=== PATIENT | female | born 1970 | race African-American/Black ===

== ENCOUNTER 2023-10-31 20:15 | Observation (INO) | payer MEDICARE, SELFPAY ==
--- NOTE | ~2023-10-31 | NM_ITS ---
EXAMINATION: NM hepatobiliary w pharm DATE: 11/02/2023 14:48 INDICATION: Upper abdominal pain, nausea and vomiting COMPARISON: None. TECHNIQUE: 4.3 mCi Tc-99m mebrofenin (Choletec) was administered intravenously. Scintigraphic images of the abdomen were obtained for one hour. 2.1 mcg sincalide (Kinevac) was administered by slow intr avenous infusion, and imaging was continued for 30 minutes. Gallbladder ejection fraction was calcula kirk by the technologist. FINDINGS: There is normal clearance of radiotracer from the blood pool. There is homogeneous tracer uptake by t he liver. Activity progresses to the gallbladder and bowel. The gallbladder ejection fraction (GBEF) is 80% (normal 10-90%, but most patient with gallbladder dysfunction have GBEF < 35% which does over lap with the normal range). IMPRESSION: 1. Normal hepatobiliary scan Reviewed, dictated and finalized at location A.
--- NOTE | ~2023-10-31 | MR_ITS ---
EXAMINATION: MR MRCP wo/w con/w 3D wo ind DATE: 11/01/2023 12:40 INDICATION: Right upper quadrant abdominal pain. TECHNIQUE: Magnetic resonance imaging (MRI) of the abdomen was performed without and with 20 mL Multi Celina intravenous contrast. Sequences included coronal T2-weighted FS FSE, coronal T2-weighted FSE, a xial T1-weighted LAVA, coronal FS FIESTA, axial dual-echo T1-weighted SPGR, coronal lava-FLEX, sagitt al T2-weighted FSE, axial T2-weighted FSE, and axial DWI. Thick-slab T2-weighted FSE images were obta ined for magnetic resonance cholangiopancreatography (MRCP). Maximum intensity projection 3-D reconst ructions of the volumetric data were created by the technologist. Postcontrast sequences included cor onal LAVA-flex and time course of axial T1-weighted LAVA. COMPARISON: Ultrasound 11/01/2023, CT abdomen and pelvis 10/31/2023 FINDINGS: ABDOMEN MRI: The liver and gallbladder are normal. There are cysts in the spleen measuring up to 12 m m. The pancreas and adrenal glands are normal. There are cysts in the kidneys measuring up to 1.9 cm on the left. There is a 9 mm hemorrhagic cyst in left kidney. There are no dilated loops of bowel. Th ere is a small sliding hiatal hernia. ABDOMEN MRCP: The common duct is mildly dilated to 8 mm. No choledocholithiasis. IMPRESSION: 1. Mildly dilated common duct. No choledocholithiasis. 2. Small sliding hiatal hernia. Reviewed, dictated and finalized at location A.
--- NOTE | ~2023-10-31 | US_ITS ---
EXAMINATION: US abdomen limited DATE: 11/01/2023 10:23 INDICATION: Right upper quadrant abdominal pain. TECHNIQUE: Multiple grayscale and Doppler ultrasound images of the abdomen were obtained. COMPARISON: CT abdomen and pelvis 10/31/2023 FINDINGS: The visualized portions of the head, body, and tail of the pancreas are normal. The liver i s normal without focal lesion. There is antegrade flow in main portal vein. The gallbladder is normal in size. No gallstones or gallbladder wall thickening. There is no sonographic Wisdom's sign. The co mmon duct is normal and measures 6 mm. IMPRESSION: 1. Normal right upper quadrant ultrasound. Reviewed, dictated and finalized at location A.
--- NOTE | ~2023-10-31 | CT_ITS ---
EXAMINATION: CT abdomen pelvis w con DATE: 10/31/2023 22:30 INDICATION: abdominal pain TECHNIQUE: Computed tomography (CT) of the abdomen and pelvis was performed with 100 mL Omnipaque-350 intravenous contrast. Automated exposure control and iterative reconstruction technique were employe d. The dose-length product was 1240.71 mGy-cm. COMPARISON: None. FINDINGS: Lower thorax: Unremarkable Liver: Normal. Biliary/Gallbladder: Gallbladder is normal. Mild intrahepatic bile duct dilation. The common bile smith t measures 9 mm the level of the pancreatic head. No obstructing stone or mass detected. Pancreas: No mass or duct dilation. Spleen: Normal. Adrenals:No mass. Kidneys: 11 mm exophytic left lower pole hyperdense lesion. 15 mm slightly hyperdense right lower nona e lesion. No obstructing stone or hydronephrosis. Multiple bilateral simple renal cysts. Multiple sub centimeter hypodensities that are too small to characterize but likely represent cysts. GI tract: Small hiatal hernia. Moderate distal esophageal wall edema. Mild antral wall edema. No smal l or large bowel dilation. Normal appendix. Diverticulosis without diverticulitis. Mesentery/Peritoneum: No ascites, mass, or free air. Retroperitoneum: No mass. Pelvis: Partial obscuration from metallic streak artifact. Empty urinary bladder. Likely surgically absent uterus. Normal bilateral ovaries. Soft Tissues: Asymmetric soft tissue density in the peroneal fat to the right of midline, measuring 3 .3 x 1.9 cm. Bones: No acute osseous finding. Uncomplicated appearing right arthroplasty hardware IMPRESSION: Moderate distal esophagitis. Mild antral gastritis. Mild hepatic duct dilation, with common bile duct dilation to 9 mm. No comparison studies available t o determine stability. No obstructing stone or mass detected. No inflammatory changes in the gallblad erika. Correlate with biliary labs and consider MRCP. Bilateral indeterminate density renal lesions, recommend nonemergent but timely outpatient MRI or CT without and with contrast for further evaluation. These lesions could be evaluated if the above MRCP is performed. Asymmetric soft tissue density in the right peroneal fat, may represent a gynecologic cyst with prote inaceous content, or less likely a rectal mass/abscess. Correlate with symptoms and exam findings. Reviewed, dictated and finalized at location K. IMPRESSION: Moderate distal esophagitis. Mild antral gastritis. Mild hepatic duct dilation, with common bile duct dilation to 9 mm. No comparis on studies available to determine stability. No obstructing stone or mass detec kirk. No inflammatory changes in the gallbladder. Correlate with biliary labs an d consider MRCP. Bilateral indeterminate density renal lesions, recommend nonemergent but timely outpatient MRI or CT without and with contrast for further evaluation. These l esions could be evaluated if the above MRCP is performed. Asymmetric soft tissue density in the right peroneal fat, may represent a gynec ologic cyst with proteinaceous content, or less likely a rectal mass/abscess. C orrelate with symptoms and exam findings.
[2023-10-31 20:22] VITALS: BP 113/71; PULSE 78; RESP 16; TEMP 36.8; O2SAT 99
[2023-10-31 22:03] LABS: Basophils Percent Auto 0.2 % (0.2-1.2); Eosinophils Percent Auto 0.5 % (0-4.4); Hematocrit 38.5 % (37.0-47.0); Immature Granulocyte Absolute 0.02 K/mm3 (0.00-0.031); Immature Granulocyte Percent A 0.3 % (0-0.5); Lymphocytes Absolute Auto 1.54 K/mm3 (0.9-3.2); Lymphocytes Percent Auto 26.6 % (18.3-44.2); Mean Corpuscular HGB Conc 33.8 g/dl (32-36); Mean Corpuscular Volume 88.9 fl (80-100); Mean Platelet Volume 10.1 fl (7.4-10.4); Monocytes Absolute Auto 0.7 K/mm3 (0.1-0.6); Monocytes Percent Auto 11.4 % (2.6-8.5); Neutrophils Absolute Auto 3.5 K/mm3 (1.3-6.7); Platelet Count Result 173 k/mm3 (150-375); Red Blood Count 4.33 M/mm3 (4.2-5.4); Red Cell Distribution Width 13.8 % (11.5-14.5); White Blood Count 5.8 K/mm3 (4.5-10.0)
[2023-10-31 22:12] LABS: Alanine Aminotransferase 29 U/L (6-35); Albumin Level 4.4 g/dL (3.5-5.1); Alkaline Phosphatase 93 U/L (38-126); Anion Gap 7 mmol/L (4-12); Aspartate Amino Transferase 43 U/L (14-36); Bilirubin,Total 0.8 mg/dL (0.2-1.3); Blood Urea Nitrogen 16 mg/dL (7-17); Carbon Dioxide 28 mmol/L (22-30); Chloride 104 mmol/L (98-107); Estimated CRCL calculation 45 ml/min; Estimated Glomerular Filt Rate 44; Glucose 121 mg/dL (65-110); Lipase 114 U/L (23-300); Potassium 4.2 mmol/L (3.4-5.0); Sodium 139 mmol/L (137-145)
[2023-10-31 22:42] LABS: Appearance Urine Turbid (Clear); Bacteria Urine 4+ /hpf; Bilirubin Urine 1+ (Negative); Blood Urine Negative (Negative); Budding Yeast Urine Present /hpf; Color Urine Dark Yellow (Yellow); Glucose Urine UA Negative (Negative); Hyaline Casts Urine Present /lpf; Ketones Urine Trace mg/dL (Negative); Leukocyte Esterase Ur 2+ LEU/UL (Negative); Need Manual Microscopic Reviewed; Nitrate Urine Negative (Negative); Non Pathogenic Casts >20; Protein Urine 1+ mg/dL (Negative); Specific Grav Ur 1.022 (1.001-1.035); Squamous Epithelial Cell Urine Many /hpf (Few); Urobilinogen Urine 0.2 mg/dL (<2.0); WBC Urine 21-50 /hpf (0-3)
[2023-10-31] MEDS: ONDANSETRON INJ 4 MG/2 ML VIAL IV PUSH (22:43)
[2023-10-31] MEDS: SODIUM CHLORIDE 0.9% IV 1,000 ML 999 ML IV CONT (22:43)
[2023-10-31] MEDS: PANTOPRAZOLE SODIUM IV 40 MG VIAL IV PUSH (22:43)
[2023-10-31 22:50] LABS: Add Urine Microscopic? YES
[2023-10-31] MEDS: DICYCLOMINE HCL INJ 20 MG/2 ML VIAL IM (22:58)
[2023-10-31] MEDS: TETANUS,DIPHTHERIA,AC PERTUSSIS ADULT (0.5 ML) BOOSTRIX IM (22:58)
--- NOTE | 2023-10-31 23:04 | PC.NURSE ---
care and report given to HOLLY Novak. all questions answered.
[2023-10-31 23:05] VITALS: PULSE 63; RESP 16; O2SAT 100
--- NOTE | 2023-10-31 23:36 | ED.GENADULT ---
HPI - General Adult General Chief complaint: Abdominal Pain <Donald Bosch MD - Last Filed: 11/01/23 00:15> Stated complaint: abd pain, finger lac <Donald Bosch MD - Last Filed: 11/01/23 00:15> Time Seen by Provider: 10/31/23 21:53 <Donald Bosch MD - Last Filed: 11/01/23 00:15> History of Present Illness HPI narrative: and patient is a 53-year-old female who presents emergency department with chief complaint of right upper quadrant pain and back pain patient reports started this morning reports that it is worse whenever she leans forward patient also states that when she was doing some barbecue she cut her left index finger with a knife. Patient reports prior surgical history significant for a hysterectomy but reports she still has her appendix and gallbladder <Donald Bosch MD - Last Filed: 11/01/23 00:15> Related Data Allergies/adverse reactions: Allergies Allergy/AdvReac Type Severity Reaction Status Date / Time No Known Allergies Allergy Verified 10/31/23 20:33 <Donald Bosch MD - Last Filed: 11/01/23 00:15> Review of Systems Review of Systems: A 10 system review of systems was completed on the patient and is negative except for what is stated in the HPI. Nursing and ancillary documentation was reviewed. <Donald Bosch MD - Last Filed: 11/01/23 00:15> Exam Narrative: GENERAL: Well-appearing, well-nourished, and in no acute distress. HEAD: Normocephalic, atraumatic. EYES: PERRLA and EOMI. ENT: Nares clear, no rhinorrhea or epistaxis. Mucous membranes moist. NECK: Supple. CHEST: Clear to auscultation. No respiratory distress. HEART: Regular rate and rhythm. No murmur heard. Normal peripheral pulses. ABDOMEN: Soft, tenderness to palpation right upper quadrant and epigastric region, nondistended, normal active bowel sounds. EXTREMITIES: Normal range of motion, 1.5 cm laceration on volar aspect of the left index finger. No edema. SKIN: Warm, dry, no rash. NEURO: No focal deficits. Alert and oriented x3. PSYCH: Normal mood and affect. <Donald Bosch MD - Last Filed: 11/01/23 00:15> Course Vital Signs Vital signs: Vital Signs Temperature 98.3 F 10/31/23 20:22 Pulse Rate 78 10/31/23 20:22 Respiratory Rate 16 10/31/23 20:22 Blood Pressure 113/71 10/31/23 20:22 Pulse Oximetry 99 10/31/23 20:22 Oxygen Delivery Room Air 10/31/23 20:22 Temperature 98.3 F 10/31/23 20:22 Pulse Rate 64 11/01/23 00:23 Respiratory Rate 16 11/01/23 00:23 Blood Pressure 109/62 11/01/23 00:03 Pulse Oximetry 94 11/01/23 00:23 Oxygen Delivery Room Air 10/31/23 20:22 <Donald Bosch MD - Last Filed: 11/01/23 00:15> Vital Signs Temperature 98.3 F 10/31/23 20:22 Pulse Rate 78 10/31/23 20:22 Respiratory Rate 16 10/31/23 20:22 Blood Pressure 113/71 10/31/23 20:22 Pulse Oximetry 99 10/31/23 20:22 Oxygen Delivery Room Air 10/31/23 20:22 Temperature 98.3 F 10/31/23 20:22 Pulse Rate 64 11/01/23 00:23 Respiratory Rate 16 11/01/23 00:23 Blood Pressure 109/62 11/01/23 00:03 Pulse Oximetry 94 11/01/23 00:23 Oxygen Delivery Room Air 10/31/23 20:22 <Loni Ryan PA-C - Last Filed: 11/01/23 00:46> Procedures Laceration Laceration 1: Date: 10/31/23 <Loni Ryan PA-C - Last Filed: 11/01/23 00:46> Time: 23:41 <JACEY Cavanaugh Last Filed: 11/01/23 00:46> Site: hand <JACEY Cavanaugh Last Filed: 11/01/23 00:46> Side (If applicable): left <Loni Ryan PA-C - Last Filed: 11/01/23 00:46> Size (cm): 1.5 <JACEY Cavanaugh Last Filed: 11/01/23 00:46> Description: linear <JACEY Cavanaugh Last Filed: 11/01/23 00:46> Depth: simple, single layer <JACEY Cavanaugh Last Filed: 11/01/23 0
[2023-10-31 23:53] VITALS: BP 91/79
[2023-11-01] VITALS (8 sets, daily range): BP systolic 106–116; BP diastolic 56–70; PULSE 55–64; RESP 16–20; TEMP 35.7–36.6; O2SAT 94–100; BMI 38.5
--- NOTE | 2023-11-01 01:04 | ADMGEN ---
This patient, Adryan Torre, was admitted to [facility] Surg Room 302-01. Patient/family oriented to hospital policies and general routines including ID bracelet, bed and alarms, visiting hours, pain management, procedures, bathroom and other care routines, personal items, smoking policy, room service/diet, and visiting hours. Information on how to activate the Rapid Response Team has been discussed. Patient/Family are encouraged to report perceived risks to care and to ask questions if they do not understand what they are told or what they should do.
[2023-11-01] MEDS: SODIUM CHLORIDE 0.9% IV 1,000 ML 125 ML IV CONT (01:49)
[2023-11-01] MEDS: MORPHINE SULFATE (*CRX) 4 MG/ML INJ IV PUSH ×3 (02:38→12:53)
--- NOTE | 2023-11-01 05:33 | PM.IMHP ---
H&P: HPI History of Present Illness Date/Time: 11/01/23 05:33 Chief Complaint: Abdominal pain Narrative: Patient is a 53-year-old female who presented to emergency room complaining of right upper quadrant pain and back pain that started that morning. Patient states the pain has gotten worse there was she leans forward. Patient was also a barbecue vision card for left index finger with a knife which was sutured in the emergency room. Previous history of hysterectomy but still has appendix and no gallbladder surgeries in the past. Patient had initial workup done in the hospital and was recommended to get a MRCP due to possible common duct dilatation. Patient is being admitted for observation for further workup and evaluation patient denied any fevers chills no nausea no vomiting no diarrhea no hematemesis hemoptysis dizziness chest pain shortness for Review of Systems Review of Systems: All systems reviewed & are unremarkable except as noted in HPI and below PMFSH Family History Family History (Updated 11/01/23 @ 01:33 by Judith Mendoza RN) Mother Aneurysm Heart disease Hypertension Gout Father Diabetes mellitus Hypertension Social History Social History Smoking status: Never smoker Alcohol intake: former Substance use: never Do You Feel Safe in your Home?: Yes Lack of Transportation: YES Lack of Food: Never True Current Housing: I Have Housing Concerned About Future Housing: No Difficulty Paying Gas/Electric Bills: No Difficulty Paying for Meds: No Currently Unemployed: No Education: High School Diploma/GED Difficulty w/ Childcare or Family Care: No Spiritual care concerns: No Meds Home Medications and Allergies Home Medications Medication Instructions Recorded Confirmed Type amitriptyline 10 mg tablet 10 mg PO HS 11/01/23 11/01/23 History calcium citrate 200 mg (950 mg) 1,900 mg PO TID 11/01/23 11/01/23 History tablet cetirizine 10 mg tablet (Zyrtec) 10 mg PO DAILY PRN allergies 11/01/23 11/01/23 History cholecalciferol (vitamin D3) 25 25 mcg PO DAILY 11/01/23 11/01/23 History mcg (1,000 unit) tablet cyanocobalamin (vitamin B-12) 50 50 mcg PO TID 11/01/23 11/01/23 History mcg tablet (Vitamin B-12) cyclobenzaprine 10 mg tablet 10 mg PO HS 11/01/23 11/01/23 History diclofenac sodium 1 % topical gel 2 g topical QID 11/01/23 11/01/23 History docusate sodium 100 mg capsule 100 mg PO BID 11/01/23 11/01/23 History (Colace) duloxetine 60 mg capsule,delayed 60 mg PO DAILY 11/01/23 11/01/23 History release (Cymbalta) fluticasone propionate 50 2 spray intranasal DAILY 11/01/23 11/01/23 History mcg/actuation nasal spray,suspension glucosamine sulfate 500 mg tablet 500 mg PO BID 11/01/23 11/01/23 History lidocaine 5 % topical patch 1 patch topical DAILY 11/01/23 11/01/23 History lisinopril 20 mg tablet 20 mg PO DAILY 11/01/23 11/01/23 History magnesium oxide 500 mg capsule 500 mg PO DAILY 11/01/23 11/01/23 History omeprazole 20 mg tablet,delayed 20 mg PO DAILY 11/01/23 11/01/23 History release pravastatin 20 mg tablet 20 mg PO DAILY 11/01/23 11/01/23 History sennosides 8.6 mg capsule (senna) 8.6 mg PO BID 11/01/23 11/01/23 History Allergies Allergy/AdvReac Type Severity Reaction Status Date / Time [place] And Derivatives Allergy Rash Verified 11/01/23 04:43 seafood Allergy Rash Uncoded 11/01/23 01:29 Vital Signs Vital Signs - 24 hr 10/31/23 20:22 10/31/23 23:05 10/31/23 23:53 Temperature 36.8 C Pulse Rate 78 63 Respiratory Rate 16 16 Blood Pressure 113/71 91/79 L Pulse Oximetry 99 100 Oxygen Delivery Room Air 11/01/23 00:03 11/01/23 00:23 11/01/23 01:15 Temperature 36.4 C L Pulse Rate 64 61 Respiratory Rate 16 20 Blood Pressure 109/62 116/70 Pulse Oximetry 94 100 Oxygen Delivery Exam Narrative: GENERAL: Well appearing, no acute distress.
[2023-11-01 06:41] LABS: Hematocrit 35.3 % (37.0-47.0); Hemoglobin 11.8 g/dL (12.0-15.0); Mean Corpuscular HGB Conc 33.4 g/dl (32-36); Mean Corpuscular Hemoglobin 29.9 pg (26-34); Mean Corpuscular Volume 89.6 fl (80-100); Mean Platelet Volume 10.2 fl (7.4-10.4); Platelet Count Result 145 k/mm3 (150-375); Red Blood Count 3.94 M/mm3 (4.2-5.4); Red Cell Distribution Width 13.8 % (11.5-14.5); White Blood Count 4.3 K/mm3 (4.5-10.0)
[2023-11-01 06:49] LABS: Hemoglobin A1C 5.1 % (<5.7)
[2023-11-01 06:52] LABS: Alanine Aminotransferase 27 U/L (6-35); Albumin Level 3.8 g/dL (3.5-5.1); Alkaline Phosphatase 79 U/L (38-126); Anion Gap 5 mmol/L (4-12); Aspartate Amino Transferase 39 U/L (14-36); Bilirubin,Total 0.7 mg/dL (0.2-1.3); Blood Urea Nitrogen 13 mg/dL (7-17); Calcium 8.7 mg/dL (8.4-10.2); Carbon Dioxide 27 mmol/L (22-30); Chloride 107 mmol/L (98-107); Estimated CRCL calculation 68 ml/min; Estimated Glomerular Filt Rate > 60; Glucose 91 mg/dL (65-110); Potassium 4.1 mmol/L (3.4-5.0); Sodium 139 mmol/L (137-145)
[2023-11-01] MEDS: PANTOPRAZOLE SODIUM IV 40 MG VIAL IV PUSH (08:05)
[2023-11-01] MEDS: DULoxetine HCL 60 MG CAPSULE.DR PO (14:20)
[2023-11-01] MEDS: lisinopriL 20 MG TABLET PO (14:20)
[2023-11-01] MEDS: FLUTICASONE PROPIONATE 0.05% NA SPR 16 GM BTL (*BKC) 2 SPRAY NASAL (14:21)
[2023-11-01] MEDS: PRAVASTATIN SODIUM 20 MG TABLET PO (14:21)
--- NOTE | 2023-11-01 16:03 | PC.NURSE ---
Dr Smith notified of patient vomiting after eating and now c/o abd cramping.
--- NOTE | 2023-11-01 16:07 | PM.EVENT ---
Event Note Event Note Event Note: Patient reporting cramping again. Nausea unable to eat. She feels Bentyl help that, ordered Bentyl 20 mg q.6 hours p.r.n.. MRCP demonstrating mildly dilated common duct with no choledocholithiasis and a small sliding hiatal hernia. NPO at midnight, GI consulted.
[2023-11-01] MEDS: DICYCLOMINE HCL INJ 20 MG/2 ML VIAL IM ×2 (16:22→22:42)
[2023-11-01] MEDS: SENNOSIDES 8.6 MG TABLET PO (16:26)
--- NOTE | 2023-11-01 18:07 | WPDGICN ---
Assessment and Plan Assessment and plan (1) Upper abdominal pain: Code(s): R10.10 - Upper abdominal pain, unspecified Status: Acute Assessment and Plan: wonder if could be gastroenteritis, pud, etc new onset noted only mild elevated ast, mild dilated bile duct but MRCP otherwise normal, no need of ERCP will do EGD in the morning, also hida scan to check GB (2) Nausea and vomiting in adult: Code(s): R11.2 - Nausea with vomiting, unspecified Status: Acute Assessment and Plan: improved egd in am (3) Dilated bile duct: Code(s): K83.8 - Other specified diseases of biliary tract Status: Acute Assessment and Plan: probably non significant, no stones in bile duct or lesions ? GB dyskinesia consider surgery consult if persistent symptom or abnormal hida scan GI Consult Note Consult date/time: 11/01/23 18:07 Reason for consult: upper abdominal pain, n/v HPI: Adryan Torre is a 53 year old female with history of HTN, constipation on colace who about 2-3 days had more gas and indigestion with incomplete BM then took gas-x and other GI meds, then yesterday with new onset of upper abdominal pain both sides with radiation to her back, described as Charley horse pain also had episode of nausea and vomiting, worse when leaing forward. CT scan showed mild dilation of CBD, MRCP reviewed mildly dilated common duct. No choledocholithiasis. Small sliding hiatal hernia. Never had EGD, she had colonoscopy about 3-4 years ago. AST 43, other liver enzymes normal including lipase, no wbc. Review of Systems Constitutional: Constitutional: Denies chills Eyes: Eyes: Denies blurry vision ENT: Reports Normal hearing present Cardiovascular: Cardiovascular: Denies chest pain and Denies dyspnea Respiratory: Respiratory: Denies dyspnea Gastrointestinal: Gastrointestinal: Reports no additional gastrointestinal complaints Genitourinary: Genitourinary: Denies dysuria Musculoskeletal: Musculoskeletal: Reports back pain Integumentary/Breasts: Skin/Breast: Denies dry skin Neurologic: Reports Normal hearing present, Denies headache(s) and Denies weakness Psychiatric: Psychiatric: Denies anxiety Hematologic/Lymphatic: Hematologic/Lymphatic: Denies easy bleeding Allergic/Immunologic: Allergic/Immunologic: Denies urticaria PMFSH Past Medical History Medical History (Updated 11/01/23 @ 18:12 by Robert Olson MD) Dilated bile duct Nausea and vomiting in adult Upper abdominal pain Family History Family History (Updated 11/01/23 @ 01:33 by Judith Mendoza RN) Mother Aneurysm Heart disease Hypertension Gout Father Diabetes mellitus Hypertension Social History Social History Smoking status: Never smoker Alcohol intake: former Substance use: never Do You Feel Safe in your Home?: Yes Lack of Transportation: YES Lack of Food: Never True Current Housing: I Have Housing Concerned About Future Housing: No Difficulty Paying Gas/Electric Bills: No Difficulty Paying for Meds: No Currently Unemployed: No Education: High School Diploma/GED Difficulty w/ Childcare or Family Care: No Spiritual care concerns: No Meds Home Medications and Allergies Home Medications Medication Instructions Recorded Confirmed Type amitriptyline 10 mg tablet 10 mg PO HS 11/01/23 11/01/23 History calcium citrate 200 mg (950 mg) 1,900 mg PO TID 11/01/23 11/01/23 History tablet cetirizine 10 mg tablet (Zyrtec) 10 mg PO DAILY PRN allergies 11/01/23 11/01/23 History cholecalciferol (vitamin D3) 25 25 mcg PO DAILY 11/01/23 11/01/23 History mcg (1,000 unit) tablet cyanocobalamin (vitamin B-12) 50 50 mcg PO TID 11/01/23 11/01/23 History mcg tablet (Vitamin B-12) cyclobenzaprine 10 mg tablet 10 mg PO HS 11/01/23 11/01/23 History diclofenac sodium 1 % topical gel 2 g topical QID
[2023-11-01] MEDS: AMITRIPTYLINE HCL 10 MG TABLET PO (21:59)
[2023-11-02] VITALS (7 sets, daily range): BP systolic 111–150; BP diastolic 67–94; PULSE 56–74; RESP 16–22; TEMP 36.1–36.6; O2SAT 92–100
[2023-11-02 07:19] LABS: Hematocrit 38.5 % (37.0-47.0); Hemoglobin 12.5 g/dL (12.0-15.0); Mean Corpuscular HGB Conc 32.5 g/dl (32-36); Mean Corpuscular Hemoglobin 29.9 pg (26-34); Mean Corpuscular Volume 92.1 fl (80-100); Mean Platelet Volume 10.8 fl (7.4-10.4); Platelet Count Result 160 k/mm3 (150-375); Red Blood Count 4.18 M/mm3 (4.2-5.4); Red Cell Distribution Width 13.9 % (11.5-14.5); White Blood Count 4.5 K/mm3 (4.5-10.0)
[2023-11-02] MEDS: LACTATED RINGERS 1,000 ML 150 ML IV CONT (07:23)
--- NOTE | 2023-11-02 07:26 | WPDANESEPPF ---
Anes - Initial Pre Proc Eval Procedure: Operation Date: 11/02/23 12:30 Proposed Procedures p Esophagogastroduodenoscopy - Robert Olson MD Date/Time: 11/02/23 07:26 Surgeon: Jose Enrique Ma MD Pre Op Diagnosis: Abdominal pain Patient Data Age: 53 Gender: F Height: 1.65 m Weight: 105.2 kg Last Vital Signs Temp 36.6 C 11/02/23 04:50 Pulse 56 L 11/02/23 04:50 Resp 18 11/02/23 04:50 BP 125/79 11/02/23 04:50 Pulse Ox 92 11/02/23 04:50 O2 Del Method Room Air 11/01/23 08:45 Allergies Allergy/AdvReac Type Severity Reaction Status Date / Time [place] And Derivatives Allergy Rash Verified 11/02/23 07:25 seafood Allergy Rash Uncoded 11/02/23 07:25 Home Medications Medication Instructions Recorded Confirmed Type amitriptyline 10 mg tablet 10 mg PO HS 11/01/23 11/01/23 History calcium citrate 200 mg (950 mg) 1,900 mg PO TID 11/01/23 11/01/23 History tablet cetirizine 10 mg tablet (Zyrtec) 10 mg PO DAILY PRN allergies 11/01/23 11/01/23 History cholecalciferol (vitamin D3) 25 25 mcg PO DAILY 11/01/23 11/01/23 History mcg (1,000 unit) tablet cyanocobalamin (vitamin B-12) 50 50 mcg PO TID 11/01/23 11/01/23 History mcg tablet (Vitamin B-12) cyclobenzaprine 10 mg tablet 10 mg PO HS 11/01/23 11/01/23 History diclofenac sodium 1 % topical gel 2 g topical QID 11/01/23 11/01/23 History docusate sodium 100 mg capsule 100 mg PO BID 11/01/23 11/01/23 History (Colace) duloxetine 60 mg capsule,delayed 60 mg PO DAILY 11/01/23 11/01/23 History release (Cymbalta) fluticasone propionate 50 2 spray intranasal DAILY 11/01/23 11/01/23 History mcg/actuation nasal spray,suspension glucosamine sulfate 500 mg tablet 500 mg PO BID 11/01/23 11/01/23 History lidocaine 5 % topical patch 1 patch topical DAILY 11/01/23 11/01/23 History lisinopril 20 mg tablet 20 mg PO DAILY 11/01/23 11/01/23 History magnesium oxide 500 mg capsule 500 mg PO DAILY 11/01/23 11/01/23 History omeprazole 20 mg tablet,delayed 20 mg PO DAILY 11/01/23 11/01/23 History release pravastatin 20 mg tablet 20 mg PO DAILY 11/01/23 11/01/23 History sennosides 8.6 mg capsule (senna) 8.6 mg PO BID 11/01/23 11/01/23 History Laboratory Tests 11/02/23 06:08 WBC Pending RBC Pending Hgb Pending Hct Pending MCV Pending MCH Pending MCHC Pending RDW Pending Plt Count Pending MPV Pending Sodium Pending Potassium Pending Chloride Pending Carbon Dioxide Pending Anion Gap Pending BUN Pending Creatinine Pending Estim Creat Clear Calc Pending Estimated GFR Pending Glucose Pending Calcium Pending Magnesium Pending Total Bilirubin Pending AST Pending ALT Pending Alkaline Phosphatase Pending Total Protein Pending Albumin Pending Patient hx anesthesia problems: none Family hx anesthesia problems: none Results Review: All pre-operative results and documents have been reviewed as part of the pre-operative evaluation. [facility] Past Medical History Medical History (Updated 11/02/23 @ 07:30 by Shawn Gunn DO) Dilated bile duct Hyperlipidemia Hypertension Nausea and vomiting in adult Upper abdominal pain Surgical History Surgical History (Updated 11/02/23 @ 07:30 by Shawn Gunn DO) History of thyroidectomy Family History Family History (Updated 11/01/23 @ 01:33 by Judith Mendoza RN) Mother Aneurysm Heart disease Hypertension Gout Father Diabetes mellitus Hypertension Social History Social History Smoking status: Never smoker Alcohol intake: former Substance use: never Do You Feel Safe in your Home?: Yes Lack of Transportation: YES Lack of Food: Never True Current Housing: I Have Housing Concerned About Future Housing:
[2023-11-02 07:29] LABS: Alanine Aminotransferase 26 U/L (6-35); Alkaline Phosphatase 78 U/L (38-126); Anion Gap 5 mmol/L (4-12); Aspartate Amino Transferase 38 U/L (14-36); Bilirubin,Total 0.7 mg/dL (0.2-1.3); Blood Urea Nitrogen 12 mg/dL (7-17); Calcium 8.7 mg/dL (8.4-10.2); Carbon Dioxide 29 mmol/L (22-30); Chloride 108 mmol/L (98-107); Estimated CRCL calculation 83 ml/min; Estimated Glomerular Filt Rate > 60; Glucose 80 mg/dL (65-110); Magnesium 2.1 mg/dL (1.6-2.3); Potassium 4.2 mmol/L (3.4-5.0); Sodium 142 mmol/L (137-145)
--- NOTE | 2023-11-02 08:30 | PM.IMPN ---
Progress Note: A&P Assessment and Plan (1) Right upper quadrant abdominal pain: Code(s): R10.11 - Right upper quadrant pain Status: Acute (2) Laceration of left index finger: Qualifiers: Damage to nail status: without damage Encounter type: initial encounter Foreign body presence: without foreign body Qualified Code(s): S61.211A - Laceration without foreign body of left index finger without damage to nail, initial encounter Code(s): S61.211A - Laceration without foreign body of left index finger without damage to nail, initial encounter Status: Acute Plan Abdominal pain Continue IV hydration. Pain management. Ultrasound right upper quadrant. Normal right upper quadrant ultrasound. MRCP 1. Mildly dilated common duct. No choledocholithiasis. 2. Small sliding hiatal hernia. CT Moderate distal esophagitis. Mild antral gastritis. Continue Protonix. Appreciate GI consultation. GI considers patient has gallbladder dyskinesia. Consult general surgeon for evaluation and treatment HIDA scan is pending Laceration left index finger. Tetanus shot. Wound care. Sutures placed by the ED. Continue to monitor and watch for any infection ESMER cause dehydration serum creatinine 1.5 POA Avoid nephrotoxic drugs. Monitor antihypertensive drug therapy. Avoid NSAIDs. Routine CMP monitoring GFR. Monitor electrolytes especially potassium. Pharmacy does medications. Currently resolved UTI Urine cultures and sensitivity. Continue IV hydration. IV antibiotics Rocephin Monitor CBC CMP monitor for sepsis. Monitor vital signs Monitor for obstructive uropathy and pyelonephritis Pending blood culture, urine culture showed mixed genital floor History of hypertension continue lisinopril. History of hyperlipidemia continue pravastatin History of gastric reflux continue omeprazole History of anxiety continue Cymbalta Subjective Date/time seen: 11/02/23 08:30 Interval history: I saw exam patient today, patient still has upper abdomen pain, patient denies nausea vomiting diarrhea. Patient has a moderate abdomen pain, patient afebrile blood pressure stable, HIDA test is pending Exam Narrative: GENERAL: Well appearing, no acute distress. Obesity HEAD: Normocephalic, atraumatic. NECK: Supple. No adenopathy, no masses. RESPIRATORY: respirations nonlabored. , no rales, wheezing. CARDIOVASCULAR: Regular rate and rhythm without murmurs, . Peripheral pulses 2+ and equal bilaterally. ABDOMINAL: Soft, minimal tender upper abdomen tender, nondistended, no hepatosplenomegaly. Normoactive BS. MUSCULOSKELETAL: l tenderness laceration left index finger status post sutures SKIN: Warm, dry, NEURO: A&O X3. Moves all extremities Objective Data Vital Signs Vital Signs: Vital Signs - 24 hr 11/01/23 08:45 11/01/23 13:53 11/01/23 20:47 Temperature 97.6 F 97.9 F Pulse Rate 58 L 55 L Respiratory Rate 20 18 Blood Pressure 113/64 111/56 L Pulse Oximetry 98 99 98 Oxygen Delivery Room Air 11/02/23 04:50 11/02/23 07:26 11/02/23 07:56 Temperature 97.9 F 97.4 F L Pulse Rate 56 L 64 74 Respiratory Rate 18 16 21 H Blood Pressure 125/79 134/80 123/69 Pulse Oximetry 92 100 100 Oxygen Delivery Room Air Room Air 11/02/23 08:06 11/02/23 08:16 Temperature Pulse Rate 68 72 Respiratory Rate 20 22 H Blood Pressure 122/74 114/67 Pulse Oximetry 100 100 Oxygen Delivery Room Air Room Air Intake/Output Intake/Output: Intake & Output 10/30/23 10/31/23 11/01/23 11/02/23 23:59 23:59 23:59 23:59 Intake Total 1290 50 Balance 1290 50 Meds/Results Medications: Active Medications Generic Name Dose Route Start Last Admin Trade Name Freq PRN Reason Stop Dose Admin Amitriptyline HCl 10 mg 11/01/23 21:00 11/01/23 21:59 Amitriptyline Hcl 10 Mg Tablet PO 10 mg HS ANIYAH Administration Calcium Carbonate 500 mg 11/01
[2023-11-02] MEDS: SENNOSIDES 8.6 MG TABLET PO (09:21)
[2023-11-02] MEDS: CALCIUM CARBONATE (OSCAL) 500 MG TABLET PO (09:21)
[2023-11-02] MEDS: PANTOPRAZOLE 40 MG TABLET PO (09:21)
[2023-11-02] MEDS: DULoxetine HCL 60 MG CAPSULE.DR PO (09:21)
[2023-11-02] MEDS: lisinopriL 20 MG TABLET PO (09:21)
[2023-11-02] MEDS: PRAVASTATIN SODIUM 20 MG TABLET PO (09:21)
[2023-11-02] MEDS: FLUTICASONE PROPIONATE 0.05% NA SPR 16 GM BTL (*BKC) 2 SPRAY NASAL (09:22)
--- NOTE | 2023-11-02 11:06 | PM.CNGS ---
Assessment and Plan Assessment and plan (1) Upper abdominal pain: Code(s): R10.10 - Upper abdominal pain, unspecified Status: Acute Assessment and Plan: The patient had an acute episode of upper abdominal pain that brought her into the ER two days ago. EGD showed ulcerative gastritis, which certainly could explain her abdominal pain. She is being appropriately treated for this with PPI therapy and should avoid any NSAIDs. I have reviewed all of her imaging, including her CT scan, ultrasound, and MRCP, which all show a normal gallbladder with no gallstones. Her abdominal pain seems to be improving with the current treatment and she was able to tolerate breakfast this morning. GI has ordered a HIDA scan with possible concern for biliary dyskinesia. Will wait for the HIDA scan results. If normal, she can advance her diet and be discharged home with continued treatment of the ulcerative gastritis. If there is evidence of biliary dyskinesia or chronic cholecystitis, then her diet can be advanced and she could be discharged on a low fat diet and follow-up with Dr. Arrieta as an outpatient. (2) Dilated bile duct: Code(s): K83.8 - Other specified diseases of biliary tract Status: Acute Assessment and Plan: Dilated common bile duct on CT measuring [address] and ultrasound showed no cholelithiasis or any abnormalities of the gallbladder. MRCP still showed a mildly dilated common bile duct without choledocholithiasis. This could be an incidental finding. LFTs are all normal. GI following. Plan I have discussed the patient's case and plan of care with Dr. Arrieta. History of Present Illness Consult details Consult date: 11/02/23 Reason for consult: other (Abdominal pain) Requesting physician: Jeff Velasco MD Narrative: This is a 53-year-old woman with a history of hypertension and hyperlipidemia, who we have been asked to see in surgical consultation for abdominal pain. She presented to the ER 2 days ago with complaints of upper abdominal pain radiating to her back. She reports having some mid upper back pain a few days prior to coming into the hospital. Two days ago, this pain started radiating to her upper abdomen around and under her ribs. Throughout the day, the pain became more sever and changed to a sharp, stabbing pain. She had only had a few small bites of food through the day and no meals prior to her abdominal pain. She denies every having similar symptoms in the past. Due to her progressive pain, she came into the ER for evaluation. Labs on admission showed a normal WBC count and essentially normal LFTs with total bilirubin 0.8, AST 43, ALT 29, alk phos 93. Lipase normal. CT scan of the abdomen and pelvis showed moderate distal esophagitis, mild antral gastritis, mild hepatic duct dilatation with common bile duct dilation to 9 mm. No obstructing stone or mass detected, no inflammatory changes in the gallbladder, no CT evidence of gallstones. Also incidentally noted is bilateral indeterminate renal lesions, asymmetric soft tissue density in the right peroneal fat, and 3 small splenic hypodensities. Right upper quadrant abdominal ultrasound was normal. Gallbladder appears normal with no gallstones and common bile duct measured 6 mm. She was admitted to the hospitalist service. She had an MRCP that showed a mildly dilated common duct, no choledocholithiasis, and a small sliding hiatal hernia. GI has been consulted and she was taken for an EGD today that showed ulcerative gastritis and a small 2 cm hiatal hernia. She is currently on a PPI and recommended to avoid NSAIDs. GI has also ordered a HIDA scan for today. She is now seen on the medical floor. Her abdominal pain has improved. She actually ate breakfast this morning and tolerated this well. Review of Systems Review of Systems: All systems reviewed & are unremarkable except as noted in HPI and below PMFSH Past Medical History Medical History (Review
--- NOTE | 2023-11-02 16:37 | PM.DS ---
DS: Admitting Diagnosis Discharge Date 11/01 Admitting Diagnosis (1) Right upper quadrant abdominal pain: Code(s): R10.11 - Right upper quadrant pain Status: Acute (2) Laceration of left index finger: Qualifiers: Damage to nail status: without damage Encounter type: initial encounter Foreign body presence: without foreign body Qualified Code(s): S61.211A - Laceration without foreign body of left index finger without damage to nail, initial encounter Code(s): S61.211A - Laceration without foreign body of left index finger without damage to nail, initial encounter Status: Acute DS: Discharge Diagnosis Discharge Diagnosis (1) Right upper quadrant abdominal pain: Code(s): R10.11 - Right upper quadrant pain Status: Acute (2) Laceration of left index finger: Qualifiers: Damage to nail status: without damage Encounter type: initial encounter Foreign body presence: without foreign body Qualified Code(s): S61.211A - Laceration without foreign body of left index finger without damage to nail, initial encounter Code(s): S61.211A - Laceration without foreign body of left index finger without damage to nail, initial encounter Status: Acute DS: Summary Hospital Course Hospital Course: Per H&P, Patient is a 53-year-old female who presented to emergency room complaining of right upper quadrant pain and back pain that started that morning. Patient states the pain has gotten worse there was she leans forward. Patient was also a barbecue vision card for left index finger with a knife which was sutured in the emergency room. Previous history of hysterectomy but still has appendix and no gallbladder surgeries in the past. Patient had initial workup done in the hospital and was recommended to get a MRCP due to possible common duct dilatation. Patient is being admitted for observation for further workup and evaluation patient denied any fevers chills no nausea no vomiting no diarrhea no hematemesis hemoptysis dizziness chest pain The following med issues have been addressed during hospitalization Abdominal pain Continue IV hydration. Pain management. Ultrasound right upper quadrant. Normal right upper quadrant ultrasound. MRCP 1. Mildly dilated common duct. No choledocholithiasis. 2. Small sliding hiatal hernia. CT Moderate distal esophagitis. Mild antral gastritis. Continue Protonix. Appreciate GI consultation. GI considers patient has gallbladder dyskinesia. Consult general surgeon for evaluation and treatment HIDA scan : Normal hepatobiliary scan EGD found out the patient has gastritis and hiatal hernia start Protonix 40 mg b.i.d. p.o. and Carafate 1 g q.i.d. p.o. Laceration left index finger. Tetanus shot. Wound care. Sutures placed by the ED. pt need to see PCP in one wk for follow up ESMER cause dehydration serum creatinine 1.5 POA Avoid nephrotoxic drugs. Monitor antihypertensive drug therapy. Avoid NSAIDs. Routine CMP monitoring GFR. Monitor electrolytes especially potassium. Pharmacy does medications. Currently resolved UTI Urine cultures and sensitivity. Continue IV hydration. IV antibiotics Rocephin Monitor CBC CMP monitor for sepsis. Monitor vital signs Monitor for obstructive uropathy and pyelonephritis Pending blood culture, urine culture showed mixed genital floor change to cefdinir p.o. History of hypertension continue lisinopril. History of hyperlipidemia continue pravastatin History of anxiety continue Cymbalta Time Spent with Patient Time attestation: Total time spent providing and/or coordinating discharge services: Exam Narrative: GENERAL: Well appearing, no acute distress. Obesity HEAD: Normocephalic, atraumatic. NECK: Supple. No adenopathy, no masses. RESPIRATORY: respirations nonlabored. , no rales, wheezing. CARDIOVASCULAR: Regular rate and rhythm witho
== END 2023-11-02 17:45 | disposition home or self-care (01) ==
LOC: ANHED 11-01 00:15 → ANH3MEDSUR 11-01 01:45
PROVIDERS: Internal Medicine Gastroenterology; Physician Assistant; Admitting Provider Internal Medicine; Emergency Provider Emergency Medicine; Visit Provider Hospitalist
PROC: 0DJ08ZZ Inspection of Upper Intestinal Tract, Via Natural or Artificial Opening Endoscopic (ICD-10-PCS; CPT 43235; principal; 2023-11-02 12:30)
DX: K29.70 Gastritis, unspecified, without bleeding (principal); S61.211A Laceration without foreign body of left index finger without damage to nail, initial encounter; N17.9 Acute kidney failure, unspecified; N39.0 Urinary tract infection, site not specified; E86.0 Dehydration; K44.9 Diaphragmatic hernia without obstruction or gangrene; K83.8 Other specified diseases of biliary tract; I10 Essential (primary) hypertension; E78.5 Hyperlipidemia, unspecified; K21.9 Gastro-esophageal reflux disease without esophagitis; F41.9 Anxiety disorder, unspecified; E66.9 Obesity, unspecified; Z68.38 Body mass index [BMI] 38.0-38.9, adult; Z79.899 Other long term (current) drug therapy; Z23 Encounter for immunization
CPT/HCPCS: 43239; 12001; 36415; 74177; 74183; 76376; 76705; 78227; 80053; 81001; 83036; 83690; 83735; 85025; 85027; 87040; 87086; 87088; 88305; 90471; 90715; 96361; 96372; 96374; 96375; 96376; 99285; A9270; A9537; A9577; C9113; G0378; J0500; J0696; J1596; J2270; J2405; J2704; J2805; J7030; J7120; Q9967

== ENCOUNTER 2024-02-21 09:05 | Day surgery (SDC) | payer MEDICARE, MEDICAID, SELFPAY ==
[2023-11-10 10:11] VITALS: BMI 38.5
--- NOTE | 2024-02-20 15:36 | WPDANESEPPF ---
Anes - Initial Pre Proc Eval Procedure: Operation Date: 02/21/24 11:30 Proposed Procedures p Esophagogastroduodenoscopy - Glen Hernandez MD Date/Time: 02/20/24 15:36 Surgeon: Glen Hernandez MD Pre Op Diagnosis: Gastric Ulcer Patient Data Age: 53 Gender: F Height: 1.65 m Weight: 104.843 kg Allergies Allergy/AdvReac Type Severity Reaction Status Date / Time [place] And Derivatives Allergy Rash Verified 02/21/24 10:28 seafood Allergy Rash Uncoded 02/21/24 10:28 Home Medications Medication Instructions Recorded Confirmed Type amitriptyline 10 mg tablet 10 mg PO HS 11/01/23 02/21/24 History calcium citrate 1,900 mg PO TID 11/01/23 02/21/24 History cetirizine 10 mg tablet (Zyrtec) 10 mg PO DAILY PRN allergies 11/01/23 02/21/24 History cholecalciferol (vitamin D3) 25 25 mcg PO DAILY 11/01/23 02/21/24 History mcg (1,000 unit) tablet cyanocobalamin (vitamin B-12) 50 50 mcg PO TID 11/01/23 02/21/24 History mcg tablet (Vitamin B-12) cyclobenzaprine 10 mg tablet 10 mg PO HS 11/01/23 02/21/24 History diclofenac sodium 1 % topical gel 2 g topical QID 11/01/23 02/21/24 History docusate sodium 100 mg capsule 100 mg PO BID 11/01/23 02/21/24 History (Colace) duloxetine 60 mg capsule,delayed 60 mg PO DAILY 11/01/23 02/21/24 History release (Cymbalta) fluticasone propionate 50 2 spray intranasal DAILY 11/01/23 02/21/24 History mcg/actuation nasal spray,suspension glucosamine sulfate 500 mg tablet 500 mg PO BID 11/01/23 02/21/24 History lidocaine 5 % topical patch 1 patch topical DAILY 11/01/23 02/21/24 History lisinopril 20 mg tablet 20 mg PO DAILY 11/01/23 02/21/24 History magnesium oxide 500 mg capsule 500 mg PO DAILY 11/01/23 02/21/24 History pravastatin 20 mg tablet 20 mg PO DAILY 11/01/23 02/21/24 History sennosides 8.6 mg capsule (senna) 8.6 mg PO BID 11/01/23 02/21/24 History cefdinir 300 mg capsule 300 mg PO Q12H #6 caps 11/02/23 02/21/24 Rx pantoprazole 40 mg tablet,delayed 40 mg PO Q12HR #60 tabs 11/02/23 02/21/24 Rx release sucralfate 1 gram tablet (Carafate) 1 g PO QID #120 tabs 11/02/23 02/21/24 Rx Patient hx anesthesia problems: none Family hx anesthesia problems: none Results Review: All pre-operative results and documents have been reviewed as part of the pre-operative evaluation. [facility] Past Medical History Medical History (Updated 02/21/24 @ 10:39 by Glen Hernandez MD) Anxiety Hyperlipidemia Hypertension Hypothyroidism RAFIA (obstructive sleep apnea) Surgical History Surgical History History of partial hysterectomy History of thyroidectomy Family History Family History Mother Aneurysm Heart disease Hypertension Gout Father Diabetes mellitus Hypertension Social History Social History Smoking status: Never smoker Alcohol intake: former Substance use: never Substance use type: does not use Do You Feel Safe in your Home?: Yes Lack of Transportation: YES Lack of Food: Never True Current Housing: I Have Housing Concerned About Future Housing: No Difficulty Paying Gas/Electric Bills: No Difficulty Paying for Meds: No Currently Unemployed: No Education: High School Diploma/GED Difficulty w/ Childcare or Family Care: No Spiritual care concerns: No Anes - Eval Final PreProcedure Day of Procedure 02/20/24 15:36 Patient weight: obese Heart: regular rate and rhythm Lungs: clear to auscultation Airway: Mallampati scale class II Neurological: alert and oriented Last oral intake: >/= 8 hours ASA classification: III Emergent: no Anesthetic plan: proceed Anesthesia type and monitoring: general GIVS and standard monitoring Results Review: All pre-operative results and documents have been reviewed as part of the pre-operative evaluation. Informed Consent:
[2024-02-21 10:29] VITALS: BP 117/84; PULSE 77; RESP 16; TEMP 36.4; O2SAT 100
[2024-02-21] MEDS: LACTATED RINGERS 1,000 ML 150 ML IV CONT (10:37)
--- NOTE | 2024-02-21 10:37 | PM.HPGS ---
History of Present Illness History of Present Illness Consent: Risks, benefits, and alternatives have been discussed and questions answered. Patient agrees to proceed with procedure. Chief complaint: Gastric Ulcer Narrative: Adryan Torre is a 53 year old female referred for follow-up EGD. Patient has a history of gastric ulcer. This was identified at the time of hospitalization in she year. At since that time she has been maintained on omeprazole 20mg p.o. daily. Previously she was prescribed ibuprofen and diclofenac gel. Is a been advised to limit these medications and start Tylenol for pain control. family history noncontributory. She still notes occasional abdominal pain but much improved from previous hospital stay. Review of Systems Review of Systems: All systems reviewed & are unremarkable except as noted in HPI and below PMFSH Past Medical History Medical History (Updated 02/21/24 @ 10:39 by Glen Hernandez MD) Anxiety Hyperlipidemia Hypertension Hypothyroidism RAFIA (obstructive sleep apnea) Surgical History Surgical History History of partial hysterectomy History of thyroidectomy Family History Family History Mother Aneurysm Heart disease Hypertension Gout Father Diabetes mellitus Hypertension Social History Social History Smoking status: Never smoker Alcohol intake: former Substance use: never Substance use type: does not use Do You Feel Safe in your Home?: Yes Lack of Transportation: YES Lack of Food: Never True Current Housing: I Have Housing Concerned About Future Housing: No Difficulty Paying Gas/Electric Bills: No Difficulty Paying for Meds: No Currently Unemployed: No Education: High School Diploma/GED Difficulty w/ Childcare or Family Care: No Spiritual care concerns: No Meds Home Medications and Allergies Home Medications Medication Instructions Recorded Confirmed Type amitriptyline 10 mg tablet 10 mg PO HS 11/01/23 02/21/24 History calcium citrate 1,900 mg PO TID 11/01/23 02/21/24 History cetirizine 10 mg tablet (Zyrtec) 10 mg PO DAILY PRN allergies 11/01/23 02/21/24 History cholecalciferol (vitamin D3) 25 25 mcg PO DAILY 11/01/23 02/21/24 History mcg (1,000 unit) tablet cyanocobalamin (vitamin B-12) 50 50 mcg PO TID 11/01/23 02/21/24 History mcg tablet (Vitamin B-12) cyclobenzaprine 10 mg tablet 10 mg PO HS 11/01/23 02/21/24 History diclofenac sodium 1 % topical gel 2 g topical QID 11/01/23 02/21/24 History docusate sodium 100 mg capsule 100 mg PO BID 11/01/23 02/21/24 History (Colace) duloxetine 60 mg capsule,delayed 60 mg PO DAILY 11/01/23 02/21/24 History release (Cymbalta) fluticasone propionate 50 2 spray intranasal DAILY 11/01/23 02/21/24 History mcg/actuation nasal spray,suspension glucosamine sulfate 500 mg tablet 500 mg PO BID 11/01/23 02/21/24 History lidocaine 5 % topical patch 1 patch topical DAILY 11/01/23 02/21/24 History lisinopril 20 mg tablet 20 mg PO DAILY 11/01/23 02/21/24 History magnesium oxide 500 mg capsule 500 mg PO DAILY 11/01/23 02/21/24 History pravastatin 20 mg tablet 20 mg PO DAILY 11/01/23 02/21/24 History sennosides 8.6 mg capsule (senna) 8.6 mg PO BID 11/01/23 02/21/24 History cefdinir 300 mg capsule 300 mg PO Q12H #6 caps 11/02/23 02/21/24 Rx pantoprazole 40 mg tablet,delayed 40 mg PO Q12HR #60 tabs 11/02/23 02/21/24 Rx release sucralfate 1 gram tablet (Carafate) 1 g PO QID #120 tabs 11/02/23 02/21/24 Rx Allergies Allergy/AdvReac Type Severity Reaction Status Date / Time [place] And Derivatives Allergy Rash Verified 02/21/24 10:28 seafood Allergy Rash Uncoded 02/21/24 10:28 Vital Signs Vital Signs - 24 hr 02/21/24 10:29 Temperature 97.6 F Pulse Rate 77 Respiratory Rate 16 Blood Pressure 117/84 Pulse
[2024-02-21 11:59] VITALS: BP 122/82; PULSE 65; RESP 18; O2SAT 100
[2024-02-21 12:09] VITALS: BP 124/91; PULSE 69; RESP 18; O2SAT 100
[2024-02-21 12:19] VITALS: BP 140/90; PULSE 68; RESP 20; O2SAT 100
--- NOTE | 2024-02-21 12:55 | WPDANESPN ---
Anes - Prog Note Post-Op Date/Time: 02/21/24 12:55 Cardiovascular status: normal Respiratory status: normal Airway patency: baseline Mental status: baseline Post-Op hydration status: normal Vital Signs: Last Vital Signs Temp 36.4 C 02/21/24 10:29 Pulse 68 02/21/24 12:19 Resp 20 02/21/24 12:19 BP 140/90 02/21/24 12:19 Pulse Ox 100 02/21/24 12:19 O2 Del Method Room Air 02/21/24 12:19 Pain Score (VAS): 0 I/O: Intake & Output 02/20/24 02/21/24 02/21/24 23:59 07:59 15:59 Intake Total 250 Balance 250 Post-procedural complaints: none Patient Feedback: Patient satisfied with anesthetic care. Other Findings: Patient vital signs back to baseline. Patient denies nausea and vomiting. Patient's pain under control. Patient OK for discharge.
== END 2024-02-21 12:28 | disposition home or self-care (01) ==
PROVIDERS: Visit Provider Internal Medicine Gastroenterology
PROC: 0DJ08ZZ Inspection of Upper Intestinal Tract, Via Natural or Artificial Opening Endoscopic (ICD-10-PCS; CPT 43235; principal; 2024-02-21 11:30)
DX: Z87.11 Personal history of peptic ulcer disease (principal); K44.9 Diaphragmatic hernia without obstruction or gangrene
CPT/HCPCS: 43239

== ENCOUNTER 2024-04-23 22:16 | Emergency (ER) | payer MEDICARE, MEDICAID, SELFPAY ==
--- NOTE | ~2024-04-23 | XR_ITS ---
Clinical Indication: Cold symptoms PA and lateral views of the chest: Comparison: None Findings: The lungs are clear, without evidence of focal consolidation or pleural effusion. Cardiome diastinal silhouette is within normal limits. Bones and soft tissues are unremarkable. Impression: Normal chest. Reviewed, dictated and finalized at location . [employer] Impression: Normal chest.
[2024-04-23 23:00] VITALS: BP 177/104; PULSE 73; RESP 17; TEMP 36.3; O2SAT 99
[2024-04-24 00:18] VITALS: RESP 18; O2SAT 100
[2024-04-24 01:00] LABS: Influenza A QL RT-PCR Negative (Negative); Influenza B QL RT-PCR Negative (Negative); RSV RNA, RT-PCR Negative (Negative); SARS-CoV-2 RNA PCR Positive (Negative)
[2024-04-24 01:25] VITALS: BP 163/106; PULSE 63; RESP 18; O2SAT 98
--- NOTE | 2024-04-24 01:26 | ED.RECABL ---
HPI - Recheck/Abnormal Lab/Rx General Chief Complaint: Recheck/Abnormal Lab/Rx Stated Complaint: Elevated BP Time Seen by Provider: 04/24/24 00:44 Source: patient Mode of arrival: ambulatory Limitations: no limitations History of Present Illness HPI narrative: Patient presents with complaint of flu-like symptoms started Thanksgiving. She was recently diagnosed with pneumonia At an urgent care and prescribed both Amox-clavanulate as well as azithromycin in addition to a nasal spray. She was also recently exposed to COVID. Shortly after taking the antibiotic she developed headache which she rates as 8/10 in severity. Blood pressure has also been elevated. At baseline she is on lisinopril for this and she is also taking rosuvastatin. She had been having body aches for a few days but states this is better. Tonight she feels nauseated but has not vomited. Denies any diarrhea. Related Data Home Medications ?Medication ?Instructions ?Recorded ?Confirmed ?Last Taken ?Type amitriptyline 10 mg tablet 10 mg PO HS 11/01/23 02/21/24 Unknown History calcium citrate 1,900 mg PO TID 11/01/23 02/21/24 Unknown History cetirizine 10 mg tablet (Zyrtec) 10 mg PO DAILY PRN allergies 11/01/23 02/21/24 Unknown History cholecalciferol (vitamin D3) 25 25 mcg PO DAILY 11/01/23 02/21/24 Unknown History mcg (1,000 unit) tablet cyanocobalamin (vitamin B-12) 50 50 mcg PO TID 11/01/23 02/21/24 Unknown History mcg tablet (Vitamin B-12) cyclobenzaprine 10 mg tablet 10 mg PO HS 11/01/23 02/21/24 Unknown History diclofenac sodium 1 % topical gel 2 g topical QID 11/01/23 02/21/24 Unknown History docusate sodium 100 mg capsule 100 mg PO BID 11/01/23 02/21/24 Unknown History (Colace) duloxetine 60 mg capsule,delayed 60 mg PO DAILY 11/01/23 02/21/24 Unknown History release (Cymbalta) fluticasone propionate 50 2 spray intranasal DAILY 11/01/23 02/21/24 Unknown History mcg/actuation nasal spray,suspension glucosamine sulfate 500 mg tablet 500 mg PO BID 11/01/23 02/21/24 Unknown History lidocaine 5 % topical patch 1 patch topical DAILY 11/01/23 02/21/24 Unknown History lisinopril 20 mg tablet 20 mg PO DAILY 11/01/23 02/21/24 Unknown History magnesium oxide 500 mg capsule 500 mg PO DAILY 11/01/23 02/21/24 Unknown History pravastatin 20 mg tablet 20 mg PO DAILY 11/01/23 02/21/24 Unknown History sennosides 8.6 mg capsule (senna) 8.6 mg PO BID 11/01/23 02/21/24 Unknown History Allergies Allergy/AdvReac Type Severity Reaction Status Date / Time [place] And Derivatives Allergy Rash Verified 04/23/24 23:06 seafood Allergy Rash Uncoded 04/23/24 23:06 ON LICENSE OF [facility] Past Medical History Medical History Anxiety Hypothyroidism RAFIA (obstructive sleep apnea) Hypertension Hyperlipidemia Surgical History Surgical History History of partial hysterectomy History of thyroidectomy Family History Family History Mother Aneurysm Heart disease Hypertension Gout Father Diabetes mellitus Hypertension Social History Social History Smoking status: Never smoker Alcohol intake: former Substance use: never Substance use type: does not use Do You Feel Safe in your Home?: Yes Lack of Transportation: YES Lack of Food: Never True Current Housing: I Have Housing Concerned About Future Housing: No Difficulty Paying Gas/Electric Bills: No Difficulty Paying for Meds: No Currently Unemployed: No Education: High School Diploma/GED Difficulty w/ Childcare or Family Care: No Spiritual care concerns: No Exam Narrative: GENERAL: Well-appearing, well-nourished, and in no acute distress. HEAD: Normocephalic, atraumatic. EYES: Non injected, non icteric ENT: Nares clear, no rhinorrhea or epistaxis. NECK: Supple. CHEST: Speaking in full sentences. No respiratory distress. HEART: Regular rate and rhythm. . ABDOMEN: Soft, nondistended. EXTREMITIES: Normal range of motion. No lower extremity edema. SKIN: Warm, dry, no rash. NEURO: No focal deficits. Alert and oriented x3. speaks clearly aphasia or dysarthria. Sensation intact to gross touch throughout. PSYCH: Normal mood and affect. Course Vital Signs Vital signs: Vital Signs Temperature 97.3 F L 04/23/24 23:00 Pulse Rate 73 04/23/24 23:00 Respiratory Rate 17 04/23/24 23:00 Blood Pressure 177/104 H 04/23/24 23:00 Pulse Oximetry 99 04/23/24 23:00 Oxygen Delivery Room Air 04/23/24 23:00 Temperature 97.3 F L 04/23/24 23:00 Pulse Rate 68 04/24/24 02:50 Respiratory Rate 15 04/24/24 02:50 Blood Pressure 166/99 H 04/24/24 02:50 Pulse Oximetry 96 04/24/24 02:50 Oxygen Delivery Room Air 04/23/24 23:00 MDM - Recheck/Abnormal Lab/Rx MDM Narrative Medical decision making narrative: Patient presents complaint of a headache. She has been having flu-like symptoms and was diagnosed with pneumonia and a urgent care and prescribed Amoxicillin-clavanulate and azithromycin. after this she started developing headache that she rates 8/10 severity and associated with nausea but no vomiting. She was also recently exposed to COVID. In the emergency department she is afebrile with vital signs notable for hypertension. She has a underlying diagnosis of hypertension and for this she takes lisinopril. She does test positive for COVID. I suspect her headache is secondary to this though there is some report that the combination of Augmentin and azithromycin can cause headache symptoms. Patient be given a headache cocktail of medications to treat her headache and nausea. Patient reassessed approximately 2:30 a.m.. She is sleepy but protecting her airway. When awoken, she does state that her headache has resolved. Will give 1 time dose of dexamethasone as this was shown to reduce the chance of a bounce-back/rebound headache. Given prescriptions for [id number] analgesic medications advised follow-up with primary care physician. Provided referral for 1 if needed. she was also advised that she could discontinue taking the Augmentin if desired as monotherapy with azithromycin alone should be sufficient to cover a pneumonia. However, even antibiotic is likely unnecessary as her underlying symptoms might of been due to COVID which she tested positive for today and thus no role for antibiotics. Lab Data Attestation: I reviewed the patient's lab results. Labs: Lab Results 04/24/24 Range/Units 00:16 Influenza A (RT-PCR) Negative (Negative) Influenza B (RT-PCR) Negative (Negative) RSV (RT-PCR) Negative (Negative) SARS-CoV-2 RNA (RT-PCR) Positive A (Negative) Imaging Data Attestation: I personally reviewed and interpreted this imaging study as follows: My impression: Mild haziness at the periphery though symmetrically so this likely due to body habitus. No loss of costophrenic angle. No acute intrathoracic process my independent interpretation. Discharge Plan Discharge Clinical Impression: COVID-19, Headache, Hypertension Patient Disposition: Home, Self-Care Condition: Stable Instructions: Antibiotic Form, Acute Headache (ED), Hypertension (ED), COVID-19 (Coronavirus Disease 2019) (ED), How to Recover from COVID-19 at Home (ED) Additional Instructions: You did test positive for COVID. This likely explains the symptom of the headache you have been having. You do not need to take both antibiotics you were prescribed. Neither treat covid which is a virus, but if you felt strongly about taking one, could discontinue tohe amoxicillin-clavanulate. FOllow up with your primary care physician. If you do not have 1 the name of a doctor is listed below. Return to the emergency department with any new or worsening symptoms. Acetaminophen/Tylenol (maximum 4000 mg per day) is safe to take with NSAIDs (ibuprofen/Motrin) for pain relief. recommend continue to take your blood pressure medication and other medication as directed. The high blood pressure your currently experiencing is likely secondary to pain and feeling unwell but you can follow-up with your primary care physician about this to see if in the future you need to be on another blood pressure regimen. Patient Language: Com[place] Prescriptions: New ibuprofen 600 mg tablet 600 mg PO TID PRN (Reason: pain) Qty: 30 0RF acetaminophen 500 mg capsule 1,000 mg PO Q6H PRN (Reason: pain) Qty: 30 0RF No Action pravastatin 20 mg Tablet 20 mg PO DAILY diclofenac sodium 1 % Gel 2 g TOPICAL QID Rx Instructions: bilateral knees and hands calcium citrate 200 mg (950 mg) Tablet 1,900 mg PO TID docusate sodium [Colace] 100 mg Capsule 100 mg PO BID Vitamin B-12 50 mcg Tablet 50 mcg PO TID glucosamine sulfate 500 mg Tablet 500 mg PO BID Rx Instructions: administer with meals lidocaine 5 % Adhesive Patch,Medicated 1 patch TOPICAL DAILY Rx Instructions: apply to lower back cetirizine [Zyrtec] 10 mg Tablet 10 mg PO DAILY PRN (Reason: allergies) cholecalciferol (vitamin D3) 25 mcg (1,000 unit) Tablet 25 mcg PO DAILY duloxetine [Cymbalta] 60 mg Capsule,Delayed Release(Dr/Ec) 60 mg PO DAILY lisinopril 20 mg Tablet 20 mg PO DAILY magnesium oxide 500 mg Capsule 500 mg PO DAILY senna 8.6 mg Capsule 8.6 mg PO BID amitriptyline 10 mg Tablet 10 mg PO HS cyclobenzaprine 10 mg Tablet 10 mg PO HS fluticasone propionate 50 mcg/actuation [employer],Suspension 2 spray INTRANASAL DAILY Rx Instructions: administer into each nostril pantoprazole 40 mg Tablet,Delayed Release (Dr/Ec) 40 mg PO Q12HR Qty: 60 0RF sucralfate [Carafate] 1 gram tablet 1 g PO QID Qty: 120 0RF Rx Instructions: 1 tab before meal and and 1 tab at night time cefdinir 300 mg capsule 300 mg PO Q12H Qty: 6 0RF Follow-up/Referrals: PHYSICIAN NOT ON STAFF,NONSTAFF [Primary Care Provider] - Stand Alone Forms: Work/School Release IP Time of Disposition: 02:30
[2024-04-24] MEDS: PROCHLORPERAZINE EDISYLATE 10 MG/2 ML VIAL IV PUSH (01:54)
[2024-04-24] MEDS: diphenhydrAMINE HCl INJ 50 MG/ML VIAL 25 MG IV PUSH (01:54)
[2024-04-24] MEDS: KETOROLAC 15 MG/ML VIAL (*BKC) IV PUSH (01:54)
[2024-04-24] MEDS: dexAMETHasone 2 MG TABLET 10 MG PO (02:46)
[2024-04-24 02:50] VITALS: BP 166/99; PULSE 68; RESP 15; O2SAT 96
== END 2024-04-24 02:51 | disposition home or self-care (01) ==
PROVIDERS: Physician Assistant; Emergency Provider Student in an Organized Health Care Education/Training Program
DX: U07.1 COVID-19 (principal); I10 Essential (primary) hypertension; E03.9 Hypothyroidism, unspecified; G47.33 Obstructive sleep apnea (adult) (pediatric); E78.5 Hyperlipidemia, unspecified
CPT/HCPCS: 71046; 87637; 96374; 96375; 99284; J0780; J1200; J1885; J8540

== ENCOUNTER 2024-07-02 04:23 | Observation (INO) | payer MEDICARE, MEDICAID, SELFPAY ==
[2024-07-02] VITALS (47 sets, daily range): BP systolic 133–187; BP diastolic 68–122; PULSE 53–101; RESP 10–34; TEMP 36.2–36.6; O2SAT 95–100; BMI 38.3
--- NOTE | ~2024-07-02 | CT_ITS ---
CT of the Abdomen and Pelvis: Indication: Rectal bleeding Technique: 2.5 mm axial scans were obtained through the abdomen and pelvis following intravenous adm inistration of 100 cc of Omnipaque 350. Dose reduction technique was used on this scan by utilizing a utomated exposure control and iterative reconstruction technique. The dose-length product (DLP) was 1 228.93 mGy-cm. COMPARISON: 10/31/2023 Findings: Scans through the lung bases are unremarkable. The liver, pancreas, gallbladder, adrenals and kidneys are within normal limits. Stable hypodense les ions in the spleen. No evidence of aortic aneurysm. No lymphadenopathy. No bowel obstruction or bowel wall thickening. There is hyperdense material in the lumen at the rectu m distally, suggestive of rectal bleeding. Images through the pelvis were performed. Urinary bladder partially obscured by streak artifact from right hip arthroplasty. No definite pelvic mass seen. No ascites. Impression: Hyperdense material in the rectal lumen distally suggests rectal bleeding. No mass evident. Reviewed, dictated and finalized at location M. ICE DELIVERY MANAGEMENT CONSULTANT Impression: Hyperdense material in the rectal lumen distally suggests rectal bleeding. No m ass evident.
--- NOTE | ~2024-07-02 | CT_ITS ---
EXAMINATION: CT brain wo con DATE: 07/02/2024 16:08 INDICATION: headache . TECHNIQUE: Computed tomography (CT) of the head was performed without intravenous contrast. The mA wa s adjusted according to patient size. Iterative reconstruction technique was employed. The dose-lengt h product was 605.33 mGy-cm. COMPARISON: None. FINDINGS: No acute intracranial hemorrhage or extra-axial fluid collection. No hydrocephalus, mass, or herniation. No acute ischemic infarct. Unremarkable dural venous sinus attenuation. No acute osseous abnormality. The aerated spaces are clear. Mild atherosclerotic intracranial calcifications IMPRESSION: No acute intracranial process. Reviewed, dictated and finalized at location K. CTOR OF COMPENSATION
--- OUTSIDE RECORDS SUMMARY | 2024-07-02 04:27 | XMS_ITS | Continuity of Care Document ---
Author Organization [employer] Address [address] [place] [address] Phone Care Team Providers Care Physician'S Aide Name Role Phone Lala Bah Unavailable Unavailabl e Allergies, Adverse Reactions, Alerts Substance Reaction Status Criticality No Known Allergies Active No Inform ation Medications Medication Instructions Dosage Effective Dates (start - stop) Status Comments hydrocodone 5 mg-acetaminophen 325 mg tablet take 1 tablet by oral route every 6 hours as needed for pain 1 tablet - Active Lyrica 50 mg capsule take 1 capsule by oral route 2 times every day 50 MG - Active fluticasone propionate 50 mcg/actuation nasal spray,suspension spray 1 - 2 spray by intranasal route every day in each nostril as needed 50-100 MCG - Active calcium 200 mg (as citrate)-vitamin D3 6.25 mcg (250 unit) tablet - Active Glucosamine 500 mg tablet - Active Medrol (Johnny) 4 mg tablets in a dose pack take by oral route as directed per package instructions 0.00 - Active PANTOPRAZOLE SOD DR 40 MG TAB TAKE 1 TABLET BY MOUTH EVERY 12 HOURS - Active SUCRALFATE 1 GM TABLET TAKE 1 TABLET BY MOUTH 4 TIMES DAILY BEFORE MEALS AND AT BEDTIME - Active lisinopril 20 mg tablet take 1 tablet by oral route every day 20 MG - Active pravastatin 20 mg tablet take 1 tablet by oral route every day - Active famotidine 40 mg tablet TAKE ONE Tablet BY MOUTH EVERY DAY AT BEDTIME - Active diclofenac 1 % topical gel apply 2 gram by topical route 4 times every day to the affected area(s) 2.00 gram - Active one each equals 1 bottle cetirizine 10 mg tablet take 1 tablet by oral route every day as needed 10 MG - Active magnesium 500 mg (as magnesium oxide) tablet take 1 tablet by oral route every day - Active cyclobenzaprine 10 mg tablet take 1 tablet by oral route 3 times every day as needed 10 MG - Active cholecalciferol (vitamin D3) 25 mcg (1,000 unit) capsule - Active ibuprofen 400 mg tablet take 1 tablet by oral route every 4 - 6 hours as needed as needed 400 MG - Active amitriptyline 10 mg tablet take 1 tablet by oral route every day at bedtime 10 MG - Active duloxetine 60 mg capsule,delayed release take 1 tablet by Oral route every day 1 tablet - Active Procedures Procedure Date OFFICE [id number] SYST BP GE 130 - 139MM HG DIAST BP 80-89 MM HG ANTINUCLEAR ANTIBODIES (JANIS) CYCLIC CITRULLINE PEPTIDE (CCP) 024 RHEUMATOID FACTOR: QN RBC SED RATE, AUTOMATED ROUTINE VENIPUNCTURE EKG (ELECTROCARDIOGRAM) CENTROMERE B ANTIBODY CHROMATIN ANTIBODY STEVE-1 ANTIBODY RIBOSOMAL P ANTIBODY SM ANTIBODY SM/OIL PIPELINE DISPATCHER ANTIBODY OIL PIPELINE DISPATCHER ANTIBODY SJOGREN'S (SS-A) ANTIBODY SJOGREN'S (SS-B) ANTIBODY DNA ANTIBODIES (DS), MANZANITA SCLERODERMA ANTIBODY,SCL-70 TELEPHONE ASSESSMENT AND MAN AGEMENT SERVICE PROVID 5-10 MINUTES OF MEDICAL DISCU CBC, INC PLATELETS AND DIFFERENTIAL COMPREHEN METABOLIC PANEL CMP LIPID PANEL PARATHYROID HORMONE (PTH) ROUTINE VENIPUNCTURE OFFICE [id number] Visit Complexity Inherent To E/M 2023 SYST BP LT 130 MM HG DIAST BP 80-89 MM HG Pt inelig neg scrn depres OFFICE [id number] Visit Complexity Inherent To E/M 2023 SYST BP GE 130 - 139MM HG DIAST BP 80-89 MM HG Triamcinolone Acetonide Injection, 10mg ASP/INJ MAJOR JOINTOR BURSA, SHOULDER, H IP,KNEE W/O US GUIDANCE OFFICE [id number] SYST BP >= 140 MM HG6 IT DIAST BP >= 90 MM HG DSCHRG MED/CURRENT MED MERGE Transitional Care- 14 Days Of Discharge SYST BP GE 130 - 139MM HG DIAST BP >= 90 MM HG BASIC METABOLIC PANEL(BMP) ROUTINE VENIPUNCTURE INHALATION TREATMENT/THERAPY ALBUTEROL, INHALATION BERTHA, F DA-APPRVD FINAL PRODUCT, NON-COMPOUNDED, ADM THROUGH OFFICE [id number] SYST BP >= 140 MM HG6 IT DIAST BP >= 90 MM HG PREVENTATIVE-NEW: 40-64 SYST BP GE 130 - 139MM HG DIAST BP >= 90 MM HG Advance Directives Directive Yes / No Effective Date File Name Life Support Not Answered N/A N/A Intubation Not Answered N/A N/A Antibiotics Not Answered N/A N/A IV Fluid Support Not Answered N/A N/A Tube Feed Not Answered N/A N/A Other Directive N/A N/A WARNING:The information contained in this section is historical and is provided for information only and does not constitute a legal document or any assurance that the information is still accurate. Please verify the information with the carrizales of the legal document before using it for clinical purposes. Encounters Encounter Description Practice Location Reason(s) For Visit Diagnoses Date Provider Providers Copied on Encounter [facility], [address], [place], [place], [address] , tel:[phone] [facility] No Information 5 Elliot Reeves. [address] [place], [place], [address], [place]. tel:[phone] OFFICE [id number] ANICETO [facility], [address], [place], [place], [address] , tel:[phone] [facility] f/u (chief complaint) Pain of hand, unspecified lateralityPAC (premature atrial contraction)Nail abnormality 4 Koko Warner. [address], [place], [address], [place]. tel:[phone] Referring Provider: Rafael Gutierrez, [address] [place], [address] . tel:[phone] [facility], [address], [place], [place], [address] , [phone] [facility] COVID-19 4 Elliot Reeves. [address], [place], [address], [place]. tel:[phone] Referring Provider: Rafael Gutierrez, [address] [place], [address] . tel:[phone] [facility], [address], [place], [place], [address] , tel:[phone] [facility] No Information 4 Scarlet Ayoub. [facility], [address], [address], . tel:[phone] OFFICE [id number]-[id number]-TQK ANICETO [facility], [address], [place], [place], [address] , [place] tel:[phone] [facility] routine follow up (chief complaint)C hronic Conditions (chief complaint)c hronic conditions (chief complaint) Essential (primary) hypertensionHyperp arathyroidism, unspecifiedAcute pain of right shoulderRight hip painAcute pain of right kneeLeft hip painGeneralized headachesPostnasal dripAcute gastric ulcer without hemorrhage or perforationPain in unspecified jointHyperlipidemi a, unspecifiedGeneral ized anxiety disorderMajor depressive disorder, recurrent, moderateEncounter for immunization 4 Matt Hall. [address], [place], [address], . tel:[phone] Referring Provider: Rafael Gutierrez, [address] [facility] [address], [place], [address] . tel:[phone] [facility], [address], [place], [place], [address] , tel: [phone] [facility] No Information 4 Matt Hall. [address] [facility] [address], [place], [place], [address], . tel:[phone] [facility], [address], [place], [place], [address] , tel: [phone] [facility] No Information 4 Matt Hall. [address] [facility] [address], [place], [place], [address], . tel:[phone] [facility], [address], [place], [place], [address] , [place] tel: [phone] [facility] No Information 4 Matt Hall. [address] [facility] [address], [place], [place], [address], . tel:[phone] [facility], [address], [place], [place], [address] , tel: [phone] [facility] No Information 4 Matt Hall. [address] [facility] [address], [place], [place], [address], [place]. tel:[phone] OFFICE [id number]-[id number]-FGK [facility], [address], [place], [place], [address] , [place] tel: [phone] [facility] routine follow up (chief complaint)C hronic Conditions (chief complaint) Acute gastric ulcer without hemorrhage or perforationHyperpa rathyroidism, unspecifiedPostnas al drip 4 Matt Hall. [address] [facility] [address], [place], [place], [address], [place]. tel:[phone] Referring Provider: Rafael Gutierrez, [address] [facility] [address], [place], [address] . tel:[phone] OFFICE [id number]-UFO-PQE [facility], [address], [place], [place], [address] , [place] tel: [phone] [facility] L knee pain (chief complaint) Left leg painOsteoarthritis of left knee, unspecified osteoarthritis typeEssential (primary) hypertensionLacera tion of left index finger without foreign body without damage to nail, initial encounter 4 Koko Warner. [address] [place], [place], [address], [place]. tel:[phone] Referring Provider: Rafael Gutierrez, [address] [facility] [address], [place], [address] . tel:[phone] Transitional Care- 14 Days Of Discharge [facility], [address], [place], [place], [address] , [place] tel: [phone] [facility] d/c f/u (chief complaint) Pain in right kneePain in left kneeAcute gastritis without hemorrhage, unspecified gastritis typeHospital discharge follow-upLaceratio n of left index finger without foreign body without damage to nail, initial encounterEssential (primary) hypertension [place]- 4 Koko Warner. [address], [place], [address], [place]. tel:[phone] Referring Provider: Rafael Gutierrez, [address] [facility] [address], [place], [address] . tel:[phone] OFFICE [id number] ANICETO [facility], [address], [place], [place], [address] , tel: [phone] [facility] Dyspnea (chief complaint) Shortness of breath 4 Matt Hall. [address] [facility] [address], [place], [place], [address], [place]. tel:[phone] Referring Provider: Rafael Gutierrez, [address] [place] [address] B, [place], [address] . tel:[phone] [facility], [address], [place], [place], [address] , [place] tel: [phone] [facility] No Information 4 Matt Hall. [address] [facility] [address], [place], [place], [address], [place]. tel:[phone] PREVENTATIVE- NEW: 40-64 [facility], [address], [place], [place], [address] , tel: [phone] [facility] establish care (chief complaint)C hronic Conditions (chief complaint) Encounter for general adult medical examination without abnormal findingsAnemia, unspecifiedPain in jointGeneralized anxiety disorderMajor Depressive Disorder, Single episode, ModerateCarpal tunnel syndrome, unspecified upper limbHyperparathyro idism, unspecifiedGastro- esophageal reflux disease without esophagitisEssenti al (primary) hypertensionHyperl ipidemia, unspecified Jul- 4 Matt Hall. [address] [facility] [address], [place], [place], [address], [place]. tel:[phone] Referring Provider: Rafael Gutierrez, [address] [place] [address] B, [place], [address] . tel:[phone] [facility], [address], [place], [place], [address] , tel: [phone] [facility] ROUTINE MEDICAL EXAM 0-200 3 Justa Henry. [address] [facility] [address], [place], [place], [address]. tel:[phone] Family History Family Member Type Diagnosis Age At Onset Brother Problem ADD/ADHD Mother Problem Learning disability Brother Problem Hypertension Mother Problem Hypertension Father Problem Hypertension Payers Payer name Insurance type Covered republican ID Authorcampbell rodas(s) [employer] DUAL COMPLETE HMO [id number] MEDICAID [facility] [id number] Social History Type Description Quantity Date Captured Comments Alcohol Use Details Unknown Caffeine Use Details Unknown Tobacco Use Status No Information Smoking Status No Information Sex Female Chief Complaint And Reason For Visit No Information Reason For Referral Reason For Referral No Information Plan Of Treatment Date Type Action Status Referral Ordered: EKG (ELECTROCARDIOGRAM) ordered Referral Ordered: X-RAY EXAM OF HAND, 2 VIEWS Bilateral ordered Referral Ordered: X-RAY EXAM OF SHOULDER, COMPLETE Right ordered Referral Ordered: X-RAY EXAM OF KNEE, COMPLETE Right ordered Referral Ordered: X-RAY EXAM OF HIPS (3-4 VIEWS) ordered Referral Ordered: US Doppler vein of extremity lower left Left ordered Referral Ordered: X-ray of bilateral knees, standing, AP view ordered Referral Ordered: XR chest complete w fluoroscopy Appointment date/timeframe: 09/18/2023 ordered Appointment Adryan Torre BOOKED Future Order: Radiology Order US Doppler vein of extremity lower left Left (20402), Sent on: Sent History Of Present Illness Encounter Date Complaint History Of Prese nt Illness ER f/u Adryan is a 53 y/o F who presents to the office today for ER f/u. Pt seen [facility] ED 04/23 2/2 flu like symptoms. Had been dx by urgent care with PNA and started on augmentin and zpack. Developed MARSHALL, HTN, BP elevated in ED. Tested positive for COVID in Ed. CXR no acute changes. EKG showed irregular rhythm. d/c home. Finished zpack, stopped augmentin per ED rec. no prior h/o afib. EKG not addressed in ED. today pt reports she is doing well. has recovered from covid/pna. just has some ear pressure, feels like fluid bilaterally. admits to feeling an occasional thump in her back when she is laying down, like a light tap. does not feel like it is coming from her heart. otherwise denies fever, chills, cp, sob, palpitations, edema.pt also reports concerns of pain and swelling in the joints in her fingers x 6 months. reports difficulty straightening R 4th DIP joint. takes tylenol as needed for pain. has not had autoimmune w/u in the past pt also reports concerns of dark lines under her finger nails x 6 months routine follow up Here for follo w-up to chronic medical problems. All new issues and concerns were also addressed today. The past medical, surgical, social histories were all reviewed and updated with the patient. Medication list was reconciled and updated today.Fall: Was walking her dog few days ago. Got caught up on the leash and fell. Landed on her right side. Since then has been having right shoulder, knee, hip pain. Able to walk and bear weight but it is painful.Headaches: Has a history of headaches when she was in her 20s and 30s but since then has been pretty well controlled. However recently she is been getting the more frequently. Last two weeks she is had a persistent headache that has not completely resolved, has waxed and waned in intensity though. Describes it as a generalized aching pain associated with photophobia. No nausea or vomiting. No visual changes. She is having sinus pressure which seems to be exacerbating factor. Has been taking Flonase and antihistamines which seem to be helping. Chronic Conditions *See Chronic Conditions HPI chronic conditions *See Chronic Conditions HPI routine follow up Here for follo w-up to chronic medical problems. All new issues and concerns were also addressed today. The past medical, surgical, social histories were all reviewed and updated with the patient. Medication list was reconciled and updated today. Chronic Conditions *See Chronic Conditions HPI L knee pain Adryan is a 53 y/o F who presents to the office today for L knee cortisone injection. XRAY showed moderate OA with large effusion. states that swelling in her knee has improved but that knee is still painful. maximal tenderness medial joint line. states that she continues to have pulling in the back of her leg. states that she has varicose veins but they seem a bit more prominent. hospital d/c f/u Adryan is a [age] y/o F who presents to the office today for hospital d/c f/u.Pt admitted [facility] 10/31-11/01 2/2 RUQ pain and laceration of L index finger. MRCP with mildly dilated common bile duct. No choledocholithiasis. Small sliding hiatal hernia. CT abd/pelvis moderate distal esophagitis, mild antral gastritis. EGD showed gastritis. Start protonix 40 mg bid and carafate 1 g qid. Sutures to L index finger. Labs with Brock cr 1.5, resolved. UTI tx with IV Rocephin to po cefdinir. per pt 2 stitches to finger. 1 already popped open.pt c/o bilateral knee pain L>R. admits to swelling. states that swelling in L knee has improved but pain has not. states symptoms started a day after discharge. using tylenol and diclofenac. states that swelling comes and goes but pain is constant. admits to pain with movement. denies lower leg swelling, calf pain. Dyspnea For the past 3 w eeks, she reports feeling sick with a viral illness. Starting on of last week, she began experiencing symptoms of voice hoarseness, coughing productive of some mucus, and sinus pressure. On Monday, she began feeling very short of breath, which she says began suddenly and has never occurred before with previous illnesses. She was seen in the ED on Monday, where she was given azithromycin, methylprednisolone, and an albuterol inhaler. Despite taking the medications as prescribed, she has not noticed much change in her symptoms. She does think the methylprednisolone has helped with the coughing, but she still is experiencing shortness of breath. Certain positions will help her breathing, such as reclining or laying down, and talking makes it worse. She does not notice any change in effort of breathing with activity or walking around. She went back to the ER, actually had neurologic testing due to the pattern of her breathing. Seem to be only present while talking. imaging unremarkable. Labs unremarkable other than elevated calcium level. Of note, she is scheduled for parathyroid ectomy next week.She denies any associated symptoms of chest pain or pain with breathing. She does not have a history of asthma. She denies any fatigue or lightheadedness. No history of cardiovascular problems or palpitations. She is not a smoker and does not live around anyone who smokes. establish care New to our pract ice and here to establish care. Past medical, surgical, and social history were reviewed and discussed below. Chronic Conditions *See Chronic Conditions HPI Functional Status Date Functional Assessmen t No Information Instructions Date Instruction Additional Infor mation will refer to derm, thickness of line on some fingers may warrant biopsy consideration Related to Nail abnormality EKG NSR at today's [facility]. reviewed EKG from ED, does appear more consistent with PACs than afib. will obtain 30 day monitor to screen for paroxysmal afibcontinue to monitor Related to PAC (premature atrial contraction) JANIS, RF, anti-ccp, E SR XRAY hands bilaterallyvoltaren gel as needed. tylenol as needed for pain Related to Pain of hand, unspecified laterality Flu vaccine was decl ined at office visit. Charting performed by Anselmo Zarate, acting as scribe for Anselmo Gutierrez.Anselmo Gutierrez MD: I reviewed the chart and agree with and approve of the documentation. Related to Encounter for immunization See plan for general ized anxiety disorder. Related to Major depressive disorder, recurrent, moderate -- CONTINUE duloxeti ne (Cymbalta) 60 mg daily-- CONTINUE amitriptyline (Elavil) 10 mg daily -- Discussed the importance nonpharmacologic interventions such As improving quality of sleep, diet, exercise, stress reduction And 'mindfulness'. Discussed benefits of counseling. Related to Generalized anxiety disorder -- CONTINUE pravasta tin 20 mg daily The following changes can also help lower cholesterol- Avoiding red meat, butter, fried foods, cheese, And other foods that have a lot of saturated fat, Participate In aerobic exercise 30 minutes a Day, most days of the week, Lose weight If you are overweight Related to Hyperlipidemia, unspecified -- COTNINUE lisinopr il 20 mg daily Please check your blood pressure every one to two days and keep a diary. We will see you back in 2 weeks for a blood pressure check(you can also call us with home recordings). Bring blood pressure readings along with your blood pressure cuff.The following changes can also help control blood pressure1. Eat a well-balanced low salt diet such as the Mediterranean diet.2. Participate In aerobic exercise 30 minutes a Day, most days of the week.3. Quit smoking.4. Minimize alcohol intake.5. Lose weight If you are overweight Related to Essential (primary) hypertension Doing well. Follow u p with endocrinology as per their recommendations. Related to Hyperparathyroidism, unspecified Referred to rheumatology. Relate d to Pain in unspecified joint -- CONTINUE famotidi ne 40 mg daily Continue food diary To identify triggers.Recommended avoiding alcohol, tobacco, NSAIDs, And peppermint.Do not lie down within 2 hours of a meal. Avoid large meals. Can also use Tums as needed. You can also try sleeping with your head and torso elevated Related to Acute gastric ulcer without hemorrhage or perforation -- CONTINUE Zyrtec Related to Po stnasal drip See plan for right shoulder pain . Related to Left hip pain See plan for right shoulder pain . Related to Acute pain of right knee See plan for right shoulder pain . Related to Right hip pain Will continue to mon itor. Generally, for conditions like this, the rule of thumb is that looser is better . There are several things that can help loosen the muscles/tissue. -- Applying to heating pad intermittently throughout the day.-- Using a TENS unit. These can be purchased msro-blu-cdsesel and worn under your clothes. -- Routine stretching. Try to make part of the daily routine to stretch after waking up in before going to bed. Also stretching before any type of physical activity.-- Staying active. Prolonged immobilization can lead to increased stiffness.-- Topical medicines such as Biofreeze or BenGay could also potentially be tried.-- Getting routine physical activity (exercise is important but any time of movement is beneficial. You should aim to not be sedentary for more than 45 minutes in any one sitting). Related to Acute pain of right shoulder -- CONTINUE Flonase and antihistaminesContinue to work on well balanced diet, routine physical activity, adequate sleep, stress reduction, limiting alcohol, caffeine, and tobacco. Keep headache diary to monitor for potential headache triggers. Related to Generalized headaches Can use humidifier. Also gave samples of Zyrtec. Can try this if needed. Related to Postnasal drip Doing well. Follow u p with endocrinology as per their recommendations. Related to Hyperparathyroidism, unspecified -- CONTINUE Pantopra zole (Protonix) 40 mg twice a day . -- START Famotidine 40 mg daily -- Difficult time tolerating Carafate so can switch to Pepto-Bismol as needed.-- Avoiding alcohol, tobacco, NSAIDs, And peppermint. Do not lie down within 2 hours of a meal. Avoid large meals. Continue food diary To identify triggers. You can also try sleeping with your head and torso elevated. Can also use Tums as needed. Will need follow up Upper endoscopy. Gave information for Dr. Beckett. Related to Acute gastric ulcer without hemorrhage or perforation stitches both fell o ut, healing well. continue to monitor Related to Laceration of left index finger without foreign body without damage to nail, initial encounter left lower extremity venous dopp ler Related to Left leg pain cortisone injection at today's visitrisks and benefits including side effect profile discussed. continue compression, ice, elevation. avoid intense activity x 2 weeks Related to Osteoarthritis of left knee, unspecified osteoarthritis type elevated at office v isit today. log x 2 weeks then bring log to next office visit Related to Essential (primary) hypertension your blood pressure was elevated at today's office visit. monitor your blood pressure at home daily x 2 weeks and keep a log. check your blood pressure at a time when you are relaxed and have been sitting for at least 5 minutes. keep your feet flat on the ground and legs uncrossed. contact our office in 2 weeks to review log. Related to Essential (primary) hypertension healing, no evidence of infection. follow up 1 week for suture removal Related to Laceration of left index finger without foreign body without damage to nail, initial encounter reviewed discharge s melissa as noted above Related to Hospital discharge follow-up continue pantoprazol e 40 mg twice daily and sucralfate 4 times daily Related to Acute gastritis without hemorrhage, unspecified gastritis type as noted above Related to Pain in left knee XRAY knees bilateral lycontinue tylenol as needed, diclofenac gel four times daily medrol pack alternate heat and ice. apply ice for around 15-20 minutes every 2-3 hours to decrease inflammation alternating with heat for 15-20 minutes every 2-3 hours to relax musclesrest and elevate your leg. let us know if symptoms worsen or fail to improve Related to Pain in right knee unusual breathing pa ttern. Unable to get a spirometry today due to inability to perform the test. No improvement with albuterol nebulizer treatment. Lungs sound clear to auscultation. Unclear if this is a respiratory issue, musculoskeletal issue, or neurologic/psychiatric issue. at this point, really no evidence of underlying respiratory disease. Chest x-ray normal. No improvement for treatment for acute bronchitis. No history of asthma either. Non-smoker. Pattern almost more like what is seen with hiccups. Will check a CMP and TSH. Also check sniff fluoroscopy exam. Start Lyrica 50 mg twice a day. Discussed the risks and benefits. May need referral to pulmonology and/or neurology though if not improving. Related to Shortness of breath -- CONTINUE pravasta tin (Pravachol) 20 mg once a day.-- Avoid foods high in saturated fat -- Participate in aerobic exercise 30 minutes a day, most days of the week.-- Check cholesterol panel annually. Related to Hyperlipidemia, unspecified Your blood pressure is at target. Please check your blood pressure one or two times a week. Please let us know if there are any changes. The following things can also help control blood pressure: eat a well-balanced low salt diet, get physical activity each day, most days of the week, don't smoke, minimize alcohol intake.-- CONTINUE lisinopril (Prinivil, Zestril) 20 mg daily Related to Essential (primary) hypertension -- CONTINUE Omeprazo le (Prilosec) 20 mg once a day . -- Avoiding alcohol, tobacco, NSAIDs, And peppermint. Do not lie down within 2 hours of a meal. Avoid large meals. Continue food diary To identify triggers. You can also try sleeping with your head and torso elevated. Can also use Tums as needed. Related to Gastro-esophageal reflux disease without esophagitis Will refer to endocrinology. Rel ated to Hyperparathyroidism, unspecified symptoms seem more c onsistent with arthritis, so will work that up first. Related to Carpal tunnel syndrome, unspecified upper limb Please refer to the plan for generalized anxiety disorder. Related to Major Depressive Disorder, Single episode, Moderate -- CONTINUE duloxeti ne (Cymbalta) daily-- CONTINUE amitriptyline (Elavil) daily -- Discussed the importance nonpharmacologic interventions such As improving quality of sleep, diet, exercise, stress reduction And 'mindfulness'. Discussed benefits of counseling. Related to Generalized anxiety disorder + JANIS (antinuclear a ntibody with reflex) and SSA. Will refer to rheumatology Related to Pain in joint Continue a well moises nced dietWe will continue to monitor blood counts (CBC). We will recheck this at next office visit. Related to Anemia, unspecified Thank you for allowi ng me to be involved in your care. The best way to treat a disease is by preventing their development. To do this, it is important we all strive to live a healthy lifestyle. The following are some general recommendations;-- Good nutrition. (rule of thumb- if comes from the ground, eat more, if it comes from a package, eat less).-- Routine physical activity (exercise is important but any time of movement is beneficial. You should aim to not be sedentary for more than 45 minutes in any one sitting).-- Get adequate sleep (for most people this is 7-8 hours of uninterrupted sleep). -- Stress reduction (there are many ways to do this including meditation, yoga, or just going for a quiet walk. -- Limit alcohol to less than 7 drinks/ wk for women, 14 drinks/ wk for men. Related to Encounter for general adult medical examination without abnormal findings Assessments Type Assessment Date No Information Patient Care Teams Name Effective Dates (start - stop) Status Members No Information
--- OUTSIDE RECORDS SUMMARY | 2024-07-02 04:27 | XMS_ITS | Referral Summary ---
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 This disclosure is being madepursuant to the Care Everywhere program and may not contain all information available regarding this patient. Last updated 18.[facility] Allergies Active Allergy Reactions Criticality Noted Date Comments Pawel 08/27/2015 Medications * Be aware that medications may not be up to date on this document. Alwaysverify current medications with the patient. Medication Sig Dispensed Refills Start Date End Date Status glucosamine (GLUCOSAMINE) 500 MG capsule Take 500 mg by mouth 3 times daily with meals. Active calcium carbonate (CALTRATE) 600 MG tablet Take 1 Tab by mouth daily with food. Active traMADol (ULTRAM) 50 MG tablet Take 1 Tab by mouth every 4 hours as needed for Pain. 20 Tab 0 02/14/2014 Active multivitamin daily (THERAGRAN) tablet Take 1 Tab by mouth daily with food. Active acetaminophen (TYLENOL) 325 MG tablet Take 2 Tabs by mouth every 4 hours as needed. Maximum allowable Acetaminophen amount = 4 Grams (4000 mg) / 24 hours. 03/24/2014 Active amLODIPine (NORVASC) 5 MG tablet Take 1 Tab by mouth once daily. 30 Tab 0 03/24/2014 Active HYDROcodone-acetam inophen (NORCO) 5-325 MG tablet Take 1 Tab by mouth every 6 hours as needed for Pain 10 Tab 0 09/08/2015 Active aspirin (ASPIRIN) 81 MG chew tablet Take 81 mg by mouth once daily Active lisinopril (PRINIVIL; ZESTRIL) 20 MG tablet Take 20 mg by mouth once daily Active albuterol HFA (PROVENTIL;VENTOLI N;PROAIR) 108 (90 BASE) MCG/ACT inhaler Inhale 2 Puffs by mouth every 4 hours as needed for Shortness of Breath or Wheezing 1 Inhaler 1 10/22/2015 Active naproxen (NAPROSYN) 500 MG tablet Take 1 Tab by mouth 2 times daily as needed for Pain 20 Tab 0 10/22/2015 Active ibuprofen (MOTRIN) 600 MG tablet Take 1 tablet by mouth every 8 hours as needed for Pain or Fever 20 tablet 10/22/2018 Active cyclobenzaprine (FLEXERIL) 10 MG tablet Take 1 tablet by mouth 3 times daily as needed for Muscle Spasms 15 tablet 10/22/2018 Active HYDROcodone-acetam inophen (NORCO) 5-325 MG tablet Take 1 tablet by mouth every 6 hours as needed for Pain 12 tablet 10/23/2018 Active Social History Tobacco Use Types Packs/Day Years Used Date Smoking Tobacco: Never Alcohol Use Standard Drinks/Week Comments No 0 (1 standard drink = 0.6 oz pur e alcohol) Sex and Gender Information Value Date Recorded Sex Assigned at Not on file Gender Identity Not on file Sexual Orientation Not on file Last Filed Vital Signs Vital Sign Reading Time Taken Comments Blood Pressure 175/90 10/23/2018 4:07 PM CDT Pulse 76 10/23/2018 4:07 PM CDT Temperature 36.9 C (98.4 F) 10/23/2018 4:07 PM CDT Respiratory Rate 18 10/23/2018 4:07 PM CDT Oxygen Saturation 100% 10/23/2018 4:07 PM CDT Inhaled Oxygen Concentration - - Weight 109.8 kg (242 lb) 10/23/2018 4:07 PM CDT Height 162.6 cm (5' 4 ) 10/23/2018 4:07 PM CDT Body Mass Index 41.54 10/23/2018 4:07 PM CDT Functional Status Functional Status Response Date of Assess ment Is person deaf or have serious hearing difficult y? No 03/22/2014 Is person blind or have serious difficulty seein g? No 03/22/2014 Does person have serious dif ficulty walking/climbing stairs? Yes 03/22/2014 Does person have difficulty dressing/bathing? No 03/22/2014 Does person have difficulty doing errands alone? No 03/22/2014 Cognitive Status Response Date of Assessm ent Does person have difficulty concentrating/remembering/making decisions? No 03/22/2014 Plan of Treatment Upcoming Encounters Date Type Department Care Team (Late st Contact Info) Description 08/22/2024 9:00 AM CDT Office Visit [facility] - Rheumatology [id number] [place] [id number] [place] [address] [place] [id number] Insurance Payer Benefit Plan / Group Subscriber ID Effective Dates Phone Address Type [employer] [id number] Effective for all dates [address] [place] [address] [employer] Liability [place] [employer] BSC PLAN [id number] 10/22/2018-Pre sent [address] [place] [address] Medicaid [place] MEDICARE MANAGED CARE PLAN GENERIC MEDICARE ADV MEDICARE MANAGED CARE PLAN GENERIC [id number] Effective for all dates Medicare-Man aged Care SELF PAY NO INSURANCE SELF PAY NO INSURANCE Effective for all dates [place] Self Pay MEDICARE MANAGED CARE PLAN GENERIC MEDICARE ADV MEDICARE MANAGED CARE PLAN GENERIC [id number] Effective for all dates Medicare-Man aged Care SELF PAY NO INSURANCE SELF PAY NO INSURANCE Effective for all dates [place] Self Pay MEDICARE MANAGED CARE PLAN GENERIC MEDICARE ADV MEDICARE MANAGED CARE PLAN GENERIC [id number] Effective for all dates Medicare-Man aged Care SELF PAY NO INSURANCE SELF PAY NO INSURANCE Effective for all dates [place] Self Pay [employer] GOLD PLUS HMO HU[employer]NA MEDICARE ADV HMO/PPO [id number] 10/13/2018-Pres ent [address] [address] [place] [address] Medicare-[place] aged Care MEDICAID LIMITED BENEFIT - [place] MED[place] LIMITED BENEFIT - [id number] [id number] Effective for all dates [address] [place] [address] Medicaid [place] Advance Directives * Full Code (Latest Code Status on File) Date Activated Date Inactivated Comments 03/25/2014 2:19 PM 03/25/2014 8:49 PM * Full Code Date Activated Date Inactivated Comments 03/22/2014 3:59 AM 03/25/2014 2:19 PM Care Teams Trolley Coach Driver Relationship Specialty Start Date End Date [facility], [facility] [address] [place] [address] PCP - General 10/11/14 [facility], [facility] [address] [place] [address] 10/11/14 Belgica Arevalo RN Bilingual Nanny 03/23/14
--- OUTSIDE RECORDS SUMMARY | 2024-07-02 04:27 | XMS_ITS | Clinical Summary ---
Author Organization [facility] Address [address] [place] [address] Care Team Providers Care Wardrobe Attendant Name Role Phone Carla Padron PT Unavailable Unavailable Rafael Gutierrez MD Primary Care Provider Allergies Active Allergy Reactions Criticality Noted Date Comments Bromelains Itching Low 12/08/2020 [place] And Derivatives Hives Medium 12/05/2019 Crab Hives Medium 12/05/2019 Carries benadryl in purse Lemon Itching Low 12/19/2017 Onion Swelling Medium 12/19/2017 [place] Juice Itching Low 12/19/2017 Shrimp Hives,Itching Medium 08/11/2020 [place] Hives Medium 12/19/2017 Medications fluticasone propionate (FLONASE) 50 mcg/actuation nasal sprayIndications:Sinus headache Administer 2 sprays into each nostril daily 16 g 5 021 Active Additional Information Patient taking differently:2 spray each nostrilDaily PRN, rhinitis, allergies, Indications: Allergic Rhinitis, Informant: Self, Reported on 08/24/2023 acetaminophen 500 mg capsule Take 2 capsules (1,000 mg total) by mouth every 8 (eight) hours 90 tablet 022 Active Additional Information Patient taking differently:1,000 mg oral Every 8 hours,Indications: Pain, Informant: Self, Reported on 06/04/2024 ascorbic acid/elderberry fruit (AIRBORNE, ELDERBERRY, ORAL)Indications:suppl ement Take 1 capsule by mouth haircutter before breakfast Take 1 capsule by mouth daily Active ibuprofen (ADVIL,MOTRIN) 400 mg tabletIndications:Acut e joint pain Take 1 tablet (400 mg total) by mouth every 6 (six) hours as needed for pain 30 tablet Active Additional Information Patient taking differently:400 mg oral Every 6 hours PRN, pain,Indications: Pain, Informant: Self, Reported on 06/04/2024 cyclobenzaprine (FLEXERIL) 10 mg tabletIndications:Acut e joint pain Take 1 tablet (10 mg total) by mouth nightly as needed for muscle spasms 20 tablet Active Additional Information Patient taking differently:10 mg oral Nightly PRN, muscle spasms,Indications: Muscle Spasm, Informant: Self, Reported on 06/04/2024 amitriptyline (ELAVIL) 10 mg tablet Take 1 tablet (10 mg total) by mouth nightly 90 tablet 3 Active lidocaine (LIDODERM) 5 %Indications:Generaliz ed joint pain Place 1 patch on the skin daily Apply to painful area 12 hours per day, remove for 12 hours. 30 patch 11 024 2024 Active Additional Information Patient taking differently:1 patch transdermal Daily, Apply to painful area 12 hours per day, remove for 12 hours.,Indications: Postherpetic Neuralgia, Informant: Self, Reported on 06/04/2024 cetirizine (ZyrTEC) 10 mg tabletIndications:Sinu s headache Take 1 tablet (10 mg total) by mouth daily as needed for allergies 90 tablet 3 024 2024 Active Additional Information Patient taking differently:10 mg oralDaily (early AM), Indications: Allergic Rhinitis, Informant: Self, Reported on 06/04/2024 cholecalciferol 25 mcg (1,000 unit) tabletIndications:Prim pretty hyperparathyroidism (HCC) Take 1 tablet (1,000 Units total) by mouth daily 90 tablet 3 024 2024 Active Additional Information Patient taking differently:1,000 Units oralDaily (early AM), Indications: Vitamin D Deficiency, Informant: Self, Reported on 06/04/[address] (CYMBALTA) 60 mg capsuleIndications:Gregg or depressive disorder, recurrent, moderate (HCC) Take 1 capsule (60 mg total) by mouth daily 90 capsule 3 Active Additional Information Patient taking differently:60 mg oralDaily (early AM), Indications: Anxiety with Depression, Informant: Self, Reported on 06/04/2024 lisinopriL (PRINIVIL,ZESTRIL) 20 mg tabletIndications:Hype rtension, essential Take 1 tablet (20 mg total) by mouth daily 90 tablet 3 Active Additional Information Patient taking differently:20 mg oralDaily (early AM), Indications: Migraine Prevention, Informant: Self, Reported on 06/04/2024 magnesium oxide 500 mg capsuleIndications:Sin us headache Take 500 mg by mouth daily 90 capsule 3 Active Additional Information Patient taking differently:500 mg oralDaily (early AM), Indications: hypomagnesemia, Informant: Self, Reported on 06/04/2024 omeprazole (PriLOSEC) 20 mg capsuleIndications:Gas troesophageal reflux disease, unspecified whether esophagitis present Take 1 capsule (20 mg total) by mouth daily 90 capsule 3 Active Additional Information Patient taking differently:20 mg oralDaily (early AM), Indications: Treatment of Non-Bleeding Gastric Disorder, Informant: Self, Reported on 06/04/2024 senna-docusate (Senexon-S) 8.6-50 mgIndications:Constipa tion, unspecified constipation type Take 2 tablets by mouth daily 90 tablet 3 Active Additional Information Patient taking differently:2 tablet oral3 times daily, Indications: constipation, Informant: Self, Reported on 06/04/2024 cyanocobalamin (Vitamin B-12) 50 mcg tabletIndications:Prev ention of Vitamin B12 Deficiency Take 1 tablet (50 mcg total) by mouth 3 (three) times a week Active glucosamine sulfate 500 mg capsuleIndications:Sup plement Take 1 tablet by mouth 2 (two) times a day Active albuterol HFA (PROVENTIL HFA,VENTOLIN HFA,PROAIR HFA) 90 mcg/actuation inhaler Inhale 2 puffs every 6 (six) hours as needed for wheezing Active calcium citrate (CALCITRATE) 950 mg (200 mg of elemental calcium) tablet Take 2 tablets (1,900 mg total) by mouth 3 (three) times a day 180 tablet Active cholecalciferol (VITAMIN D-3) 2000 unit capsule Take 1 capsule (2,000 Units total) by mouth daily 30 capsule Active docusate sodium (COLACE) 100 mg capsuleIndications:con stipation Take 1 capsule (100 mg total) by mouth 2 (two) times a day 30 capsule Active pravastatin (PRAVACHOL) 20 mg tabletIndications:hype rlipidemia Take 1 tablet (20 mg total) by mouth haircutter before breakfast 90 tablet 3 Active diclofenac sodium (VOLTAREN) 1 % gelIndications:Osteoar thritis Apply 2 g topically 4 (four) times a day 100 g Active estrogens, conjugated, (PREMARIN) vaginal cream Apply nightly to vagina for 1 week, then Monday/ y/ Monday 42.5 g 11 024 2024 Active HYDROcodone-acetaminop hen (NORCO) 5-325 mg per tablet TAKE ONE Tablet BY MOUTH EVERY SIX HOUR(S) NEEDED FOR PAIN Active Active Problems Problem Noted Date Diagnosed Date Hyperparathyroidism, primary 09/05/2023 Sinus headache 08/10/2023 Assessment & Plan (08/10/2023 9:50 AM CDT): Zyrtec and magnesium supplement help, would like refills Constipation 08/10/2023 Assessment & Plan (08/10/2023 9:47 AM CDT): Would like refills on bowel regimen Primary osteoarthritis involving multiple joints 08/10/2023 Assessment & Plan (08/10/2023 9:44 AM CDT): Recently received hand steroid injections with ortho, which helped symptoms initially but now worsening -Encouraged use of topicals, tylenol, follow up with ortho Hyperparathyroidism 08/03/2023 Age-related nuclear cataract of both eyes 2023 Assessment & Plan (07/25/2023 1:56 PM CDT): Educated patient on s/s associated with cataracts. Not visually significant, recommend UV protection. Pt defers MRx today, would like to use her benefits elsewhere. I recommend annual DFE, she may return here or to outside ECP. Monitor. Acute joint pain 06/20/2023 Assessment & Plan (06/20/2023 1:39 PM DATABASE DEVELOPMENT PROJECT MANAGER): Worsening hand pain bilaterally in all joints, associated with some skin tightness, unable to open jars. Continued pain in knees, shoulders. Worsening mid back pain. --Lab work up today revealing for (JANIS 1:320 speckled, Anti-SSA (Ro) >8). No elevated inflammatory markers. Imaging today with plain films of thoracic spine without acute findings. Hand plain films with scattered OA. --Rheumatology referral --Patient had not been taking NSAIDs due to prior hx of LGIB. She has not been constipated and has not had blood in stool. Informed OK to use NSAIDs sparingly. Continue other pain regimen as prior. --Given severe pain after contacting patient after visit on 06/15, will prescribe short course of low dose steroids. --Spoke with rheumatology office who informed me they would try to get patient an appointment in their office over the next 1-2 weeks. --Some of her pain could be related to hyperCa iso primary hyperpara. Will refer to endocrine surgery as well. Valgus deformity of both great toes 06/20/2023 Assessment & Plan (08/10/2023 9:15 AM CDT): Previously referred to podiatry, encouraged follow up Equilibrium disorder 04/10/2023 Overview (04/10/2023): Three weeks ago, noted problems with equilibrium in which her depth perception/spatial awareness were not at baseline. Of note, patient wears glasses/contacts and has been noticing vision changes lately. Has not seen ophthalmology in years. Neuro exam WNL. Equilibrium symptoms improving. Most likely etiology for equilibrium changes is changes to vision. Other differential includes TIA, stroke less likely given improving symptoms. Assessment & Plan (04/10/2023 4:29 PM DATABASE DEVELOPMENT PROJECT MANAGER): - Ambulatory referral to ophthalmology - CTM Hyperpigmentation 04/10/2023 Overview (04/10/2023): One week history of hyperpigmented macules on L lower abdomen. Not associated with pruritus, erythema, drainage. Likely benign. Assessment & Plan (04/10/2023 4:18 PM DATABASE DEVELOPMENT PROJECT MANAGER): - Reassured patient that most likely benign - CTM Onychomycosis 06/30/2022 Overview (04/10/2023): Endorses progressive darkening/thickening of toenails, consistent with physical exam Assessment & Plan (04/10/2023 4:25 PM DATABASE DEVELOPMENT PROJECT MANAGER): - Ciclopirox solution daily - CTM History of total knee arthroplasty 05/19/2022 Assessment & Plan (05/19/2022 8:44 AM DATABASE DEVELOPMENT PROJECT MANAGER): H/o R TKA in 11/2021 w/ unremarkable recovery. Recently w/ R knee pain after struck knee on ground while catching self from falling. Today, mild effusion. Also w/ soreness w/ passive and active ROM but full ROM noted. Warm to touch. Knee XR during hospitalization in 05/05 w/ effusion. - referral to orthopedics same day clinic - encouraged to contact Dr. Khan in orthopedics to arrange for expedited evaluation of replaced knee - no clear risk factors for septic arthritis and sxs likely related to trauma rather than infection BRBPR (bright red blood per rectum) 05/11/2022 Assessment & Plan (05/19/2022 8:37 AM DATABASE DEVELOPMENT PROJECT MANAGER): Hosp 05/11- w/ BRBPR that spontaneously resolved. CTAP during admission w/ diverticulosis, no active extravazation. No need for GI intervention d/t spontaneous resolution. Hgb stable at d/c. No sxs today of anemia and no further episodes noted. - continue to monitor - encouraged soft BMs Assessment & Plan (05/14/2022 12:13 PM DATABASE DEVELOPMENT PROJECT MANAGER): This is resolved. No further episodes after arrival on floor. Suspect anorectal etiology such as hemorrhoids or diverticular bleeding (seen on c-scope 01/2021). Hb stable, hemodynamically stable. -Continue to maintain soft BMs. Osteoarthritis of knee, unspecified 11/16/2021 Primary osteoarthritis of right knee 10/06/2021 Overview (10/06/2021): Added automatically from request for surgery [id number] Weight loss counseling, encounter for 01/25/2021 Overview (07/15/2021): Stable around 230 lbs. Discussed weight loss at last visit 04/04. Today _ Met with Nutrition Assessment & Plan (07/15/2021 9:28 AM DATABASE DEVELOPMENT PROJECT MANAGER): Discussed weight loss strategies with pt today, including importance of caloric restrictions. With goal of eating < 500 calories below BMR to lose 1-2 lb's weekly. Pt is amenable to meeting with our cement truck driver, the referral be placed today. Assessment & Plan (03/25/2021 5:46 PM DATABASE DEVELOPMENT PROJECT MANAGER): Discussed weight loss strategies with pt today, including importance of caloric restrictions. With goal of eating < 500 calories below BMR to lose 1-2 lb's weekly. Pt is amenable to meeting with our cement truck driver, the referral be placed today. H/O vaginal bleeding 01/15/2021 Overview (07/15/2021): +Post-coital bleeding, post menopause. Reports consistent condom use. Has also experienced vaginal dryness and incomplete voiding. S/p TVH/BSO per chart in 2016. Per last Ob note, cervix surgically absent and signs of vaginal atrophy; pt had been describing post-coital bleeding at that time as well with note to contact her Ob for vaginal estrogen if continues. She is rx'd clonidine/paxil for vasomotor sx but no current HRT/local estrogen. She has previously been diagnosed with prolapse and saw UroGyn 2019 but did not follow up. Did not perform pelvic today. Assessment & Plan (07/15/2021 3:21 PM DATABASE DEVELOPMENT PROJECT MANAGER): -counseled on use of Crisco as needed for vaginal dryness to see if this improves bleeding; if no improvement, can discuss topical estrogen -recommend against systemic HRT iso hypertension -pt has follow up with Ob 08/2021 Vasomotor symptoms due to menopause 01/15/2021 Overview (01/15/2021): Pt with hot flashes, night sweats, and hot/cold intolerance. Pt is currently on therapeutic doses of gabapentin and paroxetine with no alleviation of symptoms. Would like additional therapy. Pt NOT a candidate for systemic estrogen therapy given age and HTN. Plan: - 0.1mg weekly clonidine patch Rx given to pt today - Pt to call the clinic or RTC if symptoms not improving Osteoarthritis of hip 01/27/2020 Overview (01/27/2020): Added automatically from request for surgery [id number] Varicose veins of leg with pain, bilateral 01/26 Primary hyperparathyroidism 01/27/2020 Assessment & Plan (08/10/2023 9:49 AM CDT): Saw endo surg today, planning for surgery which I informed patient could help with symptoms of joint pain but we will have to monitor after surgery to see. Encouraged to take vitamin D Assessment & Plan (06/20/2023 1:33 PM DATABASE DEVELOPMENT PROJECT MANAGER): Patient with persistent joint pain in hands, knees, feet, mid back, shoulders. Worsening back pain, history of possible fracture (CT cspine in 04/2022 showing indeterminnant fragment posterior/inferior to C5 facet - DJD vs fracture). Ca 10.7, PTH 109, 25OH 29 in 03/2023. DEXA 02/2020 normal. --Generalized pain could be in setting of rheumatological or degenerative disorder, however suspect portion of pain likely in setting of hypercalcemia --Referral to endocrine surgery --Recommended 1k units daily VitD --Consider repeat DEXA at follow up Prolapse of vaginal vault after hysterectomy 10/2019 Overview (04/10/2023): Had TVH/BS in 2016. Seen by OBGYN in 06/2022 for pelvic pulling sensation and intermittent bulge at introitus with associated incomplete bladder emptying. At that time, discussed pessary vs surgical management, patient to follow-up on preference. Assessment & Plan (04/10/2023 4:08 PM DATABASE DEVELOPMENT PROJECT MANAGER): - Ambulatory referral to OBGYN for further management Hypercalcemia 10/16/2019 Overview (04/10/2023): Calcium mildly elevated to 10.8 in 05/2022. PTH upper limit of normal in 04/2022. Denies symptoms of hypercalcemia. May be primary hyperparathyroidism vs FHH. Assessment & Plan (04/10/2023 4:17 PM DATABASE DEVELOPMENT PROJECT MANAGER): - F/u repeat calcium, VitD, PTH - Consider referral to endocrine in future - Discuss repeat DEXA at next visit Assessment & Plan (05/14/2022 12:14 PM DATABASE DEVELOPMENT PROJECT MANAGER): In the setting of elevated and inappropriately normal PTH. Possible primary hyperparathyroidism, could also consider FHH -Stop Hctz -Could be contributing to constipation -Follow-up as outpatient Assessment & Plan (10/16/2019 9:31 PM CDT): Calcium elevated on 07/2019 BMP at 11.0. Has known pain from right hip, lumbar and knee OA. Has depressed mood as well. - Repeat BMP, calcium 10.6, mildly elevated - PTH mildly elevated at 67, 25-OH vitamin D wnl at 39 - Likely primary hyperparathyroidism vs FHH - Can consider 24 hour urinary calcium at follow up for definitive diagnosis - if PHPT should obtain DEXA to evaluate for T-score as significant osteoporosis may suggest need for parathyroidectomy. Achilles tendinitis, unspecified leg 07/15/2019 Anxiety state 02/13/2019 Esophageal reflux 02/13/2019 Overview (04/10/2023): Endorses intermittent stomach aches that occur 3X per week. Does not have temporal relationship with eating. On physical exam, had mild epigastric tenderness. Etiology of dyspepsia most likely overproduction of stomach acid. Will trial PPI to see if symptoms improve. Has history of lower GIB. Denies any recent blood in stool or nausea/vomiting. Assessment & Plan (08/10/2023 9:09 AM CDT): Continues omeprazole which has helped symptoms somewhat. NO red flag symptoms today. If persistent consider EGD referral at a future visit after her parathyroidectomy is done and she sees rheumatology Assessment & Plan (04/10/2023 4:23 PM DATABASE DEVELOPMENT PROJECT MANAGER): - Omeprazole 20 mg daily - CTM Hypertension, essential 02/13/2019 Overview (04/10/2023): Current regimen: Lisinopril 20mg, endorses compliance. HCTZ discontinued in 04/2022 due to hypercalcemia. Monitors BP at home, SBP 130-140. BP 137/49 in clinic today. Assessment & Plan (08/10/2023 9:09 AM CDT): Well controlled, continue current regimen Assessment & Plan (04/10/2023 4:15 PM DATABASE DEVELOPMENT PROJECT MANAGER): - Continue lisinopril 20 mg - F/u CMP Assessment & Plan (05/14/2022 12:15 PM DATABASE DEVELOPMENT PROJECT MANAGER): Continue Lisinopril -d/c Hctz on discharge given hypercalcemia Assessment & Plan (07/15/2021 3:22 PM DATABASE DEVELOPMENT PROJECT MANAGER): -well-controlled, continue current regimen Assessment & Plan (03/25/2021 5:41 PM DATABASE DEVELOPMENT PROJECT MANAGER): - BP today 125/83, goal < 130/80 - Current regimen: Lisinopril 20mg, HCTZ 12.5mg daily - Endorses compliance to current regimen Assessment & Plan (10/16/2019 9:35 PM CDT): BP at goal today 122/70 - Continue lisinopril-HCTZ 10-12.5 Assessment & Plan (07/15/2019 4:57 PM DATABASE DEVELOPMENT PROJECT MANAGER): BP at goal today on manual check, 124/76 - Continue lisinopril-HCTZ 10-12.5 - BMP today within normal limits Generalized joint pain 02/13/2019 Overview (04/10/2023): Severe multi-joint osteoarthritis primarily in bilateral shoulders and bilateral knee. S/p R TKA and R hip replacement in 2019. Had ground level fall three weeks ago where she landed on her R side. Has residual R hip/back pain. Able to ambulate. Low index of suspicion for acute fracture from fall given full range of motion of RLE, does not need additional imaging at this time. Previously benefited from PT. Assessment & Plan (08/10/2023 9:49 AM CDT): Follows with ortho, recently received hand injections for hand OA which have helped. Has been referred to rheumatology due to recent abnormal rheumatologic labs (JANIS 1:320 speckled, Anti-SSA (Ro) >8) -I prescribed her a short course of prednisone which she does not believed greatly helped sxs. Defer further steroids for now, but an option in the future -Encouraged continued follow up with specialists, provided phone numbers Assessment & Plan (04/10/2023 4:11 PM DATABASE DEVELOPMENT PROJECT MANAGER): - Continue home pain medication regimen: flexeril 10 mg QHS PRN, amitriptyline 10 mg QHS, gabapentin 900 mg TID, APAP 1000 mg Q8H PRN, lidocaine patches PRN - Counseled patient to avoid NSAIDs due to history of GIB - Ambulatory referral to PT - Ambulatory referral to orthopedic surgery Assessment & Plan (05/19/2022 8:41 AM DATABASE DEVELOPMENT PROJECT MANAGER): Severe multijoint osteoarthritis primarily c/o bilateral R>L shoulder pain and R knee pain after near-fall at home. R shoulder with limited abduction, flexion, internal rotation, and generalized pain w/ passive ROM. L shoulder with generalized pain not clearly localizing to one ROM. Has severe tendinopathy of L shoulder on MRI, high likelihood for further injury given mechanism. - no further PO NSAIDs d/t GIB - start flexeril 10mg qhs prn - start amitryptyline 10mg nightly - continue apap 1000mg q8h prn - continue lidocaine patches - inc gabapentin to 900mg TID - directed to ortho same day injury clinic (see also: R knee TKA) - shoulder US - referral to pain management Assessment & Plan (10/16/2019 9:34 PM CDT): Known multijoint osteoarthritis most significant in right hip. Radiographs 06/2019 showed severe right hip osteoarthritis. - Has appointment with orthopedic surgery for right hip arthroplasty on 10/17 - Continue naproxen 500mg BID, tylenol, diclofenac 1% gel, glucosamine- chondroitin - Transition to duloxetine 60mg daily instead of fluoxetine - continue amitriptyline and gabapentin as adjunctive agents. - Preference would be for definitive management of osteoarthritis with arthroplasty, however, if unable to have operative management, would consider trial of tramadol for analgesia Assessment & Plan (07/15/2019 5:06 PM DATABASE DEVELOPMENT PROJECT MANAGER): Patient with chronic osteoarthritis involving multiple joints including right hip, knees and ankles. - Current aching leg pains at night unlikely to be restless leg syndrome as patient does not have urge to move legs. Likely chronic pain from OA and more noticeable while patient is lying down and has less external stimuli. - currently using naproxen 500mg BID, diclofenac 1% gel, glucosamine- chondroitin. - Using adjunctive amitryptyline 25mg qHS, gabapentin 900mg TID for chronic pain including neuropathic pain from carpal tunnel and lumbar degenerative disc disease - Recommended starting tylenol 1000mg q6-8h for additional analgesia. - Has previously gone through physical therapy - When last evaluated by orthopedics 06/24/19, recommended that patient have right hip arthroplasty. Insomnia due to medical condition 02/13/2019 Major depressive disorder, recurrent, moderate 1 Assessment & Plan (08/10/2023 9:12 AM CDT): Symptoms stable, continues cymbalta Assessment & Plan (10/16/2019 9:29 PM CDT): Previously on fluoxetine for mood. Currently reporting increased stress and depressed mood due to COVID pandemic and increased stress at home with less help from home health in caring for 31 year old dependent son. - Stop fluoxetine - Start duloxetine 60mg daily for added neuropathic pain benefit in setting of right hip osteoarthritis. Hyperlipidemia, unspecified 02/13/2019 Overview (07/15/2021): (08/01): TC 179, HDL 42, LDL 106, TG 155 (08/03): TC 174, HDL 48, LDL 99, TG 136 - On pravastatin 20mg qhs Assessment & Plan (06/20/2023 1:34 PM DATABASE DEVELOPMENT PROJECT MANAGER): LDL 99 on 07/2021, on pravastatin 20 mg. Assessment & Plan (07/15/2021 3:25 PM DATABASE DEVELOPMENT PROJECT MANAGER): Continue current regimen Assessment & Plan (07/15/2019 5:03 PM DATABASE DEVELOPMENT PROJECT MANAGER): - Lipid panel (07/15/19): TC 179, HDL 42, LDL 106, TG 155 - Continue pravastatin 20mg nightly - Discuss transition to high intensity statin at follow up Other depressive disorder 02/13/2019 Cervicalgia 02/13/2019 Carpal tunnel syndrome 05/17/2017 Pain in the shoulder 03/31/2017 Overview (01/25/2021): In Apr 2020, fell on L shoulder. S/p xrays.mostly pain w/ abduction above 90degrees. Went to PT and helped but when she started going ot the gym and did some lat pull downs, it irritated her shoulder again and pain recurred. Calcaneal spur of left foot 02/02/2017 Heel spur, right 02/02/2017 Lumbago 08/01/2016 Incomplete emptying of bladder 01/21/2016 Overview (01/15/2021): Pt with the sensation of incomplete bladder emptying, however no evidence of this on today's PVR. Plan: - follow up urine culture - recommend follow up with urogynecology for treatment of St 3 prolapse (likely causing her the sensation of incomplete bladder emptying) once she has completed surgical management and recovery of her knee and hip injuries. Ankle pain 01/08/2016 Stress incontinence in female 12/28/2015 Myofascial pain 12/21/2015 Pain in female genitalia on intercourse 12/21/19 16 Enlarged uterus 12/21/2015 Cystocele, midline 12/21/2015 Arthralgia of hip 11/27/2015 Knee pain 08/18/2014 Overview (07/15/2021): Known multijoint osteoarthritis of right hip now s/p arthroplasty with Dr. Khan, Right knee and left glenohumeral joint. Follows with pain management, has seen PMR. S/p Right genicular nerve block and nerve block of R knee. Last tramadol refill in 03/2021, pt aware last refill and agrees. XR in 10/2020: moderate lateral compartment predominant tricompartmental osteoarthritis of the right knee. Assessment & Plan (07/15/2021 3:15 PM DATABASE DEVELOPMENT PROJECT MANAGER): - XR left knee 08/03 initial read: Left patellar tendon heterotopic ossification with mild left knee effusion; No left knee osseous abnormalities appreciated - F/u Dr. 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 Khan. Also known OA in right knee and left glenohumeral joint. Follows with pain management. S/p Right genicular nerve block - Following with Dr. Khan in orthopedics - Continue prior medical management: tylenol, naproxen, gabapentin, amitriptyline, paroxetine, topical diclofenac - Has been prescribed tramadol before in past as a bridge to surgery (in 06/2020, but has not followed through w/ scheduling surgery). Instructed patient that long- term opioids are problematic, and that this will be her last opioid script. Tramadol 50mg Q8 PRN #84 tablets Cubital tunnel syndrome 01/31/2013 Resolved Problems Problem Noted Date Diagnosed Date Resolved Date Hyperparathyroidism 08/03/2023 08/03/19 24 Healthcare maintenance 07/15/202108/02 Overview (04/10/2023): General: - AAA (one time in men 65-75 ever-smokers): NA - DEXA (F > 65, or < 65 + RF): WNL 01/2020 - A1c screening (if 40-75 w/ overweight, > 21 if other risk factors): Hgb A1C Date Value Ref Range Status 07/15/2021 5.5 4.0 - 5.6 % Final - Lipids (if 40-75, or >21 w/ risk factors): Lab Results Component Value Date HDL 48 07/15/2021 CHOL 174 07/15/2021 LDLCALC 99 07/15/2021 TRIG 136 07/15/2021 - ASCVD risk score: < 7.5% Cancer: - Colonoscopy (age 45-75): Internal hemorrhoids, diverticulosis in 01/2021, recommended f/u in 2025 - Mammogram (women age 50-74, consider if age 40-49): WNL 05/2022 - Pap smear (age 21-29 cytology Q3, age 30-65 can do co-testing Q5): 07/2021 - NILM/hrHPV negative - Low-dose CT for lung cancer screening (50-80 with >20 pk-yr hx, and smoked in the past 15yrs): NA Infectious Disease: - HIV (age 15-65): NR 01/2021 - HBV (if at high risk): NA - HCV (age 18-79): Not done - Syphilis (if increased risk): NR 01/2021 Immunizations: - COVID (everyone): Declined, counseled - Influenza (annually): Declined, counseled - Td/Tdap (q10 years): Due 07/2029 - Pneumococcal (65+ or 19-59 with risk factors): NA - Shingles (age 50+ or 19+ if immunosuppressed): Declined, counseled Assessment & Plan (04/10/2023 4:21 PM DATABASE DEVELOPMENT PROJECT MANAGER): - Revisit COVID booster, shingles at next visit Morbid obesity with BMI of 50.0-59.9, adult 07/15/2019 06/15/2023 Assessment & Plan (07/15/2019 4:58 PM DATABASE DEVELOPMENT PROJECT MANAGER): Recommended patient eat a heart healthy diet and recommended low impact exercise, such as water aerobics. - Patient will contact insurance company to determine if any programs to reduce cost for water aerobics. Will assist from our end if needed. Segmental and somatic dysfunction 07/17/2017 08/03/2023 Opioid dependence 06/06/2017 07/15/2019 Arthralgia of ankle 05/12/2016 08/03/19 24 Pain of foot 12/03/2014 08/03/2023 Encounters Date Type Department Care Team Description 06/04/2024 9:15 AM DATABASE DEVELOPMENT PROJECT MANAGER [facility] [address] [place] [address] 4th [address] [place] [address] Rafael Wang, DPMehdi Onychomycosis [B35.1] (Primary Dx); Tinea unguium; Enlarged and hypertrophic nails from Last 3 Months Immunizations Immunization Administration Dates Next Due Hep A, Adult 10/11/2002 Tdap 07/15/2019 Surgical History Surgery Date Site/Laterality Comments HAND SURGERY CARPAL TUNNEL RELEASE HIP SURGERY 02/26/2020 Right hip replacement TOTAL VAGINAL HYSTERECTOMY 05/15/2015 - 05/14/2016 DAVI CULDOPLASTY 05/15/2015 - 05/14/2016 SALPINGECTOMY 05/15/2015 - 05/14/2016 Bilateral COLONOSCOPY 02/03/2021 REPLACEMENT TOTAL KNEE 11/16/2021 Right Medical History Medical History Date Comments Hypertension Arthritis Obesity Chronic pain disorder Hyperlipidemia Knee pain, bilateral Neck pain Family History Medical History Relation Name Comments Prostate cancer Brother Cancer Father Depression Father Prostate cancer Father Hypertension Mother Anesthesia problems Neg Hx Relation Name Status Comments Brother Father Mother Social History Tobacco Use Types Packs/Day Years Used Date Smoking Tobacco: Never Smokeless Tobacco: Never Tobacco Cessation:Counseling Given: Not Answered Alcohol Use Standard Drinks/Week Comments Yes 0 (1 standard drink = 0.6 oz pur e alcohol) social Social Connection and Isolat ion Panel [NHANES] Answer Date Recorded In a typical week, how many times do you talk on the phone with family, friends, or neighbors? More than three times a week 05/12/2022 How often do you get togethe r with friends or relatives? Once a week 05/12/2022 How often do you attend chur ch or muslim services? Never 05/12/2022 Do you belong to any clubs o r organizations such as islam groups, unions, fraternal or athletic groups, or school groups? No 05/12/2022 How often do you attend meet ings of the clubs or organizations you belong to? Never 05/12/2022 Are you , , di vorced, , never , or living with a partner? Never 05/12/2022 AUDIT-C Answer Date Recorded Q1: How often do you have a drink containing alc ohol? Monthly or less 09/26/2023 Q2: How many drinks containi ng alcohol do you have on a typical day when you are drinking? 1 or 2 09/26/2023 Q3: How often do you have si x or more drinks on one occasion? Never 09/26/2023 Overall Financial Resource Strain (CARDIA) Answe r Date Recorded How hard is it for you to pa y for the very basics like food, housing, medical care, and heating? Somewhat hard 05/12/2022 PHQ-2 Answer Date Recorded PHQ-2 Total Score (If total score is 3 or more points, staff should administer the PHQ-9) 2 05/12/2022 Hunger Vital Sign Answer Date Recorded Within the past 12 months, y ou worried that your food would run out before you got the money to buy more. Never true 06/04/19 25 Within the past 12 months, t he food you bought just didn't last and you didn't have money to get more. Never true 06/04/2024 PRAPARE - Transportation Answer Date Re corded In the past 12 months, has l ack of transportation kept you from medical appointments or from getting medications? No 04/15 In the past 12 months, has l ack of transportation kept you from meetings, work, or from getting things needed for daily living? No 05/12/2022 Housing Stability Vital Sign Answer Giovani e Recorded In the last 12 months, was t here a time when you were not able to pay the mortgage or rent on time? Yes 05/12/2022 In the last 12 months, how many places have you lived? 3 05/12/2022 In the last 12 months, was t here a time when you did not have a steady place to sleep or slept in a usp (including now)? No 05/12/2022 Personal Safety Answer Date Recorded Have you ever been in or are you currently in a harmful physical or emotional relationship or is someone making you feel afraid or unsafe? Denies 09/05/2023 Comments No Sex and Gender Information Value Date Recorded Sex Assigned at Not on file Legal Sex Female 7:40 PM DATABASE DEVELOPMENT PROJECT MANAGER Gender Identity Not on file Sexual Orientation Not on file Obstetrics History Para Term AB IAB SAB Ectopic Multiple Livin g Live Births 5 3 3 2 3 3 Date Outcome GA Total Labor Labor/2nd/3rd Weight Sex Type Anes PTL Chika A1 A5 Name Clin Term Vag-S pont Living Term Vag-S pont Living Term Vag-S pont Living AB AB Last Filed Vital Signs Vital Sign Reading Time Taken Comments Blood Pressure 140/84 01/22/2024 2:23 PM CDT man ual Pulse 70 01/22/2024 2:12 PM CDT Temperature 37.1 C (98.7 F) 12/18/2023 2:55 PM CDT Respiratory Rate 16 09/06/2023 8:31 AM CDT Oxygen Saturation 99% 01/22/2024 2:12 PM CDT Inhaled Oxygen Concentration - - Weight 104.5 kg (230 lb 4.8 oz) 01/22/2024 2:12 PM CDT Height 165.1 cm (5' 5 ) 10/23/2023 1:46 PM CDT Body Mass Index 38.32 10/23/2023 1:46 PM CDT Plan of Treatment Scheduled Procedures Name Priority Associated Diagnoses Date/Ti me COLONOSCOPY Colon cancer screening Health Maintenance Due Date Last Done Comments Hepatitis C Screening 1970 Hepatitis B Screening 1986 Zoster Vaccine (1 of 2) 2018 Depression Screening 05/11/2023 05/11/2022 Regular Well Visit/Exam 18-64 06/30/2023 06/30/2022 Influenza Vaccine (#1) 2024 Breast Cancer Screening-Mammogram 12/05/2024 12/06/2023, 06/08/2022, 06/08/2022, Additional history exists Colon Cancer Screening-Colonoscopy 02/03/2031 02/03/2021, 08/12/2015 DTaP/Tdap/Td Vaccine (3 - Td or Tdap) 10/30/2033 10/31/2023, 07/15/2019 Colon Cancer Screening-CT Colonography Discontinued 02/03/2021, 08/12/2015 Colon Cancer Screening-DNA Stool Discontinued 02/03/2021, 08/12/2015 Colon Cancer Screening-FIT Discontinued 02/03/2021, Colon Cancer Screening-Sigmoidoscopy Discontinued 02/03/2021, 08/12/2015 Cervical Cancer Screening Discontinued 07/23/2021 Pneumococcal vaccine <65 Aged Out No longer eligible based on patient's age to complete this topic Goals Goal Patient Goal Type Associated Problems Recent Progress Patient-Stated? Author CCM Chronic Pain Care Plan Chronic Care Management Improving( 9:38 AM CDT) Cathleen Graff RN Note: Problem: Chronic Pain right hip,back,knee,and heels Goals: 1. Minimize further functional decline 2. Maximize quality of life 3. Control pain Strategies: - Activity/exercise program recommendation - Conservative stepwise pain medicine strategy with multi-disciplinary approach - Recommend healthy lifestyle strategies and compensatory methods as needed Medical Devices Implanted Type Area Gas Leak Inspector Device Identifier Shelf Expiration Date Model / Serial / Lot [employer] [id number] Continuum 48mm 12 Scallop Cluster Hole Snap Fit Groove Integrate - [id number] Implanted:Qty: 1 on 02/26/2020 by Tal Khan MD at [facility] Right: Hip [employer] [id number] 04/13/2029 [id number] / / [id number] [employer] [id number] Trilogy 6.5mm 40mm Self Tap Hip Acetabular Cortical Screw Bone - [id number] Implanted:Qty: 1 on 02/26/2020 by Tal Khan MD at [facility] Right: Hip [employer] [id number] 12/09/2029 [id number] / / [id number] [employer] [id number] 48mm 32mm Hip Gg Neutral Liner Acetabular Longevity Continuum - [id number] Implanted:Qty: 1 on 02/26/2020 by Tal Khan MD at [facility] Right: Hip [employer] [id number] 05/14/2023 [id number] / / [id number] [employer] [id number] Taperloc 140mm 34.3mm Press Fit Reduce Hip 133d 10 Standard - [id number] Implanted:Qty: 1 on 02/26/2020 by Tal Khan MD at [facility] Right: Hip [employer] 09/10/2029 [id number] / / [id number] [employer] [id number] 32mm Modular Hip -3mm Head Femoral Biolox Delta - [id number] Implanted:Qty: 1 on 02/26/2020 by Tal Khan MD at [facility] Right: Hip [employer] 08/20/2028 [id number] / / [id number] [employer] [id number] Persona 2 Peg Knee Right E Baseplate Tibial Trabecular Metal - [id number] Implanted:Qty: 1 on 11/16/2021 by Tal Khan MD at [facility] Right: Knee [employer] [id number] 05/22/2031 [id number] / / [id number] [employer] Persona 10mm Knee Right 6-7 E-F Insert Articular Vivacit-E [id number] - [id number] Implanted:Qty: 1 on 11/16/2021 by Tal Khan MD at [facility] Right: Knee [employer] [id number] 07/05/2026 [id number] / / [id number] [employer] [id number] Persona Cruciate Retaining Knee Right 6 Standard Component - [id number] Implanted:Qty: 1 on 11/16/2021 by Tal Khan MD at [facility] Right: Knee [employer] [id number] 01/25/2030 [id number] / / [id number] Procedures Procedure Name Priority Date/Time Associated Diagnosis Comments SCREENING MAMMOGRAM BILATERAL W SUNNY Schedule Routine, Read Routine (OP Routine) 12/06/2023 1:34 PM CDT Screening mammogram, encounter for PAP AND HIGH RISK HPV, REFLEX TO GENOTYPING Routine 07/23/2021 4:38 PM DATABASE DEVELOPMENT PROJECT MANAGER ASCUS of cervix with negative high risk HPV COLONOSCOPY 02/03/2021 11:03 AM CDT from Last 3 Months or Most Recently Relevant to Health Maintenance Results * Screening Mammogram Bilateral W Sunny (12/06/2023 1:34 PM CDT) Anatomical Region Laterality Modality Breast Bilateral Mammography Narrative 12/06/2023 4:09 PM CDT Mammogram Technique: Bilateral Digital Breast Tomosynthesis, Bilateral C-view 2D Screening mammogram. Views obtained: bilateral craniocaudal and bilateral mediolateral oblique. Computer Aided Detection was performed. Mammogram Findings: The present examination has been compared to prior imaging studies performed at [facility] on 01/03/2020 and 06/08/2022, and at [facility] on 03/31/2021. There are scattered areas of fibroglandular density. There is no suspicious abnormality in either breast. Impression: There is no mammographic evidence of malignancy. Annual screening mammography is recommended. OVERALL FINAL ASSESSMENT: BI-RADS CATEGORY 1: Negative. Procedure Note Lala Prieto MD - 12/06/2023 Mammogram Technique: Bilateral Digital Breast Tomosynthesis, Bilateral C-view 2D Screening mammogram. Views obtained: bilateral craniocaudal and bilateral mediolateral oblique. Computer Aided Detection was performed. Mammogram Findings: The present examination has been compared to prior imaging studies performed at [facility] on 01/03/2020 and 06/08/2022, and at [facility] on 03/31/2021. There are scattered areas of fibroglandular density. There is no suspicious abnormality in either breast. Impression: There is no mammographic evidence of malignancy. Annual screening mammography is recommended. OVERALL FINAL ASSESSMENT: BI-RADS CATEGORY 1: Negative. us Self Screening Mammogram IMG MAMMO PROCEDURES Fi nal Result * Pap and High Risk HPV, reflex to Genotyping (07/23/2021 4:38 PM DATABASE DEVELOPMENT PROJECT MANAGER) Thin prep (Pap test) 07/23/2021 4:38 PM DATABASE DEVELOPMENT PROJECT MANAGER 07/23/2021 7:19 PM DATABASE DEVELOPMENT PROJECT MANAGER Narrative PATHOLOGY [facility] - 07/28/2021 2:14 PM CDT EPIC results best viewed via link to PDF [facility] [place] [address] Note to Patients: This report may contain a detailed description of human tissue sent by a health care provider to the laboratory for pathologic evaluation. The content of this report is essential for diagnosis and may provide important critical findings. This information may be unfamiliar to patients to review without a medical professional present. It is advised that the patient review this report in the presence of a health care provider who can answer questions and explain the details. CYTOPATHOLOGY REPORT FINAL Patient Name: TANNER TORRE Gender: F : 1970 (Age: 50) Address: [address] [place] [address] Hospital #: [id number] Service: Gynecology Location: [facility] Patient Type: [facility] Ancillary Taken: 07/23/2021 Received: 07/23/2021 Accessioned: 07/26/2021 Reported: 07/28/2021 Physician(s): Olivia Mata M.D. FINAL INTERPRETATION SOURCE OF SPECIMEN: Liquid based Thin Prep pap with HPV STATEMENT OF ADEQUACY: - Satisfactory for evaluation - Clinical history of hysterectomy GENERAL CATEGORY: - Negative for squamous intraepithelial lesion or malignancy DESCRIPTION: - Atrophy Comments HPV Result: NEGATIVE for high risk types of Human Papilloma Virus (HPV) RNA This probe detects the presence of HPV types: 16, 18, 31, 33, 35, 39, 45, 51, 52, 56, 58, 59, 66 and 68. This HPV test was performed at [facility] in [place], [place] utilizing the Gen-Probe Aptima assay. 07/28/2021 14:14 ELLIE Falk(ASCP) Report Electronically Reviewed and Signed Out By ELLIE Falk(ASCP) 07/28/2021 14:14:52 Cervicovaginal Cytology (Pap Test) Disclaimer: The Pap test is a screening test used to detect cervical cancer and its precursors; it is not a diagnostic procedure. False negative and false positive results do occur. Pap test results should be interpreted in the context of pertinent clinical information and biopsy results as indicated. Gross Description A. Liquid based Thin Prep pap with HPV: Vaginal - Screening ThinPrep Clinical Diagnosis and History Last Menstrual Period: n/a Menstrual History: Total Hysterectomy: post The patient is a 50 year old woman with history of ASCUS in 2016, status post vaginal hysterectomy, do not think she has had a pap since. The HPV test was performed by [facility], [address] [place] [address]. Report Images and scanned documents, if included only viewable in PDF version The performance characteristics of some immunohistochemical stains, in-situ hybridization and fluorescence in-situ hybridization tests and immunophenotyping by flow cytometry cited in this report (if any) were determined by the Surgical Pathology Department at [facility] as part of an ongoing software quality manager program and in compliance with federally mandated regulations drawn from the Clinical Laboratory Improvement Act of 1988 (CLIA '88). Some of these tests rely on the use of analyte specific reagents and are subject to specific labeling requirements by the US Food and Drug Administration. Such diagnostic tests may only be performed in a facility that is certified by the Department of Health and Human Services as a high complexity laboratory under CLIA '88. The FDA has determined that such clearance or approval is not necessary. This test is used for clinical purposes. It should not be regarded as investigational or for research. Nevertheless, federal rules concerning the medical use of analyte specific reagents require that the following disclaimer be attached to the report: This test was developed and its performance characteristics determined by the Surgical Pathology Department of [facility]. It has not been cleared or approved by the U. S. Food and Drug Administration. Olivia Mata MD LAB CYTOLOGY ORDERABLES F inal Result PATHOLOGY [facility] 3rd Floor [place], [place] [phone] * COLONOSCOPY (02/03/2021 11:03 AM CDT) Anatomical Region Laterality Modality Other Narrative Procedure Note Syd Toney MD - 02/03/2021 11:03 AM CDT GI ENDOSCOPY [facility] Patient Name: Tanner Torre Procedure Date: 02/03/2021 11:03 AM Date of : 1970 Admit Type: Outpatient Age: 50 Gender: Female Attending MD: Syd Urbina M.D. Room: [facility] ENDOSCOPY ROOM 9 Note Status: Finalized Procedure: Colonoscopy Indications: Screening for colon cancer: Family history of colorectal cancer in distant relative(s) Referring MD: Parker Villaseñor M.D. Providers: Syd Urbina M.D. Medicines: Monitored Anesthesia Care Complications: No immediate complications. Estimated Blood Loss: Estimated blood loss was minimal. Procedure: Pre-Anesthesia Assessment: - The risks and benefits of the procedure and the sedation options and risks were discussed with the patient. All questions were answered and informed consent was obtained. - Immediately prior to administration ofmedications, the patient was re-assessed for adequacy to receive sedatives. The benefits, risks and alternatives of theprocedure and sedation were discussed and informed consentwas obtained. All questions were answered. Please referto the signed informed consent document in the medical record. The scope was passed under direct vision.The [id number] endoscope was introduced through the anus and advanced to the cecum, identified by appendiceal orifice and ileocecal valve. The colonoscopy was performed without difficulty. The patient tolerated the procedure well. The qualityof the bowel preparation was good. The quality of the bowel preparation was evaluated using the BBPS(Surveyor Bowel Preparation Scale) with scores of: RightColon = 3 (entire mucosa seen well with no residualstaining, small fragments of stool or opaque liquid),Transverse Colon = 2 (minor amount of residual staining, small fragments of stool and/or opaque liquid, but mucosa seen well) and Left Colon = 3 (entire mucosa seenwell with no residual staining, small fragments of stoolor opaque liquid). The total BBPS score equals 8. The bowel preparation used was polyethylene glycol(PEG). Findings: The perianal and digital rectal examinations were normal. Non-bleeding non-thrombosed non-prolapsed internal hemorrhoids were found during retroflexion. The hemorrhoids were moderate. Scattered small-mouthed diverticula were found in the sigmoid colonand ascending colon. The exam was otherwise without abnormality on direct and retroflexion views. Impression: - Non-bleeding non-thrombosed non-prolapsedinternal hemorrhoids. - Diverticulosis in the sigmoid colon and in the ascending colon. - The examination was otherwise normal on directand retroflexion views. Recommendation: - Repeat colonoscopy in 5 years for surveillancedue to family history. - Return to referring provider as indicated. - In the unusual situation that you developabdominal pain, bleeding or other significant problems in the days following this procedure please call my office [phone]). After hours and eveningsplease call [phone] and speak to the GI fellow oncall. Please tell the fellow that Dr. Urbina did your procedure and that you were instructed to have the fellow call me or the physician covering for me to discuss the management of your condition. If youhave an urgent problem, please go to the nearestemergency room and have the ER doctor call my office duringthe day or the GI fellow after hours and weekends to arrange admission or transfer to our facility.Please bring this report with you if you go to theemergency room. Attending Participation: I personally performed the entire procedure. Electronically signed by Syd Urbina MD Syd Urbina M.D. 02/03/2021 12:00:56 PM . Number of Addenda: 0 Note Initiated On: 02/03/2021 11:03 AM Recognized by the [employer] for promoting quality in endoscopy Syd Urbina MD ENDOSCOPY PROCEDURES Final Result from Last 3 Months or Most Recently Relevant to Health Maintenance Insurance [facility] HUMANA CHOICE MEDICARE PPO MEDICARE [employer] CHOICE MEDICARE PPO [place] [employer] MED[place] COMMUNITY [place] Member Subscriber Plan / Payer (Ef fective 2023-Present) Name:Tanner Torre Relation to Subscriber:Self Name:Tanner Torre Payer ID:[id number] Group ID:Not on file Type:MEDICAID [place] Address: [address] MEDICARE COMMUNITY PLAN Advance Directives For more information, please contact: [phone] * Full Code (Latest Code Status on File) Date Activated Date Inactivated Comments 09/05/2023 5:23 PM 09/06/2023 3:20 PM * Full Code Date Activated Date Inactivated Comments 05/12/2022 12:08 AM 05/14/2022 8:58 PM * Full Code Date Activated Date Inactivated Comments 11/17/2021 8:54 AM 11/18/2021 6:21 PM * Full Code Date Activated Date Inactivated Comments 02/03/2021 10:50 AM 02/03/2021 4:58 PM * Full Code Date Activated Date Inactivated Comments 02/26/2020 4:45 PM 02/27/2020 8:25 PM Care Teams Wardrobe Attendant Relationship Specialty Start Date End Date Rafael Gutierrez MD [address] [place] [address] PCP - General Family Medicine 12/06/23 Carla Padron PT Physical Therapist Physical Therapy 11/17/21
--- OUTSIDE RECORDS SUMMARY | 2024-07-02 04:27 | XMS_ITS | Clinical Summary ---
Author Organization [facility] Address [address] [place] [address] Care Team Providers Care Statistical Engineer Name Role Phone Clinic[facility], [facility] Primary Care Provider Clinicpcrudy [facility] Unavail able Belgica Arevalo RN Unavailable [phone] Source Comments [facility],non-owned Affiliates and Associated Physician Practices is amultiple site organization consisting of ambulatory clinics and hospital sitesin [place], [place], [place] and [place]. This disclosure is being madepursuant to the Care Everywhere program and may not contain all information available regarding this patient. Last updated 18.[facility] Allergies Active Allergy Reactions Criticality Noted Date [...] needed for Pain 12 tablet 10/23/2018 Active Family History Medical History Relation Name Comments CAD (Coronary Artery Disease) Father Cancer Father prostate Diabetes Father AL Father Aneurysm Maternal Grandmother Aneurysm Mother brain Aneurysm Other great aunt; ane urysm DVT - Deep Vein Thrombosis Sister Relation Name Status Comments Father Maternal Grandmother Mother Other Sister Social History Tobacco Use Types Packs/Day Years [...] Mass Index 41.54 10/23/2018 4:07 PM CDT Plan of Treatment Upcoming Encounters Date Type Department Care Team (Late st Contact Info) Description 08/22/2024 9:00 AM CDT Office Visit [facility] - Rheumatology [address] [facility] [address] [place] [address] [place] [address] [place] [address] Health Maintenance Due Date Last Done Comments COLOGUARD (AGES 45-75) - COLON CA SCREENING [address] COLONOGRAPHY - COLON CA SCREENING 1968 FIT - COLON CA SCREENING 1970 FLEX SIG - COLON CA SCREENING 1968 LIPID TESTING 1970 HIV SCREENING 09/02/1983 HEPATITIS C SCREENING 08/28/1986 DTAP/TDAP/TD VACCINES (1 - Tdap) 09/02/1987 HEPATITIS B VACCINE (1 of 3 - 19+ 3-dose series) 09/02/1987 PAP SMEAR 05/25/2010 05/25/2007, 05/25/2007 PNEUMOCOCCAL VACCINE 50+ (1 of 1 - PCV) 2018 ZOSTER VACCINE (1 of 2) 2018 COVID-19 VACCINE (1 - season) 2024 INFLUENZA VACCINE (#1) 2024 DEPRESSION SCREENING 05/15/2024 MAMMOGRAM 06/08/2024 06/08/2022, 05/16, 03/31/2021, Additional history exists COLONOSCOPY - COLON CA SCREENING 02/03/2031 02/03/2021 Colorectal Cancer Screening 02/03/2031 HIB VACCINE Aged Out No longer eligi ble based on patient's age to complete this topic HPV VACCINE Aged Out No longer eligi ble based on patient's age to complete this topic MENINGOCOCCAL (Group B) VACCINE Aged Out No longer eligible based on patient's age to complete this topic MENINGOCOCCAL VACCINE Aged Out No meli debbie eligible based on patient's age to complete this topic PNEUMOCOCCAL VACCINE Aged Out No long er eligible based on patient's age to complete this topic Insurance Payer Benefit Plan / Group Subscriber ID Effective Dates Phone Address Type TPL TH[employer] GREEN [employer]Y LIABILITY TPL [employer] LIABILITY [id number] Effective for all dates [address] [place] [address] Third Republican Liability [place] [employer] BSC PLAN [id number] 10/22/2018-Pre sent [address] [place] [address] Medicaid [place] MEDICARE MANAGED CARE PLAN GENERIC MEDICARE ADV MEDICARE MANAGED CARE PLAN GENERIC [id number] Effective for all dates Medicare-Man aged Care SELF PAY NO INSURANCE SELF PAY NO INSURANCE Effective for all dates [place] Self Pay MEDICARE MANAGED CARE PLAN GENERIC MEDICARE ADV MEDICARE MANAGED CARE PLAN GENERIC [id number] Effective for all dates Medicare-Man aged Care SELF PAY NO INSURANCE SELF PAY NO INSURANCE Effective for all dates [place] Self Pay MEDICARE MANAGED CARE PLAN GENERIC MEDICARE ADV MEDICARE MANAGED CARE PLAN GENERIC [id number] Effective for all dates Medicare-Man aged Care SELF PAY NO INSURANCE SELF PAY NO INSURANCE Effective for all dates [place], [place] Self Pay HU[employer]NA GOLD PLUS HMO HUMANA MEDICARE ADV HMO/PPO [id number] 10/13/2018-Pres ent [address] [address] [place] [address] Medicare-Man aged Care MED[place] [id number] Effective for all dates [address] [place] [address] Medicaid [place] Advance Directives * Full Code (Latest Code Status on File) Date Activated Date Inactivated Comments 03/25/2014 2:19 PM 03/25/2014 8:49 PM * Full Code Date Activated Date Inactivated Comments 03/22/2014 3:59 AM 03/25/2014 2:19 PM Care Teams Statistical Engineer Relationship Specialty Start Date End Date Nettie [facility] [address] [place] [address] PCP - General 10/11/14 [facility] [address] [place] [address] 10/11/14 Belgica Arevalo RN Formula Mixer 03/23/14
--- OUTSIDE RECORDS SUMMARY | 2024-07-02 04:27 | XMS_ITS ---
Author Organization [facility] Address [address] [place] [address] Care Team Providers Care Elementary School Band Director Name Role Phone Matt BELLAMY, Rafael Primary Care Provider Unav ailMayra Mckeon Unavailable [phone] REASON FOR VISIT yd/2 week follow up/flc Encounters Encounter Location Date Provider Diagnosis [facility] [address] [place] [address] 09/28/2023 Mayra Hanna Plan Of Treatment No Information Progress Notes * Aneudy TORREaDOB:[birth year] (53 yo F)Acc No.[id number]:09/28/2023 Patient: Adryan DAIGLE Provider: Veronica HANNA MD :1970 A ge:53 Y S ex:Female Date:09/28/2023 Address:[address] [place], [place] [id number] Pcp:Rafael Gutierrez MD Subjective: * Chief Complaints: * 1 . Yd/2 week follow up/flc. * Medical History: Objective: * Vitals: Assessment: Plan: * Treatment: * Billing Information: * Visit Code: * Procedure Codes: * Electronic signature of Mayra Hanna MD on 07/02/2024 at 04:27 AM ACCOUNTS RECEIVABLE SUPERVISOR Sign off status: Pending * Provider: Veronica HANNA MD Date: 09/28/2023 Generated for Edwin balderas/Cristina/eTransmitting on: 07/02/2024 04:27 AM ACCOUNTS RECEIVABLE SUPERVISOR
--- OUTSIDE RECORDS SUMMARY | 2024-07-02 04:27 | XMS_ITS | Encounter Summary ---
Author Organization [facility] Healthcare Address [address] [place] [address] Care Team Providers Care Child Advocate Name Role Phone Jamil Covington MD Primary Care Provider [phone] Carla Padron PT Unavailable Unavailable Adrienne Salcedo MD Primary Care Provider [phone] Rafael Gutierrez MD Primary Care Provider Encounter Details Date Type Department Care Team (Late st Contact Info) Description 12/14/2022 Telephone [facility] [address] [facility] [address] [place] [address] Jamil Covington MD [address] [facility] [address] [address] [place] [address] Social History Tobacco Use Types Packs/Day Years Used Date Smoking Tobacco: Never Smokeless Tobacco: Never Alcohol Use Standard Drinks/Week Comments Yes 0 [...] week 05/12/2022 How often do you attend [facility] or confucianism services? Never 05/12/2022 Do you belong to any clubs o r organizations such as confucianism groups, unions, fraternal or athletic groups, or school groups? No 05/12/2022 How often do you attend meet ings of the clubs or organizations you belong to? Never 05/12/2022 Are you , , di vorced, , never , or living with a partner? Never 05/12/2022 AUDIT-C Answer Date Recorded Q1: How often do you have a drink containing alc ohol? Monthly or less 06/09/2022 Q2: How many drinks containi ng alcohol do you have on a typical day when you are drinking? 1 or 2 06/09/2022 Q3: How often do you have si x or more drinks on one occasion? Never 06/09/2022 Overall Financial Resource Strain (CARDIA) Answe r [...] you got the money to buy more. Sometimes true Within the past 12 months, t he food you bought just didn't last and you didn't have money to get more. Sometimes true PRAPARE - Transportation Answer Date Re corded [...] place to sleep or slept in a halfway (including now)? 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 Author CCM Chronic Pain Care Plan Chronic Care Management Improving( 9:38 AM CDT) Cathleen Graff, RN Note: Problem: Chronic Pain right hip,back,knee,and heels Goals: 1. Minimize further functional decline 2. Maximize quality of life 3. Control pain Strategies: - Activity/exercise program recommendation - Conservative stepwise pain medicine strategy with multi-disciplinary approach - Recommend healthy lifestyle strategies and compensatory methods as needed documented as of this encounter Visit Diagnoses Not on filedocumented in this encounter Care Teams Child Advocate Relationship Specialty Start Date End Date Jamil Covington MD PCP - General 10/31/20 11/03/23 Adrienne Salcedo MD PCP - General 11/04/23 12/05/23 Rafael Gutierrez MD [address] [place] [address] PCP - General Family Medicine 12/06/23 Carla Padron PT Physical Therapist Physical Therapy 11/17/21 documented as of this encounter
--- OUTSIDE RECORDS SUMMARY | 2024-07-02 04:27 | XMS_ITS | Encounter Summary ---
Author Organization [facility] Healthcare Address [address] [place] [address] Care Team Providers Care Shading Painter Name Role Phone Jamil Covington MD Primary Care Provider [phone] Carla Padron PT Unavailable Unavailable Adrienne Salcedo MD Primary Care Provider [phone] Rafael Gutierrez MD Primary Care Provider Encounter Details Date Type Department Care Team (Late st Contact Info) Description 06/17/2022 Telephone [facility] Primary Care Medicine Clinic [address] [address] [place] [address] Jamil Covington MD [address] [facility] [address] [place] [address] Social History Tobacco Use Types [...] week 05/12/2022 How often do you attend [facility] or yazdanism services? Never 05/12/2022 Do you belong to any clubs o r organizations such as jew groups, unions, fraternal or athletic groups, or [...] place to sleep or slept in a jail (including now)? 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
--- OUTSIDE RECORDS SUMMARY | 2024-07-02 04:27 | XMS_ITS | Patient Health Summary ---
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 therefore unlikely to be a fracture fragment. Soft tissue swelling is noted on the lateral side of the ankle and foot. If the patient's symptoms persist or worsen, consideration may be given to an alternative imaging modality such as an MRI or a bone scan to check for an occult process. Procedure Note Yury Joyce MD - 05/05/2014 Examination: Left ankle 3 views Indication: Left ankle pain. Injury, fell yesterday. Findings: No fracture can be identified on the current plain films. A small band of calcification is noted adjacent to the tip of the medial malleolus but this is corticated and therefore unlikely to be a fracture fragment. Soft tissue swelling is noted on the lateral side of the ankle and foot. If the patient's symptoms persist or worsen, consideration may be given to an alternative imaging modality such as an MRI or a bone scan to check for an occult process. IMPRESSION Negative for fracture at this time. Please see above. Bryon Ferguson MD DIAGNOSTIC IMAGING O RDERABLES * CARDIAC PROCEDURE ORDER (03/26/2014 8:21 PM JUDICIAL ADMINISTRATIVE ASSISTANT) Narrative 03/26/2014 8:21 PM JUDICIAL ADMINISTRATIVE ASSISTANT Ordered by an unspecified provider. Scanned Document CARDIAC SERVICES ORD ERABLES * CARDIAC RHYTHM STRIP ORDER (03/26/2014 8:20 PM JUDICIAL ADMINISTRATIVE ASSISTANT) Narrative 03/26/2014 8:20 PM JUDICIAL ADMINISTRATIVE ASSISTANT Ordered by an unspecified provider. Scanned Document CARDIAC SERVICES ORD ERABLES * CARDIAC CATH CONSULT (for Epic Reporting) (03/25/2014 12:00 PM JUDICIAL ADMINISTRATIVE ASSISTANT) 03/25/2014 12:0 0 PM JUDICIAL ADMINISTRATIVE ASSISTANT Narrative Transcriptions Sue Figueroa MD - 03/26/2014 10:30 AM CST [facility] CARDIAC CATHETERIZATION PATIENT: TANNER TORRE MR#: [id number] ADMIT DATE: 03/21/2014 CSN: [id number] PROCEDURE DATE: 03/25/2014 :1970 PHYSICIAN: Sue Figueroa MD ROOM: [place] [address] REFERRING PHYSICIAN: Russ Valdez MD PROCEDURE: 1. Left heart catheterization. 2. Left ventriculography. 3. Selective coronary arteriography. CLINICAL SUMMARY: This is a 43-year-old black female with atypicalchest pain, but an abnormal stress test yesterday. Coronary angiography was recommended. PROCEDURE: Keysha. SITE OF ENTRY: Right femoral artery. LOCAL ANESTHESIA: Xylocaine 1%. PREMEDICATIONS: Versed 3 mg IV, fentanyl 75 mcg IV. CATHETERS: A 5-Surinamese arterial sheath, 5-Surinamese pigtail, 5-Surinamese JL4,5- Surinamese 3DRC. PROCEDURE: The patient was brought to the catheterization laboratoryand prepped and draped in the usual sterile fashion. The right groin was anesthetized locally and the arterial sheath was inserted withoutdifficulty. Selective coronary arteriography was performed in multiple MALTESE and ARELLANO projections using cranial and caudal angulation. The right groin was anesthetized locally and the arterial sheath wasinserted without difficulty. Selective coronary arteriography was performed inmultiple MALTESE and RAELLANO projections using cranial and caudal angulation. Left ventriculogram was performed in the 30-degree ARELLANO projection using 35mL of contrast at 14 mL/second. At the end of the procedure, the sheathwas removed and manual pressure held for 15 minutes to ensure hemostasis.No femoral hematoma. Pedal pulses were intact. [facility] COMPLICATIONS: None. HEMODYNAMICS: Preangiography pressures: Aorta 108/78. Left ventricle 112/20. LEFT VENTRICULOGRAM: Left ventricular systolic and diastolic volume is normal. Left ventricle contractility is normal without focal hypokinesis.No mitral valve prolapse or mitral insufficiency. CORONARY ARTERIOGRAPHY: This is a left dominant coronary circulation. Coronary arteries are angiographically normal. FINDINGS: 1. Normal left ventricular systolic function. 2. Angiographically normal coronary arteries. RECOMMENDATIONS: The patient was reassured that her chest pain is not mike cardiac basis. SUE FIGUEROA MD SIB/MODL #: [id number] MEDICAL/SURGICAL CARDIAC CATHETERIZATION - DP Sue Figueroa MD ECHO ORDERABLES DP CARDIAC SERVICES * IR CAROTID CEREBRAL ANGIO (03/24/2014 3:16 PM JUDICIAL ADMINISTRATIVE ASSISTANT) Narrative [facility] - 03/25/2014 8:10 AM JUDICIAL ADMINISTRATIVE ASSISTANT SEE OPERATIVE REPORT IN NOTES SECTION OF PATIENT'S CHART. Kofi Hallman MD IR ORDERABLES [facility] [id number] [place] [address] * NM MYOCARD PERFUSION SPECT STRESS AND REST (03/24/2014 1:33 PM JUDICIAL ADMINISTRATIVE ASSISTANT) Anatomical Region Laterality Modality Chest Nuclear Medicine 03/24/2014 2:51 PM JUDICIAL ADMINISTRATIVE ASSISTANT Narrative 03/24/2014 2:52 PM JUDICIAL ADMINISTRATIVE ASSISTANT NM MYOCARDIAL SPECT SCAN Indications for examination: Substernal chest pain, hypertension. A resting study is carried out with 11 mCi Tc Myoview. Patient is then injected with 0.4 mg lexiscan followed by 40 mCi Tc Myoview. A preliminary stress test report indicates no report currently available. There is a small partially reversible perfusion defect in the anteroseptal region as well as a small reversible defect in the lateral wall near the base. No other fixed or reversible perfusion defects are demonstrated. Left ventricular ejection fraction is 50%. There is septal hypokinesis. No other wall motion abnormality. Summary: Small reversible defect anteroseptal region, lateral basal segment. No other perfusion abnormality identified. Left ventricular ejection fraction 50%. Septal hypokinesis. Procedure Note Elias El MD - 03/24/2014 NM MYOCARDIAL SPECT SCAN Indications for examination: Substernal chest pain, hypertension. A resting study is carried out with 11 mCi Tc Myoview. Patient is then injected with 0.4 mg lexiscan followed by 40 mCi Tc Myoview. A preliminary stress test report indicates no report currently available. There is a small partially reversible perfusion defect in the anteroseptal region as well as a small reversible defect in the lateral wall near the base. No other fixed or reversible perfusion defects are demonstrated. Left ventricular ejection fraction is 50%. There is septal hypokinesis. No other wall motion abnormality. Summary: Small reversible defect anteroseptal region, lateral basal segment. No other perfusion abnormality identified. Left ventricular ejection fraction 50%. Septal hypokinesis. Aidan Gonzales MD NM ORDERABLES * STRESS TEST LEXISCAN (NUCLEAR) (03/24/2014 12:00 PM JUDICIAL ADMINISTRATIVE ASSISTANT) 03/24/2014 12:0 0 PM JUDICIAL ADMINISTRATIVE ASSISTANT Narrative Transcriptions Clifford Hughes MD - 03/25/2014 10:52 AM CST [facility] CHEMICAL STRESS TEST PATIENT: TANNER TORRE MR#: [id number] DATE OF SERVICE: 03/24/2014 CSN: [id number] : 1970 ROOM: [place] [address] REFERRING PHYSICIAN: Russ Valdez MD ADMIT DATE: 03/21/2014 INDICATIONS: The patient had a myocardial perfusion study done forevaluation of chest pain. RESTING EKG: Baseline ECG was within normal limits. INTERPRETATION: Regadenoson was administered as an IV bolus and withthis administration, the patient did not report any chest pain. Blood pressureand heart rate response were appropriate. On the EKG, there were nosignificant ST-segment abnormalities noted when compared to the baseline. Noarrhythmias were observed. CONCLUSION: Administration of regadenoson in this patient did not revealany evidence of ischemia on electrocardiogram. Correlation with Myoviewscan, which will be reported separately, is recommended. CLIFFORD HUGHES MD AK/KD #: [id number] cc: [facility] CHEMICAL STRESS TEST - DP Aidan Gonzales MD CARDIAC SERVICES ORD ERABLES [facility] MEDQUIST * ED CRITICAL CARE (03/22/2014 2:50 AM JUDICIAL ADMINISTRATIVE ASSISTANT) Narrative Russ Valdez MD - 03/22/2014 2:50 AM JUDICIAL ADMINISTRATIVE ASSISTANT Russ Valdez MD 03/22/2014 2:50 AM Provider contact with the patient: 03/22/2014 00:19 Tanner Torre [id number] [facility] EMERGENCY DEPARTMENT History Chief Complaint Patient presents with Hypertension Pt states headache for last 3 days and pain in left arm. States bp has been elevated. 200's systolic at home. Chief complaint narrative was entered by triage nurse, not by physician. HPI Comments: 12:19 AM Tanner Torre is a 43 y.o. female with a past medical history of HTN and sciatic pain presents to the ER accompanied by her c/o MARSHALL with photophobia that gradually gotten worse over the last x3 days. She reports that her mother and grandmother have history of aneurysm. She reports having sharp pain in her eyes yesterday, but denies any visual impairments. She also notes having pain in the L arm, but denies speech impairments, or focal weakness. No numbness or tingling. She reports hx of cluster headaches. She also reports HTN(209/138) today. Pt states she has not been dx with HTN and does not take any medication. No CP/SOB/Abd pain/nausea/vomiting/diarrhea/fever/chills/cough/rhinorrhea Allergies: Negative SocHx: Negative FMHx: Mother had aneurysm at age 39. Grandmother had aneurysm. Surgical Hx: Carpal Tunnel Surgery Physician[facility] 155/121 Pulse 89 Temp(Src) 98.3 F Resp 18 Ht 1.626 m (5' 4 ) Wt 111.131 kg (245 lb) BMI 42.03 kg/m2 SpO2 96% on RA. Headache The history is provided by the patient. This is a new problem. The current episode started more than 2 days ago. The problem occurs constantly. The problem has not changed since onset.The headache is aggravated by nothing. The pain is located in the frontal and occipital region. The pain is at a severity of 8/10. The pain is moderate. Pain radiation: left arm.Pertinent negatives include no anorexia, no fever, no malaise/fatigue, no chest pressure, no near-syncope, no orthopnea, no palpitations, no syncope, no shortness of breath, no nausea and no vomiting. Past Medical History Diagnosis Date HTN (hypertension) Sciatic pain Past Surgical History Procedure Laterality Date Carpal tunnel surgery Right 01/27/2014 No family history on file. History Social History Marital Status: Single Spouse Name: N/A Number of Children: N/A Years of Education: N/A Occupational History Not on file. Social History Main Topics Smoking status: Never Smoker Smokeless tobacco: Not on file Alcohol Use: No Drug Use: No Sexual Activity: Not on file Other Topics Concern Not on file Social History Narrative Review of Systems Review of Systems Constitutional: Negative for fever, chills and malaise/fatigue. HENT: Negative for congestion and sore throat. Eyes: Positive for photophobia and pain (Sharp pain yesterday). Negative for blurred vision and double vision. Respiratory: Negative for cough and shortness of breath. Cardiovascular: Negative for chest pain, palpitations, orthopnea, syncope and near-syncope. Gastrointestinal: Negative for nausea, vomiting, abdominal pain and anorexia. Musculoskeletal: Positive for myalgias (L arm). Negative for back pain and neck pain. Neurological: Positive for headaches. Negative for dizziness, tingling, sensory change, speech change and focal weakness. All other systems reviewed and are negative. Physical Exam BP 155/121 Pulse 89 Temp(Src) 98.3 F Resp 18 Ht 1.626 m (5' 4 ) Wt 111.131 kg (245 lb) BMI 42.03 kg/m2 SpO2 96% on RA Physical Exam Constitutional: She is oriented to person, place, and time. She appears well-developed and well-nourished. No distress. HENT: Head: Normocephalic and atraumatic. Eyes: Conjunctivae and EOM are normal. Neck: Normal range of motion. Neck supple. Cardiovascular: Normal rate, regular rhythm and normal heart sounds. No murmur heard. Pulmonary/Chest: Effort normal and breath sounds normal. No respiratory distress. She has no wheezes. Abdominal: Soft. Bowel sounds are normal. She exhibits no distension. There is no tenderness. There is no rebound and no guarding. Musculoskeletal: Normal range of motion. She exhibits no edema or tenderness. Neurological: She is alert and oriented to person, place, and time. She has normal strength and normal reflexes. She is not disoriented. She displays normal reflexes. No cranial nerve deficit or sensory deficit. Skin: Skin is warm and dry. No rash noted. No erythema. No pallor. Nursing note and vitals reviewed. Medications Current Outpatient Prescriptions Medication Sig Dispense Refill traMADol (ULTRAM) 50 MG tablet Take 1 Tab by mouth every 4 hours as needed for Pain. 20 Tab 0 ibuprofen (MOTRIN) 600 MG tablet Take 1 Tab by mouth every 6 hours as needed for Pain. 20 Tab 0 cyclobenzaprine (FLEXERIL) 10 MG tablet Take 1 Tab by mouth 3 times daily as needed for Muscle Spasms. 15 Tab 0 glucosamine (GLUCOSAMINE) 500 MG capsule Take 500 mg by mouth 3 times daily with meals. calcium carbonate (CALTRATE) 600 MG tablet Take 1 Tab by mouth daily with food. vitamin D, cholecalciferol, 1000 UNIT tablet Take by mouth daily. Procedures Lumbar Puncture Date/Time: 03/22/2014 2:27 AM Performed by: RUSS VALDEZ Authorized by: RUSS VALDEZ Consent: Verbal consent obtained. Written consent obtained. Risks and benefits: risks, benefits and alternatives were discussed Consent given by: patient Patient understanding: patient states understanding of the procedure being performed Patient consent: the patient's understanding of the procedure matches consent given Procedure consent: procedure consent matches procedure scheduled Relevant documents: relevant documents present and verified Test results: test results available and properly labeled Site marked: the operative site was marked Imaging studies: imaging studies available Required items: required blood products, implants, devices, and special equipment available Patient identity confirmed: arm band, hospital-assigned identification number and verbally with patient Anesthesia: local infiltration Patient sedated: no Preparation: Patient was prepped and draped in the usual sterile fashion. Patient's position: sitting Needle gauge: 22 Number of attempts: 2 Post-procedure: site cleaned, pressure dressing applied and adhesive bandage applied Patient tolerance: Patient tolerated the procedure well with no immediate complications Comments: Unsuccessful attempts due to pt's body habitus. No CSF attained. 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 Critical care was time spent personally by me on the following activities: discussions with consultants, examination of patient, ordering and performing treatments and interventions, ordering and review of radiographic studies and re-evaluation of patient's condition. ECG Interpretation Date/Time: 03/22/2014 11:13 PM Interpreted by ED provider Comparison: not compared with previous ECG Rhythm: sinus rhythm Rate: normal BPM: 78 Conduction: 1st degree Clinical impression: non-specific ECG Comments: No acute ischemic change ECG Rhythm Interpretation ECG Rhythm: normal sinus. ECG Rate: normal. ECG Heart Rate: 78. Lab Interpretation WBC:normal,Hemoglobin:decreased (11.7),Hematocrit:decreased (33.3), and Platelets:normal Na+:normal,Cl-:normal,BUN:normal,Glucose:increased (119),K+:normal,HCO3-:normal,Creatinine:normal, and Mg: PT:normal,PTT: Troponin #1:normal INR: normal Serum B-Hcg:,Urine Hcg:negative Oxygen Saturation Interpretation The oxygen saturation level is: 96%. The patient was on Room Air for the saturation measurement. Measurement frequency: Spot Check. Oxygen saturation interpretation is Normal. Intervention(s) used: None. Results for orders placed during the hospital encounter of 03/21/14 TROPONIN I Result Value Range Troponin I <0.015 0.000-0.049 ng/mL CBC W AUTO DIFFERENTIAL Result Value Range WBC 7.0 4.4-10.7 x10^9/L RBC 3.90 3.80-5.20 x10^12/L Hgb 11.7 (*) 12.0-15.6 gm/dL HCT 33.3 (*) 35.9-45.5 % MCV 85.4 80.7-98.3 fl MCH 30.0 26.7-34.0 pg MCHC 35.1 30.8-35.9 gm/dL Plt Ct 213 153-416 x10^9/L RDW-CV 13.4 12.1-14.9 % MPV 10.4 9.4-12.9 fl Neutro 58.7 44.0-73.0 % Lymph 30.5 20.0-43.0 % Turner 8.3 5.0-13.0 % Eos 2.1 0.0-6.0 % Baso 0.1 0.0-2.0 % Immature Grans 0.3 0-1 % Neutro Abs 4.09 2.01-7.14 x10^9/L Lymph Abs 2.13 1.07-3.94 x10^9/L Turner Abs 0.58 0.26-1.07 x10^9/L Eosin Abs 0.15 0-0.47 x10^9/L Baso Abs 0.01 0-0.08 x10^9/L Immature Grans Abs 0.02 0.00-0.06 x10^9/L COMPREHENSIVE METABOLIC PANEL Result Value Range Glucose 119 (*) 74-106 mg/dL Sodium 138 136-145 mmol/L Potassium 3.8 3.5-5.1 mmol/L Chloride 105 98-107 mmol/L CO2 24 22-31 mmol/L Calcium 8.7 8.5-10.1 mg/dL Anion Gap 9 5-15 mmol/L BUN 9 7-21 mg/dL Creatinine 0.69 0.50-1.30 mg/dL eGFR MDRD >60 >60 mL/min/1.73m2 eGFR MDRD AFR AMR >60 >60 mL/min/1.73m2 Alk Phos 57 38-126 U/L ALT/SGPT 15 12-78 U/L AST/SGOT 12 5-40 U/L Protein Total 6.7 6.4-8.2 gm/dL Albumin 3.0 (*) 3.4-5.0 gm/dL Bili Total 0.2 0.2-1.0 mg/dL PT-INR Result Value Range PT 10.5 9.5-11.6 sec INR 0.99 0.9-1.1 HCG URINE QUALITATIVE - POINT OF CARE (IP) Result Value Range HCG Qual Urine Negative Negative QC Verified Yes Yes XR CHEST PA AND LATERAL Final Result: No acute disease in the chest. CT HEAD NON CONTRAST Final Result: No acute intracranial findings. Emergency noncontrast brain CT. Please see above. CT ANGIO NECK HEAD W WO CONTRAST Final Result: Unremarkable neck CTA. Head: The carotid siphons and the basilar arteries appear patent. No large branch occlusion can be seen. This exam is not sensitive in the detection of small aneurysms. Impression: Unremarkable brain CTA. Progress Notes ED Course Medical Decision Making I have reviewed the: Previous Chart, Nursing Notes and Vitals. I have interpreted the following results: Labs, 12 Lead EKG, Rhythm Strip, X-Ray, CT Scans and Oxygen Saturation. I have discussed the case with Admitting Physician (ANUPAM Irwin covering for Dr. Luna), Neurology (Dr. Hallman (Stroke Neurology)), Family/Caregiver (The patient's who is present in the room) and Hospitalist (ANUPAM Irwin covering for Dr. Luna). 12:25 AM: Initial Plan: Order/review labs, EKG, CXR, and CT Head. Give medicine and IVF. Reassess. 1:43 AM: I discussed with Dr. Hallman(Stroke Neurology) all pertinent aspects of the case including HPI details, physical exam findings, testing completed, medications given, the pt's current condition, and my clinical impression. Agrees to consult. 2:27 AM: Lumbar Puncture performed by me, assisted by the ED RN. Discussed the risks and benefits for performing the procedure. Pt is aware of the plan and agrees. 2:43 AM: I discussed with ANUPAM Irwin covering for Dr[facility] Luna([facility]) all pertinent aspects of the case including HPI details, physical exam findings, testing completed, medications given, the pt's current condition, my clinical impression, and the need for admission for further evaluation and treatment. ANUPAM Irwin agrees to accept the patient at this time on behalf of Dr. Luna with a consult with Dr. Hallman. The patient/family understand and agree with the plan. Interim orders written by undersigned. 2:47 AM LP unsuccessful due to pt's body habitus. Pt admitted to [facility] with consult to vascular neurology and will order LP under fluoro in am. Presently pt remain neurologically intact and hemodynamically stable. Orders Placed This Encounter ED LUMBAR PUNCTURE ED CRITICAL CARE CULTURE CSF+GRAM STAIN (BEAKER) MENINGITIS ANTIGEN PANEL CULTURE CSF+GRAM STAIN GRAM STAIN (LAB ORDERED) XR CHEST PA AND LATERAL CT HEAD NON CONTRAST CT ANGIO NECK HEAD W WO CONTRAST TROPONIN I TROPONIN I CBC W AUTO DIFFERENTIAL COMPREHENSIVE METABOLIC PANEL PT-INR CELL COUNT W DIFFERENTIAL CSF CELL COUNT W DIFFERENTIAL CSF GLUCOSE CSF PROTEIN CSF OXYGEN HCG URINE QUALITATIVE - POINT OF CARE (IP) EKG 12-LEAD 0.9% NaCl injection 2-10 mL 0.9% NaCl IV Bolus aspirin (ASPIRIN) chew tablet 324 mg nitroglycerin (NITROSTAT) tablet 0.4 mg acetaminophen (TYLENOL) tablet 650 mg iohexol (OMNIPAQUE 350) contrast Diagnosis: Final diagnoses: Chest pain Headache Disposition: Admit to Neuro Tele Admitting Physician: ANUPAM Irwin covering for Dr. Luna ([facility]) I have reviewed the information recorded by the scribe and agree with its accuracy and contents--Dr. Valdez 03/22/2014 2:49 AM Transcribed by Elias Lindsey acting scribe on behalf of Dr. Valdez 03/22/2014 2:43 AM Russ Valdez MD PROCEDURE/MINOR SURG ICAL ORDERABLES * ED LUMBAR PUNCTURE (03/22/2014 2:50 AM JUDICIAL ADMINISTRATIVE ASSISTANT) Narrative Russ Valdez MD - 03/22/2014 2:50 AM JUDICIAL ADMINISTRATIVE ASSISTANT Russ Valdez MD 03/22/2014 2:50 AM Provider contact with the patient: 03/22/2014 00:19 Tanner Torre [id number] [facility] EMERGENCY DEPARTMENT History Chief Complaint Patient presents with Hypertension Pt states headache for last 3 days and pain in left arm. States bp has been elevated. 200's systolic at home. Chief complaint narrative was entered by triage nurse, not by physician. HPI Comments: 12:19 AM Tanner Torre is a 43 y.o. female with a past medical history of HTN and sciatic pain presents to the ER accompanied by her c/o MARSHALL with photophobia that gradually gotten worse over the last x3 days. She reports that her mother and grandmother have history of aneurysm. She reports having sharp pain in her eyes yesterday, but denies any visual impairments. She also notes having pain in the L arm, but denies speech impairments, or focal weakness. No numbness or tingling. She reports hx of cluster headaches. She also reports HTN(209/138) today. Pt states she has not been dx with HTN and does not take any medication. No CP/SOB/Abd pain/nausea/vomiting/diarrhea/fever/chills/cough/rhinorrhea Allergies: Negative SocHx: Negative FMHx: Mother had aneurysm at age 39. Grandmother had aneurysm. Surgical Hx: Carpal Tunnel Surgery Physician: Annita Hua [facility] BP 155/121 Pulse 89 Temp(Src) 98.3 F Resp 18 Ht 1.626 m (5' 4 ) Wt 111.131 kg (245 lb) BMI 42.03 kg/m2 SpO2 96% on RA. Headache The history is provided by the patient. This is a new problem. The current episode started more than 2 days ago. The problem occurs constantly. The problem has not changed since onset.The headache is aggravated by nothing. The pain is located in the frontal and occipital region. The pain is at a severity of 8/10. The pain is moderate. Pain radiation: left arm.Pertinent negatives include no anorexia, no fever, no malaise/fatigue, no chest pressure, no near-syncope, no orthopnea, no palpitations, no syncope, no shortness of breath, no nausea and no vomiting. Past Medical History Diagnosis Date HTN (hypertension) Sciatic pain Past Surgical History Procedure Laterality Date Carpal tunnel surgery Right 01/27/2014 No family history on file. History Social History Marital Status: Single Spouse Name: N/A Number of Children: N/A Years of Education: N/A Occupational History Not on file. Social History Main Topics Smoking status: Never Smoker Smokeless tobacco: Not on file Alcohol Use: No Drug Use: No Sexual Activity: Not on file Other Topics Concern Not on file Social History Narrative Review of Systems Review of Systems Constitutional: Negative for fever, chills and malaise/fatigue. HENT: Negative for congestion and sore throat. Eyes: Positive for photophobia and pain (Sharp pain yesterday). Negative for blurred vision and double vision. Respiratory: Negative for cough and shortness of breath. Cardiovascular: Negative for chest pain, palpitations, orthopnea, syncope and near-syncope. Gastrointestinal: Negative for nausea, vomiting, abdominal pain and anorexia. Musculoskeletal: Positive for myalgias (L arm). Negative for back pain and neck pain. Neurological: Positive for headaches. Negative for dizziness, tingling, sensory change, speech change and focal weakness. All other systems reviewed and are negative. Physical Exam BP 155/121 Pulse 89 Temp(Src) 98.3 F Resp 18 Ht 1.626 m (5' 4 ) Wt 111.131 kg (245 lb) BMI 42.03 kg/m2 SpO2 96% on RA Physical Exam Constitutional: She is oriented to person, place, and time. She appears well-developed and well-nourished. No distress. HENT: Head: Normocephalic and atraumatic. Eyes: Conjunctivae and EOM are normal. Neck: Normal range of motion. Neck supple. Cardiovascular: Normal rate, regular rhythm and normal heart sounds. No murmur heard. Pulmonary/Chest: Effort normal and breath sounds normal. No respiratory distress. She has no wheezes. Abdominal: Soft. Bowel sounds are normal. She exhibits no distension. There is no tenderness. There is no rebound and no guarding. Musculoskeletal: Normal range of motion. She exhibits no edema or tenderness. Neurological: She is alert and oriented to person, place, and time. She has normal strength and normal reflexes. She is not disoriented. She displays normal reflexes. No cranial nerve deficit or sensory deficit. Skin: Skin is warm and dry. No rash noted. No erythema. No pallor. Nursing note and vitals reviewed. Medications Current Outpatient Prescriptions Medication Sig Dispense Refill traMADol (ULTRAM) 50 MG tablet Take 1 Tab by mouth every 4 hours as needed for Pain. 20 Tab 0 ibuprofen (MOTRIN) 600 MG tablet Take 1 Tab by mouth every 6 hours as needed for Pain. 20 Tab 0 cyclobenzaprine (FLEXERIL) 10 MG tablet Take 1 Tab by mouth 3 times daily as needed for Muscle Spasms. 15 Tab 0 glucosamine (GLUCOSAMINE) 500 MG capsule Take 500 mg by mouth 3 times daily with meals. calcium carbonate (CALTRATE) 600 MG tablet Take 1 Tab by mouth daily with food. vitamin D, cholecalciferol, 1000 UNIT tablet Take by mouth daily. Procedures Lumbar Puncture Date/Time: 03/22/2014 2:27 AM Performed by: RUSS VALDEZ Authorized by: RUSS VALDEZ Consent: Verbal consent obtained. Written consent obtained. Risks and benefits: risks, benefits and alternatives were discussed Consent given by: patient Patient understanding: patient states understanding of the procedure being performed Patient consent: the patient's understanding of the procedure matches consent given Procedure consent: procedure consent matches procedure scheduled Relevant documents: relevant documents present and verified Test results: test results available and properly labeled Site marked: the operative site was marked Imaging studies: imaging studies available Required items: required blood products, implants, devices, and special equipment available Patient identity confirmed: arm band, hospital-assigned identification number and verbally with patient Anesthesia: local infiltration Patient sedated: no Preparation: Patient was prepped and draped in the usual sterile fashion. Patient's position: sitting Needle gauge: 22 Number of attempts: 2 Post-procedure: site cleaned, pressure dressing applied and adhesive bandage applied Patient tolerance: Patient tolerated the procedure well with no immediate complications Comments: Unsuccessful attempts due to pt's body habitus. No CSF attained. 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 Critical care was time spent personally by me on the following activities: discussions with consultants, examination of patient, ordering and performing treatments and interventions, ordering and review of radiographic studies and re-evaluation of patient's condition. ECG Interpretation Date/Time: 03/22/2014 11:13 PM Interpreted by ED provider Comparison: not compared with previous ECG Rhythm: sinus rhythm Rate: normal BPM: 78 Conduction: 1st degree Clinical impression: non-specific ECG Comments: No acute ischemic change ECG Rhythm Interpretation ECG Rhythm: normal sinus. ECG Rate: normal. ECG Heart Rate: 78. Lab Interpretation WBC:normal,Hemoglobin:decreased (11.7),Hematocrit:decreased (33.3), and Platelets:normal Na+:normal,Cl-:normal,BUN:normal,Glucose:increased (119),K+:normal,HCO3-:normal,Creatinine:normal, and Mg: PT:normal,PTT: Troponin #1:normal INR: normal Serum B-Hcg:,Urine Hcg:negative Oxygen Saturation Interpretation The oxygen saturation level is: 96%. The patient was on Room Air for the saturation measurement. Measurement frequency: Spot Check. Oxygen saturation interpretation is Normal. Intervention(s) used: None. Results for orders placed during the hospital encounter of 03/21/14 TROPONIN I Result Value Range Troponin I <0.015 0.000-0.049 ng/mL CBC W AUTO DIFFERENTIAL Result Value Range WBC 7.0 4.4-10.7 x10^9/L RBC 3.90 3.80-5.20 x10^12/L Hgb 11.7 (*) 12.0-15.6 gm/dL HCT 33.3 (*) 35.9-45.5 % MCV 85.4 80.7-98.3 fl MCH 30.0 26.7-34.0 pg MCHC 35.1 30.8-35.9 gm/dL Plt Ct 213 153-416 x10^9/L RDW-CV 13.4 12.1-14.9 % MPV 10.4 9.4-12.9 fl Neutro 58.7 44.0-73.0 % Lymph 30.5 20.0-43.0 % Turner 8.3 5.0-13.0 % Eos 2.1 0.0-6.0 % Baso 0.1 0.0-2.0 % Immature Grans 0.3 0-1 % Neutro Abs 4.09 2.01-7.14 x10^9/L Lymph Abs 2.13 1.07-3.94 x10^9/L Turner Abs 0.58 0.26-1.07 x10^9/L Eosin Abs 0.15 0-0.47 x10^9/L Baso Abs 0.01 0-0.08 x10^9/L Immature Grans Abs 0.02 0.00-0.06 x10^9/L COMPREHENSIVE METABOLIC PANEL Result Value Range Glucose 119 (*) 74-106 mg/dL Sodium 138 136-145 mmol/L Potassium 3.8 3.5-5.1 mmol/L Chloride 105 98-107 mmol/L CO2 24 22-31 mmol/L Calcium 8.7 8.5-10.1 mg/dL Anion Gap 9 5-15 mmol/L BUN 9 7-21 mg/dL Creatinine 0.69 0.50-1.30 mg/dL eGFR MDRD >60 >60 mL/min/1.73m2 eGFR MDRD AFR AMR >60 >60 mL/min/1.73m2 Alk Phos 57 38-126 U/L ALT/SGPT 15 12-78 U/L AST/SGOT 12 5-40 U/L Protein Total 6.7 6.4-8.2 gm/dL Albumin 3.0 (*) 3.4-5.0 gm/dL Bili Total 0.2 0.2-1.0 mg/dL PT-INR Result Value Range PT 10.5 9.5-11.6 sec INR 0.99 0.9-1.1 HCG URINE QUALITATIVE - POINT OF CARE (IP) Result Value Range HCG Qual Urine Negative Negative QC Verified Yes Yes XR CHEST PA AND LATERAL Final Result: No acute disease in the chest. CT HEAD NON CONTRAST Final Result: No acute intracranial findings. Emergency noncontrast brain CT. Please see above. CT ANGIO NECK HEAD W WO CONTRAST Final Result: Unremarkable neck CTA. Head: The carotid siphons and the basilar arteries appear patent. No large branch occlusion can be seen. This exam is not sensitive in the detection of small aneurysms. Impression: Unremarkable brain CTA. Progress Notes ED Course Medical Decision Making I have reviewed the: Previous Chart, Nursing Notes and Vitals. I have interpreted the following results: Labs, 12 Lead EKG, Rhythm Strip, X-Ray, CT Scans and Oxygen Saturation. I have discussed the case with Admitting Physician (ANUPAM Irwin covering for Dr. Luna), Neurology (Dr. Hallman (Stroke Neurology)), Family/Caregiver (The patient's who is present in the room) and Hospitalist (ANUPAM Irwin covering for Dr. Luna). 12:25 AM: Initial Plan: Order/review labs, EKG, CXR, and CT Head. Give medicine and IVF. Reassess. 1:43 AM: I discussed with Dr. Hallman(Stroke Neurology) all pertinent aspects of the case including HPI details, physical exam findings, testing completed, medications given, the pt's current condition, and my clinical impression. Agrees to consult. 2:27 AM: Lumbar Puncture performed by me, assisted by the ED RN. Discussed the risks and benefits for performing the procedure. Pt is aware of the plan and agrees. 2:43 AM: I discussed with ANUPAM Irwin covering for Dr. Luna([facility]) all pertinent aspects of the case including HPI details, physical exam findings, testing completed, medications given, the pt's current condition, my clinical impression, and the need for admission for further evaluation and treatment. ANUPAM Irwin agrees to accept the patient at this time on behalf of Dr. Luna with a consult with Dr. Hallman. The patient/family understand and agree with the plan. Interim orders written by undersigned. 2:47 AM LP unsuccessful due to pt's body habitus. Pt admitted to [facility] with consult to vascular neurology and will order LP under fluoro in am. Presently pt remain neurologically intact and hemodynamically stable. Orders Placed This Encounter ED LUMBAR PUNCTURE ED CRITICAL CARE CULTURE CSF+GRAM STAIN (BEAKER) MENINGITIS ANTIGEN PANEL CULTURE CSF+GRAM STAIN GRAM STAIN (LAB ORDERED) XR CHEST PA AND LATERAL CT HEAD NON CONTRAST CT ANGIO NECK HEAD W WO CONTRAST TROPONIN I TROPONIN I CBC W AUTO DIFFERENTIAL COMPREHENSIVE METABOLIC PANEL PT-INR CELL COUNT W DIFFERENTIAL CSF CELL COUNT W DIFFERENTIAL CSF GLUCOSE CSF PROTEIN CSF OXYGEN HCG URINE QUALITATIVE - POINT OF CARE (IP) EKG 12-LEAD 0.9% NaCl injection 2-10 mL 0.9% NaCl IV Bolus aspirin (ASPIRIN) chew tablet 324 mg nitroglycerin (NITROSTAT) tablet 0.4 mg acetaminophen (TYLENOL) tablet 650 mg iohexol (OMNIPAQUE 350) contrast Diagnosis: Final diagnoses: Chest pain Headache Disposition: Admit to Neuro Tele Admitting Physician: ANUPAM Irwin covering for Dr. Luna ([facility]) I have reviewed the information recorded by the scribe and agree with its accuracy and contents--Dr. Valdez 03/22/2014 2:49 AM Transcribed by Elias Lindsey acting scribe on behalf of Dr. Valdez 03/22/2014 2:43 AM Russ Valdez MD PROCEDURE/MINOR SURG ICAL ORDERABLES * CT ANGIO NECK HEAD W WO CONTRAST (03/22/2014 2:05 AM JUDICIAL ADMINISTRATIVE ASSISTANT) Anatomical Region Laterality Modality Head Computed Tomogra phy 03/22/2014 2:23 AM JUDICIAL ADMINISTRATIVE ASSISTANT Impressions 03/22/2014 2:26 AM JUDICIAL ADMINISTRATIVE ASSISTANT Unremarkable neck CTA. Head: The carotid siphons and the basilar arteries appear patent. No large branch occlusion can be seen. This exam is not sensitive in the detection of small aneurysms. Impression: Unremarkable brain CTA. Narrative 03/22/2014 2:26 AM JUDICIAL ADMINISTRATIVE ASSISTANT CT angiography neck CT angiography head CT 3D Reconstruction Clinical Indication: PT C/O MARSHALL ONSET THREE DAYS AND PAIN IN LEFT ARM; ELEVATED BP; PHOTOPHOBIA Technique: Axial CT images from the transverse aortic arch through the cranial vertex were obtained following the administration of Omnipaque-350 intravenous contrast. Multiplanar reformatted, maximum intensity projection, and 3D volume rendered reconstructions of the arterial vasculature of the neck and brain were performed on an independent workstation. Findings: Neck: There is patency of the common carotid, internal carotid, and vertebral arteries. No major vessel occlusion can be identified. An attempt was made to evaluate the vessels using NASCET criteria. The distal ICA's inferior to the skull base are normal in size. The left vertebral artery is dominant. This report was transcribed with a computerized speech recognition system. In an effort to expedite patient care, it has not been adjusted for typographical, grammatical or syntax problems by a trained medical administrative technician. For questions about the report, please contact the Radiology Department. Procedure Note Yury Joyce MD - 03/22/[address] angiography head CT 3D Reconstruction Clinical Indication: PT C/O MARSHALL ONSET THREE DAYS AND PAIN IN LEFT ARM; ELEVATED BP; PHOTOPHOBIA Technique: Axial CT images from the transverse aortic arch through the cranial vertex were obtained following the administration of Omnipaque-350 intravenous contrast. Multiplanar reformatted, maximum intensity projection, and 3D volume rendered reconstructions of the arterial vasculature of the neck and brain were performed on an independent workstation. Findings: Neck: There is patency of the common carotid, internal carotid, and vertebral arteries. No major vessel occlusion can be identified. An attempt was made to evaluate the vessels using NASCET criteria. The distal ICA's inferior to the skull base are normal in size. The left vertebral artery is dominant. This report was transcribed with a computerized speech recognition system. In an effort to expedite patient care, it has not been adjusted for typographical, grammatical or syntax problems by a trained medical administrative technician. For questions about the report, please contact the Radiology Department. IMPRESSION Unremarkable neck CTA. Head: The carotid siphons and the basilar arteries appear patent. No large branch occlusion can be seen. This exam is not sensitive in the detection of small aneurysms. Impression: Unremarkable brain CTA. Russ Valdez MD CT ORDERABLES * CT HEAD NON CONTRAST (03/22/2014 2:03 AM JUDICIAL ADMINISTRATIVE ASSISTANT) Anatomical Region Laterality Modality Head Computed Tomogra phy 03/22/2014 2:14 AM JUDICIAL ADMINISTRATIVE ASSISTANT Impressions 03/22/2014 2:15 AM JUDICIAL ADMINISTRATIVE ASSISTANT No acute intracranial findings. Emergency noncontrast brain CT. Please see above. Narrative 03/22/2014 2:15 AM JUDICIAL ADMINISTRATIVE ASSISTANT EXAMINATION: CT BRAIN WITHOUT CONTRAST. Indication: Severe headache. PT C/O MARSHALL ONSET THREE DAYS AND PAIN IN LEFT ARM; ELEVATED BP; PHOTOPHOBIA Technique: Emergency noncontrast axial images of the brain were filmed with a slice width of 5 mm at the time of the patient's presentation. This CT report was transcribed with a computerized speech recognition system. In an effort to expedite patient care, it has not been adjusted for typographical, grammatical or syntax problems by a trained medical administrative technician. Findings: There is no intracranial mass-effect or midline shift identified. The ventricular system is normal in size for the stated age. No focal intraparenchymal hemorrhage can be identified. No cortical infarction can be seen. If the patient's symptoms persist or worsen, a followup brain CT or MRI is recommended for further evaluation. Procedure Note Yury Joyce MD - 03/22/2014 EXAMINATION: CT BRAIN WITHOUT CONTRAST. Indication: Severe headache. PT C/O MARSHALL ONSET THREE DAYS AND PAIN IN LEFT ARM; ELEVATED BP; PHOTOPHOBIA Technique: Emergency noncontrast axial images of the brain were filmed with a slice width of 5 mm at the time of the patient's presentation. This CT report was transcribed with a computerized speech recognition system. In an effort to expedite patient care, it has not been adjusted for typographical, grammatical or syntax problems by a trained medical administrative technician. Findings: There is no intracranial mass-effect or midline shift identified. The ventricular system is normal in size for the stated age. No focal intraparenchymal hemorrhage can be identified. No cortical infarction can be seen. If the patient's symptoms persist or worsen, a followup brain CT or MRI is recommended for further evaluation. IMPRESSION No acute intracranial findings. Emergency noncontrast brain CT. Please see above. Russ Valdez MD CT ORDERABLES * PT-INR (03/21/2014 11:59 PM JUDICIAL ADMINISTRATIVE ASSISTANT) PT 10.5 9.5 - 11.6 sec 03/22/2014 12:22 AM JUDICIAL ADMINISTRATIVE ASSISTANT [facility] INR 0.99 0.9 - 1.1 03/22/2014 12:22 AM JUDICIAL ADMINISTRATIVE ASSISTANT [facility] Blood BLOOD SPECIMEN / Unknown 03/21/2014 11:59 PM JUDICIAL ADMINISTRATIVE ASSISTANT 03/22/2014 12:03 AM JUDICIAL ADMINISTRATIVE ASSISTANT Narrative [facility] - 03/22/2014 12:22 AM JUDICIAL ADMINISTRATIVE ASSISTANT Conventional Anticoagulant Therapy INR Reference Ranges: 2.0-3.0 Intensive Anticoagulant Therapy INR Reference Ranges: 2.5-3.5 Russ Valdez MD LAB - COAGULATION OR DERABLES [facility] [address] [place] [address] Care Teams Signal Integrity Engineer Relationship Specialty Start Date End Date [facility] [address] [place] [address] PCP - General 10/11/14 [facility] [address] [place] [address] 10/11/14 Belgica Arevalo, RN [employer] [address] [employer] 03/23/14
--- OUTSIDE RECORDS SUMMARY | 2024-07-02 04:27 | XMS_ITS ---
Author Organization [facility] christi Address [address] [facility] [address] [place] [address] Care Team Providers Care Belting And Webbing Inspector Name Role Phone Matt BELLAMY, Rafael Primary Care Provider Unav ailable Mayra Hanna [phone] REASON FOR VISIT yd,f/u,cc Encounters Encounter Location Date Provider Diagnosis [facility] [address] [facility] [address] [place] [address] 04/10/2024 Mayra Hanna Plan Of Treatment No Information Progress Notes * Aneudy TORREaDOB:[birth year] (53 yo F)Acc No.[id number]:04/10/2024 Progress Notes Patient: Adryan DAIGLE Provider: Veronica HANNA MD :1970 A ge:53 Y S ex:Female Date:04/10/2024 Address:[address] [place], [place] [id number] Pcp:Rafael Gutierrez MD Subjective: * Chief Complaints: * 1 . Yd,f/u,cc. * Medical History: Objective: * Vitals: Assessment: Plan: * Treatment: * Procedure Codes: N OSHW No Show Charge * Billing Information: * Visit Code: * Procedure Codes: NOSHW No Show Charge. * ER SUPERIOR Sign off status: Completed true * Provider: Veronica HANNA MD Date: 06/10/2023 Generated for Printi ng/Faxing/eTransmitting on: 0 07/02/2024 04:27 AM MOTHER SUPERIOR
--- OUTSIDE RECORDS SUMMARY | 2024-07-02 04:27 | XMS_ITS | Referral Summary ---
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 Name Role Phone Carla Padron PT Unavailable Unavailable Rafael Gutierrez MD Primary Care Provider Encounters Date Type Department Care Team Description 06/04/2024 9:15 AM WORKFORCE SERVICES REPRESENTATIVE [facility] Pod[facility] [address] [place] [address] Outpatient Health 4th Floor [address] [place] [address] Rafael Wang, DPM Onychomycosis [B35.1] (Primary Dx); Tinea unguium; Enlarged and hypertrophic nails from Last 3 Months Allergies Active Allergy Reactions Criticality Noted Date Comments Bromelains Itching Low 12/08/2020 [place] And Derivatives Hives Medium 12/05/2019 Crab Hives Medium 12/05/2019 Carries benadryl in purse Lemon Itching Low 12/19/2017 Onion Swelling Medium 12/19/2017 Cloud Juice Itching Low 12/19/2017 Shrimp Hives,Itching Medium 08/11/2020 [place]emo Hives Medium 12/19/2017 Medications fluticasone propionate (FLONASE) [...] ORAL)Indications:suppl ement 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 Take 1 capsule by mouth [...] as needed for muscle spasms 20 tablet 024 Active Additional Information Patient taking differently:10 mg [...] total) by mouth daily 90 tablet 3 2024 Active Additional Information Patient taking differently:1,000 [...] 3 (three) times a day 180 tablet 024 Active cholecalciferol (VITAMIN D-3) 2000 unit capsule Take 1 capsule (2,000 Units total) by mouth daily 30 capsule 024 Active docusate sodium (COLACE) 100 mg capsuleIndications:con stipation Take 1 capsule (100 mg total) by mouth 2 (two) times a day 30 capsule 024 Active pravastatin (PRAVACHOL) 20 mg tabletIndications:hype rlipidemia Take 1 tablet (20 mg total) by mouth 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 90 tablet 3 024 Active diclofenac sodium (VOLTAREN) 1 % gelIndications:Osteoar thritis Apply 2 g topically 4 (four) times a day 100 g 11 024 Active estrogens, conjugated, (PREMARIN) vaginal cream Apply nightly to vagina for 1 week, then Monday/ y/ Monday 42.5 g 11 024 2024 Active HYDROcodone-acetaminop hen (NORCO) 5-325 mg per tablet TAKE ONE Tablet BY MOUTH EVERY SIX HOUR(S) NEEDED FOR PAIN 025 Active Active Problems Problem Noted Date Diagnosed [...] 06/20/2023 Assessment & Plan (06/20/2023 1:39 PM WORKFORCE SERVICES REPRESENTATIVE): Worsening hand pain bilaterally in all joints, [...] symptoms. Assessment & Plan (04/10/2023 4:29 PM WORKFORCE SERVICES REPRESENTATIVE): - Ambulatory referral to ophthalmology - CTM Hyperpigmentation 04/10/2023 Overview (04/10/2023): One week history of hyperpigmented macules on L lower abdomen. Not associated with pruritus, erythema, drainage. Likely benign. Assessment & Plan (04/10/2023 4:18 PM WORKFORCE SERVICES REPRESENTATIVE): - Reassured patient that most likely benign - CTM Onychomycosis 06/30/2022 Overview (04/10/2023): Endorses progressive darkening/thickening of toenails, consistent with physical exam Assessment & Plan (04/10/2023 4:25 PM WORKFORCE SERVICES REPRESENTATIVE): - Ciclopirox solution daily - CTM History of total knee arthroplasty 05/19/2022 Assessment & Plan (05/19/2022 8:44 AM WORKFORCE SERVICES REPRESENTATIVE): H/o R TKA in 11/2021 w/ unremarkable [...] 05/11/2022 Assessment & Plan (05/19/2022 8:37 AM WORKFORCE SERVICES REPRESENTATIVE): Hosp 05/11- w/ BRBPR that spontaneously resolved. CTAP during admission w/ diverticulosis, no active extravazation. No need for GI intervention d/t spontaneous resolution. Hgb stable at d/c. No sxs today of anemia and no further episodes noted. - continue to monitor - encouraged soft BMs Assessment & Plan (05/14/2022 12:13 PM WORKFORCE SERVICES REPRESENTATIVE): This is resolved. No further episodes after arrival on floor. Suspect anorectal etiology such as hemorrhoids or diverticular bleeding (seen on c-scope 01/2021). Hb stable, hemodynamically stable. -Continue to maintain soft BMs. Osteoarthritis of knee, unspecified 11/16/2021 Primary osteoarthritis of right knee 10/06/2021 Overview (10/06/2021): Added automatically from request for surgery [id number] Weight loss counseling, encounter for 01/25/2021 Overview (07/15/2021): Stable around 230 lbs. Discussed weight loss at last visit 04/04. Today _ Met with Nutrition Assessment & Plan (07/15/2021 9:28 AM WORKFORCE SERVICES REPRESENTATIVE): Discussed weight loss strategies with pt today, including importance of caloric restrictions. With goal of eating < 500 calories below BMR to lose 1-2 lb's weekly. 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 Assessment & Plan (03/25/2021 5:46 PM WORKFORCE SERVICES REPRESENTATIVE): Discussed weight loss strategies with pt today, including importance of caloric restrictions. With goal of eating < 500 calories below BMR to lose 1-2 lb's weekly. 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 [...] today. Assessment & Plan (07/15/2021 3:21 PM WORKFORCE SERVICES REPRESENTATIVE): -counseled on use of Crisco as needed [...] (01/27/2020): Added automatically from request for surgery [id number] Varicose veins of leg with pain, bilateral 01/26 Primary hyperparathyroidism 01/27/2020 Assessment & Plan (08/10/2023 9:49 AM CDT): Saw endo surg today, planning for surgery which I informed patient could help with symptoms of joint pain but we will have to monitor after surgery to see. Encouraged to take vitamin D Assessment & Plan (06/20/2023 1:33 PM WORKFORCE SERVICES REPRESENTATIVE): Patient with persistent joint pain in hands, [...] preference. Assessment & Plan (04/10/2023 4:08 PM WORKFORCE SERVICES REPRESENTATIVE): - Ambulatory referral to OBGYN for further management Hypercalcemia 10/16/2019 Overview (04/10/2023): Calcium mildly elevated to 10.8 in 05/2022. PTH upper limit of normal in 04/2022. Denies symptoms of hypercalcemia. May be primary hyperparathyroidism vs FHH. Assessment & Plan (04/10/2023 4:17 PM WORKFORCE SERVICES REPRESENTATIVE): - F/u repeat calcium, VitD, PTH - Consider referral to endocrine in future - Discuss repeat DEXA at next visit Assessment & Plan (05/14/2022 12:14 PM WORKFORCE SERVICES REPRESENTATIVE): In the setting of elevated and inappropriately [...] rheumatology Assessment & Plan (04/10/2023 4:23 PM WORKFORCE SERVICES REPRESENTATIVE): - Omeprazole 20 mg daily - CTM Hypertension, essential 02/13/2019 Overview (04/10/2023): Current regimen: Lisinopril 20mg, endorses compliance. HCTZ discontinued in 04/2022 due to hypercalcemia. Monitors BP at home, SBP 130-140. BP 137/49 in clinic today. Assessment & Plan (08/10/2023 9:09 AM CDT): Well controlled, continue current regimen Assessment & Plan (04/10/2023 4:15 PM WORKFORCE SERVICES REPRESENTATIVE): - Continue lisinopril 20 mg - F/u CMP Assessment & Plan (05/14/2022 12:15 PM WORKFORCE SERVICES REPRESENTATIVE): Continue Lisinopril -d/c Hctz on discharge given hypercalcemia Assessment & Plan (07/15/2021 3:22 PM WORKFORCE SERVICES REPRESENTATIVE): -well-controlled, continue current regimen Assessment & Plan (03/25/2021 5:41 PM WORKFORCE SERVICES REPRESENTATIVE): - BP today 125/83, goal < 130/80 - Current regimen: Lisinopril 20mg, HCTZ 12.5mg daily - Endorses compliance to current regimen Assessment & Plan (10/16/2019 9:35 PM CDT): BP at goal today 122/70 - Continue lisinopril-HCTZ 10-12.5 Assessment & Plan (07/15/2019 4:57 PM WORKFORCE SERVICES REPRESENTATIVE): BP at goal today on manual check, [...] numbers Assessment & Plan (04/10/2023 4:11 PM WORKFORCE SERVICES REPRESENTATIVE): - Continue home pain medication regimen: flexeril 10 mg QHS PRN, amitriptyline 10 mg QHS, gabapentin 900 mg TID, APAP 1000 mg Q8H PRN, lidocaine patches PRN - Counseled patient to avoid NSAIDs due to history of GIB - Ambulatory referral to PT - Ambulatory referral to orthopedic surgery Assessment & Plan (05/19/2022 8:41 AM WORKFORCE SERVICES REPRESENTATIVE): 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 Assessment & Plan (07/15/2021 3:25 PM WORKFORCE SERVICES REPRESENTATIVE): Continue current regimen Assessment & Plan (07/15/2019 5:03 PM WORKFORCE SERVICES REPRESENTATIVE): - Lipid panel (07/15/19): TC 179, HDL [...] knee. Assessment & Plan (07/15/2021 3:15 PM WORKFORCE SERVICES REPRESENTATIVE): - XR left knee 08/03 initial read: [...] improve Assessment & Plan (03/25/2021 5:44 PM WORKFORCE SERVICES REPRESENTATIVE): Known multijoint osteoarthritis most significant in right [...] Diagnosed Date Resolved Date Hyperparathyroidism 08/03/2023 08/03/19 Healthcare maintenance 07/15/202108/02 Overview (04/10/2023): General: - [...] counseled Assessment & Plan (04/10/2023 4:21 PM WORKFORCE SERVICES REPRESENTATIVE): - Revisit veronika [place] at next visit Morbid obesity with BMI of 50.0-59.9, adult 07/15/2019 06/15/2023 Assessment & Plan (07/15/2019 4:58 PM WORKFORCE SERVICES REPRESENTATIVE): Recommended patient eat a heart healthy diet and recommended low impact exercise, such as water aerobics. - Patient will contact insurance company to determine if any programs to reduce cost for water aerobics. Will assist from our end if needed. Segmental and somatic dysfunction 07/17/2017 08/03/2023 Opioid dependence 06/06/2017 07/15/2019 Arthralgia of ankle 05/12/2016 08/03/19 24 Pain of foot 12/03/2014 08/03/2023 Immunizations Immunization Administration Dates Next Due Hep A, Adult 10/11/2002 Tdap 07/15/2019 Social History Tobacco Use Types Packs/Day Years [...] 05/12/2022 How often do you attend chur Taketake or presybeterian services? Never 05/12/2022 Do you belong to any clubs o r organizations such as buddhist groups, unions, fraternal or athletic groups, or [...] place to sleep or slept in a snf (including now)? No 05/12/2022 Personal Safety Answer Date Recorded Have you ever been in or are you currently in a harmful physical or emotional relationship or is someone making you feel afraid or unsafe? Denies 09/05/2023 Comments No Sex and Gender Information Value Date Recorded Sex Assigned at Not on file Legal Sex Female 7:40 PM WORKFORCE SERVICES REPRESENTATIVE Gender Identity Not on file Sexual Orientation [...] Diagnoses Date/Ti me COLONOSCOPY Colon cancer screening Goals Goal Patient Goal Type Associated Problems [...] as needed Medical Devices Implanted Type Area Geophysical Prospector Device Identifier Shelf Expiration Date Model / Serial / Lot [employer] [id number] Continuum 48mm 12 Scallop Cluster Hole Snap Fit Groove Integrate - [id number] Implanted:Qty: 1 on 02/26/2020 by Tal Khan MD at [facility] Right: Hip [employer] [id number] 04/13/2029 [id number] / / [id number] [employer] [id number] Trilogy 6.5mm 40mm Self Tap Hip Acetabular Cortical Screw Bone - [id number] Implanted:Qty: 1 on 02/26/2020 by Tal Khan MD at [facility] Right: Hip [employer] [id number] 12/09/2029 [id number] / / [id number] [employer] [id number] 48mm 32mm Hip Gg Neutral Liner Acetabular Longevity Continuum - [id number] Implanted:Qty: 1 on 02/26/2020 by Tal Khan MD at [facility] Right: Hip [employer] [id number] 05/14/2023 [id number] / / [id number] [employer] [id number] Taperloc 140mm 34.3mm Press Fit Reduce Hip 133d 10 Standard - [id number] Implanted:Qty: 1 on 02/26/2020 by Tal Khan MD at [facility] Right: Hip [employer] 09/10/2029 [id number] / / [id number] [employer] [id number] 32mm Modular Hip -3mm Head Femoral Biolox Delta - [id number] Implanted:Qty: 1 on 02/26/2020 by Tal Khan MD at [facility] Right: Hip [employer] 08/20/2028 [id number] / / [id number] [employer] [id number] Persona 2 Peg Knee Right E Baseplate Tibial Trabecular Metal - [id number] Implanted:Qty: 1 on 11/16/2021 by Tal Khan MD at [facility] Right: Knee [employer] [id number] 05/22/2031 [id number] / / [id number] [employer] Persona 10mm Knee Right 6-7 E-F Insert Articular Vivacit-E [id number] - [id number] Implanted:Qty: 1 on 11/16/2021 by Tal Khan MD at [facility] Right: Knee [employer] [id number] 07/05/2026 [id number] / / [id number] [employer] [id number] Persona Cruciate Retaining Knee Right 6 Standard Component - [id number] Implanted:Qty: 1 on 11/16/2021 by Tal Khan MD at [facility] Right: Knee [employer] [id number] 01/25/2030 [id number] / / [id number] Procedures Procedure Name Priority Date/Time Associated Diagnosis Comments SCREENING MAMMOGRAM BILATERAL W SUNNY Schedule Routine, Read Routine (OP Routine) 12/06/2023 1:34 PM CDT Screening mammogram, encounter for PAP AND HIGH RISK HPV, REFLEX TO GENOTYPING Routine 07/23/2021 4:38 PM WORKFORCE SERVICES REPRESENTATIVE ASCUS of cervix with negative high risk [...] compared to prior imaging studies performed at [facility] on 01/03/2020 and 06/08/2022, and at [facility] on 03/31/2021. There are scattered areas of [...] compared to prior imaging studies performed at [facility] on 01/03/2020 and 06/08/2022, and at [facility] on 03/31/2021. There are scattered areas of fibroglandular density. There is no suspicious abnormality in either breast. Impression: There is no mammographic evidence of malignancy. Annual screening mammography is recommended. OVERALL FINAL ASSESSMENT: BI-RADS CATEGORY 1: Negative. us Self Screening Mammogram IMG MAMMO PROCEDURES Fi nal Result * Pap and High Risk HPV, reflex to Genotyping (07/23/2021 4:38 PM WORKFORCE SERVICES REPRESENTATIVE) Thin prep (Pap test) 07/23/2021 4:38 PM WORKFORCE SERVICES REPRESENTATIVE 07/23/2021 7:19 PM WORKFORCE SERVICES REPRESENTATIVE Narrative PATHOLOGY [facility] - 07/28/2021 2:14 PM CDT EPIC results best viewed via link to PDF [facility] [place] [address] Note to Patients: This report may contain [...] Gender: F : 1970 (Age: 50) Address: [address] [place] [address] Hospital #: [id number] Service: Gynecology Location: [facility] Patient Type: [facility] Ancillary Taken: 07/23/2021 Received: 07/23/2021 Accessioned: [...] 66. This HPV test was performed at [facility] in [place], [place] utilizing the Gen-Probe Aptima assay. 07/28/2021 [...] since. The HPV test was performed by [facility], [address] [place] [address]. Report Images and scanned documents, if included only viewable in PDF version The performance characteristics of some immunohistochemical stains, in-situ hybridization and fluorescence in-situ hybridization tests and immunophenotyping by flow cytometry cited in this report (if any) were determined by the Surgical Pathology Department at [facility] as part of an ongoing coding quality analyst program and in compliance with federally mandated [...] determined by the Surgical Pathology Department of [facility]. It has not been cleared or approved by the U. S. Food and Drug Administration. us Jinai Adil Bharucha MD LAB CYTOLOGY ORDERABLES F inal Result PATHOLOGY [facility] 3rd Floor [place], [place] [phone] * COLONOSCOPY (02/03/2021 11:03 AM CDT) Anatomical Region Laterality Modality Other Narrative Procedure Note Syd Toney MD - 02/03/2021 11:03 AM CDT GI ENDOSCOPY [facility] Patient Name: Tanner Torre Procedure Date: 02/03/2021 11:03 AM Date of : 1970 Admit Type: Outpatient Age: 50 Gender: Female Attending MD: Syd Urbina M.D. Room: [facility] ENDOSCOPY ROOM 9 Note Status: Finalized Procedure: [...] The scope was passed under direct vision.The CF [id number] endoscope was introduced through the anus and advanced to the cecum, identified by appendiceal orifice and ileocecal valve. The colonoscopy was performed without difficulty. The patient tolerated the procedure well. The qualityof the bowel preparation was good. The quality of the bowel preparation was evaluated using the BBPS([place] Bowel Preparation Scale) with scores of: RightColon [...] following this procedure please call my office [phone]). After hours and eveningsplease call [phone] and speak to the GI fellow blanca. Please tell the fellow that Dr. Urbina [...] On: 02/03/2021 11:03 AM Recognized by the [place] [employer] for promoting quality in endoscopy Syd Urbina MD ENDOSCOPY PROCEDURES Final Result from Last 3 Months or Most Recently Relevant to Health Maintenance Insurance [place] 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
--- OUTSIDE RECORDS SUMMARY | 2024-07-02 04:27 | XMS_ITS | Encounter Summary ---
Author Organization [facility] Healthcare Address [address] [place] [address] Care Team Providers Care Typesetters Printer Name Role Phone Jamil Covington MD Primary Care Provider [phone] Carla Padron PT Unavailable Unavailable Adrienne Salcedo MD Primary Care Provider [phone] Rafael Gutierrez MD Primary Care Provider Encounter Details Date Type Department Care Team (Late st Contact Info) Description 12/28/2021 Telephone [facility] Primary Care Medicine Clinic [address] [facility] [address] [place], [place] [id number] Jamil Covington MD [address] [facility] [address] [place] [address] Social History Tobacco Use Types Packs/Day Years Used Date Smoking Tobacco: Never Smokeless Tobacco: Never Alcohol Use Standard Drinks/Week Comments Yes 0 (1 standard drink = 0.6 oz pur e alcohol) social AUDIT-C Answer Date Recorded Q1: How often do you have a drink containing alc ohol? Monthly or less 02/03/2021 Q2: How many drinks containi ng alcohol do you have on a typical day when you are drinking? 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
--- OUTSIDE RECORDS SUMMARY | 2024-07-02 04:27 | XMS_ITS | Patient Health Record ---
Author Organization [facility] christi Address [address] [place] [address] Care Team Providers Care Utilization Review Nurse Name Role Phone Rafael Gutierrez MD Primary Care Provider Unav Mayra Bautista Unavailable [phone] Allergies No Known Allergies Results Component Value Reference Range Notes JANIS SCREEN/REFLEX TITER/KATHI MARCELA Reviewed date:09/18/2023 12:03:35 PM Interpretation: Performing Lab:[facility], [address] Notes/Report: Anti-Nuclear Antibody Negative Negative JANIS titers and patterns are performed using an immunofluorescence assay technology. Follow up testing for positive specimens, if required, is performed using multiplex bead technology. SSA/SSB ANTIBODY (SJOGREN'S) Reviewed date:09/18/2023 12:03:35 PM Interpretation: Performing Lab:[facility], [address] Notes/Report: SSA Ro Antibody >8.0 0.0-0.9 AI SSA Ro Interpretation Positive Negative SSB La Antibody <0.2 0.0-0.9 AI SSB La Interpretation Negative Negative CYCLIC CITRULLINATED PEPTIDE (CCP) AB, IgG/IgA Reviewed date:09/18/2023 12:03:35 PM Interpretation: Performing Lab:[facility], [address] [place] [address], [address] Notes/Report: CCP Antibodies 1 0-19 units Negative <20 Weak positive 20 - 39 Moderate positive 40 - 59 Strong positive >59 Performed at: [address] [place] [id number] Ballet Dancer: Simon Ramirez PhD, Phone: [phone] SEDIMENTATION RATE, ESR Reviewed date:09/18/2023 12:03:35 PM Interpretation: Performing Lab:[facility], [address] [place], [address] Notes/Report: Sedimentation Rate 13 (Based on doc umented legal sex) 0-30 mm/Hour CBC W/DIFF Reviewed date:09/18/2023 12:03:35 PM Interpretation: Performing Lab:[facility], [address] [place], [address] Notes/Report: WBC 5.1 3.5-10.5 10'3/uL RBC 4.12 (Based on docume nted legal sex) 3.80-5.20 10'6/uL HGB 12.1 (Based on docume nted legal sex) 11.6-15.4 g/dL HCT 37.9 (Based on docume nted legal sex) 34.0-45.0 % MCV 92.0 80.0-99.0 fL MCH 29.4 27.0-34.0 pg MCHC 31.9 32.0-35.5 g/dL RDW 14.5 11.0-15.0 % PLT 222 150-400 10'3/uL MPV 12.4 8.8-12.1 fL NRBC's 0.0 0.0 % Absolute NRBCs 0.0 No reference ran ge established 10'3/uL Neutrophils 60.5 34.0-73.0 % Lymphocytes 29.6 15.0-50.0 % Monocytes 7.1 1.0-15.0 % Eosinophils 2.0 0.0-8.0 % Basophils 0.6 0.0-2.0 % Immature Granulocytes 0.2 No defined reference range % Absolute Neutrophils 3.1 1.5-8.0 10'3/uL Absolute Lymphocytes 1.5 1.0-4.0 10'3/uL Absolute Monocytes 0.4 0.2-1.0 10'3/uL Absolute Eosinophils 0.1 0.0-0.6 10'3/uL Absolute Basophils 0.0 0.0-0.3 10'3/uL Absolute Immature Granulocytes 0.0 0.00-0.10 10'3/uL 09/15/2023 7:11 AM: P indicates partial results on a panel have been released. Additional results will follow. 09/15/2023 7:11 AM: This result has been final verified. No additional or changed results are expected. HEPATITIS C ANTIBODY SCREEN, REFLEX TO CONFIRMATION Reviewed date:09/18/2023 12:03:35 PM Interpretation: Performing Lab:[facility], [address] [place] [address], [address] Notes/Report: Hepatitis C Antibody Non-reactive Non-reactive Antibodies to HCV Not Detected, does not exclude the possibility of exposure to HCV. HEPATITIS B SURFACE ANTIGEN Reviewed date:09/18/2023 12:03:35 PM Interpretation: Performing Lab:[facility], [address] [place] [address], [address] Notes/Report: Hepatitis B Surface Antigen Non-reactive Non-reactive This assay was performed using iyzico reagents and test kits. Values obtained with other assay methods or kits cannot be used interchangeably. CMP(COMPREHENSIVE METABOLIC PANEL) Reviewed date:09/18/2023 12:03:35 PM Interpretation: Performing Lab:[facility], [address] [place] [address], [address] Notes/Report: Sodium 143 133-146 mmol/L Potassium 4.3 3.5-5.1 mmol/L Chloride 105 98-107 mmol/L Carbon Dioxide 31 21-31 mmol/L Anion Gap 7 4-13 mmol/L Blood Urea Nitrogen 9 7-25 mg/dL Creatinine 0.86 0.60-1.30 mg/dL eGFRcr (CKD-EPI 2020) 80 >=60 mL/min/1.73 m2 Calcium 9.8 8.3-10.5 mg/dL Glucose 106 70-100 mg/dL Protein, Total 6.6 6.4-8.3 g/dL Albumin 4.0 3.5-5.0 g/dL ALT 16 9-43 units/L Alkaline Phosphatase 86 34-104 units/L AST 18 13-39 units/L Bilirubin, Total 0.9 0.2-1.2 mg/dL URIC ACID Reviewed date:09/18/2023 12:03:35 PM Interpretation: Performing Lab:[facility], [address] [place] [address], [address] Notes/Report: Uric Acid 5.5 2.3-6.6 mg/dL CK Reviewed date:09/18/2023 12:03:35 PM Interpretation: Performing Lab:[facility], [address] [place] [address], [address] Notes/Report: CK, Total 107 26-192 units/L RHEUMATOID FACTOR (RF), ABHIJEET TITATIVE Reviewed date:09/18/2023 12:03:35 PM Interpretation: Performing Lab:[facility], [address] [place], [address] Notes/Report: Rheumatoid Factor, Quantitative Interpretation Negative Negative RF, Quantitation 11 <=14 IU/mL CRP (C-REACTIVE PROTEIN) Reviewed date:09/18/2023 12:03:34 PM Interpretation: Performing Lab:[facility], [address] [place], [address] Notes/Report: C-Reactive Protein 5.2 0.0-10.0 mg/L Reason For Referral No Information Medications Medication SIG (Take, Route, Frequency, Duration) Notes Start Date End Date Status Cetirizine HCl 10 MG 1 tablet Orally Onc e a day for 30 day(s) Active Ibuprofen 400 MG 1 tablet with food o r milk as needed Orally Three times a day Active Lidocaine 5 % 1 patch remove after 12 hours Externally Once a day Active Pravastatin Sodium 20 MG 1 tablet Orally Once a day for 30 day(s) Active Vitamin D3 25 MCG (1000 UT) 1 capsule Or ally Once a day for 30 day(s) Active Cyclobenzaprine HCl 10 MG 1 tablet at be dtime as needed Orally Once a day for 30 day(s) Active Diclofenac Sodium 1 % as directed Externally Active Amitriptyline HCl 10 MG 1 tablet at bedt bailee Orally Once a day for 30 day(s) Active Premarin 0.625 MG/GM as directed Vaginal Active Senna-Docusate Sodium 8.6-50 MG 1 tablet as needed Orally Twice a day Active Omeprazole 20 MG 1 capsule 30 minutes before morning meal Orally Once a day for 30 day(s) Active Calcium Active Lisinopril 20 MG 1 tablet Orally Once a day for 30 day(s) Active Flonase Active Magnesium Oxide 250 MG 1 tablet as neede d Orally Once a day for 30 day(s) Active Tylenol Extra Strength 500 MG 1 tablet a s needed Orally every 6 hrs Active DULoxetine HCl 60 MG 1 capsule Orally On ce a day for 30 day(s) Active Social History Tobacco Use: Social History Observation Description Date Details (start date - stop date) Never Smoker NA - NA Household Question Answer Notes Marital status: single Number of children in household: 0 Tobacco Control (Standard) Question Answer Notes Tobacco use: Nonsmoker Vital Signs Heart Rate 79 /min 08/17/2023 Temperature 98.5 degrees Fahrenheit 08/17/2023 Blood pressure diastolic 80 mm Hg 08/17/2023 Oximetry 98 % 08/17/2023 Height 56 in 08/17/2023 Blood pressure systolic 130 mm Hg 08/17/2023 Weight 228.0 lbs 08/17/2023 BMI 51.11 kg/m2 08/17/2023 Encounters Encounter Location Date Provider Diagnosis [facility] [address] [place] [address] 08/17/2023 Mayra Baljinder Pain in unspecified joint M25.50 ; Pain of hand, unspecified laterality M79.643 ; Pain, joint, knee, left M25.562 and Left hip pain M25.552 [facility] [address] [place] [address] 04/10/2024 Mayra Baljinder [facility] [address] [place] [address] 08/28/2023 Mayra Baljinder [facility] [address] [place] [address] 09/14/2023 Mayra Du Assessments Encounter Date Diagnosis (ICD Code) Assessment Notes Treatment Notes Treatment Clinical Notes Section Notes 08/17/2023 Pain in unspecified joint (ICD-10 - M25.50) 52 year old female with aches and pains. Recent X-rays showed possible erosions in the wrists. I am asked to evaluate her for inflammatory arthritis. Serologies will be ordered. Follow up virtual visit will be scheduled. Thank you for referring this patient. cc Dr. Rafael Gutierrez 08/17/2023 Pain of hand, unspecified laterality (ICD-10 - M79.643) 52 year old female with aches and pains. Recent X-rays showed possible erosions in the wrists. I am asked to evaluate her for inflammatory arthritis. Serologies will be ordered. Follow up virtual visit will be scheduled. Thank you for referring this patient. cc Dr. Rafael Gutierrez 08/17/2023 Pain, joint, knee, left (ICD-10 - M25.562) 52 year old female with aches and pains. Recent X-rays showed possible erosions in the wrists. I am asked to evaluate her for inflammatory arthritis. Serologies will be ordered. Follow up virtual visit will be scheduled. Thank you for referring this patient. cc Dr. Rafael Gutierrez 08/17/2023 Left hip pain (ICD-10 - M25.552) 52 year old female with aches and pains. Recent X-rays showed possible erosions in the wrists. I am asked to evaluate her for inflammatory arthritis. Serologies will be ordered. Follow up virtual visit will be scheduled. Thank you for referring this patient. cc Dr. Rafael Gutierrez 09/14/2023 52 year old female with aches and pains. Recent X-rays showed possible erosions in the wrists. I am asked to evaluate her for inflammatory arthritis. Serologies will be ordered. Follow up virtual visit will be scheduled. Thank you for referring this patient. cc Dr. Rafael Gutierrez 08/31/2023 52 year old female with aches and pains. Recent X-rays showed possible erosions in the wrists. I am asked to evaluate her for inflammatory arthritis. Serologies will be ordered. Follow up virtual visit will be scheduled. Thank you for referring this patient. cc Dr. Rafael Gutierrez Plan Of Treatment No Information Insurance Providers Payer Name Payer Address Payer Phone Subscriber Number Group Number Insured Name Patient Relationship to Insured Coverage Start Date Coverage End Date [facility] Comm Plan [address] [place] [address] [id number] Adryan Bo Self - patient is the insured Medical (General) History Medical History History ICD Code positive JANIS, positive SSA, hypertension, hyperlipidemia, anxiety, depression, GERD, hyperparathyroidism, CTS, diverticular bleeding Surgical History Surgery Date(Month/Year) hip replacement, knee replacement, hand surgery
--- OUTSIDE RECORDS SUMMARY | 2024-07-02 04:28 | XMS_ITS | Encounter Summary ---
Author Organization [facility] Healthcare Address [address] [place] [address] Care Team Providers Care Computer Engineering Technician Name Role Phone Jamil Covington MD Primary Care Provider [phone] Carla Padron PT Unavailable Unavailable Adrienne Salcedo MD Primary Care Provider [phone] Rafael Gutierrez MD Primary Care Provider Encounter Details Date Type Department Care Team (Late st Contact Info) Description 05/24/2022 Telephone [facility] [address] [facility] [address] [place] [address] Jamil Covington MD [address] [facility] [address] [place] [address] Social History Tobacco Use Types [...] week 05/12/2022 How often do you attend [facility] or synagogue services? Never 05/12/2022 Do you belong to any clubs o r organizations such as pentecostalism groups, unions, fraternal or athletic groups, or school groups? No 05/12/2022 How often do you attend meet ings of the clubs or organizations you belong to? Never 05/12/2022 Are you , , di vorced, , never , or living with a partner? Never 05/12/2022 AUDIT-C Answer Date Recorded Q1: How often do you have a drink containing alc ohol? Monthly or less 05/12/2022 Q2: How many drinks containi ng alcohol do you have on a typical day when you are drinking? 1 or 2 05/12/2022 Q3: How often do you have si x or more drinks on one occasion? Never 05/12/2022 Overall Financial Resource Strain (CARDIA) Answe r [...] in a snf (including now)? No 05/12/2022 Comments No Sex and Gender Information Value Date Recorded Sex Assigned at Not on file Legal Sex Female 7:40 PM LAMP CLEANER Gender Identity Not on file Sexual Orientation [...] on filedocumented in this encounter Care Teams Computer Engineering Technician Relationship Specialty Start Date End Date Jamil Covington MD PCP - General 10/31/20 11/03/23 Adrienne Salcedo MD PCP - General 11/04/23 12/05/23 Rafael Gutierrez MD [address] [place] [address] PCP - General Family Medicine 12/06/23 Carla Padron PT Physical Therapist Physical Therapy 11/17/21 documented as of this encounter
--- OUTSIDE RECORDS SUMMARY | 2024-07-02 04:28 | XMS_ITS ---
Author Organization [facility] christi Address [address] [facility] [address] [place] [address] Care Team Providers Care Sample Processor Name Role Phone Rafael Gutierrez MD Primary Care Provider Unav ailable Mayra Gale Unavailable [phone] Encounters Encounter Location Date Provider Diagnosis [facility] [address] [facility] [address] [place] [address] 09/14/2023 Mayra Gale Plan Of Treatment No Information Progress Notes * Aneudy TORREaDOB:[birth year] (53 yo F)Acc No.[id number]:09/14/2023 Patient: Adryan DAIGLE :1970 A ge:53 Y S ex:Female Address:[address] [place] [address], [address] * true * Date: Generated for Edwin balderas/Cristina/eTransmitting on: 0 07/02/2024 04:28 AM FINANCE EXECUTIVE
--- OUTSIDE RECORDS SUMMARY | 2024-07-02 04:28 | XMS_ITS | Clinical Summary ---
Author Organization [facility] Address [address] [place] [address] Phone Care Team Providers Care Broom Handle Dipper Name Role Phone Rafael Gutierrez MD Primary Care Provider [phone] Allergies No known active allergies Medications lisinopriL (PRINIVIL) 20 mg tablet Take 20 mg by mouth daily. Active DULoxetine (CYMBALTA) 60 mg Capsule, Delayed Release(E.C.) Take 60 mg by mouth daily. Active amitriptyline (ELAVIL) 10 mg tablet Take 10 mg by mouth daily at bedtime. Active omeprazole (PriLOSEC) 20 mg Capsule, Delayed Release(E.C.) Take 20 mg by mouth daily. Active methylPREDNISol one (Medrol, Johnny,) 4 mg Tablets, Dose Pack Follow package instructions 21 Tablet 08/28/2023 6:14 PM CDT 4 Active albuterol sulfate HFA 90 mcg/actuation aerosol inhaler Take 2 Puffs by inhalation every 6 hours as needed for Wheezing or Shortness of Breath. 8.5 Gram 08/28/2023 6:14 PM CDT 4 Active Encounters Date Type Department Care Team Description 06/25/2024 External Device Data [facility] ABSTRACTION Provider, Abstract 06/18/2024 External Device Data [facility] ABSTRACTION Provider, Abstract 06/11/2024 External Device Data [facility] ABSTRACTION Provider, Abstract 06/05/2024 External Device Data [facility] ABSTRACTION Provider, Abstract 06/05/2024 External Device Data [facility] ABSTRACTION Provider, Abstract 05/23/2024 10:50 AM HAZARD MITIGATION OFFICER Ancillary Procedure [facility] [address] [id number] Alana Sutherland PA-C Pain in unspecified hand 05/06/2024 Ancillary Procedure [facility] [address] [place] [phone] Alana Sutherland PA-C Pain in unspecified hand 04/16/2024 External Device Data [facility] ABSTRACTION Provider, Abstract from Last 3 Months Social History Tobacco Use Types Packs/Day Years Used Date Smoking Tobacco: Never Tobacco Cessation:Counseling Given: Not Answered Feeling Safe Answer Date Recorded Are you in a relationship wi th someone who hurts you emotionally and/or physically? No 08/30/2023 Comments Unknown Sex and Gender Information Value Date Recorded Sex Assigned at Not on file Legal Sex Female 2:01 PM CDT Gender Identity Not on file Sexual Orientation Not on file Last Filed Vital Signs Vital Sign Reading Time Taken Comments Blood Pressure 134/93 08/30/2023 7:08 PM CDT Pulse 52 08/30/2023 7:08 PM CDT Temperature 37 C (98.6 F) 08/30/2023 7:08 PM CDT Respiratory Rate 20 08/30/2023 7:08 PM CDT Oxygen Saturation 100% 08/30/2023 7:08 PM CDT Inhaled Oxygen Concentration - - Weight 101.1 kg (222 lb 12.8 oz) 08/30/2023 4:34 PM CDT Height 165.1 cm (5' 5 ) 08/30/2023 3:39 PM CDT Body Mass Index 37.08 08/30/2023 3:39 PM CDT Plan of Treatment Health Maintenance Due Date Last Done Comments Pre-Diabetes and Diabetes Screening 1970 HEPATITIS B VACCINES (1 of 3 - 19+ 3-dose series) 09/02/1987 CERVICAL CANCER SCREENING 1998 FIT-DNA Q 3 years 2013 FIT/FOBT Q 1 year 2013 Flex Sig/CT Colonography Q 5 years 2013 ZOSTER VACCINE (1 of 2) 2018 INFLUENZA VACCINE (#1) 2023 BREAST CANCER SCREENING 12/05/2024 12/06/19 24, 06/08/2022, 03/31/2021, Additional history exists DTAP/TDAP/TD VACCINES (2 - T d or Tdap) 07/14/2029 07/15/2019 COLORECTAL SCREENING 02/03/2031 02/03/2021, 02/04/20 21 Colorectal Cancer Screening 02/03/2031 Procedures Procedure Name Priority Date/Time Associated Diagnosis Comments XR HAND 2 VW BILAT Routine 05/23/2024 11 :17 AM HAZARD MITIGATION OFFICER Pain in unspecified hand from Last 3 Months Results * XR HAND 2 VW BILAT (05/23/2024 11:17 AM HAZARD MITIGATION OFFICER) Anatomical Region Laterality Modality Wrist / Hand Computed Radiogr aphy 05/23/2024 11:1 7 AM HAZARD MITIGATION OFFICER Impressions 05/23/2024 11:32 AM HAZARD MITIGATION OFFICER IMPRESSION: 1. Bilateral ulnar negative variance, as described above. 2. Bilateral hand and wrist osteoarthritis with findings suggestive of osteoarthritis superimposed on erosive/inflammatory arthritis, as described above. Narrative 05/23/2024 11:32 AM HAZARD MITIGATION OFFICER EXAM: XR HAND 2 VW BILAT DATE: 05/23/2024 CLINICAL HISTORY: Bilateral hand pain TECHNIQUE: PA and lateral views of both hands were submitted for review. No prior study is available for comparison. FINDINGS: Right hand: There is ulnar negative variance of 4 mm. Periarticular osteopenia is suspected at the metacarpophalangeal and interphalangeal joints. There is mozh-ye-vxehemxq distal radioulnar joint, mild radiocarpal and 2nd carpometacarpal joint and mtcr-dq-vrkcmqun wntdsybm-olmcbhjtf-sjighchok and 1st carpometacarpal joint osteoarthritis. There is mild 1st through 5th metacarpophalangeal joint and thumb interphalangeal joint osteoarthritis. There is tvpz-hg-jgxjasjg index, long, ring and small finger distal interphalangeal joint and small finger proximal interphalangeal joint osteoarthritis. There is mild index, long and ring finger proximal interphalangeal joint osteoarthritis. Scattered small subchondral cysts or erosions are present in the distal radius, distal ulna and carpal bones and at the carpometacarpal, metacarpophalangeal and interphalangeal joints. There is no acute or healing fracture. The overlying soft tissues are normal. There is no radiopaque foreign body. Left hand: There is ulnar negative variance of 4 mm. Periarticular osteopenia is suspected at the metacarpophalangeal and interphalangeal joints. There is minimal distal radioulnar joint, mild radiocarpal and 1st and 2nd carpometacarpal joint and zoxv-ny-hpyiwria xrvinoce-ahesrslyx-jtwbypjvy osteoarthritis. There is mild 1st and 5th metacarpophalangeal joint and thumb interphalangeal joint and minimal 2nd through 4th metacarpophalangeal joint osteoarthritis. There is mild index, long, ring and small finger proximal and distal interphalangeal joint osteoarthritis. Small subchondral cysts or erosions are present in the distal radius, distal ulna and carpal bones and at the carpometacarpal, metacarpophalangeal and interphalangeal joints. There is no acute or healing fracture. The overlying soft tissues are normal. There is no radiopaque foreign body. Procedure Note Helga Babcock MD - 05/23/2024 EXAM: XR HAND 2 VW BILAT DATE: 05/23/2024 CLINICAL HISTORY: Bilateral hand pain TECHNIQUE: PA and lateral views of both hands were submitted for review. No prior study is available for comparison. FINDINGS: Right hand: There is ulnar negative variance of 4 mm. Periarticular osteopenia is suspected at the metacarpophalangeal and interphalangeal joints. There is sddy-os-tzgsprup distal radioulnar joint, mild radiocarpal and 2nd carpometacarpal joint and nxgv-wi-spgfvivu xrfzdsvu-lffknnedr-rhsavacfy and 1st carpometacarpal joint osteoarthritis. There is mild 1st through 5th metacarpophalangeal joint and thumb interphalangeal joint osteoarthritis. There is guup-st-xwxgiafh index, long, ring and small finger distal interphalangeal joint and small finger proximal interphalangeal joint osteoarthritis. There is mild index, long and ring finger proximal interphalangeal joint osteoarthritis. Scattered small subchondral cysts or erosions are present in the distal radius, distal ulna and carpal bones and at the carpometacarpal, metacarpophalangeal and interphalangeal joints. There is no acute or healing fracture. The overlying soft tissues are normal. There is no radiopaque foreign body. Left hand: There is ulnar negative variance of 4 mm. Periarticular osteopenia is suspected at the metacarpophalangeal and interphalangeal joints. There is minimal distal radioulnar joint, mild radiocarpal and 1st and 2nd carpometacarpal joint and ajbx-kn-wovmcwnz vbrtyjzu-mxeslfhrl-oqifdwjuu osteoarthritis. There is mild 1st and 5th metacarpophalangeal joint and thumb interphalangeal joint and minimal 2nd through 4th metacarpophalangeal joint osteoarthritis. There is mild index, long, ring and small finger proximal and distal interphalangeal joint osteoarthritis. Small subchondral cysts or erosions are present in the distal radius, distal ulna and carpal bones and at the carpometacarpal, metacarpophalangeal and interphalangeal joints. There is no acute or healing fracture. The overlying soft tissues are normal. There is no radiopaque foreign body. IMPRESSION: 1. Bilateral ulnar negative variance, as described above. 2. Bilateral hand and wrist osteoarthritis with findings suggestive of osteoarthritis superimposed on erosive/inflammatory arthritis, as described above. Alana Sutherland PA-C DIAGNOSTIC IMAGING ORDERABLES Final Result from Last 3 Months Insurance [place]ID [place] [facility] DUAL COMPLETE HMO [facility] [id number] Member Subscriber Plan / Payer (Ef fective 2023-Present) Name:Adryan Torre Relation to Subscriber:Self Name:Adryan Torre Payer ID:[id number] (NAIC) Group ID:[id number] Type:HMO Address: [address] [place] [address] RX [employer]ING Medicaid RX [employer] RX Member Subscriber Plan / Payer (Ef fective 2023-Present) Name:Adryan Torre Relation to Subscriber:Self Name:Adryan Torre Subscriber ID:Not on file Payer ID:Not on file Group ID:[id number] Type:RX Medicare Part D Address: [address] [address] [facility] DUAL COMPLETE HMO [facility] [id number] MEDICAID [place] Care Teams Broom Handle Dipper Relationship Specialty Start Date End Date Rafael Gutierrez MD [address] [place] [address] PCP - General Family Practice 08/28/23
--- OUTSIDE RECORDS SUMMARY | 2024-07-02 04:28 | XMS_ITS | Encounter Summary ---
Author Organization [facility] Healthcare Address [address] [place] [address] Care Team Providers Care Steam Drier Tender Name Role Phone Jamil Covington MD Primary Care Provider [phone] Carla Padron PT Unavailable Unavailable Adrienne Salcedo MD Primary Care Provider [phone] Rafael Gutierrez MD Primary Care Provider Encounter Details Date Type Department Care Team (Late st Contact Info) Description 05/13/2022 Documentation [facility] Social Work [address] [place] [address] Gokul Casey MSW Social History Tobacco Use Types Packs/Day Years [...] 05/12/2022 How often do you attend chur or temple services? Never 05/12/2022 Do you belong to any clubs o r organizations such as restoration groups, unions, fraternal or athletic groups, or [...] place to sleep or slept in a residential (including now)? No 05/12/2022 Comments No Sex and Gender Information Value Date Recorded Sex Assigned at Not on file Legal Sex Female 7:40 PM [employer] Gender Identity Not on file Sexual Orientation [...] on filedocumented in this encounter Care Teams Steam Drier Tender Relationship Specialty Start Date End Date Jamil Covington MD PCP - General 10/31/20 11/03/23 Adrienne Salcedo MD PCP - General 11/04/23 12/05/23 Rafael Gutierrez MD [address] [place] [address] PCP - General Family Medicine 12/06/23 Carla Padron PT Physical Therapist Physical Therapy 11/17/21 documented as of this encounter
--- OUTSIDE RECORDS SUMMARY | 2024-07-02 04:28 | XMS_ITS | Continuity of Care Document ---
Author Organization [facility] Address [address] [place] [address] Phone Care Team Providers Care Test Deskman Name Role Phone Boules DMD, Abran Unavailable Unavailable Allergies, Adverse Reactions, Alerts Substance Reaction Status Criticality crab Active No Information pineapple ItchingItching Active No Informatio n orange ItchingItching Active No Informatio n strawberry ItchingItching Active No Informatio n lemon ItchingItching Active No Informatio n Medications Medication Instructions Dosage Effective Dates (start - stop) Status Comments acetaminophen 500 mg tablet take 1 tablet by oral route every 8 hours as needed 500 MG - Active amoxicillin 500 mg capsule take 4 capsules 1 hour before dental treatment by oral route. - Active amoxicillin 500 mg capsule take 4 capsules by oral route 1 hour before dental treatment. - Active gabapentin 600 mg tablet Take One Tablet By Mouth Three Times Daily, TAKE WITH 300MG CAPSULE - Active PRAVASTATIN SODIUM 20 MG TAB TAKE 1 TABLET BY MOUTH EVERY NIGHT AT BEDTIME - Active IBUPROFEN 800 MG TABLET TAKE ONE TABLET BY MOUTH THREE TIMES A DAY WITH FOOD , ALTERNATE WITH NAPROXEN - Active LISINOPRIL-HCTZ 10-12.5 MG TAB TAKE ONE TABLET BY MOUTH ONCE DAILY - Active NAPROXEN 500 MG TABLET TAKE ONE TABLET B Y MOUTH TWICE A DAY WITH FOOD , ALTERNATE WITH IBUPROFEN FOR RIGHT LEG PAIN - Active AMITRIPTYLINE HCL 25 MG TAB TAKE 2 TABLETS BY MOUTH EVERY NIGHT AT BEDTIME 50 MG - Active GABAPENTIN 300 MG CAPSULE TAKE ONE CAPSULE BY MOUTH THREE TIMES A DAY 300 MG - Active Voltaren 1 % topical gel apply (2G) by topical route 4 times every day to the affected area(s) - Active metronidazole 500 mg tablet take 1 tablet by oral route every 12 hours x 7 days - Active aspirin 81 mg tablet,delayed release TAKE 1 TABLET BY MOUTH EVERY DAY - Active Procedures Procedure Date Dental Panoramic Radiographic Image Periapical Radiographic, first Image Jan Periapical Radiographic Image, ea addl S ep Periapical Radiographic Image, ea addl S Periapical Radiographic Image, ea addl S ep Periapical Radiographic Image, ea addl S ep Periapical Radiographic Image, ea addl S Periapical Radiographic Image, ea addl S Periapical Radiographic Image, ea addl S Dental Bitewings Radiographic, Four Imag es Comprehensive Oral Evaluation-New/Est Pt Caries Risk Assess & Doc High Risk Jan- Voided Encounter Resin three surfaces-anterior Oral hygiene instruction Dental Bitewings Radiographic, Four Imag es Periapical Radiographic, first Image May Voided Encounter Resin Composite, 2 Surfaces, Posterior S Treatment Plan Completed Pt To Be Place On Recall Caries Risk Assess & Doc High Risk Periapical Radiographic, first Image May Dental Prophylaxis Adult Oral hygiene instruction Periapical Radiographic, first Image Dec Dental Bitewings Radiographic, Four Imag es Periodic Oral Evaluation-Established Pt Periapical Radiographic, first Image September Periapical Radiographic Image, ea addkeenan M Limit Oral Evaluation- problem focused M Re-evaluation Post-Operative Office Visi t Resin two surfaces-anterior Resin Composite, 2 Surfaces, Posterior J Dental Prophylaxis Adult Comprehensive Oral Evaluation-New/Est Pt Dental Panoramic Radiographic Image Dental Bitewings Radiographic, Four Imag es Caries Risk Assess & Doc High Risk Voided Encounter OFFICE/OUTPATIENT VISIT, EST HLTH [facility] ASSMT/REASSESSMENT PERIODIC COMPREHENSIVE PREVENTIVE MED RE E/M; 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; 40-64 URINE TEST, BY VISUAL COLOR CO MPARISON METHODS Urinalysis, Auto, w/o Scope OFFICE OUTPT EST 25 MIN Urinalysis, Auto, w/o Scope OFFICE/OUTPATIENT VISIT, EST OFFICE/OUTPATIENT VISIT, NEW X-RAY EXAM, FOOT, COMPL, MIN 3 VIEWS Oct OFFICE/OUTPATIENT VISIT, EST OFFICE/OUTPATIENT VISIT, EST OFFICE/OUTPATIENT VISIT, EST DETERMINATION OF REFRACTIVE STATE OPH MEDICAL XM&EVAL COMPRE NEW PT 1+ VST Urinalysis, Auto, w/o Scope GLUCOSE; QUANTITATIVE, BLOOD (EXCEPT KARY GENT STRIP) HEMOGLOBIN; GLYCOSYLATED (A1C) 19 OFFICE/OUTPATIENT VISIT, EST CHIROPRACTIC MANIPULATIVE TREATMENT (CMT ); SPINAL, ONE TO TWO REGIONS OFFICE/OUTPATIENT VISIT, EST Voided Encounter OFFICE/OUTPATIENT VISIT, EST CHIROPRACTIC MANIPULATIVE TREATMENT (CMT ); SPINAL, ONE TO TWO REGIONS CHIROPRACTIC MANIPULATIVE TREATMENT (CMT ); SPINAL, ONE TO TWO REGIONS SMEAR, WET MOUNT, SALINE/INK PERIODIC COMPREHENSIVE PREVENTIVE MED RE E/M; 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; 40-64 Alcohol and/or drug screening 8 Urinalysis, Auto, w/o Scope URINE TEST, BY VISUAL COLOR CO MPARISON METHODS HEMOGLOBIN; GLYCOSYLATED (A1C) 18 OFFICE OUTPT EST 25 MIN APPLICATION OF A MODALITY TO ONE OR MORE AREAS; INFRARED APPLICATION OF A MODALITY TO ONE OR MORE AREAS; INFRARED APPLICATION OF A MODALITY TO ONE OR MORE AREAS; INFRARED APPLICATION OF A MODALITY TO ONE OR MORE AREAS; INFRARED APPLICATION OF A MODALITY TO ONE OR MORE AREAS; INFRARED CHIROPRACTIC MANIPULATIVE TREATMENT (CMT ); SPINAL, ONE TO TWO REGIONS CHIROPRACTIC MANIPULATIVE TREATMENT (CMT ); SPINAL, ONE TO TWO REGIONS CHIROPRACTIC MANIPULATIVE TREATMENT (CMT ); SPINAL, ONE TO TWO REGIONS CHIROPRACTIC MANIPULATIVE TREATMENT (CMT ); SPINAL, ONE TO TWO REGIONS CHIROPRACTIC MANIPULATIVE TREATMENT (CMT ); SPINAL, ONE TO TWO REGIONS CHIROPRACTIC MANIPULATIVE TREATMENT (CMT ); SPINAL, ONE TO TWO REGIONS SMEAR, WET MOUNT, SALINE/INK OFFICE/OUTPATIENT VISIT, EST Alcohol and/or drug screening 8 Dental Bitewings Radiographic, Four Imag es Comprehensive Oral Evaluation-New/Est Pt Caries Risk Assess & Doc High Risk CHIROPRACTIC MANIPULATIVE TREATMENT (CMT ); SPINAL, ONE TO TWO REGIONS CHIROPRACTIC MANIPULATIVE TREATMENT (CMT ); SPINAL, ONE TO TWO REGIONS OFFICE/OUTPATIENT VISIT, EST CHIROPRACTIC MANIPULATIVE TREATMENT (CMT ); SPINAL, ONE TO TWO REGIONS CHIROPRACTIC MANIPULATIVE TREATMENT (CMT ); SPINAL, ONE TO TWO REGIONS CHIROPRACTIC MANIPULATIVE TREATMENT (CMT ); SPINAL, ONE TO TWO REGIONS OFFICE/OUTPATIENT VISIT, NEW X-RAY EXAM, PELVIS, 1-2 VIEWS 8 SMEAR, WET MOUNT, SALINE/INK Prescription Drug, Oral, Non-Chemotherap eutic, NOS OFFICE/OUTPATIENT VISIT, EST Alcohol and/or drug screening 8 Urinalysis, Auto, w/o Scope URINE TEST, BY VISUAL COLOR CO MPARISON METHODS OFFICE/OUTPATIENT VISIT, EST HEMOGLOBIN; GLYCOSYLATED (A1C) 18 BLOOD COUNT; COMPLETE (CBC), AUTOMATED D IFF COMPRE METAB PANEL LIPID PANEL THYROID STIMULATING HORMONE (TSH) Psychiatric Diagnostic Evaluation SMEAR, WET MOUNT, SALINE/INK OFFICE/OUTPATIENT VISIT, EST Alcohol and/or drug screening 7 URINE TEST, BY VISUAL COLOR CO MPARISON METHODS Urinalysis, Auto, w/o Scope OFFICE/OUTPATIENT VISIT, EST URINE TEST, BY VISUAL COLOR CO MPARISON METHODS Urinalysis, Auto, w/o Scope OFFICE OUTPT EST 25 MIN SMEAR, WET MOUNT, SALINE/INK OFFICE/OUTPATIENT VISIT, EST Urinalysis, Auto, w/o Scope URINE TEST, BY VISUAL COLOR CO MPARISON METHODS PERIODIC COMPREHENSIVE PREVENTIVE MED RE E/M; 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; 40-64 Alcohol and/or drug screening 7 Urinalysis, Auto, w/o Scope URINE TEST, BY VISUAL COLOR CO MPARISON METHODS HIV-1 Antigen, W/HIV-1 & HIV-2 Antibody, Single Re HEPATITIS C ANTIBODY; OFFICE OUTPT EST 25 MIN Alcohol and/or drug screening 7 Resin one surface-anterior OFFICE/OUTPATIENT VISIT, EST URINE TEST, BY VISUAL COLOR CO MPARISON METHODS Urinalysis, Auto, w/o Scope SMEAR, WET MOUNT, SALINE/INK OFFICE/OUTPATIENT VISIT, EST URINE TEST, BY VISUAL COLOR CO MPARISON METHODS Urinalysis, Auto, w/o Scope DETERMINATION OF REFRACTIVE STATE OPH MEDICAL XM&EVAL COMPRE EST PT 1+ VST Comprehensve oral evaluation Dental Bitewings Radiographic, Four Imag es Dental Panoramic Radiographic Image Dental prophylaxis adult Oral hygiene instruction OFFICE OUTPT EST 25 MIN HEMOGLOBIN; GLYCOSYLATED (A1C) 16 COLLECTION OF CAPILLARY BLOOD SPECIMEN ( EG, FINGER, HEEL, EAR STICK) COLLECTION OF VENOUS BLOOD BY VENIPUNCTU RE COMPRE METAB PANEL LIPID PANEL SEDIMENTATION RATE, ERYTHROCYTE; AUTOMAT ED THYROID STIMULATING HORMONE (TSH) BLOOD COUNT; COMPLETE (CBC), AUTOMATED D IFF Non-OB Ultrasound, Pelvic, Complete OFFICE OUTPT EST 25 MIN SMEAR, WET MOUNT, SALINE/INK PERIODIC COMPREHENSIVE PREVENTIVE MED RE E/M; 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; 40 OFFICE/OUTPATIENT VISIT, EST Alcohol and/or drug screening 6 Urinalysis, Auto, w/o Scope URINE TEST, BY VISUAL COLOR CO MPARISON METHODS HEPATITIS C ANTIBODY; HIV-1 Antigen, W/HIV-1 & HIV-2 Antibody, Single Re PERIODIC COMPREHENSIVE PREVENTIVE MED RE E/M; 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; 40 OFFICE/OUTPATIENT VISIT, EST COLLECTION OF VENOUS BLOOD BY VENIPUNCTU RE Extraction erupted tooth or exposed root Periapical Radiographic, first Image Dec Limit oral eval problem focused 015 OFFICE/OUTPATIENT VISIT, EST OFFICE/OUTPATIENT VISIT, EST DETERMINATION OF REFRACTIVE STATE OFFICE/OUTPATIENT VISIT, NEW Alcohol and/or drug screening 5 OFFICE OUTPT EST 25 MIN OFFICE OUTPT EST 25 MIN Voided Encounter OFFICE OUTPT EST 25 MIN URINE TEST, BY VISUAL COLOR CO MPARISON METHODS Urinalysis, Auto, w/o Scope PERIODIC COMPREHENSIVE PREVENTIVE MED RE E/M; 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; 4064 OFFICE OUTPT EST 25 MIN X-RAY EXAM, KNEE, COMPL, 4 OR MORE VIEWS OFFICE OUTPT EST 25 MIN OFFICE/OUTPATIENT VISIT, EST OFFICE/OUTPATIENT VISIT, EST Dental Bitewings Radiographic, Two Image s Oral hygiene instruction Dental prophylaxis adult Comprehensve oral evaluation OFFICE/OUTPATIENT VISIT, EST Wet adriana, including preparations of va ginal, cervical or skin specimens PERIODIC COMPREHENSIVE PREVENTIVE MED RE E/M; 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; 40 COLLECTION OF VENOUS BLOOD BY VENIPUNCTU RE COLLECTION OF VENOUS BLOOD BY VENIPUNCTU RE OFFICE/OUTPATIENT VISIT, EST Prescription Drug, Oral, Non-Chemotherap eutic, NOS OFFICE/OUTPATIENT VISIT, EST OFFICE OUTPT EST 25 MIN PERIODIC COMPREHENSIVE PREVENTIVE MED RE E/M; 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; 4064 Wet adriana, including preparations of va ginal, cervical or skin specimens OFFICE/OUTPATIENT VISIT, EST OFFICE OUTPT EST 25 MIN COLLECTION OF VENOUS BLOOD BY VENIPUNCTU RE OFFICE/OUTPATIENT VISIT, EST OFFICE/OUTPATIENT VISIT, EST Wet adriana, including preparations of va ginal, cervical or skin specimens PERIODIC COMPREHENSIVE PREVENTIVE MED RE E/M; 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; 40-64 OFFICE/OUTPATIENT VISIT, EST OFFICE/OUTPATIENT VISIT, EST COLLECTION OF VENOUS BLOOD BY VENIPUNCTU RE OFFICE/OUTPATIENT VISIT, EST Injection, medroxyprogesterone acetate ( Depo-Provera), 150 mg OFFICE/OUTPATIENT VISIT, EST Periapical first film Periapical ea add Dental bitewings two films Comprehensve oral evaluation Dental prophylaxis adult Topical fluor w/o prophy adult 10 Oral hygiene instruction Limit oral eval problem focused 010 Periapical first film Extraction erupted tooth or exposed root COLLECTION OF VENOUS BLOOD BY VENIPUNCTU RE Injection, medroxyprogesterone acetate ( Depo-Provera), 150 mg OFFICE/OUTPATIENT VISIT, EST OFFICE OUTPT EST 10 MIN Injection, medroxyprogesterone acetate ( Depo-Provera), 150 mg OFFICE OUTPT EST 25 MIN ENDOMETRIAL BX +-ENDOCRV BX W/O DILAT SP X OFFICE OUTPT EST 25 MIN COLLECTION OF VENOUS BLOOD BY VENIPUNCTU RE SMEAR, WET MOUNT, SALINE/INK CHYLMD TRACH, DNA, AMP PROBE PERIODIC COMPREHENSIVE PREVENTIVE MED RE E/M; 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; 40-64 CYTP C/V AUTO THIN LYR PREPJ SCR SYS PHY S N.GONORRHOEAE, DNA, AMP PROB GLUCOSE BLOOD TEST OFFICE/OUTPATIENT VISIT, EST THYROID STIMULATING HORMONE (TSH) COMPRE METAB PANEL ANTINUCLEAR ANTIBODIES (JANIS); TITER RHEUMATOID FACTOR; QUANTITATIVE 007 GLUCOSE BLOOD TEST COLLECTION OF VENOUS BLOOD BY VENIPUNCTU RE BLOOD COUNT; COMPLETE (CBC), AUTOMATED D IFF LIPID PANEL OFFICE OUTPT NEW 20 MINUTES OFFICE CONSULT, 15 MIN, 3 KE Y COMPS: PROB FOCUS HX; PROB FOCUS EXAM; STRTFWD Advance Directives Directive Yes / No Effective Date File Name No Information Encounters Encounter Description Practice Location Reason(s) For Visit Diagnoses Date Provider Providers Copied on Encounter [facility], [address], [place], [place], [address] , tel:[phone] [facility] Encounter for dental exam and cleaning w abnormal findings 4 Juliette Osullivan. [address], [place], [place], [address]. tel:[phone] Referring Provider: Abran Segovia, [address], [place], [address] . tel:[phone] [facility], [address], [place], [place], [address] , tel:[phone] [facility] No Information 3 Faraz Yadav. [address], [place], [place], [address]. tel:[phone] Referring Provider: Leif Ruth, [address], [place], [address] . tel:[phone] [facility], [address], [place], [place], [address] , tel:[phone] [facility] Dental caries on pit and fissure surfc penetrat into dentin 3 Yvette Adame. [address], [place], [place], [address], [place]. tel:[phone] [facility], [address], [place], [place], [address] , tel:[phone] [facility] Encounter for dental exam and cleaning w abnormal findings 3 David Marx. [address], [place], [place], [address]. tel:[phone] [facility], [address], [place], [place], [address] , [place] tel:[phone] [facility] No Information 3 David Marx. [address], [place], [place], [address]. tel:[phone] [facility], [address], [place], [place], [address] , [place] tel: [phone] [facility] Dental caries, unspecified 2 No Information Referring Provider: Leo Alexander, [address], [place], [address] . tel:[phone] [facility], [address], [place], [place], [address] , [place] tel: [phone] [facility] Encounter for dental exam and cleaning w abnormal findings 2 David Marx. [address], [place], [place], [address]. tel:[phone] [facility], [address], [place], [place], [address] , [place] tel: [phone] [facility] Encounter for dental exam and cleaning w abnormal findings 1 Unruly Yusuf. [address], [place], [place], [address]. tel:[phone] Referring Provider: Paramjit Tolliver, [address], [place], [address] . tel:[phone] [facility], [address], [place], [place], [address] , [place] tel:[phone] [facility] Encounter for dental exam and cleaning w abnormal findings 1 Unruly Yusuf. [address], [place], [place], [address]. tel:[phone] Referring Provider: Paramjit Tolliver, [address], [place], [address] . tel:[phone] [facility], [address], [place], [place], [address] , [place] tel:[phone] [facility] Other chronic pain 1 James Hale. [address], [place], [place], [address], [place]. tel:[phone] [facility], [address], [place], [place], [address] , tel:[phone] [facility] No Information 0 James Hale. [address], [place], [place], [address], [place]. tel:[phone] [facility], [address], [place], [place], [address] , [place] tel:[phone] [facility] Encounter for dental exam and cleaning w abnormal findings 0 Unruly Yusuf. [address], [place], [place], [address]. tel:[phone] Referring Provider: Paramjit Tolliver, [address], [place], [address] . tel:[phone] [facility], [address], [place], [place], [address] , [place] tel:[phone] [facility] Dental caries on smooth surface penetrating into dentinDental caries on pit and fissure surfc penetrat into dentin 0 Unruly Yusuf. [address], [place], [place], [address]. tel:[phone] Referring Provider: Paramjit Tolliver, [address], [place], [address] . tel:[phone] [facility], [address], [place], [place], [address] , [place] tel:[phone] [facility] Encounter for dental exam and cleaning w abnormal findings 0 David Marx. [address], [place], [place], [address]. tel:[phone] [facility], [address], [place], [place], [address] , tel:[phone] [facility] Encounter for dental exam and cleaning w/o abnormal findings 0 No Information [facility], [address], [place], [place], [address] [place] [address] , tel: [phone] [facility] No Information 0 No Information [facility], [address], [place], [address] [place] [address] , tel: [phone] [facility] No Information 0 James Hale. [address], [place], [address] [place] [address], . tel:[phone] [facility], [address], [place], [address] [place] [address] , tel: [phone] [facility] No Information 0 King Summer. [address], [place], [address] [place] [address], . tel:[phone] [facility], [address], [place], [address] [place] [address] , tel: [phone] [facility] No Information 0 King Summer. [address], [place], [address] [place] [address], [place]. tel:[phone] OFFICE/OUTPATI ENT VISIT, EST [facility], [address], [place], [address] [place] [address] , tel: [phone] [facility] pain (chief complaint) Body mass index (BMI) 40.0-44.9, adultUnilate ral post-traumat ic osteoarthrit is, right hip 0 James Hale. [address], [place], [address] [place] [address], [place]. tel:[phone] Referring Provider: Alexia Ramirez, [address], [place], [address] . tel:[phone] [facility], [address], [place], [address] [place] [address] , [place] tel: [phone] [facility] Major depressive disorder, recurrent, moderateObes ity, unspecified Jul- 0 Gokul Mcduffie. [address], [place], [place], [address] [place] [address], . 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 [address], [place], [place], [address], . 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 [address], [place], [place], [address], . tel:[phone] Referring Provider: Alexia Ramirez, [address], [place], [address] . tel:[phone] OFFICE/OUTPATI ENT VISIT, NEW [facility], [address], [place], [place], [address] , tel:[phone] [facility] Foot (chief complaint) Body mass index (BMI) 40.0-44.9, adultAchille s tendinitis, unspecified legCalcaneal spur, unspecified foot Milton- 9 No Information [facility], [address], [place], [place], [address] , [place] tel: [phone] [facility] No Information [place]- 9 No Information OFFICE/OUTPATI ENT VISIT, EST [facility], [address], [place], [place], [address] , [place] tel: [phone] [facility] / ankle pain (chief complaint) Achilles tendinitis, unspecified leg Milton- 9 No Information OFFICE/OUTPATI ENT VISIT, EST [facility], [address], [place], [place], [address] , [place] tel: [phone] [facility] check up (chief complaint) Achilles tendinitis, unspecified legCalcaneal spur, unspecified footCarpal tunnel syndrome, unspecified upper limbPain in unspecified kneeBack painPain in unspecified hip Oct-0 9 James Hale. [address], [place], [place], [address], [place]. tel:[phone] OFFICE/OUTPATI ENT VISIT, EST [facility], [address], [place], [place], [address] , [place] tel: [phone] [facility] follow up (chief complaint) Body mass index (BMI) 40.0-44.9, adultChronic pain syndromeMajo r depressive disorder, single episode, unspecifiedP ain in unspecified footEssentia l (primary) hypertension Carpal tunnel syndrome, unspecified upper limb Oct-0 9 No Information [facility], [address], [place], [place], [address] , [place] tel: [phone] [facility] blurry vision (chief complaint)karla rry vision (chief complaint) Hypermetropi a, left eyeRegular astigmatism, bilateralPre sbyopia Milton-0 9 Xenia Crawford. [address], [place], [place], [address], [place]. tel:[phone] Referring Provider: Ekaterina King, [address], [place], [address] . tel:[phone] OFFICE/OUTPATI ENT VISIT, EST [facility], [address], [place], [place], [address] , tel:[phone] [facility] medication refills (chief complaint) Body mass index (BMI) 40.0-44.9, adultPrimary generalized (osteo)arthr itisMajor depressive disorder, recurrent, moderateEsse ntial (primary) hypertension Hyperlipidem iaChronic pain syndrome No Information Referring Provider: Ekaterina King [address], [place], [address] . tel:[phone] [facility], [address], [place], [place], [address] , [place] tel: [phone] [facility] /neck pain (chief complaint) CervicalgiaS egmental and somatic dysfunction of thoracic region No Information Referring Provider: Ekaterina King [address], [place], [address] . tel:[phone] OFFICE/OUTPATI ENT VISIT, EST [facility], [address], [place], [place], [address] , [place] tel:[phone] [facility] /neck pain (chief complaint) CervicalgiaS egmental and somatic dysfunction of thoracic region No Information Referring Provider: Ekaterina King [address], [place], [address] . tel:[phone] [facility], [address], [place], [place], [address] , [place] tel:[phone] [facility] Neck, shoulder, back, and hip pain (chief complaint) Body mass index (BMI) 40.0-44.9, adult Fe No Information OFFICE/OUTPATI ENT VISIT, EST [facility], [address], [place], [place], [address] , [place] tel:[phone] [facility] hypertension (chief complaint)Mus culoskeletal pain (chief complaint)Hyp erlipidemia (follow up) (chief complaint) Body mass index (BMI) 38.0-38.9, adultAchille s tendinitis of legEssential (primary) hypertension Hyperlipidem iaPain in left shoulderPrim pretty generalized (osteo)arthr itis Jan-2 0- 8 No Information [facility], [address], [place], [place], [address] , [place] tel: [phone] [facility] /neck pain (chief complaint) CervicalgiaS egmental and somatic dysfunction of thoracic region Jan-0 8 No Information [facility], [address], [place], [place], [address] , [place] tel: [phone] [facility] /BL ankles (chief complaint) Achilles tendinitis of legSegmental and somatic dysfunction of lower extremity 8 No Information 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; 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; 40-64 [facility], [address], [place], [place], [address] , [place] tel: [phone] [facility] annual exam (chief complaint)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 [address], [place], [place], [address], [place]. tel:[phone] Referring Provider: Ekaterina King [address], [place], [address] . tel:[phone] OFFICE OUTPT EST 25 MIN [facility], [address], [place], [place], [address] , [place] tel: [phone] [facility] follow up (chief complaint)Hyp erlipidemia (follow up) (chief complaint)Hyp ertension (follow up) (chief complaint)Obe sity (chief complaint)Ost eoarthritis (chief complaint) Body mass index (BMI) 39.0-39.9, adultObesity , unspecifiedH yperlipidemi aHTNPain in right hip 8 No Information [facility], [address], [place], [place], [address] , [place] tel: [phone] [facility] Right hip pain (chief complaint)Lef t achilles (chief complaint) Osteoarthrit is of hip, unspecifiedA chilles tendinitis of leg 8 No Information [facility], [address], [place], [place], [address] , [place] tel: [phone] [facility] right hip pain (chief complaint)lef t Achilles (chief complaint) Osteoarthrit is of hip, unspecifiedA chilles tendinitis of leg 8 No Information [facility], [address], [place], [place], [address] , [place] tel: [phone] [facility] left Achilles (chief complaint)rig ht hip (chief complaint)nec k pain (chief complaint) Achilles tendinitis of legOsteoarth ritis of hip, unspecifiedM yofascial pain syndrome 8 No Information [facility], [address], [place], [place], [address] , [place] tel: [phone] [facility] hip and Achilles (chief complaint) Achilles tendinitis of legPain in right hip 8 No Information [facility], [address], [place], [place], [address] , [place] tel: [phone] [facility] hip and Achilles pain (chief complaint) Sprain of ligaments of cervical spine, sequelaOsteo arthritis of hip, unspecifiedA chilles tendinitis of legSegmental and somatic dysfunction of lumbar regionSegmen valencia and somatic dysfunction of lower extremity 8 No Information [facility], [address], [place], [place], [address] , [place] tel: [phone] [facility] right hip pain (chief complaint)lef t Achilles pain (chief complaint) Achilles tendinitis of legPain in right hipOsteoarth ritis of hip, unspecifiedS egmental and somatic dysfunction of lower extremitySeg mental and somatic dysfunction of lumbar region Jul-05 16- 8 No Information [facility], [address], [place], [place], [address] , [place] tel: [phone] [facility] right hip pain (chief complaint)Ach illes pain (chief complaint) Pain in right hipOsteoarth ritis of hip, unspecifiedS egmental and somatic dysfunction of lower extremitySeg mental and somatic dysfunction of lumbar region Jul-0 8 No Information [facility], [address], [place], [place], [address] , [place] tel: [phone] [facility] right hip and left Achilles pain (chief complaint) Achilles tendinitis of legPain in right hipOsteoarth ritis of hip, unspecifiedS egmental and somatic dysfunction of lumbar regionSegmen valencia and somatic dysfunction of lower extremity Feb-2 - 8 No Information [facility], [address], [place], [place], [address] , [place] tel: [phone] [facility] right hip pain (chief complaint)lef t Achilles pain (chief complaint) Achilles tendinitis of legPain in right hipSegmental and somatic dysfunction of lumbar regionSegmen valencia and somatic dysfunction of lower extremity Feb-2 - 8 No Information [facility], [address], [place], [place], [address] , [place] tel: [phone] [facility] right hip pain (chief complaint)ank le pain (chief complaint) Achilles tendinitis of legPain in right hipOsteoarth ritis of hip, unspecifiedS egmental and somatic dysfunction of lumbar regionSegmen valencia and somatic dysfunction of lower extremity b-05 20- 8 No Information OFFICE/OUTPATI ENT VISIT, EST [facility], [address], [place], [place], [address] , [place] tel: [phone] [facility] JOSÉ MANUEL (chief complaint) Trichomonal vulvovaginit isEncounter for screening for other disorder Jun- 8 Fernando Tobar. [address], [place], [place], [address], [place]. tel:[phone] [facility], [address], [place], [place], [address] , [place] tel: [phone] [facility] Encounter for dental exam and cleaning w abnormal findings b- 8 No Information [facility], [address], [place], [place], [address] , [place] tel: [phone] [facility] right hip pain (chief complaint)ach illes pain (chief complaint) Achilles tendinitis of legSegmental and somatic dysfunction of lumbar regionSegmen valencia and somatic dysfunction of lower extremityPai n in right hip Feb-1 8 No Information [facility], [address], [place], [place], [address] , [place] tel: [phone] [facility] right hip pain (chief complaint)Ach illes pain (chief complaint) Pain in right hipAchilles tendinitis of legOsteoarth ritis of hip, unspecifiedS egmental and somatic dysfunction of lumbar regionSegmen valencia and somatic dysfunction of lower extremity Feb-0 8- 8 No Information OFFICE/OUTPATI ENT VISIT, EST [facility], [address], [place], [place], [address] , [place] tel: [phone] [facility] right hip pain (chief complaint)ach illes pain (chief complaint) Pain in right hipAchilles tendinitis of legOsteoarth ritis of hip, unspecifiedS egmental and somatic dysfunction of lumbar regionSegmen vaelncia and somatic dysfunction of lower extremity Feb-0 6- 8 No Information [facility], [address], [place], [place], [address] , [place] tel: [phone] [facility] right hip pain (chief complaint) Pain in right hipOsteoarth ritis of hip, unspecifiedS egmental and somatic dysfunction of lower extremitySeg mental and somatic dysfunction of lumbar region Feb-0 - 8 No Information [facility], [address], [place], [place], [address] , [place] tel: [phone] [facility] right hip pain (chief complaint) Pain in right hipSegmental and somatic dysfunction of lumbar regionSegmen valencia and somatic dysfunction of lower extremityOst eoarthritis of hip, unspecified 8 No Information OFFICE/OUTPATI ENT VISIT, NEW [facility], [address], [place], [place], [address] , [place] tel: [phone] [facility] hip pain (chief complaint) Pain in right hip 8 No Information OFFICE/OUTPATI ENT VISIT, EST [facility], [address], [place], [place], [address] , [place] tel: [phone] [facility] Check up (chief complaint) Trichomonal vulvovaginit isCandidiasi s of vulva and vaginaEncoun ter for screening for other disorderEncn tr for 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 [address], [place], [place], [address], [place]. tel:[phone] Referring Provider: Ekaterina King [address], [place], [address] . tel:[phone] OFFICE/OUTPATI ENT VISIT, EST [facility], [address], [place], [place], [address] , [place] tel: [phone] [facility] Hyperlipidemi a (follow up) (chief complaint)Hyp ertension (follow up) (chief complaint)Obe sity (chief complaint)Chr onic Pain (chief complaint)Pre ventive exam (chief complaint) Hyperlipidem iaMorbid (severe) obesity due to excess caloriesHTNC hronic pain syndromeEnco unter for general adult medical examination with abnormal findings 8 No Information Psychiatric Diagnostic Evaluation [facility], [address], [place], [place], [address] , [place] tel: [phone] [facility] Major depressive disorder, recurrent, moderate 7 No Information Referring Provider: Ekaterina King [address], [place], [address] . 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 [address], [place], [place], [address], . tel:[phone] Referring Provider: Ekaterina King, [address], [place], [address] . 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 [address], [place], [place], [address], . tel:[phone] Referring Provider: Ekaterina King, [address], [place], [address] . tel:[phone] [facility], [address], [place], [place], [address] , tel:[phone] [facility] Encounter for screening mammogram for cancer of breast [facility]. [address], [place], [place], [address], . 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 [address], [place], [place], [address], [place]. tel:[phone] Referring Provider: Ekaterina King, [address], [place], [address] . 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 [address], [place], [place], [address], . tel:[phone] Referring Provider: Ekaterina King [address], [place], [address] . tel:[phone] OFFICE OUTPT EST 25 MIN [facility], [address], [place], [place], [address] , [place] tel:[phone] [facility] Obesity, unspecifiedH TNCalcaneal spur, unspecified footHyperlip idemiaChroni c pain syndrome 3 7 No Information [facility], [address], [place], [place], [address] , [place] tel: [phone] [facility] Dental caries on smooth surface penetrating into dentin 6 No Information OFFICE/OUTPATI ENT VISIT, EST [facility], [address], [place], [place], [address] , tel: [phone] [facility] conslt (chief complaint) Prolapse of anterior vaginal wallUterovag inal prolapseEncn tr for 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 [address], [place], [place], [address], [place]. tel:[phone] Referring Provider: Joycelyn Naveen-Call sania, [address], [place], [address] . tel:[phone] OFFICE/OUTPATI ENT VISIT, EST [facility], [address], [place], [place], [address] , tel:[phone] [facility] Vaginal irritation (chief complaint) Candidiasis of vulva and [id number] degree uterine prolapseEnco unter for test, result unknown Fernando Tobar. [address], [place], [place], [address], . tel:[phone] Referring Provider: Ekaterina King, [address], [place], [address] . tel:[phone] [facility], [address], [place], [place], [address] , tel:[phone] [facility] blurry vision (chief complaint)Lon aters (chief complaint)karla rry vision (chief complaint)Lon aters (chief complaint) Myopia, bilateralPre sbyopiaVitre ous degeneration , bilateralHTN - 6 No Information [facility], [address], [place], [place], [address] , [place] tel:[phone] [facility] Encounter for dental exam and cleaning w abnormal findings 0- 6 Konrad Peña. [address], [place], [place], [address]. tel:[phone] [facility], [address], [place], [place], [address] , tel: [phone] [facility] Calcaneal spur, unspecified footCarpal tunnel syndrome, unspecified upper limb No Information OFFICE OUTPT EST 25 MIN [facility], [address], [place], [place], [address] , tel: [phone] [facility] c/o pain in both heels, ankles and hips (chief complaint)Obe sity (chief complaint)Hyp erlipidemia (follow up) (chief complaint)Hyp ertension (follow up) (chief complaint) Chronic pain syndromePain in unspecified jointObesity , unspecifiedH yperlipidemi a, unspecifiedE ssential (primary) hypertension No Information [facility], [address], [place], [place], [address] , tel: [phone] [facility] No Information Tepe Sammie. [address], [place], [place], [address], . tel:[phone] Referring Provider: Ekaterina King, [address], [place], [address] . 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 [address], [place], [place], [address], [place]. tel:[phone] Referring Provider: Ekaterina King, [address], [place], [address] . tel:[phone] [facility], [address], [place], [place], [address] , [place] tel:[phone] [facility] Unruly Yusuf. [address], [place], [place], [address]. tel:[phone] Referring Provider: Paramjit Tolliver, [address], [place], [address] . tel:[phone] [facility], [address], [place], [place], [address] , [place] tel: [phone] [facility] Dental examination No Information OFFICE/OUTPATI ENT VISIT, EST [facility], [address], [place], [place], [address] , [place] tel: [phone] [facility] Pt is here for DFE (chief complaint)Pt is here for DFE (chief complaint) PresbyopiaMy opia No Information OFFICE/OUTPATI ENT VISIT, EST [facility], [address], [place], [place], [address] , [place] tel: [phone] [facility] Follow Up of Hosp (chief complaint)KNE E DJD had shot (chief complaint) Thigh contusionChe st contusionAnx ietyHospital discharge follow-up 5 Katty Newell. [address], [place], [place], [address], [place]. tel:[phone] Referring Provider: Osiris Alaniz, [address], [place], [address] . tel:[phone] OFFICE/OUTPATI ENT VISIT, NEW [facility], [address], [place], [place], [address] , [place] tel: [phone] [facility] blurry vision (chief complaint)karla rry vision (chief complaint) Regular astigmatismM yopiaPresbyo piaAllergic conjunctivit is No Information OFFICE OUTPT EST 25 MIN [facility], [address], [place], [place], [address] , [place] tel: [phone] [facility] Right knee f/u (chief complaint)hyp ertension (chief complaint) Screening for alcoholismBe nign essential hypertension Obesity, unspecifiedE sophageal refluxOsteoa rthrosis, generalized, involving unspecified siteDepressi onKnee joint pain No Information OFFICE OUTPT EST 25 MIN [facility], [address], [place], [place], [address] , [place] tel: [phone] [facility] er f/u (chief complaint)ref errals (chief complaint) Internal knee derangementO besity, unspecifiedB enign essential hypertension Esophageal refluxHLD - Hyperlipidae [facility] No Information [facility], [address], [place], [place], [address] , [place] tel: [phone] [facility] No Information No Information OFFICE OUTPT EST 25 MIN [facility], [address], [place], [place], [address] , [place] tel: [phone] [facility] back pain (chief complaint)hip back (chief complaint)sev ere knee pain (chief complaint)hyp ertension (chief complaint) Benign essential hypertension Obesity, unspecifiedO steoarthrosi s, generalized, involving unspecified siteHLD - Hyperlipidae shahida 5 No Information 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; 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; 40-64 [facility], [address], [place], [place], [address] , tel: [phone] [facility] annual exam (chief complaint)vag inal discharge/itc job (chief complaint)pro lapse concern (chief complaint)bc consult (chief complaint) examination or test, unconfirmedR outine gynecologica l examinationO ther screening mammogram 5 No Information OFFICE OUTPT EST 25 MIN [facility], [address], [place], [place], [address] , tel: [phone] [facility] hosp f/u (chief complaint)hyp ertension (chief complaint)car diac cath (chief complaint)ref ills (chief complaint) Obesity, unspecifiedC hest painHTNHLD - Hyperlipidae shahida 4 No Information OFFICE OUTPT EST 25 MIN [facility], [address], [place], [place], [address] , tel: [phone] [facility] depression (chief complaint)lani at knee pain (chief complaint)mark vated bp (chief complaint) Obesity, unspecifiedK nee joint painElevated blood pressure reading w/ no diagnosis of HT 4 No Information OFFICE/OUTPATI ENT VISIT, EST [facility], [address], [place], [place], [address] , [place] tel: [phone] [facility] pain in joints (chief complaint) Carpal Tunnel SyndromeCalc aneal spurObesityK nee joint pain 4 No Information OFFICE/OUTPATI ENT VISIT, EST [facility], [address], [place], [place], [address] , [place] tel: [phone] [facility] bilat hand pain (chief complaint) Carpal Tunnel Syndrome 4 Jose Alfredo Slater. [address], [place], [place], [address], . tel:[phone] Referring Provider: Broyn Veliz, [address], [place], [address] . 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; 40-64 [facility], [address], [place], [place], [address] , [place] tel: [phone] [facility] annual visit (chief complaint) Gynecologica l ExaminationS creening examination for venereal disease 4 No Information OFFICE/OUTPATI ENT VISIT, EST [facility], [address], [place], [place], [address] , [place] tel: [phone] [facility] JOSÉ MANUEL (chief complaint) Screening examination for venereal diseaseDysur ia 3 No Information OFFICE/OUTPATI ENT VISIT, EST [facility], [address], [place], [place], [address] , [place] tel: [phone] [facility] tx (chief complaint) Trichomonal vulvovaginit is 3 No Information [facility], [address], [place], [place], [address] , [place] tel: [phone] [facility] Carpal tunnel syndromeCarp al tunnel syndromeTric homonal vulvovaginit is 2 No Information OFFICE OUTPT EST 25 MIN [facility], [address], [place], [place], [address] , [place] tel: [phone] [facility] Backache, unspecifiedP ain in joint involving pelvic region and thighObesity , unspecifiedC arpal tunnel syndrome 2 No Information 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 [address], [place], [place], [address], [place]. tel:[phone] OFFICE/OUTPATI ENT VISIT, EST [facility], [address], [place], [place], [address] , [place] tel: [phone] [facility] control (chief complaint)yumiko t results (chief complaint) Other malaise and fatigue 1 No Information OFFICE/OUTPATI ENT VISIT, EST [facility], [address], [place], [place], [address] , [place] tel: [phone] [facility] muscle spams in feet and legs (chief complaint) Osteoarthros is, generalized, involving multiple sitesCarpal tunnel syndromeAlle rgic rhinitis, cause unspecifiedE sophageal refluxRoutin e general medical examination at a health care facility 1 No Information 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; 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; 40-64 [facility], [address], [place], [place], [address] , [place] tel: [phone] [facility] annual visit (chief complaint) Routine gynecologica l examinationO ther screening mammogramSur veillance of other contraceptiv e methodScreen ing examination for venereal diseaseLeuko rrhea, not specified as infectiveLum p or mass in breast 1 No Information OFFICE/OUTPATI ENT VISIT, EST [facility], [address], [place], [place], [address] , [place] tel: [phone] [facility] bc nuva ring (chief complaint) Surveillance of other contraceptiv e method 0 No Information OFFICE/OUTPATI ENT VISIT, EST [facility], [address], [place], [place], [address] , [place] tel: [phone] [facility] control (chief complaint)ble eding (chief complaint)adilene ght gain (chief complaint) Surveillance of other contraceptiv e methodObesit y, unspecified 0 No Information OFFICE/OUTPATI ENT VISIT, EST [facility], [address], [place], [place], [address] , [place] tel: [phone] [facility] depo (chief complaint) Excessive or frequent menstruation 0 No Information OFFICE/OUTPATI ENT VISIT, EST [facility], [address], [place], [place], [address] , [place] tel: [phone] [facility] routine (chief complaint) Osteoarthros is, generalized, involving multiple sitesPain in joint, site unspecifiedA llergic rhinitis, cause unspecified 0 No Information [facility], [address], [place], [place], [address] , [place] tel: [phone] [facility] No Information 0 No Information [facility], [address], [place], [place], [address] , [place] tel: [phone] [facility] No Information 0 No Information OFFICE/OUTPATI ENT VISIT, EST [facility], [address], [place], [place], [address] , [place] tel: [phone] [facility] depo (chief complaint)exc essive vaginal bleeding (chief complaint) Surveillance of other contraceptiv e methodExcess jai or frequent menstruation 0 No Information OFFICE OUTPT EST 10 MIN [facility], [address], [place], [place], [address] , [place] tel: [phone] [facility] Surveillance of other contraceptiv e method 9 No Information [facility], [address], [place], [place], [address] , [place] tel: [phone] [facility] repeat pap (chief complaint)yumiko t results (chief complaint) Screening for malignant neoplasms of the cervixSurvei llance of other contraceptiv e method 9 No Information [facility], [address], [place], [place], [address] , [place] tel: [phone] [facility] education (chief complaint) Inadequate material resourcesIna dequate material resources 9 No Information OFFICE OUTPT EST 25 MIN [facility], [address], [place], [place], [address] , [place] tel: [phone] [facility] Arthralgias (chief complaint)Ove rweight (chief complaint)Car pel tunnel on right (chief complaint)Sti es (chief complaint) Osteoarthros is, generalized, involving multiple sitesCarpal tunnel syndromeOver weight and obesityFamil y history of malignant neoplasm of gastrointest inal tract 9 No Information [facility], [address], [place], [place], [address] , [place] tel: [phone] [facility] Routine gynecologica l examinationI rregular menstrual cycleScreeni ng examination for venereal disease 9 No Information OFFICE OUTPT EST 25 MIN [facility], [address], [place], [place], [address] , [place] tel: [id number] [facility] annual visit (chief complaint) Routine gynecologica l examinationS creening examination for venereal diseaseIrreg ular menstrual cycle 9 No Information 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; 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; 40-64 [facility], [address], [place], [place], [id number] , [place] tel: [phone] [facility] 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 8 No Information OFFICE/OUTPATI ENT VISIT, EST [facility], [address], [place], [place], [id number] , [place] tel: [phone] [facility] FAMILY HX-GI MALIGNANCYCA RPAL TUNNEL SYNDROMEIMPA IRED FASTING GLUCOSEJOINT PAIN-UNSPEC Nov-3 0-200 7 No Information [facility], [address], [place], [place], [id number] , [place] tel: [phone] [facility] JOINT PAIN-UNSPECS CREEN LIPOID DISORDERSMAL AISE AND FATIGUE NECLABORATOR Y EXAMINATION Aug- 7 No Information OFFICE OUTPT NEW 20 MINUTES [facility], [address], [place], [place], [id number] , [place] tel: [phone] [facility] ALLERGIC RHINITIS NOSMALAISE AND FATIGUE NECCARPAL TUNNEL SYNDROMEFAMI LY HX-GI MALIGNANCY Aug- 7 No Information OFFICE CONSULT, 15 MIN, 3 SORENSEN COMPS: PROB FOCUS HX; PROB FOCUS EXAM; STRTFWD [facility], [address], [place], [place], [id number] , [place] tel: [phone] [facility] COUNSELING NOS Aug- 7 No Information Family History Family Member Type Diagnosis Age At Onset Mother Problem (finding) malignant neop lasm of breast in first degree relative Brother Problem (finding) cancer of colon Father Problem (finding) prostate cancer Father Problem (finding) Maternal history of kenya betes mellitus Problem (finding) No family history of Ca ncer, ovarian Mother Problem (finding) hypertension Immunizations Vaccine Date Status Comments Influenza, injectable, quadr ivalent, preservative free, 3 yrs or older pending Source : New Immunization Record Payers Payer name Insurance type Covered constitution party ID David rodas(s) [facility] Dual Complete [facility] CI [id number] Social History Type Description Quantity Date Captured Comments Sex Female Smoking Status No Information Sexual Orientation Straight or heterosexual Gender Identity Female Chief Complaint And Reason For Visit No Information Reason For Referral Reason For Referral No Information Plan Of Treatment Date Type Action Status Goal Mammogram. Due on 2 due Goal Influenza vaccin e. Due on due Goal Colonoscopy. Due on 026 due Goal Breast exam. Due on 021 due Goal H&P. Due on due Goal Urine Microalbum in. Due on due Goal 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 CLERK exam. Due on due Goal Pap/HPV testing. Due on due Goal Colonoscopy. Due on due Goal Pap/HPV testing. Due on due Goal Mammogram. Due on due Goal Urine Microalbum in. Due on due Goal Breast exam. Due on due Goal H&P. Due on due Goal 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 CLERK exam. Due on due Goal Influenza vaccin e. Due on due Goal 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 CLERK exam. Due on due Goal Breast exam. Due on due Goal Colonoscopy. Due on due Goal Urine Microalbum in. Due on due Goal Mammogram. Due on 9 due Goal Influenza vaccin e. Due on due Goal Pap/HPV testing. Due on due Goal H&P. Due on due Goal H&P. Due on due Goal Pap/HPV testing. Due on due Goal Urine Microalbum in. Due on due Goal Colonoscopy. Due on due Goal Mammogram. Due on 9 due Goal Breast exam. Due on due Goal Influenza vaccin e. Due on due Goal 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 CLERK exam. Due on due Goal Urine Microalbum in. Due on due Goal Influenza vaccin e. Due on due Goal Mammogram. Due on due Goal H&P. Due on due Goal Pap/HPV testing. Due on due Goal Colonoscopy. Due on due Goal Breast exam. Due on due Goal 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 CLERK exam. Due on due Goal Lifestyle educat ion regarding diet completed Goal Colonoscopy. Due on due Goal Mammogram. Due on 9 due Goal Influenza vaccin e. Due on due Goal H&P. Due on due Goal 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 CLERK exam. Due on due Goal Urine Microalbum in. Due on due Goal Breast exam. Due on 019 due Goal Pap/HPV testing. Due on due Goal Lifestyle educat ion regarding diet completed Goal Pap/HPV testing. Due on due Goal Breast exam. Due on 019 due Goal Mammogram. Due on 9 due Goal Influenza vaccin e. Due on due Goal Colonoscopy. Due on 026 due Goal H&P. Due on due Goal Urine Microalbum in. Due on due Goal 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 CLERK exam. Due on due Goal Colonoscopy. Due on due Goal Breast exam. Due on due Goal Influenza vaccin e. Due on due Goal Pap/HPV testing. Due on due Goal H&P. Due on due Goal 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 CLERK exam. Due on due Goal Mammogram. Due on 9 due Goal Urine Microalbum in. Due on due Goal 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 CLERK exam. Due on due Goal H&P. Due on due Goal Influenza vaccin e. Due on due Goal Colonoscopy. Due on due Goal Mammogram. Due on 9 due Goal Pap/HPV testing. Due on due Goal Urine Microalbum in. Due on due Goal Breast exam. Due on due Goal Mammogram. Due on due Goal Breast exam. Due on due Goal Influenza vaccin e. Due on due Goal 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 CLERK exam. Due on due Goal H&P. Due on due Goal Pap/HPV testing. Due on due Goal Colonoscopy. Due on due Goal Urine Microalbum in. Due on due Goal Breast exam. Due on due Goal H&P. Due on due Goal Influenza vaccin e. Due on due Goal Urine Microalbum in. Due on due Goal Pap/HPV testing. Due on due Goal 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 CLERK exam. Due on due Goal Colonoscopy. Due on due Goal Mammogram. Due on due Goal 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 CLERK exam. Due on due Goal Urine Microalbum in. Due on due Goal H&P. Due on due Goal Mammogram. Due on due Goal Colonoscopy. Due on due Goal Influenza vaccin e. Due on due Goal Pap/HPV testing. Due on due Goal Breast exam. Due on due Goal Urine Microalbum in. Due on due Goal Breast exam. Due on due Goal 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 CLERK exam. Due on due Goal Colonoscopy. Due on due Goal Mammogram. Due on due Goal H&P. Due on due Goal Influenza vaccin e. Due on due Goal Pap/HPV testing. Due on due Goal Urine Microalbum in. Due on due Goal Colonoscopy. Due on due Goal Mammogram. Due on due Goal 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 CLERK exam. Due on due Goal Breast exam. Due on due Goal Pap/HPV testing. Due on due Goal H&P. Due on due Goal Influenza vaccin e. Due on due Goal Breast exam. Due on due Goal Urine Microalbum in. Due on due Goal H&P. Due on due Goal Colonoscopy. Due on due Goal Mammogram. Due on due Goal 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 CLERK exam. Due on due Goal Pap/HPV testing. Due on due Goal Colonoscopy. Due on due Goal Breast exam. Due on due Goal H&P. Due on due Goal Mammogram. Due on due Goal Pap/HPV testing. Due on due Goal Urine Microalbum in. Due on due Goal 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 CLERK exam. Due on due Goal Colonoscopy. Due on due Goal 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 CLERK exam. Due on due Goal Mammogram. Due on due Goal H&P. Due on due Goal Pap/HPV testing. Due on due Goal Urine Microalbum in. Due on due Goal Breast exam. Due on due Goal Colonoscopy. Due on due Goal 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 CLERK exam. Due on due Goal Breast exam. Due on due Goal Pap/HPV testing. Due on due Goal Mammogram. Due on due Goal Urine Microalbum in. Due on due Goal H&P. Due on due Goal Urine Microalbum in. Due on due Goal 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 CLERK exam. Due on due Goal Breast exam. Due on due Goal Colonoscopy. Due on due Goal H&P. Due on due Goal Mammogram. Due on due Goal Pap/HPV testing. Due on due Goal 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 CLERK exam. Due on due Goal Mammogram. Due on due Goal Breast exam. Due on due Goal H&P. Due on due Goal Urine Microalbum in. Due on due Goal Pap/HPV testing. Due on due Goal Colonoscopy. Due on due Goal 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 CLERK exam. Due on due Goal Mammogram. Due on due Goal Urine Microalbum in. Due on due Goal H&P. Due on due Goal Pap/HPV testing. Due on due Goal Breast exam. Due on due Goal Colonoscopy. Due on due Goal Lifestyle educat ion regarding diet completed Goal Urine Microalbum in. Due on due Goal Breast exam. Due on due Goal H&P. Due on due Goal Colonoscopy. Due on 026 due Goal Mammogram. Due on 9 due Goal 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 CLERK exam. Due on due Goal Pap/HPV testing. Due on due Goal H&P. Due on due Goal CPK. Due on due Goal PAP. Due on due Goal Breast exam. Due on due Goal 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 CLERK exam. Due on due Goal BMP fasting. Due on due Goal Urine Microalbum in. Due on due Goal Urinalysis. Due on 11 due Goal Breast exam. Due on due Goal Urinalysis. Due on 11 due Goal 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 CLERK exam. Due on due Goal PAP. Due on due Goal BMP fasting. Due on due Goal Urine Microalbum in. Due on due Goal CPK. Due on due Goal H&P. Due on due Goal 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 CLERK exam. Due on due Goal H&P. Due on due Goal BMP fasting. Due on due Goal Urinalysis. Due on 11 due Goal Urine Microalbum in. Due on due Goal CPK. Due on due Goal PAP. Due on due Goal Breast exam. Due on due Goal 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 CLERK exam. Due on due Goal PAP. Due on due Goal Urine Microalbum in. Due on due Goal BMP fasting. Due on due Goal CPK. Due on due Goal Breast exam. Due on due Goal H&P. Due on due Goal Urinalysis. Due on 11 due Goal 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 CLERK exam. Due on due Goal PAP. Due on due Goal CPK. Due on due Goal H&P. Due on due Goal Urine Microalbum in. Due on due Goal BMP fasting. Due on due Goal Breast exam. Due on due Goal Urinalysis. Due on 11 due Goal CPK. Due on due Goal H&P. Due on due Goal Breast exam. Due on due Goal BMP fasting. Due on due Goal Urine Microalbum in. Due on due Goal 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 CLERK exam. Due on due Goal PAP. Due on due Goal Urinalysis. Due on 11 due Goal Urine Microalbum in. Due on due Goal BMP fasting. Due on due Goal 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 CLERK exam. Due on due Goal H&P. Due on due Goal Urinalysis. Due on 11 due Goal Breast exam. Due on due Goal PAP. Due on due Goal CPK. Due on due Goal Urine Microalbum in. Due on due Goal Urinalysis. Due on 11 due Goal 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 CLERK exam. Due on due Goal H&P. Due on due Goal CPK. Due on due Goal PAP. Due on due Goal Breast exam. Due on due Goal BMP fasting. Due on due Goal PAP. Due on due Goal BMP fasting. Due on due Goal 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 CLERK exam. Due on due Goal H&P. Due on due Goal CPK. Due on due Goal Breast exam. Due on due Goal Urinalysis. Due on 11 due Goal Urine Microalbum in. Due on due Goal Breast exam. Due on due Goal Urine Microalbum in. Due on due Goal H&P. Due on due Goal Urinalysis. Due on 11 due Goal CPK. Due on due Goal BMP fasting. Due on due Goal PAP. Due on due Goal 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 CLERK exam. Due on due Goal Urine Microalbum in. Due on due Goal CPK. Due on due Goal BMP fasting. Due on due Goal H&P. Due on due Goal 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 CLERK exam. Due on due Goal Urinalysis. Due on 11 due Goal PAP. Due on due Goal Breast exam. Due on due Goal H&P. Due on due Goal PAP. Due on due Goal 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 CLERK exam. Due on due Goal BMP fasting. Due on due Goal Breast exam. Due on due Goal Urinalysis. Due on 11 due Goal Urine Microalbum in. Due on due Goal CPK. Due on due Goal PAP. Due on due Goal Breast exam. Due on due Goal 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 CLERK exam. Due on due Goal CPK. Due on due Goal Urine Microalbum in. Due on due Goal BMP fasting. Due on due Goal H&P. Due on due Goal Urinalysis. Due on 11 due Goal PAP. Due on due Goal Urinalysis. Due on 11 due Goal BMP fasting. Due on due Goal CPK. Due on due Goal Breast exam. Due on due Goal H&P. Due on due Goal 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 CLERK exam. Due on due Goal Urine Microalbum in. Due on due Goal CPK. Due on due Goal Breast exam. Due on due Goal Urinalysis. Due on 11 due Goal BMP fasting. Due on due Goal PAP. Due on due Goal H&P. Due on due Goal Urine Microalbum in. Due on due Goal 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 CLERK exam. Due on due Goal Breast exam. Due on due Goal BMP fasting. Due on due Goal Urinalysis. Due on 11 due Goal CPK. Due on due Goal Urine Microalbum in. Due on due Goal 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 CLERK exam. Due on due Goal H&P. Due on due Goal PAP. Due on due Goal 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 CLERK exam. Due on due Goal H&P. Due on due Goal Urinalysis. Due on 11 due Goal PAP. Due on due Goal Breast exam. Due on due Goal BMP fasting. Due on due Goal CPK. Due on due Goal Urine Microalbum in. Due on due Goal BMP fasting. Due on due Goal CPK. Due on due Goal PAP. Due on due Goal H&P. Due on due Goal Urinalysis. Due on due Goal Breast exam. Due on due Goal Urine Microalbum in. Due on due Goal 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 CLERK exam. Due on due Goal H&P. Due on due Goal Urinalysis. Due on due Goal PAP. Due on due Goal CPK. Due on due Goal Urine Microalbum in. Due on due Goal Breast exam. Due on due Goal BMP fasting. Due on due Goal 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 CLERK exam. Due on due Goal Urine Microalbum in. Due on due Goal H&P. Due on due Goal 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 CLERK exam. Due on due Goal BMP fasting. Due on due Goal Breast exam. Due on due Goal CPK. Due on due Goal PAP. Due on due Goal Urinalysis. Due on 11 due Goal BMP fasting. Due on due Goal CPK. Due on due Goal Urinalysis. Due on 11 due Goal H&P. Due on due Goal 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 CLERK exam. Due on due Goal Breast exam. Due on due Goal Urine Microalbum in. Due on due Goal PAP. Due on due Goal CPK. Due on due Goal Urine Microalbum in. Due on due Goal BMP fasting. Due on due Goal PAP. Due on due Goal Breast exam. Due on due Goal Urinalysis. Due on 11 due Goal H&P. Due on due Goal 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 CLERK exam. Due on due Goal 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 CLERK exam. Due on due Goal PAP. Due on due Goal H&P. Due on due Goal Breast exam. Due on due Goal BMP fasting. Due on due Goal Urinalysis. Due on 11 due Goal CPK. Due on due Goal Urine Microalbum in. Due on due Goal PAP. Due on due Goal Urine Microalbum in. Due on due Goal Urinalysis. Due on 11 due Goal CPK. Due on due Goal Breast exam. Due on due Goal BMP fasting. Due on due Goal 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 CLERK exam. Due on due Goal H&P. Due on due Goal BMP fasting. Due on due Goal Breast exam. Due on due Goal Urinalysis. Due on 11 due Goal PAP. Due on due Goal H&P. Due on due Goal Urine Microalbum in. Due on due Goal CPK. Due on due Goal 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 CLERK exam. Due on due Goal Breast exam. Due on due Goal CPK. Due on due Goal Urinalysis. Due on 11 due Goal 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 CLERK exam. Due on due Goal BMP fasting. Due on due Goal H&P. Due on due Goal Urine Microalbum in. Due on due Goal PAP. Due on due Goal 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 CLERK exam. Due on due Goal Urinalysis. Due on 11 due Goal BMP fasting. Due on due Goal Breast exam. Due on due Goal H&P. Due on due Goal CPK. Due on due Goal PAP. Due on due Goal Urine Microalbum in. Due on due Goal PAP. Due on due Goal CPK. Due on due Goal Urinalysis. Due on 11 due Goal 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 CLERK exam. Due on due Goal H&P. Due on due Goal Breast exam. Due on due Goal Urine Microalbum in. Due on due Goal BMP fasting. Due on due Goal Urine Microalbum in. Due on due Goal CPK. Due on due Goal H&P. Due on due Goal PAP. Due on due Goal Breast exam. Due on due Goal BMP fasting. Due on due Goal 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 CLERK exam. Due on due Goal Urinalysis. Due on 11 due Goal Urinalysis. Due on 11 due Goal Urine Microalbum in. Due on due Goal CPK. Due on due Goal 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 CLERK exam. Due on due Goal BMP fasting. Due on due Goal H&P. Due on due Goal Breast exam. Due on due Goal PAP. Due on due Goal PAP. Due on due Goal Urinalysis. Due on 11 due Goal BMP fasting. Due on due Goal Urine Microalbum in. Due on due Goal H&P. Due on due Goal 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 CLERK exam. Due on due Goal CPK. Due on due Goal Breast exam. Due on due Goal Urinalysis. Due on 11 due Goal Urine Microalbum in. Due on due Goal CPK. Due on due Goal 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 CLERK exam. Due on due Goal H&P. Due on due Goal PAP. Due on due Goal BMP fasting. Due on due Goal Breast exam. Due on due Goal PAP. Due on due Goal Urinalysis. Due on 11 due Goal Urine Microalbum in. Due on due Goal CPK. Due on due Goal BMP fasting. Due on due Goal H&P. Due on due Goal 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 CLERK exam. Due on due Goal Breast exam. Due on due Goal PAP. Due on due Goal BMP fasting. Due on due Goal CPK. Due on due Goal Urine Microalbum in. Due on due Goal Breast exam. Due on due Goal Urinalysis. Due on 11 due Goal H&P. Due on due Goal 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 CLERK exam. Due on due Goal 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 CLERK exam. Due on due Goal Urine Microalbum in. Due on due Goal Breast exam. Due on due Goal CPK. Due on due Goal BMP fasting. Due on due Goal PAP. Due on due Goal H&P. Due on due Goal Urinalysis. Due on due Goal Breast exam. Due on due Goal Urinalysis. Due on due Goal 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 CLERK exam. Due on due Goal H&P. Due on due Goal PAP. Due on due Goal Urine Microalbum in. Due on due Goal BMP fasting. Due on due Goal CPK. Due on due Goal Urine Microalbum in. Due on due Goal H&P. Due on due Goal 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 CLERK exam. Due on due Goal Breast exam. Due on due Goal Urinalysis. Due on due Goal PAP. Due on due Goal BMP fasting. Due on due Goal CPK. Due on due Goal 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 CLERK exam. Due on due Goal BMP fasting. Due on due Goal Breast exam. Due on due Goal CPK. Due on due Goal PAP. Due on due Goal Urine Microalbum in. Due on due Goal H&P. Due on due Goal Urinalysis. Due on 11 due Goal H&P. Due on due Goal PAP. Due on due Goal 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 CLERK exam. Due on due Goal Urine Microalbum in. Due on due Goal Urinalysis. Due on 11 due Goal CPK. Due on due Goal BMP fasting. Due on due Goal Breast exam. Due on due Goal BMP fasting. Due on due Goal Urinalysis. Due on 11 due Goal PAP. Due on due Goal Breast exam. Due on due Goal CPK. Due on due Goal 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 CLERK exam. Due on due Goal Urine Microalbum in. Due on due Goal H&P. Due on due Goal BMP fasting. Due on due Goal Breast exam. Due on due Goal CPK. Due on due Goal 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 CLERK exam. Due on due Goal Urine Microalbum in. Due on due Goal H&P. Due on due Goal Urinalysis. Due on 11 due Goal 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 CLERK exam. Due on due Goal BMP fasting. Due on due Goal Urine Microalbum in. Due on due Goal CPK. Due on due Goal Breast exam. Due on due Goal Urinalysis. Due on 11 due Goal H&P. Due on due Goal Urine Microalbum in. Due on due Goal Urinalysis. Due on 11 due Goal CPK. Due on due Goal 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 CLERK exam. Due on due Goal H&P. Due on due Goal BMP fasting. Due on due Goal Breast exam. Due on due Goal Tobacco cessation counseling completed Goal Breast exam. Due on due Goal H&P. Due on due Goal Urine Microalbum in. Due on due Goal BMP fasting. Due on due Goal 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 CLERK exam. Due on due Goal CPK. Due on due Goal Urinalysis. Due on 11 due Goal Tobacco cessation counseling completed Goal H&P. Due on due Goal 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 CLERK exam. Due on due Goal Breast exam. Due on due Goal CPK. Due on due Goal Urine Microalbum in. Due on due Goal BMP fasting. Due on 012 due Goal Urinalysis. Due on 11 due Goal 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 CLERK exam. Due on due Goal H&P. Due on due Goal Urine Microalbum in. Due on due Goal Breast exam. Due on 013 due Goal Urinalysis. Due on 11 due Goal CPK. Due on due Goal BMP fasting. Due on 012 due Goal 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 CLERK exam. Due on due Goal Mammogram. Due on 8 due Goal BMP fasting. Due on 012 due Goal Breast exam. Due on 012 due Goal CPK. Due on due Goal H&P. Due on due Goal Lipid Panel. Due on 014 due Goal PAP. Due on due Goal Urinalysis. Due on 11 due Goal Urine Microalbum in. Due on due Referral Referred To: [facility] [address] [facility]
[address], [place], [address] [phone] Ordered: Referrals: Mammography Screening and Diagnostic. [facility] Appointment date/timeframe: 01/03/2020 ordered Referral Referred To: Physical Therapy Ordered: Referrals: Physical Therapy. Location: [facility]. Evaluate and treat ordered Referral Ordered: Referrals: Orthopedics. Location: [facility]. Evaluate and treat Appointment date/timeframe: 11/30/2018 ordered Referral Referred To: [facility] Orthopedics [address] [place], [address] [phone] Ordered: Referrals: Ortho Surg. [facility] Orthopedics. Location: [facility]. Follow-up and treat ordered Referral Referred To: Physical Therapy Ordered: Referrals: Physical Therapy. Location: [facility]. Evaluate and treat Appointment date/timeframe: 02/19/2018 ordered Referral Ordered: Referrals: Pain Management. Location: [facility] Steve Eli. Evaluate and treat ordered Referral Ordered: Referrals: Mammography. Location: [facility]. Diagnostic testing Appointment date/timeframe: 01/30/2017 ordered Referral Ordered: Referrals: Pain Management ordered Referral Ordered: Referrals: Orthopedics. Evaluate and treat ordered Referral Referred To: [facility] Colonoscopy [address] [facility] [address], [place], [phone] Ordered: Referrals: Colonoscopy. [facility] Colonoscopy ordered Referral Referred To: [facility] Urogynecology Ordered: Referrals: Gynecology, DO. [facility] Urogynecology. Evaluate and treat Appointment date/timeframe: 12/21/2015 ordered Referral Ordered: Referrals: Orthopedics. Location: [facility]. Evaluate and treat. Surgery ordered Referral Ordered: Referrals: Pain Management. Location: [facility]. Evaluate and treat ordered Referral Referred To: [facility] Colonoscopy [address] [facility] [address], [place], [address] [phone] Ordered: Referrals: Colonoscopy. [facility] Colonoscopy. Diagnostic testing Appointment date/timeframe: 08/12/2015 ordered Referral Referred To: [facility] Ordered: Referrals: Radiology. [facility]. Location: [facility]. Diagnostic testing Appointment date/timeframe: 07/18/2014 ordered Referral Referred To: [facility] Orthopedics [address] [facility]
[address] [place], [address] [phone] Ordered: Referrals: Orthopedics. [facility] Orthopedics. Location: [facility]. Consult ordered Referral Referred To: [facility] Breast [place] [address] [facility] [address] Floor, [place], [address] [phone] Ordered: Referrals: Mammography Screening Cntr. [facility] Center Appointment date/timeframe: 06/19/2014 ordered Referral Referred To: [facility] Orthopedics [address] [facility]
[address] [place], [address] [phone] Ordered: Referrals: Orthopedics. [facility] Orthopedics. Location: [facility] Appointment date/timeframe: 12/27/2013 ordered Referral Referred To: [facility] Ordered: Referral: [facility]. Neurology. Evaluate and treat. Appointment date/timeframe: 11/26/2013 ordered Referral Referred To: [facility] [address] [facility] [address] [place], [address] [phone] Ordered: Referral: [facility]. Mammography Screening Cntr. Appointment date/timeframe: 07/01/2013 ordered Referral Referred To: [facility] [address] [place], [address] [phone] Ordered: Referral: [facility]. Physical Therapist/Independent. Evaluate and treat. ordered Referral Referred To: [facility] Ordered: Referral: [facility]. Orthopedics. Surgery. Appointment date/timeframe: 11/01/2010 ordered Referral Referred To: [address], [address] [phone] Ordered: Referral: [facility]. Cardiology. Diagnostic testing. Appointment date/timeframe: 09/22/2010 ordered Referral Referred To: [facility] [address] [facility], [facility] CAM Bldg
[address] [place] [address] [place], [address] [phone] Ordered: Referral: [facility]. Radiology. Diagnostic testing. Appointment date/timeframe: 08/13/2010 ordered Referral Referred To: Gokul Demarco [facility] [address] [place], [address] Ordered: Referral: Gokul Demarco MS RD. Nutrition. Consult. Appointment date/timeframe: 01/26/2010 ordered Referral Referred To: [facility] [address] [place] [address], [address] Ordered: Referral: [facility]. Radiology. Diagnostic testing. Appointment date/timeframe: 10/30/2009 ordered Referral Referred To: [facility] Ordered: Referral: [facility]. Orthopedics. Evaluate and treat. ordered Referral Referred To: [facility] [address] [place] [address], [id number] [phone] Ordered: Referral: [facility]. Colonoscopy. Evaluate and treat. Appointment date/timeframe: 05/22/2009 ordered Referral Referred To: [facility] [address] [place] [address], [id number] [phone] Ordered: Referral: [facility]. Neurology. Evaluate and treat. Appointment date/timeframe: 08/07/2009 ordered Patient Education High Blood Pre ssure: Care Instructions completed Patient Education Laparoscopical ly Assisted Vaginal Hyst completed Patient Education Uterine Prolap se: Care Instructions completed Unknown Immunization Influenza, injec table, quadrivalent, preservative free, 3 yrs or older ordered Future Order: Radiology Order Ca miguel angelneus ([id number]), Ordered on: Ordered Future Order: Radiology Order Sh dericker ([id number]), Ordered on: Ordered Future Order: Lab Order Urinalys is, Macroscopic (OC80), Ordered on: Ordered Future Order: Lab Order HCG (Pre gnancy Test) - Urine - POC (OC5), Ordered on: Ordered Future Order: Radiology Order Fo ot; Complete ([id number]), Ordered on: Ordered Future Order: Lab Order HIV-1/2 Antigen and Antibodies, Fourth Generation, w/Reflex (OC54), Ordered on: Ordered Future Order: Lab Order CBC (H/H , RBC, INDICES, WBC, PLT) (OC68), Ordered on: Ordered Future Order: Radiology Order Kn ee; AP &Lat ([id number]), Ordered on: Ordered Future Order: Lab Order Wet Prep (Wet Prep), Appointment on: Ordered Future Order: Lab Order HIV AB, HIV 1/2, EIA, WITH REFLEXES ([id number]), Appointment on: , Sent on: Sent Future Order: Lab Order RPR (DX) W/REFL TITER AND CONFIRMATORY TESTING ([id number]), Appointment on: , Sent on: Sent Future Order: Lab Order Wet Prep (Wet Prep), Appointment on: Ordered Future Order: Lab Order CBC (H/H , RBC, INDICES, WBC, PLT) ([id number]), Appointment on: , Sent on: Sent Future Order: Lab Order CHOLESTE ROL, TOTAL (334), Appointment on: , Sent on: Sent Future Order: Lab Order COMPREHE NSIVE METABOLIC PANEL W/EGFR ([id number]), Appointment on: , Sent on: Sent Future Order: Lab Order GGT (482 ), Appointment on: , Sent on: Sent Future Order: Lab Order HEMOGLOB IN A1c (496), Appointment on: , Sent on: Sent Future Order: Lab Order HEPATIC FUNCTION PANEL ([id number]), Appointment on: , Sent on: Sent Future Order: Lab Order LIPID PA MORA ([id number]), Appointment on: , Sent on: Sent Future Order: Lab Order T4, FREE (866), Appointment on: , Sent on: Sent Future Order: Lab Order TSH, 3RD GENERATION ([id number]), Appointment on: , Sent on: Sent Future Order: Lab Order VITAMIN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
--- NOTE | 2024-07-02 04:38 | ECG_ITS ---
Test Date: 2024-07-02 05:07:53 Measurements Intervals [place] Rate: 66 P: 39 MI: 214 QRS: -6 QRSD: 113 T: 26 QT: 404 QTc: 425 Interpretive Statements SINUS RHYTHM WITH FIRST DEGREE AV BLOCK INTRAVENTRICULAR CONDUCTION DELAY BORDERLINE ECG No previous ECG available for comparison Electronically Signed On 07-02-2024 06:26:58 MANAGEMENT LIAISON by Tank Josue D.O.
[2024-07-02 04:49] LABS: Basophils Percent Auto 0.4 % (0.2-1.2); Eosinophils Absolute Auto 0.2 K/mm3 (0-0.3); Eosinophils Percent Auto 3.3 % (0-4.4); Hematocrit 37.1 % (37.0-47.0); Hemoglobin 12.4 g/dL (12.0-15.0); Immature Granulocyte Absolute 0.01 K/mm3 (0.00-0.031); Immature Granulocyte Percent A 0.2 % (0-0.5); Lymphocytes Percent Auto 36.5 % (18.3-44.2); Mean Corpuscular HGB Conc 33.4 g/dl (32-36); Mean Corpuscular Hemoglobin 30.1 pg (26-34); Mean Platelet Volume 10.2 fl (7.4-10.4); Monocytes Absolute Auto 0.4 K/mm3 (0.1-0.6); Monocytes Percent Auto 8.4 % (2.6-8.5); Neutrophils Absolute Auto 2.7 K/mm3 (1.3-6.7); Neutrophils Percent Auto 51.2 % (45.5-73.1); Platelet Count Result 198 k/mm3 (150-375); Red Blood Count 4.12 M/mm3 (4.2-5.4); Red Cell Distribution Width 13.5 % (11.5-14.5); White Blood Count 5.2 K/mm3 (4.5-10.0)
--- OUTSIDE RECORDS SUMMARY | 2024-07-02 04:52 | XMS_ITS | Referral Summary ---
Author Organization [facility] Address [address] [place] [address] Care Team Providers Care Bilingual Sales Representative Name Role Phone [facility], [facility] Primary Care Provider Clinic[facility] Unavail able Belgica Arevalo RN Unavailable [phone] Source Comments [facility],non-owned Affiliates and Associated Physician Practices is amultiple site organization consisting of ambulatory clinics and hospital sitesin [place], [place], [place] and [place]. This disclosure is being madepursuant to the Care Everywhere program and may not contain all information available regarding this patient. Last updated 18.[facility] Allergies Active Allergy Reactions Criticality Noted Date [...] Visit [facility] - Rheumatology [address] [facility] [address] [place] [address] [place] [address] [facility] [address] [place] [id number] Insurance Payer Benefit Plan / Group Subscriber ID Effective Dates Phone Address Type [employer] LIABILITY [employer] LIABILITY [id number] Effective for all dates [address] [place] [address] Third Libertarian Liability [place] [employer] BSC PLAN [id number] 10/22/2018-Pre sent [address] [place] [address] Medicaid [place] MEDICARE MANAGED CARE PLAN GENERIC MEDICARE ADV MEDICARE MANAGED CARE PLAN GENERIC [id number] Effective for all dates Medicare-Man aged Care SELF PAY NO INSURANCE SELF PAY NO INSURANCE Effective for all dates [place], [place] Self Pay MEDICARE MANAGED CARE PLAN GENERIC MEDICARE ADV MEDICARE MANAGED CARE PLAN GENERIC [id number] Effective for all dates Medicare-Man aged Care SELF PAY NO INSURANCE SELF PAY NO INSURANCE Effective for all dates [place] Self Pay MEDICARE MANAGED CARE PLAN GENERIC MEDICARE ADV MEDICARE MANAGED CARE PLAN GENERIC [id number] Effective for all dates Medicare-Man aged Care SELF PAY NO INSURANCE SELF PAY NO INSURANCE Effective for all dates [place], [place] Self Pay [employer] GOLD PLUS HMO HU[employer] MEDICARE ADV HMO/PPO [id number] 10/13/2018-Pres ent [address] [address] [place] [address] Medicare-[place] aged Care MEDICAID [place]EN[place] BENEFIT - [facility] [id number] Effective for all dates [address] [place] [address] Medicaid [place] Advance Directives * Full Code (Latest Code Status on File) Date Activated Date Inactivated Comments 03/25/2014 2:19 PM 03/25/2014 8:49 PM * Full Code Date Activated Date Inactivated Comments 03/22/2014 3:59 AM 03/25/2014 2:19 PM Care Teams Bilingual Sales Representative Relationship Specialty Start Date End Date [facility], [facility] [address] [place] [address] PCP - General 10/11/14 [facility], [facility] [address] [place] [address] 10/11/14 Belgica Arevalo RN Supersonic Engineer 03/23/14
--- OUTSIDE RECORDS SUMMARY | 2024-07-02 04:52 | XMS_ITS | Patient Health Summary ---
Author Organization [facility] Address [address] [place] [address] Care Team Providers Care Post Anesthesia Room Nurse Name Role Phone Clinic[facility], [facility] Primary Care Provider [facility] Unavail able Belgica Arevalo RN Unavailable [phone] Note from [facility],non-owned Affiliates and Associated Physician Practices is amultiple site organization consisting of ambulatory clinics and hospital sitesin [place], [place], [place] and [place]. This disclosure is being madepursuant to the Care Everywhere program and may not contain all information available regarding this patient. Last updated 18.[facility] Allergies * Hurst Medications * Be aware that medications may [...] initial encounter . 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 For questions about the report, please contact [...] grammatical or syntax problems by a trained paramedical aide. For questions about the report, please contact [...] on 10/22/2018 at 8:58 PM Lexie Bartolo [facility] PA-C DIAGNOSTIC IMAGING ORDERABLES * XR FOOT RIGHT 3VW OR MORE (02/02/2017 3:55 PM CDT) Anatomical Region Laterality Modality Ankle / Foot Other Impressions 02/03/2017 8:25 AM CDT IMPRESSION: 1. Mild degenerative changes, right greater than left. 2. Bilateral calcaneal spurs. Dictated by Margarito Yun MD (vice president of talent management). I, Dr. SHAWN HARMON MD have personally [...] calcaneal spurs. Dictated by Margarito Yun MD (vice president of talent management). I, Dr. SHAWN AHRMON MD have personally reviewed and interpreted thisexamination/study. [...] calcaneal spurs. Dictated by Margarito Yun MD (vice president of talent management). Dr. SAHWN Sanford MD have personally reviewed and interpreted [...] calcaneal spurs. Dictated by Margarito Yun MD (vice president of talent management). I, Dr. SHAWN HARMON MD have personally [...] No evidence of pulmonary embolism. Leia Orozco APRN-MANAGER MED SURG CT ORDERABLES * HCG URINE QUALITATIVE - POINT OF CARE (IP) (10/22/2015 6:09 PM CDT) Only the most recent of3 resultswithin the time period is included. HCG Qual Urine Negative Negative [facility] POCT TESTING QC Verified Yes Yes [facility] POC T TESTING Urine specimen (specimen) URINE / Unknown 10/22/2015 6:09 PM CDT Leia Orozco APRN-MANAGER MED SURG LAB - POINT OF CARE ORDERABLES Performing Organization Address City/State/[facility] Co de Phone Number HC POCT TESTING [address] [place] [address] * (ABNORMAL) D-DIMER (10/22/2015 4:17 PM CDT) D-Dimer 1.23(H) 0.17 - 0.5 mg/L FEU 10/22/2015 4:35 PM CDT [facility] Blood BLOOD SPECIMEN / Unknown Venipuncture / Unknown 10/22/2015 4:17 PM CDT 10/22/2015 4:20 PM CDT Narrative [facility] - 10/22/2015 4:35 PM CDT The [...] clinical presentation, and other findings. Leia Orozco APRN-MANAGER MED SURG LAB - COAGULATI ON ORDERABLES Performing Organization Address [facility] [place]/[facility] Co de Phone Number [facility] [address] [place], [place] [id number] * TROPONIN I (10/22/2015 3:34 PM CDT) Only the most recent of5 resultswithin the time period is included. Pathologist [facility] Troponin I <0.015 0.000 - 0.049 ng/mL 10/22/2015 3:59 PM CDT [facility] Blood BLOOD SPECIMEN / Unknown Venipuncture / Unknown 10/22/2015 3:34 PM CDT 10/22/2015 3:37 PM CDT [facility] LABORATORY - 10/22/2015 3:59 PM [...] LAB - CHEMISTRY ORDERABLES Performing Organization Address [facility] [place]/[facility] Co de Phone Number [facility] [address] [place] [address] * LACTIC ACID BLOOD (10/22/2015 3:34 PM CDT) Only the most recent of2 resultswithin the time period is included. Pathologist [facility] Lactic Acid 0.8 0.7 - 2.1 mmol/L 10/22/2015 3:58 PM CDT [facility] Blood BLOOD SPECIMEN / Unknown Venipuncture / Unknown 10/22/2015 3:34 PM CDT 10/22/2015 3:37 PM CDT Geovannaheidi Mcfarland Philomena BELLAMY LAB - CHEMISTRY ORDERABLES [facility] [address] [place] [address] * VAS RIGHT VENOUS DUPLEX LE (10/22/2015 2:56 PM CDT) Anatomical Region Laterality Modality Ultrasound 10/22/2015 2:28 PM CDT Narrative Procedure Note Linus Alvarez MD - 10/23/2015 [facility] [address] [place] [id number] Lower Extremity Venous Ultrasound Report Pat.Name: TANNER TORRE Pat.ID: [id number] .Date: 10/22/2015 Exam Time: 2:28:00 PM Study Type:LE Venous Age: 4 1970,45Y Sex: FEMALE Sonogrphr: Araseli Gordon RVT, [facility] Pat. Stat.:Inpatient ICD - 9: R06.02 CPT - 4: 76800 Reason for Study:Pain -Leg, right History / Clinical:Hypertension Procedures:Lower Extremity Venous - Right Visit ID: [id number] SUMMARY: No evidence of deep or superficial [...] (Bezet) 386 ms [facility] MUSE Calculated P Walsh 52 degrees [facility] MUSE Calculated R Walsh -5 degrees [facility] MUSE Calculated T Walsh 6 degrees [facility] MUSE Interpretation EKG SINUS [...] 4.4 - 10.7 x10E9/L 10/22/2015 1:[facility] WBC Corrected x10E9/L 10/22/2015 1:09 PM CDT [facility] RBC 3.71(L) 3.80 - 5.20 x10E12/L 10/22/2015 1:09 PM CDT [facility] Hemoglobin 11.3(L) 12.0 - 15.6 gm/dL 10/22/2015 1:09 PM CDT [facility] Hematocrit 32.5(L) 35.9 - 45.5 % 10/22/2015 1:09 PM CDT [facility] MCV 87.6 80.7 - 98.3 fl 10/22/2015 1:09 PM CDT [facility] MCH 30.5 26.7 - 34.0 pg 10/22/2015 1:09 PM CDT [facility] MCHC 34.8 30.8 - 35.9 gm/dL 10/22/2015 1:09 PM CDT [facility] Platelet Count 199 153 - 416 x10E9/L 10/22/2015 1:09 PM [facility] RDW-CV 13.2 12.1 - 14.9 % 10/22/2015 1:09 PM CDT [facility] MPV 10.9 9.4 - 12.9 fl 10/22/2015 1:09 PM CDT [facility] Neutrophils % 55.2 44.0 - 73.0 % 10/22/2015 1:09 PM CDT [facility] Lymphocytes % 32.9 20.0 - 43.0 % 10/22/2015 1:09 PM CDT [facility] Monocytes % 8.4 5.0 - 13.0 % 10/22/2015 1:09 PM CDT [facility] Eosinophils % 3.0 0.0 - 6.0 % 10/22/2015 1:09 PM CDT [facility] Basophils % 0.3 0.0 - 2.0 % 10/22/2015 1:09 PM CDT [facility] Immature Granulocytes 0.2 0 - 1 % 10/22/2015 1:09 PM CDT [facility] Neutrophil Absolute 3.33 2.01 - 7.14 x10E9/L 10/22/2015 1:09 PM CDT [facility] Lymphocytes Absolute 1.99 1.07 - 3.94 x10E9/L 10/22/2015 1:09 PM CDT [facility] Monocytes Absolute 0.51 0.26 - 1.07 x10E9/L 10/22/2015 1:09 PM CDT [facility] Eosinophils Absolute 0.18 0 - 0.47 x10E9/L 10/22/2015 1:09 PM CDT [facility] Basophils Absolute 0.02 0 - 0.08 x10E9/L 10/22/2015 1:09 PM CDT [facility] Immature Granulocytes Absolute 0.01 0.00 - 0.06 x10E9/L 10/22/2015 1:09 PM CDT [facility] nRBC Auto 0 /100 WBC 10/22/2015 1:09 PM CDT [facility] Blood BLOOD SPECIMEN / Unknown 10/22/2015 12:48 PM CDT 10/22/2015 1:05 PM CDT Rosie Quach MD LAB - HEMATOLOGY ORDERABLES [facility] [address] [place] [address] * (ABNORMAL) COMPREHENSIVE METABOLIC PANEL (10/22/2015 12:48 PM CDT) Only the most recent of3 resultswithin the time period is included. [facility] Glucose 93 74 - 106 mg/dL 10/22/2015 1:25 PM CDT [facility] Sodium 141 136 - 145 mmol/L 10/22/2015 1:25 PM CDT [facility] Potassium 3.8 3.5 - 5.1 mmol/L 10/22/2015 1:25 PM CDT [facility] Chloride 106 98 - 107 mmol/L 10/22/2015 1:25 PM CDT [facility] CO2 25 22 - 31 mmol/L 10/22/2015 1:25 PM CDT [facility] Calcium 9.2 8.5 - 10.1 mg/dL 10/22/2015 1:25 PM CDT [facility] Anion Gap 10 5 - 20 mmol/L 10/22/2015 1:25 PM CDT [facility] BUN 9 7 - 21 mg/dL 10/22/2015 1:25 PM CDT [facility] Creatinine 0.84 0.50 - 1.30 mg/dL 10/22/2015 1:25 PM CDT [facility] Alkaline Phosphatase 80 38 - 126 U/L 10/22/2015 1:25 PM CDT [facility] ALT 31 12 - 78 U/L 10/22/2015 1:25 PM CDT [facility] AST 19 5 - 40 U/L 10/22/2015 1:25 PM CDT [facility] Protein Total 6.8 6.4 - 8.2 gm/dL 10/22/2015 1:25 PM CDT [facility] Albumin 3.3(L) 3.4 - 5.0 gm/dL 10/22/2015 1:25 PM CDT [facility] Bilirubin Total 0.4 0.2 - 1.0 mg/dL 10/22/2015 1:25 PM CDT [facility] eGFR by MDRD >60 >60 mL/min/1.7 3m2 10/22/2015 1:25 PM CDT [facility] eGFR by MDRD >60 >60 mL/min/1.7 3m2 10/22/2015 1:25 PM CDT [facility] Blood BLOOD SPECIMEN / Unknown 10/22/2015 12:48 PM CDT 10/22/2015 1:05 PM CDT Rosie Quach MD LAB - CHEMISTRY ORDERABLES [facility] [address] [place] [address] * STREP A SCREEN DIRECT W RFLX STREP A CULTURE (09/08/2015 11:30 AM CDT) Strep A Rapid Negative Negative 09/08/2015 11:46 AM CDT [facility] Microbiology ENTIRE THROAT (SURFACE REGION OF NECK) / Unknown 09/08/2015 11:30 AM CDT 09/08/2015 11:36 AM CDT Narrative [facility] - 09/08/2015 11:46 AM CDT Test has reflexed to a Strep A culture. Gokul Mehta MD LAB - MICROBIOLOGY O DAVIDA Performing Organization Address [facility] [place]/[facility] Co de Phone Number [facility] [address] [place] [phone] * (ABNORMAL) CULTURE STREP GROUP A (09/08/2015 11:30 AM CDT) Pathologist [facility] Culture Light growth Streptococcus pyogenes (Group A)(A) JOSE ALEJANDRO 09/11/2015 6:39 AM CDT [facility] Microbiology ENTIRE THROAT (SURFACE REGION OF NECK) / Unknown 09/08/2015 11:30 AM CDT 09/08/2015 11:36 AM CDT [facility] MICROBIOLOGY - 09/11/2015 6:39 AM CDT Droplet Precautions Required. Susceptibility testing of penicillin, other beta-lactam antibiotics, and vancomycin is not necessary for beta-hemolytic streptococci groups A,B,C and G because resistant strains have not been recognized. Gokul Mehta MD LAB - MICROBIOLOGY O DAVIDA Performing Organization Address City/[facility]/ZIP Co de Phone Number [facility] [address] [place] [phone] * (ABNORMAL) URINALYSIS ROUTINE W/REFLEX TO CULTURE (09/08/2015 11:28 AM CDT) Color UA Yellow Straw, Yellow, Dark Yellow 09/08/2015 11:43 AM CDT [facility] Clarity UA Clear 09/08/2015 11:43 AM CDT [facility] Specific [place] UA 1.015 1.005 - 1.030 09/08/2015 11:43 AM CDT [facility] pH UA 5.5 5.0 - 8.0 pH 09/08/2015 11:43 AM CDT [facility] Protein UA Negative Negative 09/08/2015 11:43 AM CDT [facility] Blood UA Trace(A) Negative 09/08/2015 11:43 AM CDT [facility] Leukocyte UA 1+(A) Negative 09/08/2015 11:43 AM CDT [facility] Nitrite UA Negative Negative 09/08/2015 11:43 AM CDT [facility] Glucose UA Negative Negative 09/08/2015 11:43 AM CDT [facility] Ketone UA Negative Negative 09/08/2015 11:43 AM CDT [facility] Bilirubin UA Negative Negative 09/08/2015 11:43 AM CDT [facility] Urobilinogen UA 1.0 0.1 - 1.0 EU/dL 09/08/2015 11:43 AM [facility] WBC UA Auto 10-20(A) 0-2, 2-5 # /hpf 09/08/2015 11:43 AM T [facility] RBC UA Auto 2-5 0-2, 2-5 # /hpf 09/08/2015 11:43 AM CDT [facility] Epithelial Cell UA Auto 2-5 0-2, 2-5 # /hpf 09/08/2015 11:43 AM [facility] Bacteria UA Auto 1+(A) None seen 09/08/2015 11:43 AM [facility] Reflex Status Culture to follow 09/08/2015 11:43 AM [facility] Urine URINE SPECIMEN OBTAINED BY CLEAN CATCH PROCEDURE / Unknown 09/08/2015 11:28 AM CDT 09/08/2015 11:36 AM CDT Caroline PLATT LAB - URINALYSIS ORD ERABLES [facility] [address] [place] [address] * CULTURE URINE (09/08/2015 11:28 AM CDT) Culture 10,000-50,000 CFU/mL urogenital dayanna JOSE ALEJANDRO 09/09/2015 3:55 PM CDT [facility] Urine URINE SPECIMEN OBTAINED BY CLEAN CATCH PROCEDURE / Unknown 09/08/2015 11:28 AM CDT 09/08/2015 11:36 AM CDT Caroline PLATT LAB - MICROBIOLOGY O RDERABLES [facility] [address] [place], [place] [address], [facility] [phone] * XR LUMBAR SPINE TRAUMA 2 OR [...] evidence of fracture or dislocation Leia Orozco APRN-MANAGER MED SURG DIAGNOSTIC IMAG ING ORDERABLES * XR RIBS [...] three knee compartments are noted with associated slyv-rx-wtypvsou hypertrophic changes of the anterior superior and [...] three knee compartments are noted with associated plbj-ed-noacdvtl hypertrophic changes of the anterior superior and [...] three knee compartments are noted with associated ygrw-yx-emdykrqa hypertrophic changes of the anterior superior and anterior inferior patella. There is no recent fracture, dislocation or bone destruction. No soft tissue mass is identified. IMPRESSION Small corticated density at the superior margin of the greater trochanter suggesting an accessory ossification center though an old avulsion injury may be a consideration. Minimal degenerative changes of all three knee compartments are noted with associated cvbc-rk-etgwdrtz hypertrophic changes of the anterior superior and [...] KNEE 4+ VW RIGHT (06/28/2014 12:19 PM LIVESTOCK EXHIBITOR) Anatomical Region Laterality Modality Lower Extremity Radiographic Racquel ging 06/28/2014 12:4 9 PM LIVESTOCK EXHIBITOR Narrative 06/28/2014 12:50 PM LIVESTOCK EXHIBITOR Right knee Indication for examination: Persistent right [...] FIBULA 2 VW RIGHT (06/28/2014 12:17 PM LIVESTOCK EXHIBITOR) Anatomical Region Laterality Modality Lower Extremity Radiographic Racquel ging 06/28/2014 12:5 0 PM LIVESTOCK EXHIBITOR Narrative 06/28/2014 12:50 PM LIVESTOCK EXHIBITOR Right tibia-fibula Indication for examination: Right leg [...] HAND 3+ VW RIGHT (05/05/2014 9:38 PM LIVESTOCK EXHIBITOR) Anatomical Region Laterality Modality Wrist / Hand Radiographic Racquel ging 05/05/2014 9:57 PM LIVESTOCK EXHIBITOR Impressions 05/05/2014 9:58 PM LIVESTOCK EXHIBITOR Negative for fracture at this time. Please see above. Narrative 05/05/2014 9:58 PM LIVESTOCK EXHIBITOR Examination: Right hand 3 views Indication: Right [...] BILAT MIN 4 VIEWS (05/05/2014 9:11 PM LIVESTOCK EXHIBITOR) Only the most recent of2 resultswithin the time period is included. Anatomical Region Laterality Modality Lower Extremity Radiographic Racquel ging 05/05/2014 10:1 0 PM LIVESTOCK EXHIBITOR Impressions 05/05/2014 10:10 PM LIVESTOCK EXHIBITOR Negative for fracture at this time. Please see above. Narrative 05/05/2014 10:10 PM LIVESTOCK EXHIBITOR Examination: Bilateral knees, 4 views of each [...] ANKLE 3+ VW LEFT (05/05/2014 9:10 PM LIVESTOCK EXHIBITOR) Anatomical Region Laterality Modality Lower Extremity Radiographic Racquel ging 05/05/2014 9:50 PM LIVESTOCK EXHIBITOR Impressions 05/05/2014 9:50 PM LIVESTOCK EXHIBITOR Negative for fracture at this time. Please see above. Narrative 05/05/2014 9:50 PM LIVESTOCK EXHIBITOR Examination: Left ankle 3 views Indication: Left [...] * CARDIAC PROCEDURE ORDER (03/26/2014 8:21 PM LIVESTOCK EXHIBITOR) Narrative 03/26/2014 8:21 PM LIVESTOCK EXHIBITOR Ordered by an unspecified provider. Scanned Document CARDIAC SERVICES ORD ERABLES * CARDIAC RHYTHM STRIP ORDER (03/26/2014 8:20 PM LIVESTOCK EXHIBITOR) Narrative 03/26/2014 8:20 PM LIVESTOCK EXHIBITOR Ordered by an unspecified provider. Scanned Document CARDIAC SERVICES ORD ERABLES * CARDIAC CATH CONSULT (for Epic Reporting) (03/25/2014 12:00 PM LIVESTOCK EXHIBITOR) 03/25/2014 12:0 0 PM LIVESTOCK EXHIBITOR Narrative Transcriptions Sue Figueroa MD - 03/26/2014 10:30 AM CST [facility] CARDIAC CATHETERIZATION PATIENT: TANNER TORRE MR#: [id number] ADMIT DATE: 03/21/2014 CSN: [id number] PROCEDURE DATE: 03/25/2014 :1970 PHYSICIAN: Sue Figueroa MD ROOM: [place] [address] REFERRING PHYSICIAN: Russ Valdez MD PROCEDURE: 1. Left heart catheterization. 2. Left ventriculography. 3. Selective coronary arteriography. CLINICAL SUMMARY: This is a 43-year-old black female with atypicalchest pain, but an abnormal stress test yesterday. Coronary angiography was recommended. PROCEDURE: Keysha. SITE OF ENTRY: Right femoral artery. LOCAL ANESTHESIA: Xylocaine 1%. PREMEDICATIONS: Versed 3 mg IV, fentanyl 75 mcg IV. CATHETERS: A 5-Vincentian arterial sheath, 5-Vincentian pigtail, 5-Vincentian JL4,5- Vincentian 3DRC. PROCEDURE: The patient was brought to the catheterization laboratoryand prepped and draped in the usual sterile fashion. The right groin was anesthetized locally and the arterial sheath was inserted withoutdifficulty. Selective coronary arteriography was performed in multiple KAZAKH and ARELLANO projections using cranial and caudal angulation. The right groin was anesthetized locally and the arterial sheath wasinserted without difficulty. Selective coronary arteriography was performed inmultiple KAZAKH and ARELLANO projections using cranial and caudal angulation. Left ventriculogram was performed in the 30-degree ARELLANO projection using 35mL of contrast at 14 mL/second. At the end of the procedure, the sheathwas removed and manual pressure held for 15 minutes to ensure hemostasis.No femoral hematoma. Pedal pulses were intact. [facility]. COMPLICATIONS: None. HEMODYNAMICS: [...] cardiac basis. SUE FIGUEROA MD SIB/MODL #: [id number] MEDICAL/SURGICAL CARDIAC CATHETERIZATION - DP Sue Figueroa MD ECHO ORDERABLES DP CARDIAC SERVICES * IR CAROTID CEREBRAL ANGIO (03/24/2014 3:16 PM LIVESTOCK EXHIBITOR) Narrative [facility] RAD[facility] - 03/25/2014 8:10 AM LIVESTOCK EXHIBITOR SEE OPERATIVE REPORT IN NOTES SECTION OF PATIENT'S CHART. Kofi Hallman MD IR ORDERABLES [facility] [address] [place] [address] * NM MYOCARD PERFUSION SPECT STRESS AND REST (03/24/2014 1:33 PM LIVESTOCK EXHIBITOR) Anatomical Region Laterality Modality Chest Nuclear Medicine 03/24/2014 2:51 PM LIVESTOCK EXHIBITOR Narrative 03/24/2014 2:52 PM LIVESTOCK EXHIBITOR NM MYOCARDIAL SPECT SCAN Indications for examination: [...] STRESS TEST LEXISCAN (NUCLEAR) (03/24/2014 12:00 PM LIVESTOCK EXHIBITOR) 03/24/2014 12:0 0 PM LIVESTOCK EXHIBITOR Narrative Transcriptions Clifford Hughes MD - 03/25/2014 10:52 AM CST [facility] CHEMICAL STRESS TEST PATIENT: TANNER TORRE MR#: [id number] DATE OF SERVICE: 03/24/2014 CSN: [id number] : 1970 ROOM: [place] [address] REFERRING PHYSICIAN: Russ Valdez MD ADMIT DATE: [...] is recommended. CLIFFORD HUGHES MD AK/KD #: [id number] cc: [facility] CHEMICAL STRESS TEST - DP Aidan Gonzales MD CARDIAC SERVICES ORD ERABLES [facility] MEDQUIST * ED CRITICAL CARE (03/22/2014 2:50 AM LIVESTOCK EXHIBITOR) Narrative Russ Valdez MD - 03/22/2014 2:50 AM LIVESTOCK EXHIBITOR Russ Valdez MD 03/22/2014 2:50 AM Provider contact with the patient: 03/22/2014 00:19 Tanner Torre [id number] [facility] EMERGENCY DEPARTMENT History Chief Complaint Patient presents [...] Hx: Carpal Tunnel Surgery [facility]ician[facility]121 Pulse 89 Temp(Src) 98.3 [...] or life-threatening deterioration of the following conditions: MEDICAL RECRUITER failure or compromise. Critical care was time [...] 58.7 44.0-73.0 % Lymph 30.5 20.0-43.0 % Peach 8.3 5.0-13.0 % Eos 2.1 0.0-6.0 % Baso 0.1 0.0-2.0 % Immature Grans 0.3 0-1 % Neutro Abs 4.09 2.01-7.14 x10^9/L Lymph Abs 2.13 1.07-3.94 x10^9/L Peach Abs 0.58 0.26-1.07 x10^9/L Eosin Abs 0.15 [...] discussed with ANUPAM Irwin covering for Dr. Luna([facility]) all pertinent aspects of the case including [...] to pt's body habitus. Pt admitted to [facility] with consult to vascular neurology and will [...] Physician: ANUPAM Irwin covering for Dr. Luna ([facility]) I have reviewed the information recorded by the scribe and agree with its accuracy and contents--Dr. Valdez 03/22/2014 2:49 AM Transcribed by Elias Lindsey acting scribe on behalf of Dr. Valdez 03/22/2014 2:43 AM Russ Valdez MD PROCEDURE/MINOR SURG ICAL ORDERABLES * ED LUMBAR PUNCTURE (03/22/2014 2:50 AM LIVESTOCK EXHIBITOR) Narrative Russ Valdez MD - 03/22/2014 2:50 AM LIVESTOCK EXHIBITOR Russ Valdez MD 03/22/2014 2:50 AM Provider contact with the patient: 03/22/2014 00:19 Tanner Torre [id number] [facility] EM[facility]ENC[facility] History Chief Complaint Patient presents [...] Hx: Carpal Tunnel Surgery Physician: Annita Hua [facility] BP 155/121 Pulse 89 Temp(Src) 98.3 F [...] or life-threatening deterioration of the following conditions: MEDICAL RECRUITER failure or compromise. Critical care was time [...] 58.7 44.0-73.0 % Lymph 30.5 20.0-43.0 % Peach 8.3 5.0-13.0 % Eos 2.1 0.0-6.0 % Baso 0.1 0.0-2.0 % Immature Grans 0.3 0-1 % Neutro Abs 4.09 2.01-7.14 x10^9/L Lymph Abs 2.13 1.07-3.94 x10^9/L Peach Abs 0.58 0.26-1.07 x10^9/L Eosin Abs 0.15 [...] Physician: ANUPAM Irwin covering for Dr. Luna ([facility]) I have reviewed the information recorded by the scribe and agree with its accuracy and contents--Dr. Valdez 03/22/2014 2:49 AM Transcribed by Elias Lindsey acting scribe on behalf of Dr. Valdez 03/22/2014 2:43 AM Russ Valdez MD PROCEDURE/MINOR SURG ICAL ORDERABLES * CT ANGIO NECK HEAD W WO CONTRAST (03/22/2014 2:05 AM LIVESTOCK EXHIBITOR) Anatomical Region Laterality Modality Head Computed Tomogra phy 03/22/2014 2:23 AM LIVESTOCK EXHIBITOR Impressions 03/22/2014 2:26 AM LIVESTOCK EXHIBITOR Unremarkable neck CTA. Head: The carotid siphons and the basilar arteries appear patent. No large branch occlusion can be seen. This exam is not sensitive in the detection of small aneurysms. Impression: Unremarkable brain CTA. Narrative 03/22/2014 2:[address] angiography neck CT angiography head CT [...] grammatical or syntax problems by a trained paramedical aide. For questions about the report, please contact [...] grammatical or syntax problems by a trained paramedical aide. For questions about the report, please contact the Radiology Department. IMPRESSION Unremarkable neck CTA. Head: The carotid siphons and the basilar arteries appear patent. No large branch occlusion can be seen. This exam is not sensitive in the detection of small aneurysms. Impression: Unremarkable brain CTA. Russ Valdez MD CT ORDERABLES * CT HEAD NON CONTRAST (03/22/2014 2:03 AM LIVESTOCK EXHIBITOR) Anatomical Region Laterality Modality Head Computed Tomogra phy 03/22/2014 2:14 AM LIVESTOCK EXHIBITOR Impressions 03/22/2014 2:15 AM LIVESTOCK EXHIBITOR No acute intracranial findings. Emergency noncontrast brain CT. Please see above. Narrative 03/22/2014 2:15 AM LIVESTOCK EXHIBITOR EXAMINATION: CT BRAIN WITHOUT CONTRAST. Indication: Severe [...] grammatical or syntax problems by a trained paramedical aide. Findings: There is no intracranial mass-effect or [...] grammatical or syntax problems by a trained paramedical aide. Findings: There is no intracranial mass-effect or [...] CT ORDERABLES * PT-INR (03/21/2014 11:59 PM LIVESTOCK EXHIBITOR) PT 10.5 9.5 - 11.6 sec 03/22/2014 12:22 AM LIVESTOCK EXHIBITOR [facility] INR 0.99 0.9 - 1.1 03/22/2014 12:22 AM LIVESTOCK EXHIBITOR [facility] Blood BLOOD SPECIMEN / Unknown 03/21/2014 11:59 PM LIVESTOCK EXHIBITOR 03/22/2014 12:03 AM LIVESTOCK EXHIBITOR Narrative [facility] - 03/22/2014 12:22 AM LIVESTOCK EXHIBITOR Conventional Anticoagulant Therapy INR Reference Ranges: 2.0-3.0 Intensive Anticoagulant Therapy INR Reference Ranges: 2.5-3.5 Russ Valdez MD LAB - COAGULATION OR DERABLES [facility] [address] [place] [address] Care Teams Post Anesthesia Room Nurse Relationship Specialty Start Date End Date Clinic[facility]l, [facility] [address] [place] [address] PCP - General 10/11/14 [facility] [address] [place] [address] 10/11/14 Belgica Arevalo, RN [employer] Experimental Mechanic 03/23/14
--- OUTSIDE RECORDS SUMMARY | 2024-07-02 04:52 | XMS_ITS | Clinical Summary ---
Author Organization [facility] Address [address] [facility] [place] [address] Care Team Providers Care Director Appointment Name Role Phone Clinicpcjanae, [facility] Primary Care Provider Clinicpcrudy [facility] Unavail able Belgica Arevalo RN Unavailable [phone] Source Comments [facility],non-owned Affiliates and Associated Physician Practices is amultiple site organization consisting of ambulatory clinics and hospital sitesin [place], [place], [place] and [place]. This disclosure is being madepursuant to the Care Everywhere program and may not contain all information available regarding this patient. Last updated 18.[facility] Allergies Active Allergy Reactions Criticality Noted Date [...] Disease) Father Cancer Father prostate Diabetes Father [place] Father Aneurysm Maternal Grandmother Aneurysm Mother brain [...] Description 08/22/2024 9:00 AM CDT Office Visit [facility] - Rheumatology [address] [facility] [address] [place] [address] [place] [address] [facility] [address] [place] [address] Health Maintenance Due Date Last [...] Effective Dates Phone Address Type TPL THIRD REPUBLICAN LIABILITY TPL THIRD REPUBLICAN LIABILITY [id number] Effective for all dates [address] [place] [address] Third Constitution Party Liability [place] [employer]ALTH[employer] BSC PLAN [id number] 10/22/2018-Pre sent [address] [place] [address] Medicaid [place] MEDICARE MANAGED CARE PLAN GENERIC MEDICARE ADV MEDICARE MANAGED CARE PLAN GENERIC [id number] Effective for all dates Medicare-Man aged Care SELF PAY NO INSURANCE SELF PAY NO INSURANCE Effective for all dates [place] Self Pay MEDICARE MANAGED CARE PLAN GENERIC MEDICARE ADV MEDICARE MANAGED CARE PLAN GENERIC [id number] Effective for all dates Medicare-Man aged Care SELF PAY NO INSURANCE SELF PAY NO INSURANCE Effective for all dates [place] Self Pay MEDICARE MANAGED CARE PLAN GENERIC MEDICARE ADV MEDICARE MANAGED CARE PLAN GENERIC [id number] Effective for all dates Medicare-Man aged Care SELF PAY NO INSURANCE SELF PAY NO INSURANCE Effective for all dates [place] Self Pay HUMANA GOLD PLUS HMO HUMANA MEDICARE ADV HMO/PPO [id number] 10/13/2018-Pres ent [address] [address] [place] [address] Medicare-Man aged Care MEDICAID [place]EN[place] [id number] Effective for all dates [address] [place] [address] Medicaid [place] Advance Directives * Full Code (Latest Code Status on File) Date Activated Date Inactivated Comments 03/25/2014 2:19 PM 03/25/2014 8:49 PM * Full Code Date Activated Date Inactivated Comments 03/22/2014 3:59 AM 03/25/2014 2:19 PM Care Teams Director Appointment Relationship Specialty Start Date End Date Nettie [facility] [address] [place] [address] PCP - General 10/11/14 [facility] [address] [place] [address] 10/11/14 Belgica Arevalo RN Fisheries Specialist 03/23/14
--- OUTSIDE RECORDS SUMMARY | 2024-07-02 04:52 | XMS_ITS | Clinical Summary ---
Author Organization [facility] Address [address] [place] [address] Care Team Providers Care Software Test Automation Engineer Name Role Phone Carla Padron PT Unavailable Unavailable Rafael Gutierrez MD Primary Care Provider Allergies Active Allergy Reactions Criticality Noted Date Comments Bromelains Itching Low 12/08/2020 [place] And Derivatives Hives Medium 12/05/2019 Crab Hives Medium 12/05/2019 Carries benadryl in purse Lemon Itching Low 12/19/2017 Onion Swelling Medium 12/19/2017 [place] Juice Itching Low 12/19/2017 Shrimp Hives,Itching Medium 08/11/2020 [place] Hives Medium 12/19/2017 Medications fluticasone propionate (FLONASE) [...] ORAL)Indications:suppl ement Take 1 capsule by mouth interior block wirer before breakfast Take 1 capsule by mouth [...] 1 tablet (20 mg total) by mouth interior block wirer before breakfast 90 tablet 3 Active diclofenac [...] 06/20/2023 Assessment & Plan (06/20/2023 1:39 PM JOURNALISM INTERNSHIP): Worsening hand pain bilaterally in all joints, [...] symptoms. Assessment & Plan (04/10/2023 4:29 PM JOURNALISM INTERNSHIP): - Ambulatory referral to ophthalmology - CTM Hyperpigmentation 04/10/2023 Overview (04/10/2023): One week history of hyperpigmented macules on L lower abdomen. Not associated with pruritus, erythema, drainage. Likely benign. Assessment & Plan (04/10/2023 4:18 PM JOURNALISM INTERNSHIP): - Reassured patient that most likely benign - CTM Onychomycosis 06/30/2022 Overview (04/10/2023): Endorses progressive darkening/thickening of toenails, consistent with physical exam Assessment & Plan (04/10/2023 4:25 PM JOURNALISM INTERNSHIP): - Ciclopirox solution daily - CTM History of total knee arthroplasty 05/19/2022 Assessment & Plan (05/19/2022 8:44 AM JOURNALISM INTERNSHIP): H/o R TKA in 11/2021 w/ unremarkable [...] 05/11/2022 Assessment & Plan (05/19/2022 8:37 AM JOURNALISM INTERNSHIP): Hosp 05/11- w/ BRBPR that spontaneously resolved. CTAP during admission w/ diverticulosis, no active extravazation. No need for GI intervention d/t spontaneous resolution. Hgb stable at d/c. No sxs today of anemia and no further episodes noted. - continue to monitor - encouraged soft BMs Assessment & Plan (05/14/2022 12:13 PM JOURNALISM INTERNSHIP): This is resolved. No further episodes after arrival on floor. Suspect anorectal etiology such as hemorrhoids or diverticular bleeding (seen on c-scope 01/2021). Hb stable, hemodynamically stable. -Continue to maintain soft BMs. Osteoarthritis of knee, unspecified 11/16/2021 Primary osteoarthritis of right knee 10/06/2021 Overview (10/06/2021): Added automatically from request for surgery [id number] Weight loss counseling, encounter for 01/25/2021 Overview (07/15/2021): Stable around 230 lbs. Discussed weight loss at last visit 04/04. Today _ Met with Nutrition Assessment & Plan (07/15/2021 9:28 AM JOURNALISM INTERNSHIP): Discussed weight loss strategies with pt today, including importance of caloric restrictions. With goal of eating < 500 calories below BMR to lose 1-2 lb's weekly. Pt is amenable to meeting with our auto garage attendant, the referral be placed today. Assessment & Plan (03/25/2021 5:46 PM JOURNALISM INTERNSHIP): Discussed weight loss strategies with pt today, including importance of caloric restrictions. With goal of eating < 500 calories below BMR to lose 1-2 lb's weekly. Pt is amenable to meeting with our auto garage attendant, the referral be placed today. H/O vaginal [...] today. Assessment & Plan (07/15/2021 3:21 PM JOURNALISM INTERNSHIP): -counseled on use of Crisco as needed [...] (01/27/2020): Added automatically from request for surgery [id number] Varicose veins of leg with pain, bilateral 01/26 Primary hyperparathyroidism 01/27/2020 Assessment & Plan (08/10/2023 9:49 AM CDT): Saw endo surg today, planning for surgery which I informed patient could help with symptoms of joint pain but we will have to monitor after surgery to see. Encouraged to take vitamin D Assessment & Plan (06/20/2023 1:33 PM JOURNALISM INTERNSHIP): Patient with persistent joint pain in hands, [...] preference. Assessment & Plan (04/10/2023 4:08 PM JOURNALISM INTERNSHIP): - Ambulatory referral to OBGYN for further management Hypercalcemia 10/16/2019 Overview (04/10/2023): Calcium mildly elevated to 10.8 in 05/2022. PTH upper limit of normal in 04/2022. Denies symptoms of hypercalcemia. May be primary hyperparathyroidism vs FHH. Assessment & Plan (04/10/2023 4:17 PM JOURNALISM INTERNSHIP): - F/u repeat calcium, VitD, PTH - Consider referral to endocrine in future - Discuss repeat DEXA at next visit Assessment & Plan (05/14/2022 12:14 PM JOURNALISM INTERNSHIP): In the setting of elevated and inappropriately [...] rheumatology Assessment & Plan (04/10/2023 4:23 PM JOURNALISM INTERNSHIP): - Omeprazole 20 mg daily - CTM Hypertension, essential 02/13/2019 Overview (04/10/2023): Current regimen: Lisinopril 20mg, endorses compliance. HCTZ discontinued in 04/2022 due to hypercalcemia. Monitors BP at home, SBP 130-140. BP 137/49 in clinic today. Assessment & Plan (08/10/2023 9:09 AM CDT): Well controlled, continue current regimen Assessment & Plan (04/10/2023 4:15 PM JOURNALISM INTERNSHIP): - Continue lisinopril 20 mg - F/u CMP Assessment & Plan (05/14/2022 12:15 PM JOURNALISM INTERNSHIP): Continue Lisinopril -d/c Hctz on discharge given hypercalcemia Assessment & Plan (07/15/2021 3:22 PM JOURNALISM INTERNSHIP): -well-controlled, continue current regimen Assessment & Plan (03/25/2021 5:41 PM JOURNALISM INTERNSHIP): - BP today 125/83, goal < 130/80 - Current regimen: Lisinopril 20mg, HCTZ 12.5mg daily - Endorses compliance to current regimen Assessment & Plan (10/16/2019 9:35 PM CDT): BP at goal today 122/70 - Continue lisinopril-HCTZ 10-12.5 Assessment & Plan (07/15/2019 4:57 PM JOURNALISM INTERNSHIP): BP at goal today on manual check, [...] numbers Assessment & Plan (04/10/2023 4:11 PM JOURNALISM INTERNSHIP): - Continue home pain medication regimen: flexeril 10 mg QHS PRN, amitriptyline 10 mg QHS, gabapentin 900 mg TID, APAP 1000 mg Q8H PRN, lidocaine patches PRN - Counseled patient to avoid NSAIDs due to history of GIB - Ambulatory referral to PT - Ambulatory referral to orthopedic surgery Assessment & Plan (05/19/2022 8:41 AM JOURNALISM INTERNSHIP): Severe multijoint osteoarthritis primarily c/o bilateral R>L [...] analgesia Assessment & Plan (07/15/2019 5:06 PM JOURNALISM INTERNSHIP): Patient with chronic osteoarthritis involving multiple joints [...] qhs Assessment & Plan (06/20/2023 1:34 PM JOURNALISM INTERNSHIP): LDL 99 on 07/2021, on pravastatin 20 mg. Assessment & Plan (07/15/2021 3:25 PM JOURNALISM INTERNSHIP): Continue current regimen Assessment & Plan (07/15/2019 5:03 PM JOURNALISM INTERNSHIP): - Lipid panel (07/15/19): TC 179, HDL [...] knee. Assessment & Plan (07/15/2021 3:15 PM JOURNALISM INTERNSHIP): - XR left knee 08/03 initial read: [...] improve Assessment & Plan (03/25/2021 5:44 PM JOURNALISM INTERNSHIP): Known multijoint osteoarthritis most significant in right [...] counseled Assessment & Plan (04/10/2023 4:21 PM JOURNALISM INTERNSHIP): - Revisit COVID booster, shingles at next visit Morbid obesity with BMI of 50.0-59.9, adult 07/15/2019 06/15/2023 Assessment & Plan (07/15/2019 4:58 PM JOURNALISM INTERNSHIP): Recommended patient eat a heart healthy diet [...] Department Care Team Description 06/04/2024 9:15 AM JOURNALISM INTERNSHIP [facility] [address] [place] [address] 4th [address] [place] [address] Rafael Wang, DPMehdi Onychomycosis [B35.1] [...] often do you attend chur ch or jainism services? Never 05/12/2022 Do you belong to any clubs o r organizations such as yarsanism groups, unions, fraternal or athletic groups, or [...] place to sleep or slept in a [place] facility (including now)? No 05/12/2022 Personal Safety Answer Date Recorded Have you ever been in or are you currently in a harmful physical or emotional relationship or is someone making you feel afraid or unsafe? Denies 09/05/2023 Comments No Sex and Gender Information Value Date Recorded Sex Assigned at Not on file Legal Sex Female 7:40 PM JOURNALISM INTERNSHIP Gender Identity Not on file Sexual Orientation [...] as needed Medical Devices Implanted Type Area Mechanic/Welder Device Identifier Shelf Expiration Date Model / Serial / Lot [employer] [id number] Continuum 48mm 12 Scallop Cluster Hole Snap Fit Groove Integrate - [id number] Implanted:Qty: 1 on 02/26/2020 by Tal Khan MD at [facility] Right: Hip [employer] [id number] 04/13/2029 [id number] / / [id number] [employer] [id number] Trilogy 6.5mm 40mm Self Tap Hip Acetabular Cortical Screw Bone - [id number] Implanted:Qty: 1 on 02/26/2020 by Tal Khan MD at [facility] Right: Hip [employer] [id number] 12/09/2029 [id number] / / [id number] [employer] [id number] 48mm 32mm Hip Gg Neutral Liner Acetabular Longevity Continuum - [id number] Implanted:Qty: 1 on 02/26/2020 by Tal Khan MD at [facility] Right: Hip [employer] [id number] 05/14/2023 [id number] / / [id number] [employer] [id number] Taperloc 140mm 34.3mm Press Fit Reduce Hip 133d 10 Standard - [id number] Implanted:Qty: 1 on 02/26/2020 by Tal Khan MD at [facility] Right: Hip [employer] 09/10/2029 [id number] / / [id number] [employer] [id number] 32mm Modular Hip -3mm Head Femoral Biolox Delta - [id number] Implanted:Qty: 1 on 02/26/2020 by Tal Khan MD at [facility] Right: Hip [employer] 08/20/2028 [id number] / / [id number] [employer] [id number] Persona 2 Peg Knee Right E Baseplate Tibial Trabecular Metal - [id number] Implanted:Qty: 1 on 11/16/2021 by Tal Khan MD at [facility] Right: Knee [employer] [id number] 05/22/2031 [id number] / / [id number] [employer] Persona 10mm Knee Right 6-7 E-F Insert Articular Vivacit-E [id number] - [id number] Implanted:Qty: 1 on 11/16/2021 by Tal Khan MD at [facility] Right: Knee [employer] [id number] 07/05/2026 [id number] / / [id number] [employer] [id number] Persona Cruciate Retaining Knee Right 6 Standard Component - [id number] Implanted:Qty: 1 on 11/16/2021 by Tal Khan MD at [facility] Right: Knee [employer] [id number] 01/25/2030 [id number] / / [id number] Procedures Procedure Name Priority Date/Time Associated Diagnosis Comments SCREENING MAMMOGRAM BILATERAL W SUNNY Schedule Routine, Read Routine (OP Routine) 12/06/2023 1:34 PM CDT Screening mammogram, encounter for PAP AND HIGH RISK HPV, REFLEX TO GENOTYPING Routine 07/23/2021 4:38 PM JOURNALISM INTERNSHIP ASCUS of cervix with negative high risk [...] to prior imaging studies performed at [facility] on 01/03/2020 and 06/08/2022, and at [facility] on 03/31/2021. There are scattered areas of [...] to prior imaging studies performed at [facility] on 01/03/2020 and 06/08/2022, and at [facility] on 03/31/2021. There are scattered areas of fibroglandular density. There is no suspicious abnormality in either breast. Impression: There is no mammographic evidence of malignancy. Annual screening mammography is recommended. OVERALL FINAL ASSESSMENT: BI-RADS CATEGORY 1: Negative. us Self Screening Mammogram IMG MAMMO PROCEDURES Fi nal Result * Pap and High Risk HPV, reflex to Genotyping (07/23/2021 4:38 PM JOURNALISM INTERNSHIP) Thin prep (Pap test) 07/23/2021 4:38 PM JOURNALISM INTERNSHIP 07/23/2021 7:19 PM JOURNALISM INTERNSHIP Narrative PATHOLOGY [facility] - 07/28/2021 2:14 PM CDT EPIC results best viewed via link to PDF [facility] [place] [address] Note to Patients: This report may contain [...] Gender: F : 1970 (Age: 50) Address: [address] [place] [address] Hospital #: [id number] Service: Gynecology Location: [facility] Patient Type: [facility] Ancillary Taken: 07/23/2021 Received: 07/23/2021 Accessioned: 07/26/2021 [...] 66. This HPV test was performed at [facility] in [place], [place] utilizing the Gen-Probe Aptima assay. 07/28/2021 [...] since. The HPV test was performed by [facility], [address] [place] [address]. Report Images and scanned documents, if included only viewable in PDF version The performance characteristics of some immunohistochemical stains, in-situ hybridization and fluorescence in-situ hybridization tests and immunophenotyping by flow cytometry cited in this report (if any) were determined by the Surgical Pathology Department at [facility] as part of an ongoing quality control supervisor program and in compliance with federally mandated [...] determined by the Surgical Pathology Department of [facility]. It has not been cleared or approved by the U. S. Food and Drug Administration. Olivia Mata MD LAB CYTOLOGY ORDERABLES F inal Result PATHOLOGY [facility] 3rd Floor [place], [place] [phone] * COLONOSCOPY (02/03/2021 11:03 AM CDT) Anatomical Region Laterality Modality Other Narrative Procedure Note Syd Toney MD - 02/03/2021 11:03 AM CDT [facility] ENDOSCOPY [facility] Patient Name: Tanner Torre Procedure Date: 02/03/2021 11:03 AM Date of : 1970 Admit Type: Outpatient Age: 50 Gender: Female Attending MD: Syd Urbina M.D. Room: [facility] ENDOSCOPY ROOM 9 Note Status: Finalized [...] The scope was passed under direct vision.The [id number] endoscope was introduced through the anus and advanced to the cecum, identified by appendiceal orifice and ileocecal valve. The colonoscopy was performed without difficulty. The patient tolerated the procedure well. The qualityof the bowel preparation was good. The quality of the bowel preparation was evaluated using the BBPS([place] Bowel Preparation Scale) with scores of: RightColon [...] following this procedure please call my office [phone]). After hours and eveningsplease call [phone] and speak to the GI fellow oncall. [...] On: 02/03/2021 11:03 AM Recognized by the [employer] for promoting quality in endoscopy Syd Urbina MD ENDOSCOPY PROCEDURES Final Result from Last 3 Months or Most Recently Relevant to Health Maintenance Insurance [place] [facility] [place] [facility] DIVISION HUMANA CHOICE MEDICARE PPO MEDICARE HU[place]NA CHOICE MEDICARE PPO DIVISION [place]ICA[place] SPEND[place] MEDICARE COMMUNITY PLAN [facility] MEDIC[facility] Address: [address] [address] [place]ICAID [place] SPEND[place] Member Subscriber Plan / Payer (Ef fective 2023-Present) Name:Tanner Torre Relation to Subscriber:Self Name:Tanner Torre Payer ID:[id number] Group ID:Not on file Type:MEDICAID [place] Address: [address] MEDICARE COMMUNITY PLAN [facility] MEDICARE Address: [address] [address] Advance Directives For more information, please contact: [phone] * Full Code (Latest Code Status on [...] 4:45 PM 02/27/2020 8:25 PM Care Teams Software Test Automation Engineer Relationship Specialty Start Date End Date Rafael Gutierrez MD [address] [place] [address] PCP - General Family Medicine 12/06/23 Carla Padron PT Physical Therapist Physical Therapy 11/17/21
--- OUTSIDE RECORDS SUMMARY | 2024-07-02 04:52 | XMS_ITS | Encounter Summary ---
Author Organization [facility] Healthcare Address [address] [place] [address] Care Team Providers Care Granulator Name Role Phone Jamil Covington MD Primary Care Provider [phone] Carla Padron PT Unavailable Unavailable Adrienne Salcedo MD Primary Care Provider [phone] Rafael Gutierrez MD Primary Care Provider Encounter Details Date Type Department Care Team (Late st Contact Info) Description 12/28/2021 Telephone [facility] Primary Care Medicine Clinic [address] [facility] [address] [place], [place] [id number] Jamil Covington MD [address] [facility] [address] [place] [address] Social History Tobacco Use Types [...] on file Legal Sex Female 7:40 PM INDUSTRY CONSULTANT Gender Identity Not on file Sexual Orientation [...] on filedocumented in this encounter Care Teams Granulator Relationship Specialty Start Date End Date Jamil Covington MD PCP - General 10/31/20 11/03/23 Adrienne Salcedo MD PCP - General 11/04/23 12/05/23 Rafael Gutierrez MD [address] [place] [address] PCP - General Family Medicine 12/06/23 Carla Padron PT Physical Therapist Physical Therapy 11/17/21 documented as of this encounter
--- OUTSIDE RECORDS SUMMARY | 2024-07-02 04:52 | XMS_ITS | Referral Summary ---
Author Organization [facility] Address [address] [place] [address] Care Team Providers Care Sample Steamer Name Role Phone Carla Padron PT Unavailable Unavailable Rafael Gutierrez MD Primary Care Provider Encounters Date Type Department Care Team Description 06/04/2024 9:15 AM COMBINATION WELDER APPRENTICE [facility] [address] [place] [address] Outpatient Health 4th Floor [address] [place] [address] Rafael Wang, DPM Onychomycosis [B35.1] (Primary Dx); Tinea unguium; Enlarged and hypertrophic nails from Last 3 Months Allergies Active Allergy Reactions Criticality Noted Date Comments Bromelains Itching Low 12/08/2020 Mccrory And Derivatives Hives Medium 12/05/2019 Crab Hives Medium 12/05/2019 Carries benadryl in purse Lemon Itching Low 12/19/2017 Onion Swelling Medium 12/19/2017 Pettis Juice Itching Low 12/19/2017 Shrimp Hives,Itching Medium 08/11/2020 [place] Hives Medium 12/19/2017 Medications fluticasone propionate (FLONASE) [...] ORAL)Indications:suppl ement Take 1 capsule by mouth label pinker before breakfast Take 1 capsule by mouth [...] 1 tablet (20 mg total) by mouth label pinker before breakfast 90 tablet 3 024 Active [...] 06/20/2023 Assessment & Plan (06/20/2023 1:39 PM COMBINATION WELDER APPRENTICE): Worsening hand pain bilaterally in all joints, [...] symptoms. Assessment & Plan (04/10/2023 4:29 PM COMBINATION WELDER APPRENTICE): - Ambulatory referral to ophthalmology - CTM Hyperpigmentation 04/10/2023 Overview (04/10/2023): One week history of hyperpigmented macules on L lower abdomen. Not associated with pruritus, erythema, drainage. Likely benign. Assessment & Plan (04/10/2023 4:18 PM COMBINATION WELDER APPRENTICE): - Reassured patient that most likely benign - CTM Onychomycosis 06/30/2022 Overview (04/10/2023): Endorses progressive darkening/thickening of toenails, consistent with physical exam Assessment & Plan (04/10/2023 4:25 PM COMBINATION WELDER APPRENTICE): - Ciclopirox solution daily - CTM History of total knee arthroplasty 05/19/2022 Assessment & Plan (05/19/2022 8:44 AM COMBINATION WELDER APPRENTICE): H/o R TKA in 11/2021 w/ unremarkable [...] 05/11/2022 Assessment & Plan (05/19/2022 8:37 AM COMBINATION WELDER APPRENTICE): Hosp 05/11- w/ BRBPR that spontaneously resolved. CTAP during admission w/ diverticulosis, no active extravazation. No need for GI intervention d/t spontaneous resolution. Hgb stable at d/c. No sxs today of anemia and no further episodes noted. - continue to monitor - encouraged soft BMs Assessment & Plan (05/14/2022 12:13 PM COMBINATION WELDER APPRENTICE): This is resolved. No further episodes after arrival on floor. Suspect anorectal etiology such as hemorrhoids or diverticular bleeding (seen on c-scope 01/2021). Hb stable, hemodynamically stable. -Continue to maintain soft BMs. Osteoarthritis of knee, unspecified 11/16/2021 Primary osteoarthritis of right knee 10/06/2021 Overview (10/06/2021): Added automatically from request for surgery [id number] Weight loss counseling, encounter for 01/25/2021 Overview (07/15/2021): Stable around 230 lbs. Discussed weight loss at last visit 04/04. Today _ Met with Nutrition Assessment & Plan (07/15/2021 9:28 AM COMBINATION WELDER APPRENTICE): Discussed weight loss strategies with pt today, including importance of caloric restrictions. With goal of eating < 500 calories below BMR to lose 1-2 lb's weekly. Pt is amenable to meeting with our communications associate, the referral be placed today. Assessment & Plan (03/25/2021 5:46 PM COMBINATION WELDER APPRENTICE): Discussed weight loss strategies with pt today, including importance of caloric restrictions. With goal of eating < 500 calories below BMR to lose 1-2 lb's weekly. Pt is amenable to meeting with our communications associate, the referral be placed today. H/O vaginal [...] today. Assessment & Plan (07/15/2021 3:21 PM COMBINATION WELDER APPRENTICE): -counseled on use of Crisco as needed [...] (01/27/2020): Added automatically from request for surgery [id number] Varicose veins of leg with pain, bilateral 01/26 Primary hyperparathyroidism 01/27/2020 Assessment & Plan (08/10/2023 9:49 AM CDT): Saw endo surg today, planning for surgery which I informed patient could help with symptoms of joint pain but we will have to monitor after surgery to see. Encouraged to take vitamin D Assessment & Plan (06/20/2023 1:33 PM COMBINATION WELDER APPRENTICE): Patient with persistent joint pain in hands, [...] preference. Assessment & Plan (04/10/2023 4:08 PM COMBINATION WELDER APPRENTICE): - Ambulatory referral to OBGYN for further management Hypercalcemia 10/16/2019 Overview (04/10/2023): Calcium mildly elevated to 10.8 in 05/2022. PTH upper limit of normal in 04/2022. Denies symptoms of hypercalcemia. May be primary hyperparathyroidism vs FHH. Assessment & Plan (04/10/2023 4:17 PM COMBINATION WELDER APPRENTICE): - F/u repeat calcium, VitD, PTH - Consider referral to endocrine in future - Discuss repeat DEXA at next visit Assessment & Plan (05/14/2022 12:14 PM COMBINATION WELDER APPRENTICE): In the setting of elevated and inappropriately [...] rheumatology Assessment & Plan (04/10/2023 4:23 PM COMBINATION WELDER APPRENTICE): - Omeprazole 20 mg daily - CTM Hypertension, essential 02/13/2019 Overview (04/10/2023): Current regimen: Lisinopril 20mg, endorses compliance. HCTZ discontinued in 04/2022 due to hypercalcemia. Monitors BP at home, SBP 130-140. BP 137/49 in clinic today. Assessment & Plan (08/10/2023 9:09 AM CDT): Well controlled, continue current regimen Assessment & Plan (04/10/2023 4:15 PM COMBINATION WELDER APPRENTICE): - Continue lisinopril 20 mg - F/u CMP Assessment & Plan (05/14/2022 12:15 PM COMBINATION WELDER APPRENTICE): Continue Lisinopril -d/c Hctz on discharge given hypercalcemia Assessment & Plan (07/15/2021 3:22 PM COMBINATION WELDER APPRENTICE): -well-controlled, continue current regimen Assessment & Plan (03/25/2021 5:41 PM COMBINATION WELDER APPRENTICE): - BP today 125/83, goal < 130/80 - Current regimen: Lisinopril 20mg, HCTZ 12.5mg daily - Endorses compliance to current regimen Assessment & Plan (10/16/2019 9:35 PM CDT): BP at goal today 122/70 - Continue lisinopril-HCTZ 10-12.5 Assessment & Plan (07/15/2019 4:57 PM COMBINATION WELDER APPRENTICE): BP at goal today on manual check, [...] numbers Assessment & Plan (04/10/2023 4:11 PM COMBINATION WELDER APPRENTICE): - Continue home pain medication regimen: flexeril 10 mg QHS PRN, amitriptyline 10 mg QHS, gabapentin 900 mg TID, APAP 1000 mg Q8H PRN, lidocaine patches PRN - Counseled patient to avoid NSAIDs due to history of GIB - Ambulatory referral to PT - Ambulatory referral to orthopedic surgery Assessment & Plan (05/19/2022 8:41 AM COMBINATION WELDER APPRENTICE): 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 Assessment & Plan (07/15/2021 3:25 PM COMBINATION WELDER APPRENTICE): Continue current regimen Assessment & Plan (07/15/2019 5:03 PM COMBINATION WELDER APPRENTICE): - Lipid panel (07/15/19): TC 179, HDL [...] knee. Assessment & Plan (07/15/2021 3:15 PM COMBINATION WELDER APPRENTICE): - XR left knee 08/03 initial read: [...] improve Assessment & Plan (03/25/2021 5:44 PM COMBINATION WELDER APPRENTICE): Known multijoint osteoarthritis most significant in right [...] counseled Assessment & Plan (04/10/2023 4:21 PM COMBINATION WELDER APPRENTICE): - Revisit veronika [place] at next visit Morbid obesity with BMI of 50.0-59.9, adult 07/15/2019 06/15/2023 Assessment & Plan (07/15/2019 4:58 PM COMBINATION WELDER APPRENTICE): Recommended patient eat a heart healthy diet [...] 05/12/2022 How often do you attend chur Fantasy Shopper or lutheran services? Never 05/12/2022 Do you belong to any clubs o r organizations such as latter-day groups, unions, fraternal or athletic groups, or [...] place to sleep or slept in a half-way (including now)? No 05/12/2022 Personal Safety Answer Date Recorded Have you ever been in or are you currently in a harmful physical or emotional relationship or is someone making you feel afraid or unsafe? Denies 09/05/2023 Comments No Sex and Gender Information Value Date Recorded Sex Assigned at Not on file Legal Sex Female 7:40 PM COMBINATION WELDER APPRENTICE Gender Identity Not on file Sexual Orientation [...] as needed Medical Devices Implanted Type Area Weather Forecaster Device Identifier Shelf Expiration Date Model / Serial / Lot [employer] [id number] Continuum 48mm 12 Scallop Cluster Hole Snap Fit Groove Integrate - [id number] Implanted:Qty: 1 on 02/26/2020 by Tal Khan MD at [facility] Right: Hip [employer] [id number] 04/13/2029 [id number] / / [id number] [employer] [id number] Trilogy 6.5mm 40mm Self Tap Hip Acetabular Cortical Screw Bone - [id number] Implanted:Qty: 1 on 02/26/2020 by Tal Khan MD at [facility] Right: Hip [employer] [id number] 12/09/2029 [id number] / / [id number] [employer] [id number] 48mm 32mm Hip Gg Neutral Liner Acetabular Longevity Continuum - [id number] Implanted:Qty: 1 on 02/26/2020 by Tal Khan MD at [facility] Right: Hip [employer] [id number] 05/14/2023 [id number] / / [id number] [employer] [id number] Taperloc 140mm 34.3mm Press Fit Reduce Hip 133d 10 Standard - [id number] Implanted:Qty: 1 on 02/26/2020 by Tal Khan MD at [facility] Right: Hip [employer] 09/10/2029 [id number] / / [id number] [employer] [id number] 32mm Modular Hip -3mm Head Femoral Biolox Delta - [id number] Implanted:Qty: 1 on 02/26/2020 by Tal Khan MD at [facility] Right: Hip [employer] 08/20/2028 [id number] / / [id number] [employer] [id number] Persona 2 Peg Knee Right E Baseplate Tibial Trabecular Metal - [id number] Implanted:Qty: 1 on 11/16/2021 by Tal Khan MD at [facility] Right: Knee [employer] [id number] 05/22/2031 [id number] / / [id number] [employer] Persona 10mm Knee Right 6-7 E-F Insert Articular Vivacit-E [id number] - [id number] Implanted:Qty: 1 on 11/16/2021 by Tal Khan MD at [facility] Right: Knee [employer] [id number] 07/05/2026 [id number] / / [id number] [employer] [id number] Persona Cruciate Retaining Knee Right 6 Standard Component - [id number] Implanted:Qty: 1 on 11/16/2021 by Tal Khan MD at [facility] Right: Knee [employer] [id number] 01/25/2030 [id number] / / [id number] Procedures Procedure Name Priority Date/Time Associated Diagnosis Comments SCREENING MAMMOGRAM BILATERAL W SUNNY Schedule Routine, Read Routine (OP Routine) 12/06/2023 1:34 PM CDT Screening mammogram, encounter for PAP AND HIGH RISK HPV, REFLEX TO GENOTYPING Routine 07/23/2021 4:38 PM COMBINATION WELDER APPRENTICE ASCUS of cervix with negative high risk [...] compared to prior imaging studies performed at [facility] on 01/03/2020 and 06/08/2022, and at [facility] on 03/31/2021. There are scattered areas [...] compared to prior imaging studies performed at [facility] on 01/03/2020 and 06/08/2022, and at [facility] on 03/31/2021. There are scattered areas of fibroglandular density. There is no suspicious abnormality in either breast. Impression: There is no mammographic evidence of malignancy. Annual screening mammography is recommended. OVERALL FINAL ASSESSMENT: BI-RADS CATEGORY 1: Negative. us Self Screening Mammogram IMG MAMMO PROCEDURES Fi nal Result * Pap and High Risk HPV, reflex to Genotyping (07/23/2021 4:38 PM COMBINATION WELDER APPRENTICE) Thin prep (Pap test) 07/23/2021 4:38 PM COMBINATION WELDER APPRENTICE 07/23/2021 7:19 PM COMBINATION WELDER APPRENTICE Narrative PATHOLOGY [facility] - 07/28/2021 2:14 PM CDT EPIC results best viewed via link to PDF [facility] [place] [address] Note to Patients: This report may contain [...] Gender: F : 1970 (Age: 50) Address: [address] [place] [address] Hospital #: [id number] Service: Gynecology Location: [facility] Patient Type: [facility] Ancillary Taken: 07/23/2021 Received: 07/23/2021 Accessioned: [...] 66. This HPV test was performed at [facility] in [place], [place] utilizing the Gen-Probe Aptima assay. 07/28/2021 [...] since. The HPV test was performed by [facility], [address] [place] [address]. Report Images and scanned documents, if included only viewable in PDF version The performance characteristics of some immunohistochemical stains, in-situ hybridization and fluorescence in-situ hybridization tests and immunophenotyping by flow cytometry cited in this report (if any) were determined by the Surgical Pathology Department at [facility] as part of an ongoing plant quality manager program and in compliance with [...] determined by the Surgical Pathology Department of [facility]. It has not been cleared or approved by the U. S. Food and Drug Administration. us Jinai Adil Bharucha MD LAB CYTOLOGY ORDERABLES F inal Result PATHOLOGY [facility] 3rd Floor [place], [place] [phone] * COLONOSCOPY (02/03/2021 11:03 AM CDT) Anatomical Region Laterality Modality Other Narrative Procedure Note Syd Toney MD - 02/03/2021 11:03 AM CDT GI ENDOSCOPY [facility] Patient Name: Tanner Torre Procedure Date: 02/03/2021 11:03 AM Date of : 1970 Admit Type: Outpatient Age: 50 Gender: Female Attending MD: Syd Urbina M.D. Room: [facility] ENDOSCOPY ROOM 9 Note Status: Finalized Procedure: Colonoscopy Indications: Screening for colon cancer: Family history of colorectal cancer in distant relative(s) Referring MD: Parker Villaseñor M.D. Providers: Sdy Urbina M.D. Medicines: Monitored Anesthesia Care Complications: [...] scope was passed under direct vision.The CF [id number] endoscope was introduced through the anus and advanced to the cecum, identified by appendiceal orifice and ileocecal valve. The colonoscopy was performed without difficulty. The patient tolerated the procedure well. The qualityof the bowel preparation was good. The quality of the bowel preparation was evaluated using the BBPS([place] Bowel Preparation Scale) with scores of: RightColon [...] following this procedure please call my office [phone]). After hours and eveningsplease call [phone] and speak to the GI fellow blanca. [...] On: 02/03/2021 11:03 AM Recognized by the [place] for promoting quality in endoscopy Syd Urbina MD ENDOSCOPY PROCEDURES Final Result from Last 3 Months or Most Recently Relevant to Health Maintenance [facility] [place] [id number] [employer] CHOICE MEDICARE PPO MEDICARE [place] CHOICE MEDICARE PPO [facility] [place] MED[place] COMMUNITY [place]AN [place] COMMUNITY [place]AN Advance Directives For more information, please contact: [phone] * Full Code (Latest Code Status on [...] 4:45 PM 02/27/2020 8:25 PM Care Teams Sample Steamer Relationship Specialty Start Date End Date Rafael Gutierrez MD [address] [place] [address] PCP - General Family Medicine 12/06/23 Carla Padron PT Physical Therapist Physical Therapy 11/17/21
--- OUTSIDE RECORDS SUMMARY | 2024-07-02 04:53 | XMS_ITS | Encounter Summary ---
Author Organization [facility] Healthcare Address [address] [place] [address] Care Team Providers Care Firewall Engineer Name Role Phone Jamil Covington MD Primary Care Provider [phone] Carla Padron PT Unavailable Unavailable Adrienne Salcedo MD Primary Care Provider [phone] Rafael Gutierrez MD Primary Care Provider Encounter Details Date Type Department Care Team (Late st Contact Info) Description 05/13/2022 Documentation [facility] Social Work [address] [place] [address] Gokul Casey MSW Social History Tobacco Use [...] How often do you attend chur or judaism services? Never 05/12/2022 Do you belong to any clubs o r organizations such as spiritism groups, unions, fraternal or athletic groups, or [...] on file Legal Sex Female 7:40 PM NUCLEAR SCIENTIST Gender Identity Not on file Sexual Orientation [...] on filedocumented in this encounter Care Teams Firewall Engineer Relationship Specialty Start Date End Date Jamil Covington MD PCP - General 10/31/20 11/03/23 Adrienne Salcedo MD PCP - General 11/04/23 12/05/23 Rafael Gutierrez MD [address] [place] [address] PCP - General Family Medicine 12/06/23 Carla Padron PT Physical Therapist Physical Therapy 11/17/21 documented as of this encounter
--- OUTSIDE RECORDS SUMMARY | 2024-07-02 04:53 | XMS_ITS | Encounter Summary ---
Author Organization [facility] Healthcare Address [address] [place] [address] Care Team Providers Care Pomology Teacher Name Role Phone Jamil Covington MD Primary Care Provider [phone] Carla Padron PT Unavailable Unavailable Adrienne Salcedo MD Primary Care Provider [phone] Rafael Gutierrez MD Primary Care Provider Encounter Details Date Type Department Care Team (Late st Contact Info) Description 12/14/2022 Telephone [facility] Primary Care Medicine Clinic [address] [facility] [address] [place] [address] Jamil Covington MD [address] [facility] [address] [place] [address] Social History Tobacco Use Types [...] week 05/12/2022 How often do you attend [facility] or confucianism services? Never 05/12/2022 Do you belong to any clubs o r organizations such as orthodoxy groups, unions, fraternal or athletic groups, or [...] in a half-way (including now)? No 05/12/2022 Comments No Sex and Gender Information Value Date Recorded Sex Assigned at Not on file Legal Sex Female 7:40 PM NURSE PLASTICS Gender Identity Not on file Sexual Orientation [...] on filedocumented in this encounter Care Teams Pomology Teacher Relationship Specialty Start Date End Date Jamil Covington MD PCP - General 10/31/20 11/03/23 Adrienne Salcedo MD PCP - General 11/04/23 12/05/23 Rafael Gutierrez MD [address] [place] [address] PCP - General Family Medicine 12/06/23 Carla Padron PT Physical Therapist Physical Therapy 11/17/21 documented as of this encounter
--- OUTSIDE RECORDS SUMMARY | 2024-07-02 04:53 | XMS_ITS | Continuity of Care Document ---
Author Organization [facility] Address [address] [place] [address] Phone Care Team Providers Care Inspector [employer] Name Role Phone Boules DMD, Abran Unavailable [...] COLLECTION OF VENOUS BLOOD BY VENIPUNCTU RE N.GONORRHOEAE, DNA, AMP PROB CYTP C/V AUTO THIN LYR PREPJ SCR SYS PHY S PERIODIC COMPREHENSIVE PREVENTIVE MED RE E/M; 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; 40-64 CHYLMD TRACH, DNA, AMP PROBE SMEAR, WET MOUNT, SALINE/INK OFFICE/OUTPATIENT VISIT, EST GLUCOSE BLOOD TEST LIPID PANEL BLOOD COUNT; COMPLETE (CBC), AUTOMATED D IFF RHEUMATOID FACTOR; QUANTITATIVE 007 COLLECTION OF VENOUS BLOOD BY VENIPUNCTU RE GLUCOSE BLOOD TEST ANTINUCLEAR ANTIBODIES (JANIS); TITER COMPRE METAB PANEL THYROID STIMULATING HORMONE (TSH) OFFICE OUTPT NEW 20 MINUTES OFFICE CONSULT, 15 MIN, 3 KE Y COMPS: PROB FOCUS HX; PROB FOCUS EXAM; STRTFWD Advance Directives Directive Yes / No Effective Date File Name No Information Encounters Encounter Description Practice Location Reason(s) For Visit Diagnoses Date Provider Providers Copied on Encounter [facility], [address], [place], [place], [address] , tel:[phone] [facility] [place] Encounter for dental exam and cleaning w abnormal findings 4 Juliette Osullivan. [address], [place], [place], [address]. tel:[phone] Referring Provider: Abran Segovia, [address], [place], [address] . tel:[phone] [facility], [address], [place], [place], [address] , tel:[phone] [facility] No Information 3 Faraz Yadav. [address], [place], [place], [address]. tel:[phone] Referring Provider: Leif Ruth, [address], [place], [address] . tel:[phone] [facility], [address], [place], [place], [address] , tel:[phone] [facility] Dental caries on pit and fissure surfc penetrat into dentin 3 Yvette Adame. [address], [place], [address], [place]. tel:[phone] [facility], [address], [place], [place], [address] , tel:[phone] [facility] [place] Encounter for dental exam and cleaning w abnormal findings 3 David Marx. [address], [place], [place], [address]. tel:[phone] [facility], [address], [place], [place], [address] , [place] tel:[phone] [facility] No Information 3 David Marx. [address], [place], [place], [address]. tel:[phone] [facility], [address], [place], [address] , [place] tel: [phone] [facility] [place] Dental caries, unspecified 2 No Information Referring Provider: Leo Alexander, [address], [place], [address] . tel:[phone] [facility], [address], [place], [place], [address] , [place] tel: [phone] [facility] [place] Encounter for dental exam and cleaning w abnormal findings 2 David Marx. [address], [place], [place], [address]. tel:[phone] [facility], [address], [place], [place], [address] , [place] tel: [phone] [facility] [place] Encounter for dental exam and cleaning w abnormal findings 1 Unruly Yusuf. [address], [place], [place], [address]. tel:[phone] Referring Provider: Paramjit Tolliver, [address], [place], [address] . tel:[phone] [facility], [address], [place], [place], [address] , [place] tel:[phone] [facility] [place] Encounter for dental exam and cleaning w abnormal findings 1 Unruly Yusuf. [address], [place], [place], [address]. tel:[phone] Referring Provider: Paramjit Tolliver, [address], [place], [address] . tel:[phone] [facility], [address], [place], [place], [address] , [place] tel:[phone] [facility] [place] Other chronic pain 1 James Hale. [address], [place], [address], [place]. tel:[phone] [facility], [address], [place], [place], [address] , tel:[phone] [facility] No Information 0 James Hale. [address], [place], [place], [address], [place]. tel:[phone] [facility], [address], [place], [place], [address] , [place] tel:[phone] [facility] [place] Encounter for dental exam and cleaning w abnormal findings 0 Unruly Yusuf. [address], [place], [place], [address]. tel:[phone] Referring Provider: Paramjit Tolliver, [address], [place], [address] . tel:[phone] [facility], [address], [place], [place], [address] , [place] tel:[phone] [facility] [place] Dental caries on smooth surface penetrating into dentinDental caries on pit and fissure surfc penetrat into dentin 0 Unruly Yusuf. [address], [place], [place], [address]. tel:[phone] Referring Provider: Paramjit Tolliver, [address], [place], [address] . tel:[phone] [facility], [address], [place], [address] , [place] tel:[phone] [facility] [place] Encounter for dental exam and cleaning w abnormal findings 0 David Marx. [address], [place], [place], [address]. tel:[phone] [facility], [address], [place], [place], [address] , tel:[phone] [facility] [place] Encounter for dental exam and cleaning w/o abnormal findings 0 No Information [facility], [address], [place], [address] [place] [address] , tel: [phone] [facility] No Information 0 No Information [facility], [address], [place], [address] [place] [address] , tel: [phone] [facility] No Information 0 James Hale. [address], [place], [address] [place] [address], . tel:[phone] [facility], [address], [place], [address] [place] [address] , tel: [phone] [facility] [place] No Information 0 King Summer. [address], [place], [address] [place] [address], . tel:[phone] [facility], [address], [place], [address] [place] [address] , tel: [phone] [facility] [place] No Information 0 King Summer. [address], [place], [address] [place] [address], [place]. tel:[phone] OFFICE/OUTPATI ENT VISIT, EST [facility], [address], [place], [address] [place] [address] , tel: [phone] [facility] [place] pain (chief complaint) Body mass index (BMI) 40.0-44.9, adultUnilate ral post-traumat ic osteoarthrit is, right hip 0 James Hale. [address], [place], [address] [place] [address], [place]. tel:[phone] Referring Provider: Alexia Ramirez, [address], [place], [address] . tel:[phone] [facility], [address], [place], [address] [place] [address] , [place] tel: [phone] [facility] [place] Major depressive disorder, recurrent, moderateObes ity, unspecified Jul- 0 Gokul Mcduffie. [address], [place], [address] [place] [address], . tel:[phone] 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; 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; 40-64 [facility], [address], [place], [place], [address] , tel: [phone] [facility] [place] annual exam (chief complaint)residential treatment staff hx (chief complaint) Encntr for residential treatment staff exam (general) (routine) w/o abn findingsEnco unter for screening for cancer of colonEncount er for screening for HIVEncounter for STI screeningEnc ounter for screening mammogram for cancer of breastBody mass index (BMI) 40.0-44.9, adult 0 [facility]. [address], [place], [place], [address], . tel:[phone] OFFICE OUTPT EST 25 MIN [facility], [address], [place], [place], [address] , tel: [phone] [facility] [place] c/o vaginal discharge (chief complaint) Body mass index (BMI) 40.0-44.9, adultVaginit isEncounter for STI screeningEnc ntr for residential treatment staff exam (general) (routine) w/o abn findings No Information OFFICE/OUTPATI ENT VISIT, EST [facility], [address], [place], [address] , [place] tel: [phone] [facility] [place] pain (chief complaint) Body mass index (BMI) 40.0-44.9, adultAchille s tendinitis, unspecified leg 9 James Hale. [address], [place], [place], [address], . tel:[phone] Referring Provider: Alexia Ramirez, [address], [place], [address] . tel:[phone] OFFICE/OUTPATI ENT VISIT, NEW [facility], [address], [place], [place], [address] , tel:[phone] [facility] [place] Foot (chief complaint) Body mass index (BMI) 40.0-44.9, adultAchille s tendinitis, unspecified legCalcaneal spur, unspecified foot [place]- 9 No Information [facility], [address], [place], [place], [address] , [place] tel: [phone] [facility] [place] No Information [place]- 9 No Information OFFICE/OUTPATI ENT VISIT, EST [facility], [address], [place], [place], [address] , [place] tel: [phone] [facility] [place] / ankle pain (chief complaint) Achilles tendinitis, unspecified leg [place]- 9 No Information OFFICE/OUTPATI ENT VISIT, EST [facility], [address], [place], [place], [address] , [place] tel: [phone] [facility] [place] check up (chief complaint) Achilles tendinitis, unspecified legCalcaneal spur, unspecified footCarpal tunnel syndrome, unspecified upper limbPain in unspecified kneeBack painPain in unspecified hip Oct-0 9 James Hale. [address], [place], [place], [address], [place]. tel:[phone] OFFICE/OUTPATI ENT VISIT, EST [facility], [address], [place], [place], [address] , [place] tel: [phone] [facility] follow up (chief complaint) Body mass index (BMI) 40.0-44.9, adultChronic pain syndromeMajo r depressive disorder, single episode, unspecifiedP ain in unspecified footEssentia l (primary) hypertension Carpal tunnel syndrome, unspecified upper limb Oct-0 9 No Information [facility], [address], [place], [place], [address] , [place] tel: [phone] [facility] [place] blurry vision (chief complaint)karla rry vision (chief complaint) Hypermetropi a, left eyeRegular astigmatism, bilateralPre sbyopia Milton-0 9 Xenia Crawford. [address], [place], [place], [address], [place]. tel:[phone] Referring Provider: Ekaterina King, [address], [place], [address] . tel:[phone] OFFICE/OUTPATI ENT VISIT, EST [facility], [address], [place], [place], [address] , tel:[phone] [facility] medication refills (chief complaint) Body mass index (BMI) 40.0-44.9, adultPrimary generalized (osteo)arthr itisMajor depressive disorder, recurrent, moderateEsse ntial (primary) hypertension Hyperlipidem iaChronic pain syndrome No Information Referring Provider: Ekaterina King [address], [place], [address] . tel:[phone] [facility], [address], [place], [place], [address] , [place] tel: [phone] [facility] [place] /neck pain (chief complaint) CervicalgiaS egmental and somatic dysfunction of thoracic region No Information Referring Provider: Ekaterina King [address], [place], [address] . tel:[phone] OFFICE/OUTPATI ENT VISIT, EST [facility], [address], [place], [place], [address] , [place] tel:[phone] [facility] [place] /neck pain (chief complaint) CervicalgiaS egmental and somatic dysfunction of thoracic region No Information Referring Provider: Ekaterina King [address], [place], [address] . tel:[phone] [facility], [address], [place], [place], [address] , [place] tel:[phone] [facility] Neck, shoulder, back, and hip pain (chief complaint) Body mass index (BMI) 40.0-44.9, adult Fe No Information OFFICE/OUTPATI ENT VISIT, EST [facility], [address], [place], [place], [address] , [place] tel:[phone] [facility] hypertension (chief complaint)Mus culoskeletal pain (chief complaint)Hyp erlipidemia (follow up) (chief complaint) Body mass index (BMI) 38.0-38.9, adultAchille s tendinitis of legEssential (primary) hypertension Hyperlipidem iaPain in left shoulderPrim pretty generalized (osteo)arthr itis Jan-2 0- 8 No Information [facility], [address], [place], [place], [address] , [place] tel: [phone] [facility] [place] /neck pain (chief complaint) CervicalgiaS egmental and somatic dysfunction of thoracic region Jan-0 8 No Information [facility], [address], [place], [place], [address] , [place] tel: [phone] [facility] [place] /BL ankles (chief complaint) Achilles tendinitis of legSegmental and somatic dysfunction of lower extremity 8 No Information 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; 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; 40-64 [facility], [address], [place], [place], [address] , [place] tel: [phone] [facility] [place] annual exam (chief complaint)residential treatment staff hx (chief complaint) Body mass index (BMI) 39.0-39.9, adultVaginit isScreening for cervical cancerEncoun ter for STI screeningEnc ounter for screening mammogram for cancer of breastEncoun ter for screening for HIVEncounter for routine residential treatment staff exam w/ abnormal findingObesi ty, unspecifiedE ncounter for screening for other disorder 8 Fernando Tobar. [address], [place], [place], [address], [place]. tel:[phone] Referring Provider: Ekaterina King [address], [place], [address] . tel:[phone] OFFICE OUTPT EST 25 MIN [facility], [address], [place], [place], [address] , [place] tel: [phone] [facility] [place] follow up (chief complaint)Hyp erlipidemia (follow up) (chief complaint)Hyp ertension (follow up) (chief complaint)Obe sity (chief complaint)Ost eoarthritis (chief complaint) Body mass index (BMI) 39.0-39.9, adultObesity , unspecifiedH yperlipidemi aHTNPain in right hip 8 No Information [facility], [address], [place], [place], [address] , [place] tel: [phone] [facility] [place] Right hip pain (chief complaint)Lef t achilles (chief complaint) Osteoarthrit is of hip, unspecifiedA chilles tendinitis of leg 8 No Information [facility], [address], [place], [place], [address] , [place] tel: [phone] [facility] [place] right hip pain (chief complaint)lef t Achilles (chief complaint) Osteoarthrit is of hip, unspecifiedA chilles tendinitis of leg 8 No Information [facility], [address], [place], [place], [address] , [place] tel: [phone] [facility] [place] left Achilles (chief complaint)rig ht hip (chief complaint)nec k pain (chief complaint) Achilles tendinitis of legOsteoarth ritis of hip, unspecifiedM yofascial pain syndrome 8 No Information [facility], [address], [place], [place], [address] , [place] tel: [phone] [facility] [place] hip and Achilles (chief complaint) Achilles tendinitis of legPain in right hip 8 No Information [facility], [address], [place], [place], [address] , [place] tel: [phone] [facility] [place] hip and Achilles pain (chief complaint) Sprain of ligaments of cervical spine, sequelaOsteo arthritis of hip, unspecifiedA chilles tendinitis of legSegmental and somatic dysfunction of lumbar regionSegmen valencia and somatic dysfunction of lower extremity 8 No Information [facility], [address], [place], [place], [address] , [place] tel: [phone] [facility] [place] right hip pain (chief complaint)lef t Achilles pain (chief complaint) Achilles tendinitis of legPain in right hipOsteoarth ritis of hip, unspecifiedS egmental and somatic dysfunction of lower extremitySeg mental and somatic dysfunction of lumbar region Jul-05 16- 8 No Information [facility], [address], [place], [place], [address] , [place] tel: [phone] [facility] [place] right hip pain (chief complaint)Ach illes pain (chief complaint) Pain in right hipOsteoarth ritis of hip, unspecifiedS egmental and somatic dysfunction of lower extremitySeg mental and somatic dysfunction of lumbar region Jul-0 8 No Information [facility], [address], [place], [place], [address] , [place] tel: [phone] [facility] [place] right hip and left Achilles pain (chief complaint) Achilles tendinitis of legPain in right hipOsteoarth ritis of hip, unspecifiedS egmental and somatic dysfunction of lumbar regionSegmen valencia and somatic dysfunction of lower extremity Feb-2 - 8 No Information [facility], [address], [place], [address] , [place] tel: [phone] [facility] [place] right hip pain (chief complaint)lef t Achilles pain (chief complaint) Achilles tendinitis of legPain in right hipSegmental and somatic dysfunction of lumbar regionSegmen valencia and somatic dysfunction of lower extremity Feb-2 - 8 No Information [facility], [address], [place], [place], [address] , [place] tel: [phone] [facility] [place] right hip pain (chief complaint)ank le pain (chief complaint) Achilles tendinitis of legPain in right hipOsteoarth ritis of hip, unspecifiedS egmental and somatic dysfunction of lumbar regionSegmen valencia and somatic dysfunction of lower extremity b-05 20- 8 No Information OFFICE/OUTPATI ENT VISIT, EST [facility], [address], [place], [place], [address] , [place] tel: [phone] [facility] [place] JOSÉ MANUEL (chief complaint) Trichomonal vulvovaginit isEncounter for screening for other disorder Jun- 8 Fernando Tobar. [address], [place], [place], [address], [place]. tel:[phone] [facility], [address], [place], [place], [address] , [place] tel: [phone] [facility] [place] Encounter for dental exam and cleaning w abnormal findings b- 8 No Information [facility], [address], [place], [place], [address] , [place] tel: [phone] [facility] [place] right hip pain (chief complaint)ach illes pain (chief complaint) Achilles tendinitis of legSegmental and somatic dysfunction of lumbar regionSegmen valencia and somatic dysfunction of lower extremityPai n in right hip Feb-1 8 No Information [facility], [address], [place], [place], [address] , [place] tel: [phone] [facility] [place] right hip pain (chief complaint)Ach illes pain (chief complaint) Pain in right hipAchilles tendinitis of legOsteoarth ritis of hip, unspecifiedS egmental and somatic dysfunction of lumbar regionSegmen valencia and somatic dysfunction of lower extremity Feb-0 8- 8 No Information OFFICE/OUTPATI ENT VISIT, EST [facility], [address], [place], [place], [address] , [place] tel: [phone] [facility] [place] right hip pain (chief complaint)ach illes pain (chief complaint) Pain in right hipAchilles tendinitis of legOsteoarth ritis of hip, unspecifiedS egmental and somatic dysfunction of lumbar regionSegmen valencia and somatic dysfunction of lower extremity Feb-0 6- 8 No Information [facility], [address], [place], [place], [address] , [place] tel: [phone] [facility] [place] right hip pain (chief complaint) Pain in right hipOsteoarth ritis of hip, unspecifiedS egmental and somatic dysfunction of lower extremitySeg mental and somatic dysfunction of lumbar region Feb-0 - 8 No Information [facility], [address], [place], [place], [address] , [place] tel: [phone] [facility] [place] right hip pain (chief complaint) Pain in right hipSegmental and somatic dysfunction of lumbar regionSegmen valencia and somatic dysfunction of lower extremityOst eoarthritis of hip, unspecified 8 No Information OFFICE/OUTPATI ENT VISIT, NEW [facility], [address], [place], [place], [address] , [place] tel: [phone] [facility] [place] hip pain (chief complaint) Pain in right hip 8 No Information OFFICE/OUTPATI ENT VISIT, EST [facility], [address], [place], [place], [address] , [place] tel: [phone] [facility] [place] Check up (chief complaint) Trichomonal vulvovaginit isCandidiasi s of vulva and vaginaEncoun ter for screening for other disorderEncn tr for residential treatment staff exam (general) (routine) w abnormal findings 8 Fernando Tobar. [address], [place], [place], [address], [place]. tel:[phone] Referring Provider: Ekaterina King [address], [place], [address] . tel:[phone] OFFICE/OUTPATI ENT VISIT, EST [facility], [address], [place], [place], [address] , [place] tel: [phone] [facility] [place] Hyperlipidemi a (follow up) (chief complaint)Hyp ertension (follow up) (chief complaint)Obe sity (chief complaint)Chr onic Pain (chief complaint)Pre ventive exam (chief complaint) Hyperlipidem iaMorbid (severe) obesity due to excess caloriesHTNC hronic pain syndromeEnco unter for general adult medical examination with abnormal findings 8 No Information Psychiatric Diagnostic Evaluation [facility], [address], [place], [place], [address] , [place] tel: [phone] [facility] [place] Major depressive disorder, recurrent, moderate 7 No Information Referring Provider: Ekaterina King [address], [place], [address] . tel:[phone] OFFICE/OUTPATI ENT VISIT, EST [facility], [address], [place], [place], [address] , tel:[phone] [facility] [place] vaginal discharge/itc job (chief complaint)residential treatment staff hx (chief complaint) Candidiasis of vulva and vaginaEncoun ter for STI screeningEnc ounter for screening for other disorder [facility]. [address], [place], [place], [address], . tel:[phone] Referring Provider: Ekaterina King, [address], [place], [address] . tel:[phone] OFFICE/OUTPATI ENT VISIT, EST [facility], [address], [place], [place], [address] , tel: [phone] [facility] [place] Breast Pain (chief complaint)residential treatment staff hx (chief complaint) MastodyniaEn counter for test, result unknown [facility]. [address], [place], [place], [address], . tel:[phone] Referring Provider: Ekaterina King, [address], [place], [address] . tel:[phone] [facility], [address], [place], [place], [address] , tel:[phone] [facility] [place] Encounter for screening mammogram for cancer of breast [facility]. [address], [place], [place], [address], . tel:[phone] OFFICE OUTPT EST 25 MIN [facility], [address], [place], [place], [address] , tel:[phone] [facility] [place] Hypertension (follow up) (chief complaint)Hyp erlipidemia (follow up) (chief complaint)Obe sity (chief complaint)Ost eoarthritis (chief complaint)cHR ONIC pAIN (chief complaint) Calcaneal spur, unspecified footChronic pain syndromeHTNO besity, unspecifiedH yperlipidemi a 7 No Information OFFICE/OUTPATI ENT VISIT, EST [facility], [address], [place], [place], [address] , [place] tel: [phone] [facility] [place] vaginal discharge/itc job (chief complaint)residential treatment staff hx (chief complaint) Candidiasis of vulva and vaginaEncoun ter for STI screeningEnc ntr for residential treatment staff exam (general) (routine) w abnormal findings King [facility]. [address], [place], [place], [address], [place]. tel:[phone] Referring Provider: Ekaterina King, [address], [place], [address] . tel:[phone] 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; 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; 40-64 [facility], [address], [place], [place], [address] , tel: [phone] [facility] [place] annual exam (chief complaint)residential treatment staff hx (chief complaint) Encounter for screening for cancer of colonEncount er for screening for HIVEncounter for screening mammogram for cancer of breastEncoun ter for STI screeningEnc ntr for residential treatment staff exam (general) (routine) w/o abn findingsCons tipationMorb id (severe) obesity due to excess caloriesBody mass index (BMI) 40.0-44.9, adultEncntr for residential treatment staff exam (general) (routine) w abnormal findings 0 [facility] [address], [place], [place], [address], . tel:[phone] Referring Provider: Ekaterina King [address], [place], [address] . tel:[phone] OFFICE OUTPT EST 25 MIN [facility], [address], [place], [place], [address] , [place] tel:[phone] [facility] [place] Obesity, unspecifiedH TNCalcaneal spur, unspecified footHyperlip idemiaChroni c pain syndrome 3 7 No Information [facility], [address], [place], [place], [address] , [place] tel: [phone] [facility] [place] Dental caries on smooth surface penetrating into dentin 6 No Information OFFICE/OUTPATI ENT VISIT, EST [facility], [address], [place], [place], [address] , tel: [phone] [facility] [place] conslt (chief complaint) Prolapse of anterior vaginal wallUterovag inal prolapseEncn tr for residential treatment staff exam (general) (routine) w abnormal findings 6 Naveen-Colleenabhijit Hirsch. [address], [place], [place], [address], [place]. tel:[phone] Referring Provider: Joycelyn Naveen-Call sania, [address], [place], [address] . tel:[phone] OFFICE/OUTPATI ENT VISIT, EST [facility], [address], [place], [place], [address] , tel:[phone] [facility] [place] Vaginal irritation (chief complaint) Candidiasis of vulva and wthmnu4ll degree uterine prolapseEnco unter for test, result unknown Fernando Tob[facility]. [address], [place], [place], [address], . tel:[phone] Referring Provider: Ekaterina King, [address], [place], [address] . tel:[phone] [facility], [address], [place], [place], [address] , tel:[phone] [facility] blurry vision (chief complaint)Lon aters (chief complaint)karla rry vision (chief complaint)Lon aters (chief complaint) Myopia, bilateralPre sbyopiaVitre ous degeneration , bilateralHTN - 6 No Information [facility], [address], [place], [place], [address] , [place] tel:[phone] [facility] Encounter for dental exam and cleaning w abnormal findings 0- 6 Konrad Peña. [address], [place], [place], [address]. tel:[phone] [facility], [address], [place], [place], [address] , tel: [phone] [facility] Calcaneal spur, unspecified footCarpal tunnel syndrome, unspecified upper limb No Information OFFICE OUTPT EST 25 MIN [facility], [address], [place], [place], [address] , tel: [phone] [facility] c/o pain in both heels, ankles and hips (chief complaint)Obe sity (chief complaint)Hyp erlipidemia (follow up) (chief complaint)Hyp ertension (follow up) (chief complaint) Chronic pain syndromePain in unspecified jointObesity , unspecifiedH yperlipidemi a, unspecifiedE ssential (primary) hypertension No Information [facility], [address], [place], [place], [address] , tel: [phone] [facility] No Information Tepe Sammie. [address], [place], [place], [address], . tel:[phone] Referring Provider: Ekaterina King, [address], [place], [address] . tel:[phone] OFFICE OUTPT EST 25 MIN [facility], [address], [place], [place], [address] , tel: [phone] [facility] med exam (chief complaint)blo od pressure f/u (chief complaint)HLD f/u (chief complaint)anx iety (chief complaint)lef t hip,right knee, both hands & feet pain (chief complaint) Obesity, unspecifiedC alcaneal spur, unspecified footHyperlip idemia, unspecifiedP ain in unspecified knee No Information 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; 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; 40-64 [facility], [address], [place], [place], [address] , tel: [phone] [facility] annual exam (chief complaint)vag inal odor (chief complaint) VaginitisEnc ounter for STI screeningEnc ounter for screening mammogram for cancer of breastEncoun ter for routine residential treatment staff exam w/ abnormal findingEncou nter for screening for cancer of colonEncount er for screening for HIVEncounter for screening for other disorderEnco unter for test, result unknown 6 Fernando Tobar. [address], [place], [place], [address], [place]. tel:[phone] Referring Provider: Ekaterina King, [address], [place], [address] . tel:[phone] [facility], [address], [place], [place], [address] , [place] tel:[phone] [facility] Unruly Yusuf. [address], [place], [place], [address]. tel:[phone] Referring Provider: Paramjit Tolliver, [address], [place], [address] . tel:[phone] [facility], [address], [place], [place], [address] , [place] tel: [phone] [facility] examination No Information OFFICE/OUTPATI ENT VISIT, EST [facility], [address], [place], [place], [address] , [place] tel: [phone] [facility] Pt is here for DFE (chief complaint)Pt is here for DFE (chief complaint) PresbyopiaMy opia No Information OFFICE/OUTPATI ENT VISIT, EST [facility], [address], [place], [place], [address] , [place] tel: [phone] [facility] Follow Up of Hosp (chief complaint)KNE E DJD had shot (chief complaint) Thigh contusionChe st contusionAnx ietyHospital discharge follow-up 5 Katty Newell. [address], [place], [place], [address], [place]. tel:[phone] Referring Provider: Osiris Alaniz, [address], [place], [address] . tel:[phone] OFFICE/OUTPATI ENT VISIT, NEW [facility], [address], [place], [place], [address] , [place] tel: [phone] [facility] blurry vision (chief complaint)karla rry vision (chief complaint) Regular astigmatismM yopiaPresbyo piaAllergic conjunctivit is No Information OFFICE OUTPT EST 25 MIN [facility], [address], [place], [place], [address] , [place] tel: [phone] [facility] Right knee f/u (chief complaint)hyp ertension (chief complaint) Screening for alcoholismBe nign essential hypertension Obesity, unspecifiedE sophageal refluxOsteoa rthrosis, generalized, involving unspecified siteDepressi onKnee joint pain No Information OFFICE OUTPT EST 25 MIN [facility], [address], [place], [place], [address] , [place] tel: [phone] [facility] er f/u (chief complaint)ref errals (chief complaint) Internal knee derangementO besity, unspecifiedB enign essential hypertension Esophageal refluxHLD - Hyperlipidae [facility] No Information [facility], [address], [place], [place], [address] , [place] tel: [phone] [facility] No Information No Information OFFICE OUTPT EST 25 MIN [facility], [address], [place], [place], [address] , [place] tel: [phone] [facility] back pain (chief complaint)hip back (chief complaint)sev ere knee pain (chief complaint)hyp ertension (chief complaint) Benign essential hypertension Obesity, unspecifiedO steoarthrosi s, generalized, involving unspecified siteHLD - Hyperlipidae sh[place] 5 No Information 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; 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; 40-64 [facility], [address], [place], [place], [address] , tel: [phone] [facility] annual exam (chief complaint)vag inal discharge/itc job (chief complaint)pro lapse concern (chief complaint)bc consult (chief complaint) examination or test, unconfirmedR outine gynecologica l examinationO ther screening mammogram 5 No Information OFFICE OUTPT EST 25 MIN [facility], [address], [place], [place], [address] , tel: [phone] [facility] hosp f/u (chief complaint)hyp ertension (chief complaint)car diac cath (chief complaint)ref ills (chief complaint) Obesity, unspecifiedC hest painHTNHLD - Hyperlipidae [place] 4 No Information OFFICE OUTPT EST 25 MIN [facility], [address], [place], [place], [address] , tel: [phone] [facility] depression (chief complaint)lani at knee pain (chief complaint)mark vated bp (chief complaint) Obesity, unspecifiedK nee joint painElevated blood pressure reading w/ no diagnosis of HT 4 No Information OFFICE/OUTPATI ENT VISIT, EST [facility], [address], [place], [place], [address] , [place] tel: [phone] [facility] pain in joints (chief complaint) Carpal Tunnel SyndromeCalc aneal spurObesityK nee joint pain 4 No Information OFFICE/OUTPATI ENT VISIT, EST [facility], [address], [place], [place], [address] , [place] tel: [phone] [facility] bilat hand pain (chief complaint) Carpal Tunnel Syndrome 4 Jose Alfredo Slater. [address], [place], [place], [address], . tel:[phone] Referring Provider: Bryon Veliz, [address], [place], [address] . tel:[phone] [facility], [address], [place], [place], [address] , tel: [phone] [facility] examination 4 No Information OFFICE/OUTPATI ENT VISIT, EST [facility], [address], [place], [place], [address] , [place] tel: [phone] [facility] Carpal Tunnel SyndromeDepr essionInsomn ia due to medical condition classified elsewhereObe sity 4 No Information 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; 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; 40-64 [facility], [address], [place], [place], [address] , [place] tel: [phone] [facility] annual visit (chief complaint) Gynecologica l ExaminationS creening examination for venereal disease 4 No Information OFFICE/OUTPATI ENT VISIT, EST [facility], [address], [place], [place], [address] , [place] tel: [phone] [facility] JOSÉ MANUEL (chief complaint) Screening examination for venereal diseaseDysur ia 3 No Information OFFICE/OUTPATI ENT VISIT, EST [facility], [address], [place], [place], [address] , [place] tel: [phone] [facility] tx (chief complaint) Trichomonal vulvovaginit is 3 No Information [facility], [address], [place], [place], [address] , [place] tel: [phone] [facility] Carpal tunnel syndromeCarp al tunnel syndromeTric homonal vulvovaginit is 2 No Information OFFICE OUTPT EST 25 MIN [facility], [address], [place], [place], [address] , [place] tel: [phone] [facility] Backache, unspecifiedP ain in joint involving pelvic region and thighObesity , unspecifiedC arpal tunnel syndrome 2 No Information 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; 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; 40-64 [facility], [address], [place], [place], [address] , [place] tel: [phone] [facility] annual visit (chief complaint) Routine gynecologica l examinationO ther screening mammogramVag initis and vulvovaginit is, unspecifiedS urveillance of other contraceptiv e method 2 No Information OFFICE OUTPT EST 25 MIN [facility], [address], [place], [place], [address] , [place] tel: [phone] [facility] Carpal tunnel syndromeOste oarthrosis, generalized, involving multiple sitesAllergi c rhinitis, cause unspecifiedM orbid obesity 2 Brian Romo. [address], [place], [place], [address], [place]. tel:[phone] OFFICE/OUTPATI ENT VISIT, EST [facility], [address], [place], [place], [address] , [place] tel: [phone] [facility] control (chief complaint)yumiko t results (chief complaint) Other malaise and fatigue 1 No Information OFFICE/OUTPATI ENT VISIT, EST [facility], [address], [place], [place], [address] , [place] tel: [phone] [facility] muscle spams in feet and legs (chief complaint) Osteoarthros is, generalized, involving multiple sitesCarpal tunnel syndromeAlle rgic rhinitis, cause unspecifiedE sophageal refluxRoutin e general medical examination at a health care facility 1 No Information 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; 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; 40-64 [facility], [address], [place], [place], [address] , [place] tel: [phone] [facility] annual visit (chief complaint) Routine gynecologica l examinationO ther screening mammogramSur veillance of other contraceptiv e methodScreen ing examination for venereal diseaseLeuko rrhea, not specified as infectiveLum p or mass in breast 1 No Information OFFICE/OUTPATI ENT VISIT, EST [facility], [address], [place], [place], [address] , [place] tel: [phone] [facility] bc nuva ring (chief complaint) Surveillance of other contraceptiv e method 0 No Information OFFICE/OUTPATI ENT VISIT, EST [facility], [address], [place], [place], [address] , [place] tel: [phone] [facility] control (chief complaint)ble eding (chief complaint)adilene ght gain (chief complaint) Surveillance of other contraceptiv e methodObesit y, unspecified 0 No Information OFFICE/OUTPATI ENT VISIT, EST [facility], [address], [place], [place], [address] , [place] tel: [phone] [facility] depo (chief complaint) Excessive or frequent menstruation 0 No Information OFFICE/OUTPATI ENT VISIT, EST [facility], [address], [place], [place], [address] , [place] tel: [phone] [facility] routine (chief complaint) Osteoarthros is, generalized, involving multiple sitesPain in joint, site unspecifiedA llergic rhinitis, cause unspecified 0 No Information [facility], [address], [place], [place], [address] , [place] tel: [phone] [facility] No Information 0 No Information [facility], [address], [place], [place], [address] , [place] tel: [phone] [facility] No Information 0 No Information OFFICE/OUTPATI ENT VISIT, EST [facility], [address], [place], [place], [address] , [place] tel: [phone] [facility] depo (chief complaint)exc essive vaginal bleeding (chief complaint) Surveillance of other contraceptiv e methodExcess jai or frequent menstruation 0 No Information OFFICE OUTPT EST 10 MIN [facility], [address], [place], [place], [address] , [place] tel: [phone] [facility] Surveillance of other contraceptiv e method 9 No Information [facility], [address], [place], [place], [address] , [place] tel: [phone] [facility] repeat pap (chief complaint)yumiko t results (chief complaint) Screening for malignant neoplasms of the cervixSurvei llance of other contraceptiv e method 9 No Information [facility], [address], [place], [place], [address] , [place] tel: [phone] [facility] education (chief complaint) Inadequate material resourcesIna dequate material resources 9 No Information OFFICE OUTPT EST 25 MIN [facility], [address], [place], [place], [address] , [place] tel: [phone] [facility] Arthralgias (chief complaint)Ove rweight (chief complaint)Car pel tunnel on right (chief complaint)Sti es (chief complaint) Osteoarthros is, generalized, involving multiple sitesCarpal tunnel syndromeOver weight and obesityFamil y history of malignant neoplasm of gastrointest inal tract 9 No Information [facility], [address], [place], [place], [address] , [place] tel: [phone] [facility] Routine gynecologica l examinationI rregular menstrual cycleScreeni ng examination for venereal disease 9 No Information OFFICE OUTPT EST 25 MIN [facility], [address], [place], [place], [address] , [place] tel: [phone] [facility] annual visit (chief complaint) Routine gynecologica l examinationS creening examination for venereal diseaseIrreg ular menstrual cycle 9 No Information 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; 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; 40-64 [facility], [address], [place], [place], [address] , [place] tel: [phone] [facility] ROUTINE RECREATION CENTER DIRECTOR EXAMINATION 8 No Information OFFICE/OUTPATI ENT VISIT, EST [facility], [address], [place], [place], [address] , [place] tel: [phone] [facility] FAMILY HX-GI MALIGNANCYCA RPAL TUNNEL SYNDROMEIMPA IRED FASTING GLUCOSEJOINT PAIN-UNSPEC Nov-3 0-200 7 No Information [facility], [address], [place], [place], [address] , [place] tel: [phone] [facility] JOINT PAIN-UNSPECS CREEN LIPOID DISORDERSMAL AISE AND FATIGUE NECLABORATOR Y EXAMINATION Aug- 7 No Information OFFICE OUTPT NEW 20 MINUTES [facility], [address], [place], [place], [address] , [place] tel: [phone] [facility] ALLERGIC RHINITIS NOSMALAISE AND FATIGUE NECCARPAL TUNNEL SYNDROMEFAMI LY HX-GI MALIGNANCY Aug- 7 No Information OFFICE CONSULT, 15 MIN, 3 SORENSEN COMPS: PROB FOCUS HX; PROB FOCUS EXAM; STRTFWD [facility], [address], [place], [place], [address] , [place] tel: [phone] [facility] COUNSELING NOS Aug- 7 [...] Record Payers Payer name Insurance type Covered green party ID David rodas(s) Adan [facility] [employer] [facility] CI [id number] Social History Type Description Quantity Date Captured Comments Sex Female Smoking Status No Information Sexual Orientation Straight or heterosexual Gender Identity Female Chief Complaint And Reason For Visit No Information Reason For Referral Reason For Referral No Information Plan Of Treatment Date Type Action Status Goal Breast exam. Due on 021 due Goal Urine Microalbum in. Due on due Goal H&P. Due on due Goal Influenza vaccin e. Due on due Goal RECREATION CENTER DIRECTOR exam. Due on due Goal Pap/HPV testing. Due on due Goal Mammogram. Due on 2 due Goal Colonoscopy. Due on due Goal Urine Microalbum in. Due on due Goal Breast exam. Due on due Goal H&P. Due on due Goal RECREATION CENTER DIRECTOR exam. Due on due Goal Influenza vaccin e. Due on due Goal Colonoscopy. Due on due Goal Pap/HPV testing. Due on due Goal Mammogram. Due on due Goal Mammogram. Due on due Goal RECREATION CENTER DIRECTOR exam. Due on due Goal Breast exam. [...] Influenza vaccin e. Due on due Goal RECREATION CENTER DIRECTOR exam. Due on due Goal Urine Microalbum in. Due on due Goal Influenza vaccin e. Due on due Goal Mammogram. Due on due Goal H&P. Due on due Goal Pap/HPV testing. Due on due Goal Colonoscopy. Due on due Goal Breast exam. Due on due Goal RECREATION CENTER DIRECTOR exam. Due on due Goal Lifestyle educat ion regarding diet completed Goal Colonoscopy. Due on due Goal Mammogram. Due on 9 due Goal Influenza vaccin e. Due on due Goal H&P. Due on due Goal RECREATION CENTER DIRECTOR exam. Due on due Goal Urine Microalbum in. Due on due Goal Breast exam. Due on 019 due Goal Pap/HPV testing. Due on due Goal Lifestyle educat ion regarding diet completed Goal RECREATION CENTER DIRECTOR exam. Due on due Goal Urine Microalbum in. Due on due Goal H&P. Due on due Goal Colonoscopy. Due on due Goal Influenza vaccin e. Due on due Goal Mammogram. Due on due Goal Breast exam. Due on 019 due Goal Pap/HPV testing. Due on due Goal Pap/HPV testing. Due on due Goal H&P. Due on due Goal RECREATION CENTER DIRECTOR exam. Due on due Goal Mammogram. Due on 9 due Goal Urine Microalbum in. Due on due Goal Colonoscopy. Due on due Goal Breast exam. Due on due Goal Influenza vaccin e. Due on due Goal RECREATION CENTER DIRECTOR exam. Due on due Goal H&P. Due [...] Influenza vaccin e. Due on due Goal RECREATION CENTER DIRECTOR exam. Due on due Goal H&P. Due on due Goal Pap/HPV testing. Due on due Goal Colonoscopy. Due on due Goal Urine Microalbum in. Due on due Goal Influenza vaccin e. Due on due Goal Urine Microalbum in. Due on due Goal Pap/HPV testing. Due on due Goal RECREATION CENTER DIRECTOR exam. Due on due Goal Colonoscopy. Due on due Goal Mammogram. Due on due Goal Breast exam. Due on due Goal H&P. Due on due Goal RECREATION CENTER DIRECTOR exam. Due on due Goal Colonoscopy. Due on due Goal Influenza vaccin e. Due on due Goal Urine Microalbum in. Due on due Goal H&P. Due on due Goal Mammogram. Due on due Goal Pap/HPV testing. Due on due Goal Breast exam. Due on due Goal Urine Microalbum in. Due on due Goal Breast exam. Due on due Goal RECREATION CENTER DIRECTOR exam. Due on due Goal Colonoscopy. Due on due Goal Mammogram. Due on 9 due Goal H&P. Due on due Goal Influenza vaccin e. Due on due Goal Pap/HPV testing. Due on due Goal Colonoscopy. Due on due Goal Urine Microalbum in. Due on due Goal Pap/HPV testing. Due on due Goal H&P. Due on due Goal Influenza vaccin e. Due on due Goal Mammogram. Due on due Goal RECREATION CENTER DIRECTOR exam. Due on due Goal Breast exam. Due on due Goal Breast exam. Due on due Goal Urine Microalbum in. Due on due Goal H&P. Due on due Goal Colonoscopy. Due on due Goal Mammogram. Due on due Goal RECREATION CENTER DIRECTOR exam. Due on due Goal Pap/HPV testing. Due on due Goal Colonoscopy. Due on due Goal Breast exam. Due on due Goal H&P. Due on due Goal Mammogram. Due on due Goal Pap/HPV testing. Due on due Goal Urine Microalbum in. Due on due Goal RECREATION CENTER DIRECTOR exam. Due on due Goal Mammogram. Due on due Goal H&P. Due on due Goal Pap/HPV testing. Due on due Goal Urine Microalbum in. Due on due Goal Breast exam. Due on due Goal Colonoscopy. Due on due Goal RECREATION CENTER DIRECTOR exam. Due on due Goal Colonoscopy. Due on due Goal RECREATION CENTER DIRECTOR exam. Due on due Goal Breast exam. Due on due Goal Pap/HPV testing. Due on due Goal Mammogram. Due on due Goal Urine Microalbum in. Due on due Goal H&P. Due on due Goal Urine Microalbum in. Due on due Goal RECREATION CENTER DIRECTOR exam. Due on due Goal Breast exam. Due on due Goal Colonoscopy. Due on due Goal H&P. Due on due Goal Mammogram. Due on due Goal Pap/HPV testing. Due on due Goal Breast exam. Due on due Goal RECREATION CENTER DIRECTOR exam. Due on due Goal Mammogram. Due on due Goal Urine Microalbum in. Due on due Goal Pap/HPV testing. Due on due Goal H&P. Due on due Goal Colonoscopy. Due on due Goal RECREATION CENTER DIRECTOR exam. Due on due Goal Mammogram. Due [...] Goal Mammogram. Due on 9 due Goal RECREATION CENTER DIRECTOR exam. Due on due Goal Pap/HPV testing. Due on due Goal PAP. Due on due Goal Breast exam. Due on due Goal RECREATION CENTER DIRECTOR exam. Due on due Goal BMP fasting. Due on due Goal Urine Microalbum in. Due on due Goal Urinalysis. Due on 11 due Goal H&P. Due on due Goal CPK. Due on due Goal Breast exam. Due on due Goal Urinalysis. Due on 11 due Goal RECREATION CENTER DIRECTOR exam. Due on due Goal PAP. Due on due Goal BMP fasting. Due on due Goal Urine Microalbum in. Due on due Goal CPK. Due on due Goal H&P. Due on due Goal RECREATION CENTER DIRECTOR exam. Due on due Goal H&P. Due [...] Goal Urinalysis. Due on 11 due Goal RECREATION CENTER DIRECTOR exam. Due on due Goal PAP. Due on due Goal RECREATION CENTER DIRECTOR exam. Due on due Goal PAP. Due [...] Urine Microalbum in. Due on due Goal RECREATION CENTER DIRECTOR exam. Due on due Goal PAP. Due on due Goal Urinalysis. Due on 11 due Goal CPK. Due on due Goal H&P. Due on due Goal Urine Microalbum in. Due on due Goal BMP fasting. Due on due Goal RECREATION CENTER DIRECTOR exam. Due on due Goal H&P. Due on due Goal Urinalysis. Due on 11 due Goal Breast exam. Due on due Goal PAP. Due on due Goal CPK. Due on due Goal Urine Microalbum in. Due on due Goal Urinalysis. Due on 11 due Goal RECREATION CENTER DIRECTOR exam. Due on due Goal H&P. Due on due Goal CPK. Due on due Goal PAP. Due on due Goal Breast exam. Due on due Goal BMP fasting. Due on due Goal PAP. Due on due Goal BMP fasting. Due on due Goal RECREATION CENTER DIRECTOR exam. Due on due Goal H&P. Due on due Goal CPK. Due on due Goal Breast exam. Due on due Goal Urinalysis. Due on 11 due Goal Urine Microalbum in. Due on due Goal Urinalysis. Due on due Goal CPK. Due on due Goal BMP fasting. Due on due Goal PAP. Due on due Goal RECREATION CENTER DIRECTOR exam. Due on due Goal Breast exam. Due on due Goal Urine Microalbum in. Due on due Goal H&P. Due on due Goal Urine Microalbum in. Due on due Goal CPK. Due on due Goal BMP fasting. Due on due Goal H&P. Due on due Goal RECREATION CENTER DIRECTOR exam. Due on due Goal Urinalysis. Due on 11 due Goal PAP. Due on due Goal Breast exam. Due on due Goal H&P. Due on due Goal PAP. Due on due Goal RECREATION CENTER DIRECTOR exam. Due on due Goal BMP fasting. Due on due Goal Breast exam. Due on due Goal Urinalysis. Due on 11 due Goal Urine Microalbum in. Due on due Goal CPK. Due on due Goal CPK. Due on due Goal Urine Microalbum in. Due on due Goal BMP fasting. Due on due Goal H&P. Due on due Goal Urinalysis. Due on 11 due Goal PAP. Due on due Goal Breast exam. Due on due Goal RECREATION CENTER DIRECTOR exam. Due on due Goal Breast exam. Due on due Goal Urine Microalbum in. Due on due Goal RECREATION CENTER DIRECTOR exam. Due on due Goal H&P. Due on due Goal Urinalysis. Due on 11 due Goal BMP fasting. Due on due Goal CPK. Due on due Goal PAP. Due on due Goal BMP fasting. Due on due Goal PAP. Due on due Goal H&P. Due on due Goal Urine Microalbum in. Due on due Goal RECREATION CENTER DIRECTOR exam. Due on due Goal CPK. Due on due Goal Breast exam. Due on due Goal Urinalysis. Due on 11 due Goal Breast exam. Due on due Goal BMP fasting. Due on due Goal Urinalysis. Due on 11 due Goal CPK. Due on due Goal Urine Microalbum in. Due on due Goal RECREATION CENTER DIRECTOR exam. Due on due Goal H&P. Due on due Goal PAP. Due on due Goal RECREATION CENTER DIRECTOR exam. Due on due Goal H&P. Due [...] Urine Microalbum in. Due on due Goal RECREATION CENTER DIRECTOR exam. Due on due Goal Breast exam. Due on due Goal Urine Microalbum in. Due on due Goal CPK. Due on due Goal PAP. Due on due Goal Urinalysis. Due on due Goal RECREATION CENTER DIRECTOR exam. Due on due Goal BMP fasting. Due on due Goal H&P. Due on due Goal Urine Microalbum in. Due on due Goal H&P. Due on due Goal RECREATION CENTER DIRECTOR exam. Due on due Goal BMP fasting. Due on due Goal Breast exam. Due on due Goal CPK. Due on due Goal PAP. Due on due Goal Urinalysis. Due on 11 due Goal BMP fasting. Due on due Goal CPK. Due on due Goal Urinalysis. Due on 11 due Goal H&P. Due on due Goal RECREATION CENTER DIRECTOR exam. Due on due Goal Breast exam. Due on due Goal Urine Microalbum in. Due on due Goal PAP. Due on due Goal BMP fasting. Due on due Goal PAP. Due on due Goal Breast exam. Due on due Goal Urinalysis. Due on 11 due Goal H&P. Due on due Goal RECREATION CENTER DIRECTOR exam. Due on due Goal CPK. Due on due Goal Urine Microalbum in. Due on due Goal RECREATION CENTER DIRECTOR exam. Due on due Goal PAP. Due [...] Goal BMP fasting. Due on due Goal RECREATION CENTER DIRECTOR exam. Due on due Goal H&P. Due on due Goal BMP fasting. Due on due Goal Breast exam. Due on due Goal Urinalysis. Due on 11 due Goal PAP. Due on due Goal H&P. Due on due Goal Urine Microalbum in. Due on due Goal CPK. Due on due Goal RECREATION CENTER DIRECTOR exam. Due on due Goal RECREATION CENTER DIRECTOR exam. Due on due Goal BMP fasting. Due on due Goal H&P. Due on due Goal Urine Microalbum in. Due on due Goal PAP. Due on due Goal Breast exam. Due on due Goal CPK. Due on due Goal Urinalysis. Due on 11 due Goal RECREATION CENTER DIRECTOR exam. Due on due Goal Urinalysis. Due on 11 due Goal BMP fasting. Due on due Goal Breast exam. Due on due Goal H&P. Due on due Goal CPK. Due on due Goal PAP. Due on due Goal Urine Microalbum in. Due on due Goal PAP. Due on due Goal CPK. Due on due Goal Urinalysis. Due on 11 due Goal RECREATION CENTER DIRECTOR exam. Due on due Goal H&P. Due on due Goal Breast exam. Due on due Goal Urine Microalbum in. Due on due Goal BMP fasting. Due on due Goal BMP fasting. Due on due Goal Urine Microalbum in. Due on due Goal CPK. Due on due Goal H&P. Due on due Goal PAP. Due on due Goal Breast exam. Due on due Goal RECREATION CENTER DIRECTOR exam. Due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
--- OUTSIDE RECORDS SUMMARY | 2024-07-02 04:53 | XMS_ITS | Clinical Summary ---
Author Organization [facility] Address [address] [place] [address] Phone Care Team Providers Care Special Needs Babysitter Name Role Phone Rafael Gutierrez MD Primary Care Provider [phone] Allergies No known active allergies Medications lisinopriL [...] STL ABSTRACTION Provider, Abstract 05/23/2024 10:50 AM LEVEL VIAL SEALER Ancillary Procedure [employer] Online Ordering [address] [phone] Alana Sutherland PA-C Pain in unspecified hand 05/06/2024 Ancillary Procedure [employer] [address] [phone] Alana Sutherland PA-C Pain in unspecified hand [...] VW BILAT Routine 05/23/2024 11 :17 AM LEVEL VIAL SEALER Pain in unspecified hand from Last 3 Months Results * XR HAND 2 VW BILAT (05/23/2024 11:17 AM LEVEL VIAL SEALER) Anatomical Region Laterality Modality Wrist / Hand Computed Radiogr aphy 05/23/2024 11:1 7 AM LEVEL VIAL SEALER Impressions 05/23/2024 11:32 AM LEVEL VIAL SEALER IMPRESSION: 1. Bilateral ulnar negative variance, as described above. 2. Bilateral hand and wrist osteoarthritis with findings suggestive of osteoarthritis superimposed on erosive/inflammatory arthritis, as described above. Narrative 05/23/2024 11:32 AM LEVEL VIAL SEALER EXAM: XR HAND 2 VW BILAT DATE: 05/23/2024 CLINICAL HISTORY: Bilateral hand pain TECHNIQUE: PA and lateral views of both hands were submitted for review. No prior study is available for comparison. FINDINGS: Right hand: There is ulnar negative variance of 4 mm. Periarticular osteopenia is suspected at the metacarpophalangeal and interphalangeal joints. There is hexi-aj-kiynhxnk distal radioulnar joint, mild radiocarpal and 2nd carpometacarpal joint and fdnu-yk-jfdafira sjfxgmqz-igwszvege-tyeinxihh and 1st carpometacarpal joint osteoarthritis. There is mild 1st through 5th metacarpophalangeal joint and thumb interphalangeal joint osteoarthritis. There is rzfg-dm-xqxaxrro index, long, ring and small finger distal [...] and 1st and 2nd carpometacarpal joint and csnl-mg-wykpktjc elhvysfv-muhbdhclz-owgsaizse osteoarthritis. There is mild 1st and 5th [...] the metacarpophalangeal and interphalangeal joints. There is zdrs-za-murziwla distal radioulnar joint, mild radiocarpal and 2nd carpometacarpal joint and rclw-xz-yujmnqgh xlyozzfx-fmelvbvfl-ftesgndbg and 1st carpometacarpal joint osteoarthritis. There is mild 1st through 5th metacarpophalangeal joint and thumb interphalangeal joint osteoarthritis. There is uiys-mh-idmantgy index, long, ring and small finger distal [...] and 1st and 2nd carpometacarpal joint and uxij-zu-kgaendfg tqkxgwvd-wnbkjsjim-ddixzlrda osteoarthritis. There is mild 1st and 5th [...] from Last 3 Months Insurance MEDICAID [place] [facility] DUAL COMPLETE HMO [facility] [id number] Member Subscriber Plan / Payer (Ef fective 2023-Present) Name:Adryan Torre Relation to Subscriber:Self Name:Adryan Torre Payer ID:[id number] (NAIC) Group ID:[id number] Type:HMO Address: [address] [place] [id number] RX INFOCROSSING Medicaid RX OPTUM RX Member Subscriber Plan / Payer (Ef fective 2023-Present) Name:Adryan Torre Relation to Subscriber:Self Name:Adryan Torre Subscriber ID:Not on file Payer ID:Not on file Group ID:[id number] Type:RX Medicare Part D Address: [address] [address] [facility] DUAL COMPLETE HMO [facility] [id number] MEDICAID [place] Care Teams Special Needs Babysitter Relationship Specialty Start Date End Date Rafael Gutierrez MD [address] [place] [address] PCP - General Family Practice 08/28/23
--- OUTSIDE RECORDS SUMMARY | 2024-07-02 04:53 | XMS_ITS | Encounter Summary ---
Author Organization [facility] Address [address] [place] [address] Care Team Providers Care Monologist Name Role Phone Jamil Covington MD Primary Care Provider [phone] Carla Padron PT Unavailable Unavailable Adrienne Salcedo MD Primary Care Provider [phone] Rafael Gutierrez MD Primary Care Provider Encounter Details Date Type Department Care Team (Late st Contact Info) Description 05/24/2022 Telephone [facility] Medicine Clinic [address] [facility] [address] [place] [address] Jamil Covington MD [address] [facility] [address] [place] [address] Social History Tobacco Use Types [...] week 05/12/2022 How often do you attend [facility] or lutheran services? Never 05/12/2022 Do you belong to any clubs o r organizations such as restorationism groups, unions, fraternal or athletic groups, or [...] place to sleep or slept in a fpc (including now)? 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
--- OUTSIDE RECORDS SUMMARY | 2024-07-02 04:53 | XMS_ITS | Continuity of Care Document ---
Author Organization [facility] Address [address] [place] [address] Phone Care Team Providers Care Grinding Mill Operator Name Role Phone Lala Bah Unavailable Unavailabl [...] times every day 50 MG - Active Medrol (Johnny) 4 mg tablets in a dose pack take by oral route as directed per package instructions 0.00 - Active fluticasone propionate 50 mcg/actuation nasal spray,suspension spray 1 - 2 spray by intranasal route every day in each nostril as needed 50-100 MCG - Active calcium 200 mg (as citrate)-vitamin D3 6.25 mcg (250 unit) tablet - Active Glucosamine 500 mg tablet - Active PANTOPRAZOLE SOD DR 40 MG [...] by oral route every day - Active duloxetine 60 mg capsule,delayed release take 1 tablet by Oral route every day 1 tablet - Active amitriptyline 10 mg tablet take 1 tablet by oral route every day at bedtime 10 MG - Active cyclobenzaprine 10 mg tablet take 1 tablet by oral route 3 times every day as needed 10 MG - Active cholecalciferol (vitamin D3) 25 mcg (1,000 unit) capsule - Active ibuprofen 400 mg tablet take 1 tablet by oral route every 4 - 6 hours as needed as needed 400 MG - Active Procedures Procedure Date OFFICE LUHRY-EAY-GJRDAGTM SYST BP GE 130 - 139MM HG DIAST BP 80-89 MM HG ANTINUCLEAR ANTIBODIES (JANIS) CYCLIC CITRULLINE PEPTIDE (CCP) 024 RHEUMATOID FACTOR: QN RBC SED RATE, AUTOMATED ROUTINE VENIPUNCTURE EKG (ELECTROCARDIOGRAM) CENTROMERE B ANTIBODY CHROMATIN ANTIBODY STEVE-1 ANTIBODY RIBOSOMAL P ANTIBODY SM ANTIBODY SM/LASER ENGINEER ANTIBODY LASER ENGINEER ANTIBODY SJOGREN'S (SS-A) ANTIBODY SJOGREN'S (SS-B) ANTIBODY DNA ANTIBODIES (DS), SENECA SCLERODERMA ANTIBODY,SCL-70 TELEPHONE ASSESSMENT AND MAN AGEMENT SERVICE PROVID 5-10 MINUTES OF MEDICAL DISCU CBC, INC PLATELETS AND DIFFERENTIAL COMPREHEN METABOLIC PANEL CMP LIPID PANEL PARATHYROID HORMONE (PTH) ROUTINE VENIPUNCTURE OFFICE [id number]-LQC-DLDAVMLV Visit Complexity Inherent To E/M 2023 SYST BP LT 130 MM HG DIAST BP 80-89 MM HG Pt inelig neg scrn depres OFFICE VNYXE-XPX-JARYSZAJ Visit Complexity Inherent To E/M 2023 SYST BP GE 130 - 139MM HG DIAST BP 80-89 MM HG Triamcinolone Acetonide Injection, 10mg ASP/INJ MAJOR JOINTOR BURSA, SHOULDER, H IP,KNEE W/O US GUIDANCE OFFICE ZCEDG-GTA-IGDEJAHA SYST BP >= 140 MM HG6 IT DIAST BP >= 90 MM HG DSCHRG MED/CURRENT MED MERGE Transitional Care- 14 Days Of Discharge SYST BP GE 130 - 139MM HG DIAST BP >= 90 MM HG BASIC METABOLIC PANEL(BMP) ROUTINE VENIPUNCTURE INHALATION TREATMENT/THERAPY ALBUTEROL, INHALATION BERTHA, F DA-APPRVD FINAL PRODUCT, NON-COMPOUNDED, ADM THROUGH OFFICE CMQNJ-QON-AGVXFSIN SYST BP >= 140 MM HG6 IT [...] Diagnoses Date Provider Providers [facility] [address], [place], [place], [address] , tel:[phone] [facility] No Information 5 Elliot Reeves. [address], [place], [address], [place]. tel:[phone] OFFICE PHGYN-PCJ-YYI ANICETO [facility], [address], [place], [place], [address] , tel:[phone] [facility] f/u (chief complaint) Pain of hand, unspecified lateralityPAC (premature atrial contraction)Nail abnormality 4 Koko Warner. [address], [place], [address], [place]. tel:[phone] Referring Provider: Rafael Gutierrez, [address] [place], [address] . tel:[phone] [facility], [address], [place], [place], [address] , [phone] [facility] COVID-19 4 Elliot Reeves. [address], [place], [address], [place]. tel:[phone] Referring Provider: Rafael Gutierrez, [address] [place], [address] . tel:[phone] [facility], [address], [place], [place], [address] , tel:[phone] [facility] No Information 4 Scarlet Ayoub. [facility], [address], [address], . tel:[phone] OFFICE RPUHW-CNL-MRP ANICETO [facility], [address], [place], [place], [address] , [place] tel:[phone] [facility] routine follow up (chief complaint)C hronic Conditions (chief complaint)c hronic conditions (chief complaint) Essential (primary) hypertensionHyperp arathyroidism, unspecifiedAcute pain of right shoulderRight hip painAcute pain of right kneeLeft hip painGeneralized headachesPostnasal dripAcute gastric ulcer without hemorrhage or perforationPain in unspecified jointHyperlipidemi a, unspecifiedGeneral ized anxiety disorderMajor depressive disorder, recurrent, moderateEncounter for immunization 4 Matt Hall. [address], [place], [address], . tel:[phone] Referring Provider: Rafael Gutierrez, [address] [facility], [place], [address] . tel:[phone] [facility], [address], [place], [place], [address] , tel: [phone] [facility] No Information 4 Matt Hall. [address], [place], [place], [address], . tel:[phone] [facility], [address], [place], [place], [address] , tel: [phone] [facility] No Information 4 Matt Hall. [address], [place], [place], [address], . tel:[phone] [facility], [address], [place], [place], [address] , [place] tel: [phone] [facility] No Information 4 Matt Hall. [address], [place], [place], [address], . tel:[phone] [facility], [address], [place], [place], [address] , tel: [phone] [facility] No Information 4 Matt Hall. [address], [place], [place], [address], [place]. tel:[phone] OFFICE DLBWG-PJW-BJC [facility], [address], [place], [place], [address] , [place] tel: [phone] Ofelia routine follow up (chief complaint)C hronic Conditions (chief complaint) Acute gastric ulcer without hemorrhage or perforationHyperpa rathyroidism, unspecifiedPostnas al drip 4 Matt Hall. [address], [place], [place], [address], [place]. tel:[phone] Referring Provider: Rafael Gutierrez, [address], [place], [address] . tel:[phone] OFFICE POUIB-AWD-GPP [facility], [address], [place], [place], [address] , [place] tel: [phone] Ofelia L knee pain (chief complaint) Left leg painOsteoarthritis of left knee, unspecified osteoarthritis typeEssential (primary) hypertensionLacera tion of left index finger without foreign body without damage to nail, initial encounter 4 Koko Warner. [address], [place], [address], [place]. tel:[phone] Referring Provider: Rafael Gutierrez, [address], [place], [address] . tel:[phone] Transitional Care- 14 Days Of Discharge [facility], [address], [place], [place], [address] , [place] tel: [phone] [facility] d/c f/u (chief complaint) Pain in right kneePain in left kneeAcute gastritis without hemorrhage, unspecified gastritis typeHospital discharge follow-upLaceratio n of left index finger without foreign body without damage to nail, initial encounterEssential (primary) hypertension [place]- 4 Koko Warner. [address], [place], [address], [place]. tel:[phone] Referring Provider: Rafael Gutierrez, [address], [place], [address] . tel:[phone] OFFICE CTRKW-VTX-SUV ANICETO [facility], [address], [place], [place], [address] , tel: [phone] [facility] Dyspnea (chief complaint) Shortness of breath 4 Matt Hall. [address], [place], [place], [address], [place]. tel:[phone] Referring Provider: Rafael Gutierrez, [address] [place] [address] B, [place], [address] . tel:[phone] [facility], [address], [place], [place], [address] , [place] tel: [phone] [facility] No Information 4 Matt Hall. [address], [place], [place], [address], [place]. tel:[phone] PREVENTATIVE- NEW: 40-64 [facility], [address], [place], [place], [address] , tel: [phone] [facility] establish care (chief complaint)C hronic Conditions (chief complaint) Encounter for general adult medical examination without abnormal findingsAnemia, unspecifiedPain in jointGeneralized anxiety disorderMajor Depressive Disorder, Single episode, ModerateCarpal tunnel syndrome, unspecified upper limbHyperparathyro idism, unspecifiedGastro- esophageal reflux disease without esophagitisEssenti al (primary) hypertensionHyperl ipidemia, unspecified Jul- 4 Matt Hall. [address], [place], [place], [address], [place]. tel:[phone] Referring Provider: Rafael Gutierrez, [address] [place] [address] B, [place], [address] . tel:[phone] [facility], [address], [place], [place], [address] , tel: [phone] [facility] ROUTINE MEDICAL EXAM 0-200 3 Justa Henry. [address], [place], [place], [address]. tel:[phone] Family History Family Member Type Diagnosis Age At Onset Brother Problem ADD/ADHD Mother Problem Learning disability Brother Problem Hypertension Mother Problem Hypertension Father Problem Hypertension Payers Payer name Insurance type Covered green party ID Authorcampbell rodas(s) [facility] MDCR DUAL COMPLETE HMO [id number] MEDICAID [facility] [id number] Social History Type Description Quantity Date Captured [...] Doppler vein of extremity lower left Left (39794), Sent on: Sent History Of Present Illness Encounter Date Complaint History Of Prese nt Illness ER f/u Adryan is a 53 y/o F who presents to the office today for ER f/u. Pt seen [facility] ED 04/23 2/2 flu like symptoms. Had [...] office today for hospital d/c f/u.Pt admitted [facility] 10/31-11/01 2/2 RUQ pain and laceration of [...] to N[facility], does appear [...] ined at office visit. Charting performed by Asnelmo Zarate, acting as scribe for Anselmo Gutierrez.Anselmo [...] a TENS unit. These can be purchased vubw-zyf-nuewwow and worn under your clothes. -- Routine [...]
--- OUTSIDE RECORDS SUMMARY | 2024-07-02 04:53 | XMS_ITS | Encounter Summary ---
Author Organization [facility] Healthcare Address [address] [place] [address] Care Team Providers Care Pick Pulling Machine Tender Name Role Phone Jamil Covington MD Primary Care Provider [phone] Carla Padron PT Unavailable Unavailable Adrienne Salcedo MD Primary Care Provider [phone] Rafael Gutierrez MD Primary Care Provider Encounter Details Date Type Department Care Team (Late st Contact Info) Description 06/17/2022 Telephone [facility] Primary Care Medicine Clinic [address] [facility] [address] [place] [address] Jamil Covington MD [address] [facility] [address] [place] [address] Social History Tobacco Use Types [...] week 05/12/2022 How often do you attend [facility] or scientologist services? Never 05/12/2022 Do you belong to any clubs o r organizations such as adventist groups, unions, fraternal or athletic groups, or [...] place to sleep or slept in a mcfp (including now)? 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
[2024-07-02 05:01] LABS: INR 1.1; Prothrombin Time 14.1 Seconds (11.1-14.7)
[2024-07-02 05:02] LABS: Partial Thromboplastin Time 30.5 Seconds (22.3-36.8)
[2024-07-02] MEDS: SODIUM CHLORIDE 0.9% IV 1,000 ML 999 ML IV CONT (05:03)
[2024-07-02 05:14] LABS: BEDSIDEPREGUCG Negative (Negative)
--- NOTE | 2024-07-02 05:15 | PC.NURSE ---
Pt c/o pounding headache, Dr. Galan gave verbal order for 0.5 mg dilaudid IVP.
[2024-07-02] MEDS: HYDROmorphone HCL INJ (*CRX) 1 MG/ML SYR (05:19)
[2024-07-02 05:25] LABS: Alanine Aminotransferase 20 U/L (6-35); Alkaline Phosphatase 102 U/L (38-126); Anion Gap 9 mmol/L (4-12); Aspartate Amino Transferase 30 U/L (14-36); Bilirubin,Total 0.8 mg/dL (0.2-1.3); Blood Urea Nitrogen 8 mg/dL (7-17); Calcium 9.2 mg/dL (8.4-10.2); Carbon Dioxide 25 mmol/L (22-30); Chloride 107 mmol/L (98-107); Estimated CRCL calculation 108 ml/min; Estimated Glomerular Filt Rate > 60; Glucose 110 mg/dL (65-110); Lipase 79 U/L (23-300); Potassium 4.6 mmol/L (3.4-5.0); Sodium 141 mmol/L (137-145)
[2024-07-02 05:26] LABS: Lactic Acid Reflex 1.3 mmol/L (0.7-2.0)
--- NOTE | 2024-07-02 05:41 | ED_ITS ---
HPI - General Adult General Chief complaint: GI Bleed Stated complaint: pooping dk red blood clots x 2hours Time Seen by Provider: 07/02/24 04:30 History of Present Illness HPI narrative: This is a 53-year-old female history of diverticulosis presenting for GI bleeding. Patient woke up had a bowel movement. She passed a large amount of red and black blood and clots. She then came to the ED for evaluation. Patient denies fevers chills nausea vomiting or diarrhea. No significant abdominal pain. Use blood thinners. Related Data Home Medications ?Medication ?Instructions ?Recorded ?Confirmed ?Last Taken ?Type amitriptyline 10 mg tablet 10 mg PO HS 11/01/23 02/21/24 Unknown History calcium citrate 1,900 mg PO TID 11/01/23 02/21/24 Unknown History cetirizine 10 mg tablet (Zyrtec) 10 mg PO DAILY PRN allergies 11/01/23 02/21/24 Unknown History cholecalciferol (vitamin D3) 25 25 mcg PO DAILY 11/01/23 02/21/24 Unknown History mcg (1,000 unit) tablet cyanocobalamin (vitamin B-12) 50 50 mcg PO TID 11/01/23 02/21/24 Unknown History mcg tablet (Vitamin B-12) cyclobenzaprine 10 mg tablet 10 mg PO HS 11/01/23 02/21/24 Unknown History diclofenac sodium 1 % topical gel 2 g topical QID 11/01/23 02/21/24 Unknown History docusate sodium 100 mg capsule 100 mg PO BID 11/01/23 02/21/24 Unknown History (Colace) duloxetine 60 mg capsule,delayed 60 mg PO DAILY 11/01/23 02/21/24 Unknown History release (Cymbalta) fluticasone propionate 50 2 spray intranasal DAILY 11/01/23 02/21/24 Unknown History mcg/actuation nasal spray,suspension glucosamine sulfate 500 mg tablet 500 mg PO BID 11/01/23 02/21/24 Unknown History lidocaine 5 % topical patch 1 patch topical DAILY 11/01/23 02/21/24 Unknown History lisinopril 20 mg tablet 20 mg PO DAILY 11/01/23 02/21/24 Unknown History magnesium oxide 500 mg capsule 500 mg PO DAILY 11/01/23 02/21/24 Unknown History pravastatin 20 mg tablet 20 mg PO DAILY 11/01/23 02/21/24 Unknown History sennosides 8.6 mg capsule (senna) 8.6 mg PO BID 11/01/23 02/21/24 Unknown History Allergies Allergy/AdvReac Type Severity Reaction Status Date / Time [place] And Derivatives Allergy Rash Verified 04/23/24 23:06 seafood Allergy Rash Uncoded 04/23/24 23:06 [facility] Past Medical History Medical History Anxiety Hypothyroidism RAFIA (obstructive sleep apnea) Hypertension Hyperlipidemia Surgical History Surgical History History of partial hysterectomy History of thyroidectomy Family History Family History Mother Aneurysm Heart disease Hypertension Gout Father Diabetes mellitus Hypertension Social History Social History Smoking status: Never smoker Alcohol intake: former Substance use: never Substance use type: does not use Do You Feel Safe in your Home?: Yes Lack of Transportation: YES Lack of Food: Never True Current Housing: I Have Housing Concerned About Future Housing: No Difficulty Paying Gas/Electric Bills: No Difficulty Paying for Meds: No Currently Unemployed: No Education: High School Diploma/GED Difficulty w/ Childcare or Family Care: No Spiritual care concerns: No Exam 2 Narrative: APPEARANCE: No apparent distress. Head: atraumatic. EYES: EOMI, NOSE: Atraumatic NECK: Trachea midline RESPIRATORY: No increased rate of breathing clear to auscultation CARDIOVASCULAR: RRR, no peripheral edema ABDOMINAL: Non-distended soft nontender no guarding rebound Rectal Exam: Red blood mixed with stool on digital rectal exam MUSCULOSKELETAl: No obvious deformities NEURO: Alert. Moving 4/4 extremities SKIN:: Warm, dry. Normal color PSYCHIATRIC: Normal affect Course Vital Signs Vital signs: Vital Signs Temperature 97.8 F 07/02/24 04:26 Pulse Rate 98 07/02/24 04:26 Respiratory Rate 18 07/02/24 04:26 Blood Pressure 187/122 H 07/02/24 04:26 Pulse Oximetry 100 07/02/24 04:26 Oxygen Delivery Room Air 07/02/24 04:26 Temperature 97.1 F L 02/18/25 04:37 Pulse Rate 60 07/02/24 06:01 Respiratory Rate 12 07/02/24 06:01 Blood Pressure 147/86 H 07/02/24 06:01 Pulse Oximetry 98 07/02/24 06:01 Oxygen Delivery Room Air 07/02/24 04:37 Medical Decision Making MDM Narrative Medical decision making narrative: -Course: 53-year-old female presenting with passage of blood and clots starting this morning. Patient has maroon blood on digital rectal exam. Vital signs stable. Hemoglobin 12.4. CT showed possible blood in the rectum. Patient will be admitted the hospital for further eval of her GI bleed. Dr. Moreno consulted. -DDX includes but is not limited to: Diverticular bleed, neoplasm, brisk upper GI bleed [place] Score for Safe Discharge After Lower GI Bleed from [employer] on 07/02/2024 All calculations should be rechecked by clinician prior to use RESULT SUMMARY: 15 points [place] Score () 77-81 % Probability of safe discharge (absence of rebleeding, blood transfusion, therapeutic intervention, 28 day readmission, or ). Discharge NOT recommended. Consider admission with further workup and resuscitation as necessary. INPUTS: Age, years ?> 1 = 40-69 Sex ?> 0 = Female Previous lower GI bleeding admission ?> 1 = Yes MORGAN findings ?> 1 = Blood Heart rate, bpm ?> 2 = 90-109 Systolic blood pressure, mmHg ?> 2 = 130-159 Hemoglobin, g/L (g/dL) ?> 8 = 110-129 (11-12.9) Vital Signs Vital Signs: Vital Signs Temperature 97.8 F 07/02/24 04:26 Pulse Rate 98 07/02/24 04:26 Respiratory Rate 18 07/02/24 04:26 Blood Pressure 187/122 H 07/02/24 04:26 Pulse Oximetry 100 07/02/24 04:26 Oxygen Delivery Room Air 07/02/24 04:26 Temperature 97.1 F L 07/02/24 04:37 Pulse Rate 60 07/02/24 06:01 Respiratory Rate 12 07/02/24 06:01 Blood Pressure 147/86 H 07/02/24 06:01 Pulse Oximetry 98 07/02/24 06:01 Oxygen Delivery Room Air 07/02/24 04:37 Lab Data 07/02/24 04:41 07/02/24 04:41 Labs: Lab Results 07/02/24 07/02/24 Range/Units 04:41 05:13 WBC 5.2 (4.5-10.0) K/mm3 RBC 4.12 L (4.2-5.4) M/mm3 Hgb 12.4 (12.0-15.0) g/dL Hct 37.1 (37.0-47.0) % MCV 90.0 (80-100) fl MCH 30.1 (26-34) pg MCHC 33.4 (32-36) g/dl RDW 13.5 (11.5-14.5) % Plt Count 198 (150-375) k/mm3 MPV 10.2 (7.4-10.4) fl Immature Gran % (Auto) 0.2 (0-0.5) % Neut % (Auto) 51.2 (45.5-73.1) % Lymph % (Auto) 36.5 (18.3-44.2) % [place] % (Auto) 8.4 (2.6-8.5) % Eos % (Auto) 3.3 (0-4.4) % Baso % (Auto) 0.4 (0.2-1.2) % Lymph # (Auto) 1.90 (0.9-3.2) K/mm3 [place] # (Auto) 0.4 (0.1-0.6) K/mm3 Eos # (Auto) 0.2 (0-0.3) K/mm3 Baso # (Auto) 0.0 (0.0-0.1) K/mm3 Abs Immat Gran (auto) 0.01 (0.00-0.031) K/mm3 Absolute Neuts (auto) 2.7 (1.3-6.7) K/mm3 Absolute Nucleated RBC 0.000 (0.0-0.012) K/mm3 Nucleated RBC % 0.0 (0.0-0.2) % PT 14.1 (11.1-14.7) Seconds INR 1.1 APTT 30.5 (22.3-36.8) Seconds Sodium 141 (137-145) mmol/L Potassium 4.6 (3.4-5.0) mmol/L Chloride 107 (98-107) mmol/L Carbon Dioxide 25 (22-30) mmol/L Anion Gap 9 (4-12) mmol/L BUN 8 (7-17) mg/dL Creatinine 0.60 L (0.7-1.0) mg/dL Estim Creat Clear Calc 108 ml/min Estimated GFR > 60 (59 - ) Glucose 110 (65-110) mg/dL Lactic Acid 1.3 (0.7-2.0) mmol/L Calcium 9.2 (8.4-10.2) mg/dL Total Bilirubin 0.8 (0.2-1.3) mg/dL AST 30 (14-36) U/L ALT 20 (6-35) U/L Alkaline Phosphatase 102 (38-126) U/L Total Protein 7.0 (6.3-8.2) g/dL Albumin 4.0 (3.5-5.1) g/dL Lipase 79 (23-300) U/L POC Urine HCG, Qual Negative (Negative) Blood Type O Positive Antibody Screen Negative Discharge Plan Discharge Clinical Impression: Acute GI bleeding Patient Disposition: Still a Patient Condition: Stable Patient Language: Grenadian Prescriptions: No Action pravastatin 20 mg Tablet 20 mg PO DAILY diclofenac sodium 1 % Gel 2 g TOPICAL QID Rx Instructions: bilateral knees and hands calcium citrate 200 mg (950 mg) Tablet 1,900 mg PO TID docusate sodium [Colace] 100 mg Capsule 100 mg PO BID Vitamin B-12 50 mcg Tablet 50 mcg PO TID glucosamine sulfate 500 mg Tablet 500 mg PO BID Rx Instructions: administer with meals lidocaine 5 % Adhesive Patch,Medicated 1 patch TOPICAL DAILY Rx Instructions: apply to lower back cetirizine [Zyrtec] 10 mg Tablet 10 mg PO DAILY PRN (Reason: allergies) cholecalciferol (vitamin D3) 25 mcg (1,000 unit) Tablet 25 mcg PO DAILY duloxetine [Cymbalta] 60 mg Capsule,Delayed Release(Dr/Ec) 60 mg PO DAILY lisinopril 20 mg Tablet 20 mg PO DAILY magnesium oxide 500 mg Capsule 500 mg PO DAILY senna 8.6 mg Capsule 8.6 mg PO BID amitriptyline 10 mg Tablet 10 mg PO HS cyclobenzaprine 10 mg Tablet 10 mg PO HS fluticasone propionate 50 mcg/actuation [place],Suspension 2 spray INTRANASAL DAILY Rx Instructions: administer into each nostril pantoprazole 40 mg Tablet,Delayed Release (Dr/Ec) 40 mg PO Q12HR Qty: 60 0RF sucralfate [Carafate] 1 gram tablet 1 g PO QID Qty: 120 0RF Rx Instructions: 1 tab before meal and and 1 tab at night time cefdinir 300 mg capsule 300 mg PO Q12H Qty: 6 0RF ibuprofen 600 mg tablet 600 mg PO TID PRN (Reason: pain) Qty: 30 0RF acetaminophen 500 mg capsule 1,000 mg PO Q6H PRN (Reason: pain) Qty: 30 0RF Follow-up/Referrals: PHYSICIAN,AT RISK PARAPROFESSIONAL [Primary Care Provider] -
[2024-07-02 07:11] LABS: Hematocrit 33.5 % (37.0-47.0); Hemoglobin 11.1 g/dL (12.0-15.0)
[2024-07-02] MEDS: LACTATED RINGERS 1,000 ML 125 ML IV CONT ×3 (07:30→20:23)
--- NOTE | 2024-07-02 07:45 | PC.NURSE ---
called Dr Moreno and was given VORB for clear liquid diet, called dietary and ordered for pt at this time
--- NOTE | 2024-07-02 09:02 | P.CONGI_ITS ---
Assessment and Plan Assessment and plan (1) Acute GI bleeding: Code(s): K92.2 - Gastrointestinal hemorrhage, unspecified Status: Acute (2) Acute blood loss anemia: Code(s): D62 - Acute posthemorrhagic anemia Status: Acute Plan 1. Lower GI bleed/ABLA: Patient states that her last colonoscopy was > 5 years ago but was unable to provide any additional information. Patient states that she normally has 2 formed non urgent BM's daily and yesterday her stools were normal. Around 4 am this morning she states that she had a red/maroon BM with blood clots x 1 episode. Denies any NSAID, aspirin or anticoagulant use. H/H on presentation was Hgb 11, Hct 34, MCV 90, platelets 198 and INR 1.1. Family Hx negative for CRC or IBD but patient states that some family members had bowel issues . Patient had a similar episode of bleeding 2 years ago and was admitted at [facility] and per patient she was diagnosed with diverticulosis and did not have a colonoscopy at that time. CT today showed hypodense material in the rectal lumen suggesting rectal bleeding. DDX: AVM vs diverticular bleed vs IBD vs small bowel source less likely hemorrhoid given color of stool * Clear liquid diet today * start bowel prep this evening for colonoscopy tomorrow * primary care team to continue monitoring H/H * further recs to follow endoscopy Thank you very much for allowing me to share in the care of this very nice patient. This report may have been done utilizing a voice recognition system. Attempts have been made to correct errors. However, there may be uncorrected grammatical, spelling, and recognition errors present. GI Consult Note Consult date/time: 07/02/24 09:02 Reason for consult: lower GI bleed HPI: This is a 53 ear old female with PMSH of anxiety, thyroidectomy, hypothyroidism, RAFIA, HTN, HLD, partial hysterectomy, Hx of gastric ulcers and diverticulosis. She presented to the ER this morning for rectal bleeding. GI has terrance consulted for lower GI bleed. Patient was seen in ER room 6. Patient states that yesterday she was having normal BM's but early this morning around 4 am she had a dark red/maroon BM with large blood clots. She denies abdominal pain, nausea, vomiting, bloating, odynophagia, dysphagia, reflux, regurgitation, early satiety, weight loss, or appetite loss. She normally has 2 formed and non urgent BM's daily and denies any melena. Patient states that she had a similar episodes of bleeding around 2 years ago and was seen at [facility] and was diagnosed with diverticulosis but states that she did have a colonoscopy during that admission. Family Hx negative for CRC or IBD but some family members had bowel issues . Denies NSAID, aspirin or anticoagulant use. ENDOSCOPY HISTORY: EGD: 02/21/[address] Hernandez for Hx of gastric ulcer Findings: Medium hiatal hernia was found at the GE junction. The hiatal hernia appeared at a depth of 36 cm to 40 cm from the incisors. Random cold forceps biopsies were taken from the body for CHARLIE test EGD: 11/02/[address] Michaud for abdominal pain and nausea Findings: The esophagus was examined and the mucosa was normal with no ulcers or masses. No esophagitis A small hiatal hernia was found at the GE junction. The hiatal hernia appeared at a depth of 37 cm to 39 cm from the incisors. Abdout 2 cm in size. Moderate ulcerative gastritis was een in the antrum. The gastritis had moderate erythematous, edematous, erosive and ulcerative changes. There was no mucosal bleeding. Bx taken The bulb and second portion of the duodenum was normal with no ulcers or masses. Multiple Bx were taken to rule out celiac sprue. Bx Results: A. Gastric biopsy: - Gastric mucosa with reactive changes and focal surface erosion, negative for histologic features of H pylori- associated gastritis B. Small bowel biopsy: - Duodenal mucosa with intact villous architecture, negative for histologic features of sprue COLONOSCOPY: Per patient last colonoscopy was > 5 years ago but she was unable to provide any additional information LABS AND STOOL STUDIES: Labs 07/02/2024: Sodium 141, potassium 4.6, BUN 8, creatinine 0.60, GFR >60 WBC 5, Hgb 11, Hct 34, MCV 90, platelets 198, INR 1.1 Total bilirubin 0.8, AST 30, ALT 20, Alkaline Phos 102, albumin 4.0 Lactic acid 1.3, calcium 9.2, lipase 79 IMAGING: CT abd/pelvis w/contrast 07/02/2024 Findings: Scans through the lung bases are unremarkable. The liver, pancreas, gallbladder, adrenals and kidneys are within normal limits. Stable hypodense lesions in the spleen. No evidence of aortic aneurysm. No lymphadenopathy. No bowel obstruction or bowel wall thickening. There is hyperdense material in the lumen at the rectum distally, suggestive of rectal bleeding. Images through the pelvis were performed. Urinary bladder partially obscured by streak artifact from right hip arthroplasty. No definite pelvic mass seen. No ascites. Impression: Hyperdense material in the rectal lumen distally suggests rectal bleeding. No mass evident. HIDA scan 11/01/2023: FINDINGS: There is normal clearance of radiotracer from the blood pool. There is homogeneous tracer uptake by the liver. Activity progresses to the gallbladder and bowel. The gallbladder ejection fraction (GBEF) is 80% (normal 10-90%, but most patient with gallbladder dysfunction have GBEF < 35% which does overlap with the normal range). IMPRESSION: 1. Normal hepatobiliary scan MRCP 11/01/2023: IMPRESSION: 1. Mildly dilated common duct. No choledocholithiasis. 2. Small sliding hiatal hernia. FINDINGS: The visualized portions of the head, body, and tail of the pancreas are normal. The liver is normal without focal lesion. There is antegrade flow in main portal vein. The gallbladder is normal in size. No gallstones or gallbladder wall thickening. There is no sonographic Wisdom's sign. The common duct is normal and measures 6 mm. IMPRESSION: 1. Normal right upper quadrant ultrasound. CT abd/pelvis 10/31/2023: IMPRESSION: Moderate distal esophagitis. Mild antral gastritis. Mild hepatic duct dilation, with common bile duct dilation to 9 mm. No comparison studies available to determine stability. No obstructing stone or mass detected. No inflammatory changes in the gallbladder. Correlate with biliary labs and consider MRCP. Bilateral indeterminate density renal lesions, recommend nonemergent but timely outpatient MRI or CT without and with contrast for further evaluation. These lesions could be evaluated if the above MRCP is performed. Asymmetric soft tissue density in the right peroneal fat, may represent a gynecologic cyst with proteinaceous content, or less likely a rectal mass/abscess. Correlate with symptoms and exam findings Review of Systems 2 Constitutional: Constitutional: Reports as per HPI ENT: Reports as per HPI Cardiovascular: Cardiovascular: Reports as per HPI, Denies chest pain and Denies dyspnea Respiratory: Respiratory: Denies cough and Denies dyspnea Gastrointestinal: Gastrointestinal: Reports as per HPI Musculoskeletal: Musculoskeletal: Reports as per HPI Integumentary/Breasts: Skin/Breast: Reports as per HPI Psychiatric: Psychiatric: Reports as per HPI Endocrine: Endocrine: Reports no additional endocrine complaints Hematologic/Lymphatic: Hematologic/Lymphatic: Reports no additional hematologic/lymphatic complaints [facility] Past Medical History Medical History Anxiety Hypothyroidism RAFIA (obstructive sleep apnea) Hypertension Hyperlipidemia Surgical History Surgical History History of partial hysterectomy History of thyroidectomy Family History Family History Mother Aneurysm Heart disease Hypertension Gout Father Diabetes mellitus Hypertension Social History Social History Smoking status: Never smoker Alcohol intake: former Substance use: never Substance use type: does not use Do You Feel Safe in your Home?: Yes Lack of Transportation: YES Lack of Food: Never True Current Housing: I Have Housing Concerned About Future Housing: No Difficulty Paying Gas/Electric Bills: No Difficulty Paying for Meds: No Currently Unemployed: No Education: High School Diploma/GED Difficulty w/ Childcare or Family Care: No Spiritual care concerns: No Meds Home Medications and Allergies Home Medications ?Medication ?Instructions ?Recorded ?Confirmed ?Type amitriptyline 10 mg tablet 10 mg PO HS 11/01/23 07/02/24 History calcium citrate 1,900 mg PO TID 11/01/23 07/02/24 History cetirizine 10 mg tablet (Zyrtec) 10 mg PO DAILY PRN allergies 11/01/23 07/02/24 History cholecalciferol (vitamin D3) 25 25 mcg PO DAILY 11/01/23 07/02/24 History mcg (1,000 unit) tablet cyanocobalamin (vitamin B-12) 50 50 mcg PO TID 11/01/23 07/02/24 History mcg tablet (Vitamin B-12) cyclobenzaprine 10 mg tablet 10 mg PO HS 11/01/23 07/02/24 History diclofenac sodium 1 % topical gel 2 g topical QID 11/01/23 07/02/24 History duloxetine 60 mg capsule,delayed 60 mg PO DAILY 11/01/23 07/02/24 History release (Cymbalta) fluticasone propionate 50 2 spray intranasal DAILY 11/01/23 07/02/24 History mcg/actuation nasal spray,suspension glucosamine sulfate 500 mg tablet 500 mg PO BID 11/01/23 07/02/24 History lidocaine 5 % topical patch 1 patch topical DAILY 11/01/23 07/02/24 History lisinopril 20 mg tablet 20 mg PO DAILY 11/01/23 07/02/24 History magnesium oxide 500 mg capsule 500 mg PO DAILY 11/01/23 07/02/24 History pravastatin 20 mg tablet 20 mg PO DAILY 11/01/23 07/02/24 History sennosides 8.6 mg capsule (senna) 8.6 mg PO BID 11/01/23 07/02/24 History pantoprazole 40 mg tablet,delayed 40 mg PO Q12HR #60 tabs 11/02/23 07/02/24 Rx release sucralfate 1 gram tablet (Carafate) 1 g PO QID #120 tabs 11/02/23 07/02/24 Rx acetaminophen 500 mg capsule 1,000 mg (2 x 500 mg) PO Q6H PRN 04/24/24 07/02/24 Rx pain #30 caps pregabalin 50 mg capsule 50 mg PO Q12H 07/02/24 07/02/24 History Allergies Allergy/AdvReac Type Severity Reaction Status Date / Time [place] And Derivatives Allergy Rash Verified 04/23/24 23:06 seafood Allergy Rash Uncoded 04/23/24 23:06 Vital Signs Vital Signs - 24 hr 07/02/24 04:26 07/02/24 04:37 07/02/24 06:01 Temperature 97.8 F 97.1 F L Pulse Rate 98 81 60 Respiratory Rate 18 14 12 Blood Pressure 187/122 H 155/102 H 147/86 H Pulse Oximetry 100 100 98 Oxygen Delivery Room Air Room Air 07/02/24 07:49 07/02/24 07:49 Temperature Pulse Rate 60 60 Respiratory Rate 15 Blood Pressure 138/84 Pulse Oximetry 97 Oxygen Delivery Exam 2 Const: General: cooperative, healthy appearing, comfortable, no acute distress and well developed Orientation/consciousness: oriented to person, oriented to place, oriented to time and patient oriented x3 HENMT: Head: normal to inspection, normocephalic and atraumatic Mouth: Yes Normal oral and palatal mucosa present and Yes moist mucous membranes Eyes: General: appearance normal, both eyes and all related structures C onjunctivae: conjunctivae normal Sclera: sclerae normal Pupils: Equal, round and reactive pupils present Neck: Neck: normal visual inspection Chest: Chest palpation & inspection: normal inspection of the chest Resp: Effort & Inspection: normal respiratory effort and able to speak in complete sentences Auscultation: clear to auscultation bilaterally Cardio: Jugular venous distension: no JVD Rate: regular rate Rhythm: r egular rhythm Heart sounds: S1 normal heart sound present and S2 normal heart sound present GI: Inspection: normal to inspection GI Palp: Yes Soft to palpation and Yes No hepatosplenomegaly present Auscultation: normal bowel sounds Rectal Exam: deferred Skin: General skin exam: normal color and no rashes or lesions noted Neuro: General: oriented to person, oriented to place, oriented to time and patient oriented x3 Cranial nerves: Yes Equal, round and reactive pupils present Speech: normal speech Extrem: General: normal to inspection and no clubbing, cyanosis or edema Psych: Appearance: grossly normal and well kempt Affect: normal affect Results Labs 07/02/24 07:06 07/02/24 04:41 Labs: Short CBC 07/02/24 07/02/24 Range/Units 04:41 07:06 WBC 5.2 (4.5-10.0) K/mm3 Hgb 12.4 11.1 L (12.0-15.0) g/dL Hct 37.1 33.5 L (37.0-47.0) % Plt Count 198 (150-375) k/mm3 BMP 07/02/24 04:41 Sodium 141 Potassium 4.6 Chloride 107 Carbon Dioxide 25 BUN 8 Creatinine 0.60 L Glucose 110 Calcium 9.2 Liver Function 07/02/24 Range/Units 04:41 Total Bilirubin 0.8 (0.2-1.3) mg/dL AST 30 (14-36) U/L ALT 20 (6-35) U/L Alkaline Phosphatase 102 (38-126) U/L Albumin 4.0 (3.5-5.1) g/dL
[2024-07-02] MEDS: ACETAMINOPHEN 500 MG TABLET 1000 MG PO ×2 (11:17→16:18)
[2024-07-02 13:10] LABS: Hematocrit 32.7 % (37.0-47.0); Hemoglobin 10.9 g/dL (12.0-15.0)
--- NOTE | 2024-07-02 15:53 | P.HP_ITS ---
H&P: HPI History of Present Illness Date/Time: 07/02/24 15:53 Chief Complaint: Bright red blood per rectum Narrative: 53-year-old female with history of hypertension presented to the ER on account of bright red blood per rectum. Patient reported she was in her usual state of health until about 4:00 a.m. this morning when she started passing blood with blood clots per rectum. Reported 3 episodes and this prompted her to present to the ER for proper evaluation and care. Denies any vomiting diarrhea no abdominal pain no chest pain no shortness of bread no lightheadedness no passing out. Complained of headache which she noted has been the duration of onset of rectal bleeding. ER evaluation notable for stable vital signs, labs notable for hemoglobin 11.1, CT abdomen pelvis showed a hyperdense material in the rectal lumen suggestive of rectal bleeding. Patient was admitted and GI was consulted prior to admission. Review of Systems Review of Systems: All other systems are reviewed and negative except as noted in the HPI above. [facility] Past Medical History Medical History Anxiety Hypothyroidism RAFIA (obstructive sleep apnea) Hypertension Hyperlipidemia Surgical History Surgical History History of partial hysterectomy History of thyroidectomy Family History Family History Mother Aneurysm Heart disease Hypertension Gout Father Diabetes mellitus Hypertension Social History Social History Smoking status: Never smoker Second hand tobacco smoke exposure: No Alcohol intake: never Substance use: never Substance use type: does not use Do You Feel Safe in your Home?: Yes Lack of Transportation: No Lack of Food: Never True Current Housing: I Have Housing Concerned About Future Housing: No Difficulty Paying Gas/Electric Bills: No Difficulty Paying for Meds: No Currently Unemployed: No Education: High School Diploma/GED Difficulty w/ Childcare or Family Care: No Spiritual care concerns: No Meds Home Medications and Allergies Home Medications ?Medication ?Instructions ?Recorded ?Confirmed ?Type amitriptyline 10 mg tablet 10 mg PO HS 11/01/23 07/02/24 History calcium citrate 1,900 mg PO TID 11/01/23 07/02/24 History cetirizine 10 mg tablet (Zyrtec) 10 mg PO DAILY PRN allergies 11/01/23 07/02/24 History cholecalciferol (vitamin D3) 25 25 mcg PO DAILY 11/01/23 07/02/24 History mcg (1,000 unit) tablet cyanocobalamin (vitamin B-12) 50 50 mcg PO TID 11/01/23 07/02/24 History mcg tablet (Vitamin B-12) cyclobenzaprine 10 mg tablet 10 mg PO HS 11/01/23 07/02/24 History diclofenac sodium 1 % topical gel 2 g topical QID 11/01/23 07/02/24 History duloxetine 60 mg capsule,delayed 60 mg PO DAILY 11/01/23 07/02/24 History release (Cymbalta) fluticasone propionate 50 2 spray intranasal DAILY 11/01/23 07/02/24 History mcg/actuation nasal spray,suspension glucosamine sulfate 500 mg tablet 500 mg PO BID 11/01/23 07/02/24 History lidocaine 5 % topical patch 1 patch topical DAILY 11/01/23 07/02/24 History lisinopril 20 mg tablet 20 mg PO DAILY 11/01/23 07/02/24 History magnesium oxide 500 mg capsule 500 mg PO DAILY 11/01/23 07/02/24 History pravastatin 20 mg tablet 20 mg PO DAILY 11/01/23 07/02/24 History sennosides 8.6 mg capsule (senna) 8.6 mg PO BID 11/01/23 07/02/24 History pantoprazole 40 mg tablet,delayed 40 mg PO Q12HR #60 tabs 11/02/23 07/02/24 Rx release sucralfate 1 gram tablet (Carafate) 1 g PO QID #120 tabs 11/02/23 07/02/24 Rx acetaminophen 500 mg capsule 1,000 mg (2 x 500 mg) PO Q6H PRN 04/24/24 07/02/24 Rx pain #30 caps pregabalin 50 mg capsule 50 mg PO Q12H 07/02/24 07/02/24 History Allergies Allergy/AdvReac Type Severity Reaction Status Date / Time [place] And Derivatives Allergy Rash Verified 07/02/24 10:10 seafood Allergy Rash Uncoded 07/02/24 10:10 Vital Signs Vital Signs - 24 hr 07/02/24 04:26 07/02/24 04:37 07/02/24 06:01 Temperature 97.8 F 97.1 F L Pulse Rate 98 81 60 Respiratory Rate 18 14 12 Blood Pressure 187/122 H 155/102 H 147/86 H Pulse Oximetry 100 100 98 Oxygen Delivery Room Air Room Air 07/02/24 07:49 07/02/24 07:49 07/02/24 11:20 Temperature Pulse Rate 60 60 72 Respiratory Rate 15 18 Blood Pressure 138/84 140/68 Pulse Oximetry 97 100 Oxygen Delivery Exam Narrative: General: alert and comfortable Eyes: EOMI, PERRLA ENNT External ears normal, Neck is supple, no masses, Respiratory systems: Clear to auscultation Cardiovascular S1, S2, normal rhythm, no murmur, rub, or gallop; no thrill or palpable murmurs on palpation. Gastrointestinal: soft, non-tender, and non-distended abdomen with no masses; BS present Skin: no rash, lesions, ulcerations, subcutaneous nodules or induration Musculoskeletal: no abnormality and no tenderness, normal ROM Neurologic: Alert and oriented x3, non focal Mental Status Exam: normal affect H&P: Results Labs Labs: Short CBC 07/02/24 07/02/24 07/02/24 Range/Units 04:41 07:06 13:04 WBC 5.2 (4.5-10.0) K/mm3 Hgb 12.4 11.1 L 10.9 L (12.0-15.0) g/dL Hct 37.1 33.5 L 32.7 L (37.0-47.0) % Plt Count 198 (150-375) k/mm3 [facility] 07/02/24 04:41 Sodium 141 Potassium 4.6 Chloride 107 Carbon Dioxide 25 BUN 8 Creatinine 0.60 L Glucose 110 Calcium 9.2 Liver Function 07/02/24 Range/Units 04:41 Total Bilirubin 0.8 (0.2-1.3) mg/dL AST 30 (14-36) U/L ALT 20 (6-35) U/L Alkaline Phosphatase 102 (38-126) U/L Albumin 4.0 (3.5-5.1) g/dL Assessment and Plan Assessment and plan (1) Acute blood loss anemia: Code(s): D62 - Acute posthemorrhagic anemia Status: Acute (2) Acute GI bleeding: Code(s): K92.2 - Gastrointestinal hemorrhage, unspecified Status: Acute Plan GI bleed Patient presented with bright red blood per rectum CT abdomen reviewed showed rectal bleed. Vital signs are stable GI are starting consulted and patient is being prepared for endoscopy tomorrow Monitor closely. Anemia From GI loss Hemoglobin is 10.9 from 11.1. Iron panel ordered. Monitor hemoglobin closely and transfuse with hemoglobin less than 7. Headache Patient reported history of migraine Continue p.r.n. Tylenol, CT head ordered. DVT prophylaxis SCDs Patient is full Surrogate decision maker he is are daughter Blank King
--- OUTSIDE RECORDS SUMMARY | 2024-07-02 16:09 | XMS_ITS | Referral Summary ---
Author Organization [facility] Address [address] [place] [address] Care Team Providers Care Community Relations Director Name Role Phone Carla Padron PT Unavailable Unavailable Rafael Gutierrez MD Primary Care Provider Encounters Date Type Department Care Team Description 06/04/2024 9:15 AM TECHNICAL SUPPORT SPECIALIST [facility] [address] [place] [address] Outpatient Health 4th Floor [address] [place] [address] Rafael Wang, DPM Onychomycosis [B35.1] (Primary Dx); Tinea unguium; Enlarged and hypertrophic nails from Last 3 Months Allergies Active Allergy Reactions Criticality Noted Date Comments Bromelains Itching Low 12/08/2020 [place] And Derivatives Hives Medium 12/05/2019 Crab Hives Medium 12/05/2019 Carries benadryl in purse Lemon Itching Low 12/19/2017 Onion Swelling Medium 12/19/2017 Pierce Juice Itching Low 12/19/2017 Shrimp Hives,Itching Medium 08/11/2020 [place] Hives Medium 12/19/2017 Medications fluticasone propionate (FLONASE) [...] ORAL)Indications:suppl ement Take 1 capsule by mouth social and political studies professor before breakfast Take 1 capsule by mouth [...] 1 tablet (20 mg total) by mouth social and political studies professor before breakfast 90 tablet 3 024 Active [...] 06/20/2023 Assessment & Plan (06/20/2023 1:39 PM TECHNICAL SUPPORT SPECIALIST): Worsening hand pain bilaterally in all joints, [...] symptoms. Assessment & Plan (04/10/2023 4:29 PM TECHNICAL SUPPORT SPECIALIST): - Ambulatory referral to ophthalmology - CTM Hyperpigmentation 04/10/2023 Overview (04/10/2023): One week history of hyperpigmented macules on L lower abdomen. Not associated with pruritus, erythema, drainage. Likely benign. Assessment & Plan (04/10/2023 4:18 PM TECHNICAL SUPPORT SPECIALIST): - Reassured patient that most likely benign - CTM Onychomycosis 06/30/2022 Overview (04/10/2023): Endorses progressive darkening/thickening of toenails, consistent with physical exam Assessment & Plan (04/10/2023 4:25 PM TECHNICAL SUPPORT SPECIALIST): - Ciclopirox solution daily - CTM History of total knee arthroplasty 05/19/2022 Assessment & Plan (05/19/2022 8:44 AM TECHNICAL SUPPORT SPECIALIST): H/o R TKA in 11/2021 w/ unremarkable [...] 05/11/2022 Assessment & Plan (05/19/2022 8:37 AM TECHNICAL SUPPORT SPECIALIST): Hosp 05/11- w/ BRBPR that spontaneously resolved. CTAP during admission w/ diverticulosis, no active extravazation. No need for GI intervention d/t spontaneous resolution. Hgb stable at d/c. No sxs today of anemia and no further episodes noted. - continue to monitor - encouraged soft BMs Assessment & Plan (05/14/2022 12:13 PM TECHNICAL SUPPORT SPECIALIST): This is resolved. No further episodes after arrival on floor. Suspect anorectal etiology such as hemorrhoids or diverticular bleeding (seen on c-scope 01/2021). Hb stable, hemodynamically stable. -Continue to maintain soft BMs. Osteoarthritis of knee, unspecified 11/16/2021 Primary osteoarthritis of right knee 10/06/2021 Overview (10/06/2021): Added automatically from request for surgery [id number] Weight loss counseling, encounter for 01/25/2021 Overview (07/15/2021): Stable around 230 lbs. Discussed weight loss at last visit 04/04. Today _ Met with Nutrition Assessment & Plan (07/15/2021 9:28 AM TECHNICAL SUPPORT SPECIALIST): Discussed weight loss strategies with pt today, including importance of caloric restrictions. With goal of eating < 500 calories below BMR to lose 1-2 lb's weekly. Pt is amenable to meeting with our canine enforcement officer, the referral be placed today. Assessment & Plan (03/25/2021 5:46 PM TECHNICAL SUPPORT SPECIALIST): Discussed weight loss strategies with pt today, including importance of caloric restrictions. With goal of eating < 500 calories below BMR to lose 1-2 lb's weekly. Pt is amenable to meeting with our canine enforcement officer, the referral be placed today. H/O vaginal [...] today. Assessment & Plan (07/15/2021 3:21 PM TECHNICAL SUPPORT SPECIALIST): -counseled on use of Crisco as needed [...] (01/27/2020): Added automatically from request for surgery [id number] Varicose veins of leg with pain, bilateral 01/26 Primary hyperparathyroidism 01/27/2020 Assessment & Plan (08/10/2023 9:49 AM CDT): Saw endo surg today, planning for surgery which I informed patient could help with symptoms of joint pain but we will have to monitor after surgery to see. Encouraged to take vitamin D Assessment & Plan (06/20/2023 1:33 PM TECHNICAL SUPPORT SPECIALIST): Patient with persistent joint pain in hands, [...] preference. Assessment & Plan (04/10/2023 4:08 PM TECHNICAL SUPPORT SPECIALIST): - Ambulatory referral to OBGYN for further management Hypercalcemia 10/16/2019 Overview (04/10/2023): Calcium mildly elevated to 10.8 in 05/2022. PTH upper limit of normal in 04/2022. Denies symptoms of hypercalcemia. May be primary hyperparathyroidism vs FHH. Assessment & Plan (04/10/2023 4:17 PM TECHNICAL SUPPORT SPECIALIST): - F/u repeat calcium, VitD, PTH - Consider referral to endocrine in future - Discuss repeat DEXA at next visit Assessment & Plan (05/14/2022 12:14 PM TECHNICAL SUPPORT SPECIALIST): In the setting of elevated and inappropriately [...] rheumatology Assessment & Plan (04/10/2023 4:23 PM TECHNICAL SUPPORT SPECIALIST): - Omeprazole 20 mg daily - CTM Hypertension, essential 02/13/2019 Overview (04/10/2023): Current regimen: Lisinopril 20mg, endorses compliance. HCTZ discontinued in 04/2022 due to hypercalcemia. Monitors BP at home, SBP 130-140. BP 137/49 in clinic today. Assessment & Plan (08/10/2023 9:09 AM CDT): Well controlled, continue current regimen Assessment & Plan (04/10/2023 4:15 PM TECHNICAL SUPPORT SPECIALIST): - Continue lisinopril 20 mg - F/u CMP Assessment & Plan (05/14/2022 12:15 PM TECHNICAL SUPPORT SPECIALIST): Continue Lisinopril -d/c Hctz on discharge given hypercalcemia Assessment & Plan (07/15/2021 3:22 PM TECHNICAL SUPPORT SPECIALIST): -well-controlled, continue current regimen Assessment & Plan (03/25/2021 5:41 PM TECHNICAL SUPPORT SPECIALIST): - BP today 125/83, goal < 130/80 - Current regimen: Lisinopril 20mg, HCTZ 12.5mg daily - Endorses compliance to current regimen Assessment & Plan (10/16/2019 9:35 PM CDT): BP at goal today 122/70 - Continue lisinopril-HCTZ 10-12.5 Assessment & Plan (07/15/2019 4:57 PM TECHNICAL SUPPORT SPECIALIST): BP at goal today on manual check, [...] numbers Assessment & Plan (04/10/2023 4:11 PM TECHNICAL SUPPORT SPECIALIST): - Continue home pain medication regimen: flexeril 10 mg QHS PRN, amitriptyline 10 mg QHS, gabapentin 900 mg TID, APAP 1000 mg Q8H PRN, lidocaine patches PRN - Counseled patient to avoid NSAIDs due to history of GIB - Ambulatory referral to PT - Ambulatory referral to orthopedic surgery Assessment & Plan (05/19/2022 8:41 AM TECHNICAL SUPPORT SPECIALIST): Severe multijoint osteoarthritis primarily c/o bilateral R>L [...] analgesia Assessment & Plan (07/15/2019 5:06 PM TECHNICAL SUPPORT SPECIALIST): Patient with chronic osteoarthritis involving multiple joints [...] qhs Assessment & Plan (06/20/2023 1:34 PM TECHNICAL SUPPORT SPECIALIST): LDL 99 on 07/2021, on pravastatin 20 mg. Assessment & Plan (07/15/2021 3:25 PM TECHNICAL SUPPORT SPECIALIST): Continue current regimen Assessment & Plan (07/15/2019 5:03 PM TECHNICAL SUPPORT SPECIALIST): - Lipid panel (07/15/19): TC 179, HDL [...] knee. Assessment & Plan (07/15/2021 3:15 PM TECHNICAL SUPPORT SPECIALIST): - XR left knee 08/03 initial read: [...] improve Assessment & Plan (03/25/2021 5:44 PM TECHNICAL SUPPORT SPECIALIST): Known multijoint osteoarthritis most significant in right [...] counseled Assessment & Plan (04/10/2023 4:21 PM TECHNICAL SUPPORT SPECIALIST): - Revisit veronika [place] at next visit Morbid obesity with BMI of 50.0-59.9, adult 07/15/2019 06/15/2023 Assessment & Plan (07/15/2019 4:58 PM TECHNICAL SUPPORT SPECIALIST): Recommended patient eat a heart healthy diet [...] 05/12/2022 How often do you attend [employer]ur [employer] or rastafarian services? Never 05/12/2022 Do you belong to any clubs o r organizations such as taoism groups, unions, fraternal or athletic groups, or [...] in a halfway (including now)? No 05/12/2022 Personal Safety Answer Date Recorded Have you ever been in or are you currently in a harmful physical or emotional relationship or is someone making you feel afraid or unsafe? Denies 09/05/2023 Comments No Sex and Gender Information Value Date Recorded Sex Assigned at Not on file Legal Sex Female 7:40 PM TECHNICAL SUPPORT SPECIALIST Gender Identity Not on file Sexual Orientation [...] as needed Medical Devices Implanted Type Area Fiber Worker Device Identifier Shelf Expiration Date Model / Serial / Lot [employer] [id number] Continuum 48mm 12 Scallop Cluster Hole Snap Fit Groove Integrate - [id number] Implanted:Qty: 1 on 02/26/2020 by Tal Khan MD at [facility] Right: Hip [employer] [id number] 04/13/2029 [id number] / / [id number] [employer] [id number] Trilogy 6.5mm 40mm Self Tap Hip Acetabular Cortical Screw Bone - [id number] Implanted:Qty: 1 on 02/26/2020 by Tal Khan MD at [facility] Right: Hip [employer] [id number] 12/09/2029 [id number] / / [id number] [employer] [id number] 48mm 32mm Hip Gg Neutral Liner Acetabular Longevity Continuum - [id number] Implanted:Qty: 1 on 02/26/2020 by Tal Khan MD at [facility] Right: Hip [employer] [id number] 05/14/2023 [id number] / / [id number] [employer] [id number] Taperloc 140mm 34.3mm Press Fit Reduce Hip 133d 10 Standard - [id number] Implanted:Qty: 1 on 02/26/2020 by Tal Khan MD at [facility] Right: Hip [employer] 09/10/2029 [id number] / / [id number] [employer] [id number] 32mm Modular Hip -3mm Head Femoral Biolox Delta - [id number] Implanted:Qty: 1 on 02/26/2020 by Tal Khan MD at [facility] Right: Hip [employer] 08/20/2028 [id number] / / [id number] [employer] [id number] Persona 2 Peg Knee Right E Baseplate Tibial Trabecular Metal - [id number] Implanted:Qty: 1 on 11/16/2021 by Tal Khan MD at [facility] Right: Knee [employer] [id number] 05/22/2031 [id number] / / [id number] [employer] Persona 10mm Knee Right 6-7 E-F Insert Articular Vivacit-E [id number] - [id number] Implanted:Qty: 1 on 11/16/2021 by Tal Khan MD at [facility] Right: Knee [employer] [id number] 07/05/2026 [id number] / / [id number] [employer] [id number] Persona Cruciate Retaining Knee Right 6 Standard Component - [id number] Implanted:Qty: 1 on 11/16/2021 by Tal Khan MD at [facility] Right: Knee [employer] [id number] 01/25/2030 [id number] / / [id number] Procedures Procedure Name Priority Date/Time Associated Diagnosis Comments SCREENING MAMMOGRAM BILATERAL W SUNNY Schedule Routine, Read Routine (OP Routine) 12/06/2023 1:34 PM CDT Screening mammogram, encounter for PAP AND HIGH RISK HPV, REFLEX TO GENOTYPING Routine 07/23/2021 4:38 PM TECHNICAL SUPPORT SPECIALIST ASCUS of cervix with negative high risk [...] to prior imaging studies performed at [facility] on 01/03/2020 and 06/08/2022, and at [facility] on 03/31/2021. There are scattered areas [...] to prior imaging studies performed at [facility] on 01/03/2020 and 06/08/2022, and at [facility] on 03/31/2021. There are scattered areas of fibroglandular density. There is no suspicious abnormality in either breast. Impression: There is no mammographic evidence of malignancy. Annual screening mammography is recommended. OVERALL FINAL ASSESSMENT: BI-RADS CATEGORY 1: Negative. us Self Screening Mammogram IMG MAMMO PROCEDURES Fi nal Result * Pap and High Risk HPV, reflex to Genotyping (07/23/2021 4:38 PM TECHNICAL SUPPORT SPECIALIST) Thin prep (Pap test) 07/23/2021 4:38 PM TECHNICAL SUPPORT SPECIALIST 07/23/2021 7:19 PM TECHNICAL SUPPORT SPECIALIST Narrative PATHOLOGY [facility] - 07/28/2021 2:14 PM CDT EPIC results best viewed via link to PDF [facility] [place] [address] Note to Patients: This report may contain [...] Gender: F : 1970 (Age: 50) Address: [address] [place] [address] Hospital #: [id number] Service: Gynecology Location: [facility] Patient Type: [facility] Ancillary Taken: 07/23/2021 Received: 07/23/2021 Accessioned: 07/26/2021 [...] 66. This HPV test was performed at [facility] in [place], [place] utilizing the Gen-Probe Aptima assay. 07/28/2021 [...] since. The HPV test was performed by [facility], [address] [place] [address]. Report Images and scanned documents, if included only viewable in PDF version The performance characteristics of some immunohistochemical stains, in-situ hybridization and fluorescence in-situ hybridization tests and immunophenotyping by flow cytometry cited in this report (if any) were determined by the Surgical Pathology Department at [facility] as part of an ongoing water quality specialist program and in compliance with federally mandated [...] determined by the Surgical Pathology Department of [facility]. It has not been cleared or approved by the U. S. Food and Drug Administration. us Jinai Adil Bharucha MD LAB CYTOLOGY ORDERABLES F inal Result PATHOLOGY [facility] 3rd Floor [place], [place] [phone] * COLONOSCOPY (02/03/2021 11:03 AM CDT) Anatomical Region Laterality Modality Other Narrative Procedure Note Syd Toney MD - 02/03/2021 11:03 AM CDT [facility] Patient Name: Tanner Torre Procedure Date: 02/03/2021 11:03 AM Date of : 1970 Admit Type: Outpatient Age: 50 Gender: Female Attending MD: Syd Urbina M.D. Room: [facility] ENDOSCOPY ROOM 9 Note Status: Finalized [...] scope was passed under direct vision.The CF [id number] endoscope was introduced through the anus and advanced to the cecum, identified by appendiceal orifice and ileocecal valve. The colonoscopy was performed without difficulty. The patient tolerated the procedure well. The qualityof the bowel preparation was good. The quality of the bowel preparation was evaluated using the BBPS([place]oud Bowel Preparation Scale) with scores of: RightColon [...] following this procedure please call my office [phone]). After hours and eveningsplease call [phone] and speak to the GI fellow blanca. [...] On: 02/03/2021 11:03 AM Recognized by the [employer] for promoting quality in endoscopy Syd Urbina MD ENDOSCOPY PROCEDURES Final Result from Last 3 Months or Most Recently Relevant to Health Maintenance Insurance [place] [id number] CHOICE MEDICARE PPO MEDICARE [place] CHOICE MEDIC[facility] [place]ID [place] [employer] [facility] Address: [address] [address] MEDICAID [place] [employer] MEDICARE [facility] Address: [facility] [address] [place] [address] Advance Directives For more information, please contact: [phone] * Full Code (Latest Code Status on [...] 4:45 PM 02/27/2020 8:25 PM Care Teams Community Relations Director Relationship Specialty Start Date End Date Rafael Gutierrez MD [address] [place] [address] PCP - General Family Medicine 12/06/23 Carla Padron PT Physical Therapist Physical Therapy 11/17/21
--- OUTSIDE RECORDS SUMMARY | 2024-07-02 16:09 | XMS_ITS | Clinical Summary ---
Author Organization [facility] Address [address] [place] [address] Care Team Providers Care Plastic Design Applier Name Role Phone Clinicpcjanae, [facility] Primary Care Provider Clinicpcrudy [facility] Unavail able Belgica Arevalo RN Unavailable [phone] Source Comments [facility],non-owned Affiliates and Associated Physician Practices is amultiple site organization consisting of ambulatory clinics and hospital sitesin [place], [place], [place] and [place]. This disclosure is being madepursuant to the Care Everywhere program and may not contain all information available regarding this patient. Last updated 18.[facility] Allergies Active Allergy Reactions Criticality Noted [...] Disease) Father Cancer Father prostate Diabetes Father [place] Father Aneurysm Maternal Grandmother Aneurysm Mother brain [...] Description 08/22/2024 9:00 AM CDT Office Visit [facility] - Rheumatology [id number] [place] [address] [place] [address] [address] [place] [address] Health Maintenance Due Date Last [...] THIRD REPUBLICAN LIABILITY TPL THIRD REPUBLICAN LIABILITY [id number] Effective for all dates [address] [place] [address] Third Libertarian Liability [place] HEALTH[place] BSC PLAN [id number] 10/22/2018-Pre sent [address] [place] [address] Medicaid [place] MEDICARE MANAGED CARE PLAN GENERIC MEDICARE ADV MEDICARE MANAGED CARE PLAN GENERIC [id number] Effective for all dates Medicare-Man aged Care SELF PAY NO INSURANCE SELF PAY NO INSURANCE Effective for all dates [place] Self Pay MEDICARE MANAGED CARE PLAN GENERIC MEDICARE ADV MEDICARE MANAGED CARE PLAN GENERIC [id number] Effective for all dates Medicare-Man aged Care SELF PAY NO INSURANCE SELF PAY NO INSURANCE Effective for all dates [place] Self Pay MEDICARE MANAGED CARE PLAN GENERIC MEDICARE ADV MEDICARE MANAGED CARE PLAN GENERIC [id number] Effective for all dates Medicare-Man aged Care SELF PAY NO INSURANCE SELF PAY NO INSURANCE Effective for all dates [place] Self Pay HUMANA GOLD PLUS HMO HUMANA MEDICARE ADV HMO/PPO [id number] 10/13/2018-Pres ent [address] [address] [place] [address] Medicare-Man aged Care [place]EN[place] [id number] Effective for all dates [address] [place] [address] Medicaid [place] Advance Directives * Full Code (Latest Code Status on File) Date Activated Date Inactivated Comments 03/25/2014 2:19 PM 03/25/2014 8:49 PM * Full Code Date Activated Date Inactivated Comments 03/22/2014 3:59 AM 03/25/2014 2:19 PM Care Teams Plastic Design Applier Relationship Specialty Start Date End Date Nettie [facility] [address] [place] [address] PCP - General 10/11/14 [facility] [address] [place] [id number] 10/11/14 Belgica Arevalo RN Lead Installer 03/23/14
--- OUTSIDE RECORDS SUMMARY | 2024-07-02 16:09 | XMS_ITS | Encounter Summary ---
Author Organization [facility] Address [address] [place] [address] Care Team Providers Care Chassis Wirer Name Role Phone Jamil Covington MD Primary Care Provider [phone] Carla Padron PT Unavailable Unavailable Adrienne Salcedo MD Primary Care Provider [phone] Rafael Gutierrez MD Primary Care Provider Encounter Details Date Type Department Care Team (Late st Contact Info) Description 12/28/2021 Telephone [facility] [address] [facility] [address] [place], [place] [id number] Jamil Covington MD [address] [facility] [address] [place] [address] Social History Tobacco Use Types [...] on file 

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
--- OUTSIDE RECORDS SUMMARY | 2024-07-02 16:09 | XMS_ITS | Clinical Summary ---
Author Organization [facility] Address [address] [place] [address] Phone Care Team Providers Care Interventional Physician Name Role Phone Rafael Gutierrez MD Primary Care Provider [phone] Allergies No known active allergies Medications lisinopriL [...] STL ABSTRACTION Provider, Abstract 05/23/2024 10:50 AM IOS ARCHITECT Ancillary Procedure [email or web address] [address] [phone] Alana Sutherland PA-C Pain in unspecified hand 05/06/2024 Ancillary Procedure [employer] [address] [place] [phone] Alana Sutherland PA-C Pain in unspecified hand [...] VW BILAT Routine 05/23/2024 11 :17 AM IOS ARCHITECT Pain in unspecified hand from Last 3 Months Results * XR HAND 2 VW BILAT (05/23/2024 11:17 AM IOS ARCHITECT) Anatomical Region Laterality Modality Wrist / Hand Computed Radiogr aphy 05/23/2024 11:1 7 AM IOS ARCHITECT Impressions 05/23/2024 11:32 AM IOS ARCHITECT IMPRESSION: 1. Bilateral ulnar negative variance, as described above. 2. Bilateral hand and wrist osteoarthritis with findings suggestive of osteoarthritis superimposed on erosive/inflammatory arthritis, as described above. Narrative 05/23/2024 11:32 AM IOS ARCHITECT EXAM: XR HAND 2 VW BILAT DATE: 05/23/2024 CLINICAL HISTORY: Bilateral hand pain TECHNIQUE: PA and lateral views of both hands were submitted for review. No prior study is available for comparison. FINDINGS: Right hand: There is ulnar negative variance of 4 mm. Periarticular osteopenia is suspected at the metacarpophalangeal and interphalangeal joints. There is uptj-fv-ufrmcsfp distal radioulnar joint, mild radiocarpal and 2nd carpometacarpal joint and zavk-uf-epmdqgjr pshhyavb-pirmjdpck-ljezkgziy and 1st carpometacarpal joint osteoarthritis. There is mild 1st through 5th metacarpophalangeal joint and thumb interphalangeal joint osteoarthritis. There is azqu-bq-jsycjjdy index, long, ring and small finger distal [...] and 1st and 2nd carpometacarpal joint and tsin-fg-cbgqxjvk yywvegnm-gycbzgedv-gesjosfod osteoarthritis. There is mild 1st and 5th [...] the metacarpophalangeal and interphalangeal joints. There is fdih-mx-dedvluki distal radioulnar joint, mild radiocarpal and 2nd carpometacarpal joint and vlgw-ri-vvfxzkah shfchivs-qyqefcqdr-iqvwcwcop and 1st carpometacarpal joint osteoarthritis. There is mild 1st through 5th metacarpophalangeal joint and thumb interphalangeal joint osteoarthritis. There is vbww-xn-kqanhskb index, long, ring and small finger distal [...] and 1st and 2nd carpometacarpal joint and vufi-tq-hesvpfrb ykzdvgir-mcbxsnard-xnsebszwx osteoarthritis. There is mild 1st and 5th [...] from Last 3 Months Insurance [place] [facility] DUAL COMPLETE HMO [facility] [id number] Member Subscriber Plan / Payer (Ef fective 2023-Present) Name:Adryan Torre Relation to Subscriber:Self Name:Adryan Torre Payer ID:[id number] (NAIC) Group ID:[id number] Type:HMO Address: [address] [place] [id number] RX INFOCROSSING Medicaid RX OPTUM RX Member Subscriber Plan / Payer (Ef fective 2023-Present) Name:Adryan Torre Relation to Subscriber:Self Name:Adryan Torre Subscriber ID:Not on file Payer ID:Not on file Group ID:[id number] Type:RX Medicare Part D Address: EILEEN NIETO Omid EILEEN UGARTE [address] [facility] DUAL COMPLETE HMO [facility] [address] MEDICAID [place] Care Teams Interventional Physician Relationship Specialty Start Date End Date Rafael Gutierrez MD [address] [place] [address] PCP - General Family Practice 08/28/23
--- OUTSIDE RECORDS SUMMARY | 2024-07-02 16:09 | XMS_ITS | Referral Summary ---
Author Organization [facility] Address [address] [facility] [place] [address] Care Team Providers Care Tunneling Machine Operator Name Role Phone Clinicpcjanae, [facility] Primary Care Provider Clinicpcrudy [facility] Unavail able Belgica Arevalo RN Unavailable [phone] Source Comments [facility],non-owned Affiliates and Associated Physician Practices is amultiple site organization consisting of ambulatory clinics and hospital sitesin [place], [place], [place] and [place]. This disclosure is being madepursuant to the Care Everywhere program and may not contain all information available regarding this patient. Last updated 18.[facility] Allergies Active Allergy Reactions Criticality [...] Visit [facility] - Rheumatology [address] [facility] [address] [place] [address] [place] [address] [facility] [address] [place] [phone] Insurance Payer Benefit Plan / Group Subscriber ID Effective Dates Phone Address Type TPL THIRD GREEN PARTY LIABILITY TPL THIRD GREEN PARTY LIABILITY [id number] Effective for all dates [address] [place] [address] Third Green Party Liability [place] [employer] BSC PLAN [id number] 10/22/2018-Pre sent [address] [place] [address] Medicaid [place] MEDICARE MANAGED CARE PLAN GENERIC MEDICARE ADV MEDICARE MANAGED CARE PLAN GENERIC [id number] Effective for all dates Medicare-Man aged Care SELF PAY NO INSURANCE SELF PAY NO INSURANCE Effective for all dates [place], [place] Self Pay MEDICARE MANAGED CARE PLAN GENERIC MEDICARE ADV MEDICARE MANAGED CARE PLAN GENERIC [id number] Effective for all dates Medicare-Man aged Care SELF PAY NO INSURANCE SELF PAY NO INSURANCE Effective for all dates [place], [place] Self Pay MEDICARE MANAGED CARE PLAN GENERIC MEDICARE ADV MEDICARE MANAGED CARE PLAN GENERIC [id number] Effective for all dates Medicare-Man aged Care SELF PAY NO INSURANCE SELF PAY NO INSURANCE Effective for all dates [place], [place] Self Pay HUMANA GOLD PLUS HMO HUMANA MEDICARE ADV HMO/PPO [id number] 10/13/2018-Pres ent [address] [address] [place] [address] Medicare-[place] aged Care MEDICAID LIMITED BENEFIT - [place] MEDICAID LIMITED BENEFIT - [facility] [id number] Effective for all dates [address] [place] [address] Medicaid [place] Advance Directives * Full Code (Latest Code Status on File) Date Activated Date Inactivated Comments 03/25/2014 2:19 PM 03/25/2014 8:49 PM * Full Code Date Activated Date Inactivated Comments 03/22/2014 3:59 AM 03/25/2014 2:19 PM Care Teams Tunneling Machine Operator Relationship Specialty Start Date End Date Clinicevanpsjoe, [facility] [address] [place] [address] PCP - General 10/11/14 Clinicevanpsjoe, [facility] [address] [place] [address] 10/11/14 Belgica Arevalo RN Diesel Dragline Operator 03/23/14
--- OUTSIDE RECORDS SUMMARY | 2024-07-02 16:09 | XMS_ITS | Clinical Summary ---
Author Organization [facility] Address [address] [place] [address] Care Team Providers Care Shoe Stamper Name Role Phone Carla Padron PT Unavailable Unavailable Rafael Gutierrez MD Primary Care Provider Allergies Active Allergy Reactions Criticality Noted Date Comments Bromelains Itching Low 12/08/2020 Ramsey And Derivatives Hives Medium 12/05/2019 Crab Hives Medium 12/05/2019 Carries benadryl in purse Lemon Itching Low 12/19/2017 Onion Swelling Medium 12/19/2017 [place] Juice Itching Low 12/19/2017 Shrimp Hives,Itching Medium 08/11/2020 [place] Hives Medium 12/19/2017 Medications fluticasone propionate (FLONASE) [...] ORAL)Indications:suppl ement Take 1 capsule by mouth electronics research engineer before breakfast Take 1 capsule by mouth [...] 1 tablet (20 mg total) by mouth electronics research engineer before breakfast 90 tablet 3 Active diclofenac [...] 06/20/2023 Assessment & Plan (06/20/2023 1:39 PM LAPEL STITCHER): Worsening hand pain bilaterally in all joints, [...] symptoms. Assessment & Plan (04/10/2023 4:29 PM LAPEL STITCHER): - Ambulatory referral to ophthalmology - CTM Hyperpigmentation 04/10/2023 Overview (04/10/2023): One week history of hyperpigmented macules on L lower abdomen. Not associated with pruritus, erythema, drainage. Likely benign. Assessment & Plan (04/10/2023 4:18 PM LAPEL STITCHER): - Reassured patient that most likely benign - CTM Onychomycosis 06/30/2022 Overview (04/10/2023): Endorses progressive darkening/thickening of toenails, consistent with physical exam Assessment & Plan (04/10/2023 4:25 PM LAPEL STITCHER): - Ciclopirox solution daily - CTM History of total knee arthroplasty 05/19/2022 Assessment & Plan (05/19/2022 8:44 AM LAPEL STITCHER): H/o R TKA in 11/2021 w/ unremarkable [...] 05/11/2022 Assessment & Plan (05/19/2022 8:37 AM LAPEL STITCHER): Hosp 05/11- w/ BRBPR that spontaneously resolved. CTAP during admission w/ diverticulosis, no active extravazation. No need for GI intervention d/t spontaneous resolution. Hgb stable at d/c. No sxs today of anemia and no further episodes noted. - continue to monitor - encouraged soft BMs Assessment & Plan (05/14/2022 12:13 PM LAPEL STITCHER): This is resolved. No further episodes after arrival on floor. Suspect anorectal etiology such as hemorrhoids or diverticular bleeding (seen on c-scope 01/2021). Hb stable, hemodynamically stable. -Continue to maintain soft BMs. Osteoarthritis of knee, unspecified 11/16/2021 Primary osteoarthritis of right knee 10/06/2021 Overview (10/06/2021): Added automatically from request for surgery [id number] Weight loss counseling, encounter for 01/25/2021 Overview (07/15/2021): Stable around 230 lbs. Discussed weight loss at last visit 04/04. Today _ Met with Nutrition Assessment & Plan (07/15/2021 9:28 AM LAPEL STITCHER): Discussed weight loss strategies with pt today, including importance of caloric restrictions. With goal of eating < 500 calories below BMR to lose 1-2 lb's weekly. Pt is amenable to meeting with our patents examiner, the referral be placed today. Assessment & Plan (03/25/2021 5:46 PM LAPEL STITCHER): Discussed weight loss strategies with pt today, including importance of caloric restrictions. With goal of eating < 500 calories below BMR to lose 1-2 lb's weekly. Pt is amenable to meeting with our patents examiner, the referral be placed today. H/O vaginal [...] today. Assessment & Plan (07/15/2021 3:21 PM LAPEL STITCHER): -counseled on use of Crisco as needed [...] (01/27/2020): Added automatically from request for surgery [id number] Varicose veins of leg with pain, bilateral 01/26 Primary hyperparathyroidism 01/27/2020 Assessment & Plan (08/10/2023 9:49 AM CDT): Saw endo surg today, planning for surgery which I informed patient could help with symptoms of joint pain but we will have to monitor after surgery to see. Encouraged to take vitamin D Assessment & Plan (06/20/2023 1:33 PM LAPEL STITCHER): Patient with persistent joint pain in hands, [...] preference. Assessment & Plan (04/10/2023 4:08 PM LAPEL STITCHER): - Ambulatory referral to OBGYN for further management Hypercalcemia 10/16/2019 Overview (04/10/2023): Calcium mildly elevated to 10.8 in 05/2022. PTH upper limit of normal in 04/2022. Denies symptoms of hypercalcemia. May be primary hyperparathyroidism vs FHH. Assessment & Plan (04/10/2023 4:17 PM LAPEL STITCHER): - F/u repeat calcium, VitD, PTH - Consider referral to endocrine in future - Discuss repeat DEXA at next visit Assessment & Plan (05/14/2022 12:14 PM LAPEL STITCHER): In the setting of elevated and inappropriately [...] rheumatology Assessment & Plan (04/10/2023 4:23 PM LAPEL STITCHER): - Omeprazole 20 mg daily - CTM Hypertension, essential 02/13/2019 Overview (04/10/2023): Current regimen: Lisinopril 20mg, endorses compliance. HCTZ discontinued in 04/2022 due to hypercalcemia. Monitors BP at home, SBP 130-140. BP 137/49 in clinic today. Assessment & Plan (08/10/2023 9:09 AM CDT): Well controlled, continue current regimen Assessment & Plan (04/10/2023 4:15 PM LAPEL STITCHER): - Continue lisinopril 20 mg - F/u CMP Assessment & Plan (05/14/2022 12:15 PM LAPEL STITCHER): Continue Lisinopril -d/c Hctz on discharge given hypercalcemia Assessment & Plan (07/15/2021 3:22 PM LAPEL STITCHER): -well-controlled, continue current regimen Assessment & Plan (03/25/2021 5:41 PM LAPEL STITCHER): - BP today 125/83, goal < 130/80 - Current regimen: Lisinopril 20mg, HCTZ 12.5mg daily - Endorses compliance to current regimen Assessment & Plan (10/16/2019 9:35 PM CDT): BP at goal today 122/70 - Continue lisinopril-HCTZ 10-12.5 Assessment & Plan (07/15/2019 4:57 PM LAPEL STITCHER): BP at goal today on manual check, [...] numbers Assessment & Plan (04/10/2023 4:11 PM LAPEL STITCHER): - Continue home pain medication regimen: flexeril 10 mg QHS PRN, amitriptyline 10 mg QHS, gabapentin 900 mg TID, APAP 1000 mg Q8H PRN, lidocaine patches PRN - Counseled patient to avoid NSAIDs due to history of GIB - Ambulatory referral to PT - Ambulatory referral to orthopedic surgery Assessment & Plan (05/19/2022 8:41 AM LAPEL STITCHER): Severe multijoint osteoarthritis primarily c/o bilateral R>L [...] analgesia Assessment & Plan (07/15/2019 5:06 PM LAPEL STITCHER): Patient with chronic osteoarthritis involving multiple joints [...] qhs Assessment & Plan (06/20/2023 1:34 PM LAPEL STITCHER): LDL 99 on 07/2021, on pravastatin 20 mg. Assessment & Plan (07/15/2021 3:25 PM LAPEL STITCHER): Continue current regimen Assessment & Plan (07/15/2019 5:03 PM LAPEL STITCHER): - Lipid panel (07/15/19): TC 179, HDL [...] knee. Assessment & Plan (07/15/2021 3:15 PM LAPEL STITCHER): - XR left knee 08/03 initial read: [...] improve Assessment & Plan (03/25/2021 5:44 PM LAPEL STITCHER): Known multijoint osteoarthritis most significant in right [...] counseled Assessment & Plan (04/10/2023 4:21 PM LAPEL STITCHER): - Revisit COVID booster, shingles at next visit Morbid obesity with BMI of 50.0-59.9, adult 07/15/2019 06/15/2023 Assessment & Plan (07/15/2019 4:58 PM LAPEL STITCHER): Recommended patient eat a heart healthy diet [...] Department Care Team Description 06/04/2024 9:15 AM LAPEL STITCHER [facility] [address] [place] [address] 4th [address] [place] [address] Rafael Wang, DPMehdi Onychomycosis [B35.1] [...] often do you attend chur ch or moravian services? Never 05/12/2022 Do you belong to [...] place to sleep or slept in a detention (including now)? No 05/12/2022 Personal Safety Answer Date Recorded Have you ever been in or are you currently in a harmful physical or emotional relationship or is someone making you feel afraid or unsafe? Denies 09/05/2023 Comments No Sex and Gender Information Value Date Recorded Sex Assigned at Not on file Legal Sex Female 7:40 PM LAPEL STITCHER Gender Identity Not on file Sexual Orientation [...] as needed Medical Devices Implanted Type Area Servicer Coin Machines Device Identifier Shelf Expiration Date Model / Serial / Lot [employer] [id number] Continuum 48mm 12 Scallop Cluster Hole Snap Fit Groove Integrate - [id number] Implanted:Qty: 1 on 02/26/2020 by Tal Khan MD at [facility] Right: Hip [employer] [id number] 04/13/2029 [id number] / / [id number] [employer] [id number] Trilogy 6.5mm 40mm Self Tap Hip Acetabular Cortical Screw Bone - [id number] Implanted:Qty: 1 on 02/26/2020 by Tal Khan MD at [facility] Right: Hip [employer] [id number] 12/09/2029 [id number] / / [id number] [employer] [id number] 48mm 32mm Hip Gg Neutral Liner Acetabular Longevity Continuum - [id number] Implanted:Qty: 1 on 02/26/2020 by Tal Khan MD at [facility] Right: Hip [employer] [id number] 05/14/2023 [id number] / / [id number] [employer] [id number] Taperloc 140mm 34.3mm Press Fit Reduce Hip 133d 10 Standard - [id number] Implanted:Qty: 1 on 02/26/2020 by Tal Khan MD at [facility] Right: Hip [employer] 09/10/2029 [id number] / / [id number] [employer] [id number] 32mm Modular Hip -3mm Head Femoral Biolox Delta - [id number] Implanted:Qty: 1 on 02/26/2020 by Tal Khan MD at [facility] Right: Hip [employer] 08/20/2028 [id number] / / [id number] [employer] [id number] Persona 2 Peg Knee Right E Baseplate Tibial Trabecular Metal - [id number] Implanted:Qty: 1 on 11/16/2021 by Tal Khan MD at [facility] Right: Knee [employer] [id number] 05/22/2031 [id number] / / [id number] [employer] Persona 10mm Knee Right 6-7 E-F Insert Articular Vivacit-E [id number] - [id number] Implanted:Qty: 1 on 11/16/2021 by Tal Khan MD at [facility] Right: Knee [employer] [id number] 07/05/2026 [id number] / / [id number] [employer] [id number] Persona Cruciate Retaining Knee Right 6 Standard Component - [id number] Implanted:Qty: 1 on 11/16/2021 by Tal Khan MD at [facility] Right: Knee [employer] [id number] 01/25/2030 [id number] / / [id number] Procedures Procedure Name Priority Date/Time Associated Diagnosis Comments SCREENING MAMMOGRAM BILATERAL W SUNNY Schedule Routine, Read Routine (OP Routine) 12/06/2023 1:34 PM CDT Screening mammogram, encounter for PAP AND HIGH RISK HPV, REFLEX TO GENOTYPING Routine 07/23/2021 4:38 PM LAPEL STITCHER ASCUS of cervix with negative high risk [...] to prior imaging studies performed at [facility] on 01/03/2020 and 06/08/2022, and at [facility] on 03/31/2021. There are scattered areas of [...] to prior imaging studies performed at [facility] on 01/03/2020 and 06/08/2022, and at [facility] on 03/31/2021. There are scattered areas of fibroglandular density. There is no suspicious abnormality in either breast. Impression: There is no mammographic evidence of malignancy. Annual screening mammography is recommended. OVERALL FINAL ASSESSMENT: BI-RADS CATEGORY 1: Negative. us Self Screening Mammogram IMG MAMMO PROCEDURES Fi nal Result * Pap and High Risk HPV, reflex to Genotyping (07/23/2021 4:38 PM LAPEL STITCHER) Thin prep (Pap test) 07/23/2021 4:38 PM LAPEL STITCHER 07/23/2021 7:19 PM LAPEL STITCHER Narrative PATHOLOGY [facility] - 07/28/2021 2:14 PM CDT EPIC results best viewed via link to PDF [facility] [place] [address] Note to Patients: This report may contain [...] Gender: F : 1970 (Age: 50) Address: [address] [place] [address] Hospital #: [id number] Service: Gynecology Location: [facility] Patient Type: [facility] Ancillary Taken: 07/23/2021 Received: 07/23/2021 Accessioned: [...] 66. This HPV test was performed at [facility] in [place], [place] utilizing the Gen-Probe Aptima assay. 07/28/2021 [...] since. The HPV test was performed by [facility], [address] [place] [address]. Report Images and scanned documents, if included only viewable in PDF version The performance characteristics of some immunohistochemical stains, in-situ hybridization and fluorescence in-situ hybridization tests and immunophenotyping by flow cytometry cited in this report (if any) were determined by the Surgical Pathology Department at [facility] as part of an ongoing quality reviewer program and in compliance with federally mandated [...] determined by the Surgical Pathology Department of [facility]. It has not been cleared or approved by the U. S. Food and Drug Administration. Olivia Mata MD LAB CYTOLOGY ORDERABLES F inal Result PATHOLOGY [facility] 3rd Floor [place], [place] [phone] * COLONOSCOPY (02/03/2021 11:03 AM CDT) Anatomical Region Laterality Modality Other Narrative Procedure Note Syd Toney MD - 02/03/2021 11:03 AM CDT GI ENDOSCOPY [facility] Patient Name: Tanner Torre Procedure Date: 02/03/2021 11:03 AM Date of : 1970 Admit Type: Outpatient Age: 50 Gender: Female Attending MD: Syd Urbina M.D. Room: [facility] ENDOSCOPY ROOM 9 Note Status: Finalized [...] The scope was passed under direct vision.The [id number] endoscope was introduced through the anus and advanced to the cecum, identified by appendiceal orifice and ileocecal valve. The colonoscopy was performed without difficulty. The patient tolerated the procedure well. The qualityof the bowel preparation was good. The quality of the bowel preparation was evaluated using the BBPS([place] Bowel Preparation Scale) with scores of: RightColon [...] following this procedure please call my office [phone]). After hours and eveningsplease call [phone] and speak to the GI fellow oncall. [...] On: 02/03/2021 11:03 AM Recognized by the [place] [employer] for promoting quality in endoscopy Syd Urbina MD ENDOSCOPY PROCEDURES Final Result from Last 3 Months or Most Recently Relevant to Health Maintenance Insurance [facility]ALTH[facility] DIVISION HUMANA CHOICE MEDICARE PPO MEDICARE HU[place]NA CHOICE MEDICARE PPO DIVISION MEDICAID [place] SPENDDOWN MEDICARE COMMUNITY PLAN [facility] MEDICARE Address: [address] [address] MEDICAID [place] SPENDDOWN Member Subscriber Plan / Payer (Ef fective 2023-Present) Name:Tanner Torre Relation to Subscriber:Self Name:Tanner Torre Payer ID:[id number] Group ID:Not on file Type:MEDICAID [place] Address: [address] MEDICARE COMMUNITY PLAN [facility] MEDICARE Address: [address] [address] Advance Directives For more information, please contact: [phone] * Full Code (Latest Code Status on [...] 4:45 PM 02/27/2020 8:25 PM Care Teams Shoe Stamper Relationship Specialty Start Date End Date Rafael Gutierrez MD [address] [place] [address] PCP - General Family Medicine 12/06/23 Carla Padron PT Physical Therapist Physical Therapy 11/17/21
--- OUTSIDE RECORDS SUMMARY | 2024-07-02 16:09 | XMS_ITS | Encounter Summary ---
Author Organization [facility] Healthcare Address [address] [place] [address] Care Team Providers Care Business Rules Analyst Name Role Phone Jamil Covington MD Primary Care Provider [phone] Carla Padron PT Unavailable Unavailable Adrienne Salcedo MD Primary Care Provider [phone] Rafael Gutierrez MD Primary Care Provider Encounter Details Date Type Department Care Team (Late st Contact Info) Description 12/14/2022 Telephone [facility] Primary [facility] Medicine Clinic [address] [facility] [address] [place] [address] Jamil Covington MD [address] [facility] [address] [place] [address] Social History Tobacco Use Types [...] you attend [facility] or taoist services? Never 05/12/2022 Do you belong to any clubs o r organizations such as oriental orthodox groups, unions, fraternal or athletic groups, or [...] on file Legal Sex Female 7:40 PM WARD ASSISTANT Gender Identity Not on file Sexual Orientation [...] on filedocumented in this encounter Care Teams Business Rules Analyst Relationship Specialty Start Date End Date Jamil Covington MD PCP - General 10/31/20 11/03/23 Adrienne Salcedo MD PCP - General 11/04/23 12/05/23 Rafael Gutierrez MD [address] [place] [address] PCP - General Family Medicine 12/06/23 Carla Padron PT Physical Therapist Physical Therapy 11/17/21 documented as of this encounter
--- OUTSIDE RECORDS SUMMARY | 2024-07-02 16:09 | XMS_ITS | Continuity of Care Document ---
Author Organization [facility] Address [address] [place] [address] Phone Care Team Providers Care Special Events Assistant Name Role Phone Lala Bah Unavailable Unavailabl [...] MG - Active Procedures Procedure Date OFFICE [id number] SYST BP GE 130 - 139MM HG DIAST BP 80-89 MM HG ANTINUCLEAR ANTIBODIES (JANIS) CYCLIC CITRULLINE PEPTIDE (CCP) 024 RHEUMATOID FACTOR: QN RBC SED RATE, AUTOMATED ROUTINE VENIPUNCTURE EKG (ELECTROCARDIOGRAM) CENTROMERE B ANTIBODY CHROMATIN ANTIBODY STEVE-1 ANTIBODY RIBOSOMAL P ANTIBODY SM ANTIBODY SM/JEWEL BLOCKER AND SAWYER ANTIBODY JEWEL BLOCKER AND SAWYER ANTIBODY SJOGREN'S (SS-A) ANTIBODY SJOGREN'S (SS-B) ANTIBODY DNA ANTIBODIES (DS), QAGAN TAYAGUNGIN SCLERODERMA ANTIBODY,SCL-70 TELEPHONE ASSESSMENT AND MAN AGEMENT SERVICE PROVID 5-10 MINUTES OF MEDICAL DISCU CBC, INC PLATELETS AND DIFFERENTIAL COMPREHEN METABOLIC PANEL CMP LIPID PANEL PARATHYROID HORMONE (PTH) ROUTINE VENIPUNCTURE OFFICE [id number] Visit Complexity Inherent To E/M 2023 SYST BP LT 130 MM HG DIAST BP 80-89 MM HG Pt inelig neg scrn depres OFFICE [id number] Visit Complexity Inherent To E/M 2023 SYST BP GE 130 - 139MM HG DIAST BP 80-89 MM HG Triamcinolone Acetonide Injection, 10mg ASP/INJ MAJOR JOINTOR BURSA, SHOULDER, H IP,KNEE W/O US GUIDANCE OFFICE [id number] SYST BP >= 140 MM HG6 IT DIAST BP >= 90 MM HG DSCHRG MED/CURRENT MED MERGE Transitional Care- 14 Days Of Discharge SYST BP GE 130 - 139MM HG DIAST BP >= 90 MM HG BASIC METABOLIC PANEL(BMP) ROUTINE VENIPUNCTURE INHALATION TREATMENT/THERAPY ALBUTEROL, INHALATION BERTHA, F DA-APPRVD FINAL PRODUCT, NON-COMPOUNDED, ADM THROUGH OFFICE [id number] SYST BP >= 140 MM HG6 IT [...] Diagnoses Date Provider Providers Copied on Encounter [facility], [address], [place], [place], [address] , tel:[phone] [facility] No Information 5 Elliot Reeves. [address] [place], [place], [address], [place]. tel:[phone] OFFICE [id number]-RXH-MGT ANICETO [facility], [address], [place], [place], [address] , tel:[phone] [facility] f/u (chief complaint) Pain of hand, unspecified lateralityPAC (premature atrial contraction)Nail abnormality 4 Koko Warner. [address] [place], [place], [address], [place]. tel:[phone] Referring Provider: Rafael Gutierrez, [address] [place], [address] . tel:[phone] [facility], [address], [place], [place], [address] , [phone] [facility] COVID-19 4 Elliot Reeves. [address], [place], [address], [place]. tel:[phone] Referring Provider: Rafael Gutierrez, [address] [place], [address] . tel:[phone] [facility], [address], [place], [place], [address] , tel:[phone] [facility] No Information 4 Scarlet Ayoub. [facility], [address], [address], . tel:[phone] OFFICE [id number]-VDJ-IXN ANICETO [facility], [address], [place], [place], [address] , [place] tel:[phone] [facility] routine follow up (chief complaint)C hronic Conditions (chief complaint)c hronic conditions (chief complaint) Essential (primary) hypertensionHyperp arathyroidism, unspecifiedAcute pain of right shoulderRight hip painAcute pain of right kneeLeft hip painGeneralized headachesPostnasal dripAcute gastric ulcer without hemorrhage or perforationPain in unspecified jointHyperlipidemi a, unspecifiedGeneral ized anxiety disorderMajor depressive disorder, recurrent, moderateEncounter for immunization 4 Matt Hall. [address] [place], [place], [address], . tel:[phone] Referring Provider: Rafael Gutierrez, [address] [facility], [place], [address] . tel:[phone] [facility], [address], [place], [place], [address] , tel: [phone] [facility] No Information 4 Matt Hall. [address] [facility], [place], [place], [address], . tel:[phone] [facility], [address], [place], [place], [address] , tel: [phone] [facility] No Information 4 Matt Hall. [address] [facility], [place], [place], [address], . tel:[phone] [facility], [address], [place], [place], [address] , [place] tel: [phone] [facility] No Information 4 Matt Hall. [address] [facility], [place], [place], [address], . tel:[phone] [facility], [address], [place], [place], [address] , tel: [phone] [facility] No Information 4 Matt Hall. [address] [facility], [place], [place], [address], [place]. tel:[phone] OFFICE XAMVS-QRJ-QTY [facility], [address], [place], [place], [address] , [place] tel: [phone] Of[facility] routine follow up (chief complaint)C hronic Conditions (chief complaint) Acute gastric ulcer without hemorrhage or perforationHyperpa rathyroidism, unspecifiedPostnas al drip 4 Matt Hall. [address] [facility], [place], [place], [address], [place]. tel:[phone] Referring Provider: Rafael Gutierrez, [address] [facility] [address], [place], [address] . tel:[phone] OFFICE BKWIX-LUX-WZG [facility], [address], [place], [place], [address] , [place] tel: [phone] Ofelia L knee pain (chief complaint) Left leg painOsteoarthritis of left knee, unspecified osteoarthritis typeEssential (primary) hypertensionLacera tion of left index finger without foreign body without damage to nail, initial encounter 4 Koko Warner. [address] [place], [place], [address], [place]. tel:[phone] Referring Provider: Rafael Gutierrez, [address] [facility], [place], [address] . tel:[phone] Transitional Care- 14 Days Of Discharge [facility], [address], [place], [place], [address] , [place] tel: [phone] [facility] d/c f/u (chief complaint) Pain in right kneePain in left kneeAcute gastritis without hemorrhage, unspecified gastritis typeHospital discharge follow-upLaceratio n of left index finger without foreign body without damage to nail, initial encounterEssential (primary) hypertension [place]- 4 Koko Warner. [address] [place], [place], [address], [place]. tel:[phone] Referring Provider: Rafael Gutierrez, [address] [facility] [address], [place], [address] . tel:[phone] OFFICE [id number]-PGU-ODO ANICETO [facility], [address], [place], [place], [address] , tel: [phone] [facility] Dyspnea (chief complaint) Shortness of breath 4 Matt Hall. [address] [facility], [place], [place], [address], [place]. tel:[phone] Referring Provider: Rafael Gutierrez, [address] [place] [address] B, [place], [address] . tel:[phone] [facility], [address], [place], [place], [address] , [place] tel: [phone] [facility] No Information 4 Matt Hall. [address] [facility], [place], [place], [address], [place]. tel:[phone] PREVENTATIVE- NEW: 40-64 [facility], [address], [place], [place], [address] , tel: [phone] [facility] establish care (chief complaint)C hronic Conditions (chief complaint) Encounter for general adult medical examination without abnormal findingsAnemia, unspecifiedPain in jointGeneralized anxiety disorderMajor Depressive Disorder, Single episode, ModerateCarpal tunnel syndrome, unspecified upper limbHyperparathyro idism, unspecifiedGastro- esophageal reflux disease without esophagitisEssenti al (primary) hypertensionHyperl ipidemia, unspecified Jul- 4 Matt Hall. [address] [facility], [place], [place], [address], [place]. tel:[phone] Referring Provider: Rafael Gutierrez, [address] [place] [address] B, [place], [address] . tel:[phone] [facility], [address], [place], [place], [address] , tel: [phone] [facility] ROUTINE MEDICAL EXAM 0-200 3 Justa Henry. [address] [facility] [address], [place], [place], [address]. tel:[phone] Family History Family Member Type Diagnosis Age At Onset Brother Problem ADD/ADHD Mother Problem Learning disability Brother Problem Hypertension Mother Problem Hypertension Father Problem Hypertension Payers Payer name Insurance type Covered constitution party ID Authorcampbell rodas(s) [facility] MDCR DUAL COMPLETE HMO [id number] MEDICAID [facility] [id number] Social History Type Description Quantity Date Captured [...] Doppler vein of extremity lower left Left (46190), Sent on: Sent History Of Present Illness Encounter Date Complaint History Of Prese nt Illness ER f/u Adryan is a 53 y/o F who presents to the office today for ER f/u. Pt seen [facility] ED 04/23 2/2 flu like symptoms. Had [...] office today for hospital d/c f/u.Pt admitted [facility] 10/31-11/01 2/2 RUQ pain and laceration of [...] to Nail abnormality EKG NSR at today's [facility]. reviewed EKG from ED, does [...] a TENS unit. These can be purchased [id number] and worn under your clothes. -- Routine [...]
--- OUTSIDE RECORDS SUMMARY | 2024-07-02 16:09 | XMS_ITS | Encounter Summary ---
Author Organization [facility] Healthcare Address [address] [place] [address] Care Team Providers Care Holter Scanning Technician Name Role Phone Jamil Covington MD Primary Care Provider [phone] Carla Padron PT Unavailable Unavailable Adrienne Salcedo MD Primary Care Provider [phone] Rafael Gutierrez MD Primary Care Provider Encounter Details Date Type Department Care Team (Late st Contact Info) Description 05/24/2022 Telephone [facility] Primary Care Medicine Clinic [address] [facility] [address] [place] [address] Jamil Covington MD [address] [facility] [address] [place] [address] Social History Tobacco Use Types [...] week 05/12/2022 How often do you attend [facility] or uatsdin services? Never 05/12/2022 Do you belong to any clubs o r organizations such as protestant groups, unions, fraternal or athletic groups, or [...] place to sleep or slept in a fci (including now)? 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
--- OUTSIDE RECORDS SUMMARY | 2024-07-02 16:09 | XMS_ITS | Encounter Summary ---
Author Organization [facility] Healthcare Address [address] [place] [address] Care Team Providers Care Registered Nurse Practitioner Name Role Phone Jamil Covington MD Primary Care Provider [phone] Carla Padron PT Unavailable Unavailable Adrienne Salcedo MD Primary Care Provider [phone] Rafael Gutierrez MD Primary Care Provider Encounter Details Date Type Department Care Team (Late st Contact Info) Description 06/17/2022 Telephone [facility] Primary Care Medicine Clinic [address] [facility] [address] [place] [address] Jamil Covington MD [address] [facility] [address] [place] [address] Social History Tobacco Use Types [...] week 05/12/2022 How often do you attend [facility] or mormonism services? Never 05/12/2022 Do you belong to any clubs o r organizations such as evangelical groups, unions, fraternal or athletic groups, or [...] place to sleep or slept in a correction (including now)? 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
--- OUTSIDE RECORDS SUMMARY | 2024-07-02 16:09 | XMS_ITS | Continuity of Care Document ---
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 Name Role Phone Boules DMD, Abran Unavailable [...] COMPRE METAB PANEL ANTINUCLEAR ANTIBODIES (JANIS); TITER GLUCOSE BLOOD TEST COLLECTION OF VENOUS BLOOD BY VENIPUNCTU RE RHEUMATOID FACTOR; QUANTITATIVE 007 BLOOD COUNT; COMPLETE (CBC), AUTOMATED D IFF LIPID PANEL OFFICE OUTPT NEW 20 MINUTES OFFICE CONSULT, 15 MIN, 3 KE Y COMPS: PROB FOCUS HX; PROB FOCUS EXAM; STRTFWD Advance Directives Directive Yes / No Effective Date File Name No Information Encounters Encounter Description Practice Location Reason(s) For Visit Diagnoses Date Provider Providers Copied on Encounter [facility], [address], [place], [place], [address] , tel:[phone] [facility] [place] Encounter for dental exam and cleaning w abnormal findings 4 Juliette Osullivan. [address], [place], [place], [address]. tel:[phone] Referring Provider: Abran Segovia, [address], [place], [address] . tel:[phone] [facility], [address], [place], [place], [address] , tel:[phone] [facility] No Information 3 Faraz Yadav. [address], [place], [place], [address]. tel:[phone] Referring Provider: Leif Ruth, [address], [place], [address] . tel:[phone] [facility], [address], [place], [place], [address] , tel:[phone] [facility] Dental caries on pit and fissure surfc penetrat into dentin 3 Yvette Adame. [address], [place], [place], [address], [place]. tel:[phone] [facility], [address], [place], [place], [address] , tel:[phone] [facility] [place] Encounter for dental exam and cleaning w abnormal findings 3 David Marx. [address], [place], [place], [address]. tel:[phone] [facility], [address], [place], [place], [address] , [place] tel:[phone] [facility] No Information 3 David Marx. [address], [place], [place], [address]. tel:[phone] [facility], [address], [place], [place], [address] , [place] tel: [phone] [facility] [place] Dental caries, unspecified 2 No Information Referring Provider: Leo Alexander, [address], [place], [address] . tel:[phone] [facility], [address], [place], [place], [address] , [place] tel: [phone] [facility] [place] Encounter for dental exam and cleaning w abnormal findings 2 David Marx. [address], [place], [place], [address]. tel:[phone] [facility], [address], [place], [place], [address] , [place] tel: [phone] [facility] [place] Encounter for dental exam and cleaning w abnormal findings 1 Unruly Yusuf. [address], [place], [place], [address]. tel:[phone] Referring Provider: Paramjit Tolliver, [address], [place], [address] . tel:[phone] [facility], [address], [place], [place], [address] , [place] tel:[phone] [facility] Encounter for dental exam and cleaning w abnormal findings 1 Unruly Yusuf. [address], [place], [place], [address]. tel:[phone] Referring Provider: Paramjit Tolliver, [address], [place], [address] . tel:[phone] [facility], [address], [place], [place], [address] , [place] tel:[phone] [facility] Other chronic pain 1 James Hale. [address], [place], [place], [address], [place]. tel:[phone] [facility], [address], [place], [place], [address] , tel:[phone] [facility] No Information 0 James Hale. [address], [place], [place], [address], [place]. tel:[phone] [facility], [address], [place], [place], [address] , [place] tel:[phone] [facility] Encounter for dental exam and cleaning w abnormal findings 0 Unruly Yusuf. [address], [place], [place], [address]. tel:[phone] Referring Provider: Paramjit Tolliver, [address], [place], [address] . tel:[phone] [facility], [address], [place], [place], [address] , [place] tel:[phone] [facility] [place] Dental caries on smooth surface penetrating into dentinDental caries on pit and fissure surfc penetrat into dentin 0 Unruly Yusuf. [address], [place], [place], [address]. tel:[phone] Referring Provider: Paramjit Tolliver, [address], [place], [address] . tel:[phone] [facility], [address], [place], [place], [address] , [place] tel:[phone] [facility] [place] Encounter for dental exam and cleaning w abnormal findings 0 David Marx. [address], [place], [place], [address]. tel:[phone] [facility], [address], [place], [place], [address] , tel:[phone] [facility] [place] Encounter for dental exam and cleaning w/o abnormal findings 0 No Information [facility], [address], [place], [address] [place] [address] , tel: [phone] [facility] No Information 0 No Information [facility], [address], [place], [address] [place] [address] , tel: [phone] [facility] No Information 0 James Hale. [address], [place], [address] [place] [address], . tel:[phone] [facility], [address], [place], [address] [place] [address] , tel: [phone] [facility] [place] No Information 0 King Summer. [address], [place], [address] [place] [address], . tel:[phone] [facility], [address], [place], [address] [place] [address] , tel: [phone] [facility] [place] No Information 0 King Summer. [address], [place], [address] [place] [address], [place]. tel:[phone] OFFICE/OUTPATI ENT VISIT, EST [facility], [address], [place], [address] [place] [address] , tel: [phone] [facility] [place] pain (chief complaint) Body mass index (BMI) 40.0-44.9, adultUnilate ral post-traumat ic osteoarthrit is, right hip 0 James Hale. [address], [place], [address] [place] [address], [place]. tel:[phone] Referring Provider: Alexia Ramirez, [address], [place], [address] . tel:[phone] [facility], [address], [place], [address] [place] [address] , [place] tel: [phone] [facility] [place] Major depressive disorder, recurrent, moderateObes ity, unspecified Jul- 0 Gokul Mcduffie. [address], [place], [address] [place] [address], . 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 [address], [place], [place], [address], . tel:[phone] OFFICE OUTPT EST 25 MIN [facility], [address], [place], [place], [address] , tel: [phone] [facility] [place] c/o vaginal discharge (chief complaint) Body mass index (BMI) 40.0-44.9, adultVaginit isEncounter for STI screeningEnc ntr for mid wife exam (general) (routine) w/o abn findings No Information OFFICE/OUTPATI ENT VISIT, EST [facility], [address], [place], [place], [address] , [place] tel: [phone] [facility] [place] pain (chief complaint) Body mass index (BMI) 40.0-44.9, adultAchille s tendinitis, unspecified leg 9 James Hale. [address], [place], [place], [address], . tel:[phone] Referring Provider: Alexia Ramirez, [address], [place], [address] . tel:[phone] OFFICE/OUTPATI ENT VISIT, NEW [facility], [address], [place], [place], [address] , tel:[phone] [facility] [place] Foot (chief complaint) Body mass index (BMI) 40.0-44.9, adultAchille s tendinitis, unspecified legCalcaneal spur, unspecified foot [place]- 9 No Information [facility], [address], [place], [place], [address] , [place] tel: [phone] [facility] No Information [place]- 9 No Information OFFICE/OUTPATI ENT VISIT, EST [facility], [address], [place], [place], [address] , [place] tel: [phone] [facility] [place] / ankle pain (chief complaint) Achilles tendinitis, unspecified leg [place]- 9 No Information OFFICE/OUTPATI ENT VISIT, EST [facility], [address], [place], [place], [address] , [place] tel: [phone] [facility] [place] check up (chief complaint) Achilles tendinitis, unspecified legCalcaneal spur, unspecified footCarpal tunnel syndrome, unspecified upper limbPain in unspecified kneeBack painPain in unspecified hip Oct-0 9 James Hale. [address], [place], [place], [address], [place]. tel:[phone] OFFICE/OUTPATI ENT VISIT, EST [facility], [address], [place], [place], [address] , [place] tel: [phone] [facility] follow up (chief complaint) Body mass index (BMI) 40.0-44.9, adultChronic pain syndromeMajo r depressive disorder, single episode, unspecifiedP ain in unspecified footEssentia l (primary) hypertension Carpal tunnel syndrome, unspecified upper limb Oct-0 9 No Information [facility], [address], [place], [place], [address] , [place] tel: [phone] [facility] [place] blurry vision (chief complaint)karla rry vision (chief complaint) Hypermetropi a, left eyeRegular astigmatism, bilateralPre sbyopia [place]-0 9 Xenia Crawford. [address], [place], [place], [address], [place]. tel:[phone] Referring Provider: Ekaterina King, [address], [place], [address] . tel:[phone] OFFICE/OUTPATI ENT VISIT, EST [facility], [address], [place], [place], [address] , tel:[phone] [facility] medication refills (chief complaint) Body mass index (BMI) 40.0-44.9, adultPrimary generalized (osteo)arthr itisMajor depressive disorder, recurrent, moderateEsse ntial (primary) hypertension Hyperlipidem iaChronic pain syndrome No Information Referring Provider: Ekaterina King [address], [place], [address] . tel:[phone] [facility], [address], [place], [place], [address] , [place] tel: [phone] [facility] /neck pain (chief complaint) CervicalgiaS egmental and somatic dysfunction of thoracic region No Information Referring Provider: Ekaterina King [address], [place], [address] . tel:[phone] OFFICE/OUTPATI ENT VISIT, EST [facility], [address], [place], [place], [address] , [place] tel:[phone] [facility] [place] /neck pain (chief complaint) CervicalgiaS egmental and somatic dysfunction of thoracic region No Information Referring Provider: Ekaterina King [address], [place], [address] . tel:[phone] [facility], [address], [place], [place], [address] , [place] tel:[phone] [facility] Neck, shoulder, back, and hip pain (chief complaint) Body mass index (BMI) 40.0-44.9, adult Fe No Information OFFICE/OUTPATI ENT VISIT, EST [facility], [address], [place], [place], [address] , [place] tel:[phone] [facility] hypertension (chief complaint)Mus culoskeletal pain (chief complaint)Hyp erlipidemia (follow up) (chief complaint) Body mass index (BMI) 38.0-38.9, adultAchille s tendinitis of legEssential (primary) hypertension Hyperlipidem iaPain in left shoulderPrim pretty generalized (osteo)arthr itis Jan-2 0- 8 No Information [facility], [address], [place], [place], [address] , [place] tel: [phone] [facility] [place] /neck pain (chief complaint) CervicalgiaS egmental and somatic dysfunction of thoracic region Jan-0 8 No Information [facility], [address], [place], [place], [address] , [place] tel: [phone] [facility] [place] /BL ankles (chief complaint) Achilles tendinitis of legSegmental and somatic dysfunction of lower extremity 8 No Information 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 [address], [place], [place], [address], [place]. tel:[phone] Referring Provider: Ekaterina King [address], [place], [address] . tel:[phone] OFFICE OUTPT EST 25 MIN [facility], [address], [place], [place], [address] , [place] tel: [phone] [facility] follow up (chief complaint)Hyp erlipidemia (follow up) (chief complaint)Hyp ertension (follow up) (chief complaint)Obe sity (chief complaint)Ost eoarthritis (chief complaint) Body mass index (BMI) 39.0-39.9, adultObesity , unspecifiedH yperlipidemi aHTNPain in right hip 8 No Information [facility], [address], [place], [place], [address] , [place] tel: [phone] [facility] [place] Right hip pain (chief complaint)Lef t achilles (chief complaint) Osteoarthrit is of hip, unspecifiedA chilles tendinitis of leg 8 No Information [facility], [address], [place], [place], [address] , [place] tel: [phone] [facility] [place] right hip pain (chief complaint)lef t Achilles (chief complaint) Osteoarthrit is of hip, unspecifiedA chilles tendinitis of leg 8 No Information [facility], [address], [place], [place], [address] , [place] tel: [phone] [facility] [place] left Achilles (chief complaint)rig ht hip (chief complaint)nec k pain (chief complaint) Achilles tendinitis of legOsteoarth ritis of hip, unspecifiedM yofascial pain syndrome 8 No Information [facility], [address], [place], [place], [address] , [place] tel: [phone] [facility] hip and Achilles (chief complaint) Achilles tendinitis of legPain in right hip 8 No Information [facility], [address], [place], [place], [address] , [place] tel: [phone] [facility] [place] hip and Achilles pain (chief complaint) Sprain of ligaments of cervical spine, sequelaOsteo arthritis of hip, unspecifiedA chilles tendinitis of legSegmental and somatic dysfunction of lumbar regionSegmen valencia and somatic dysfunction of lower extremity 8 No Information [facility], [address], [place], [place], [address] , [place] tel: [phone] [facility] right hip pain (chief complaint)lef t Achilles pain (chief complaint) Achilles tendinitis of legPain in right hipOsteoarth ritis of hip, unspecifiedS egmental and somatic dysfunction of lower extremitySeg mental and somatic dysfunction of lumbar region Jul-05 16- 8 No Information [facility], [address], [place], [place], [address] , [place] tel: [phone] [facility] [place] right hip pain (chief complaint)Ach illes pain (chief complaint) Pain in right hipOsteoarth ritis of hip, unspecifiedS egmental and somatic dysfunction of lower extremitySeg mental and somatic dysfunction of lumbar region Jul-0 8 No Information [facility], [address], [place], [place], [address] , [place] tel: [phone] [facility] right hip and left Achilles pain (chief complaint) Achilles tendinitis of legPain in right hipOsteoarth ritis of hip, unspecifiedS egmental and somatic dysfunction of lumbar regionSegmen valencia and somatic dysfunction of lower extremity Feb-2 - 8 No Information [facility], [address], [place], [address] , [place] tel: [phone] [facility] right hip pain (chief complaint)lef t Achilles pain (chief complaint) Achilles tendinitis of legPain in right hipSegmental and somatic dysfunction of lumbar regionSegmen valencia and somatic dysfunction of lower extremity Feb-2 - 8 No Information [facility], [address], [place], [place], [address] , [place] tel: [phone] [facility] right hip pain (chief complaint)ank le pain (chief complaint) Achilles tendinitis of legPain in right hipOsteoarth ritis of hip, unspecifiedS egmental and somatic dysfunction of lumbar regionSegmen valencia and somatic dysfunction of lower extremity b-05 20- 8 No Information OFFICE/OUTPATI ENT VISIT, EST [facility], [address], [place], [place], [address] , [place] tel: [phone] [facility] [place] JOSÉ MANUEL (chief complaint) Trichomonal vulvovaginit isEncounter for screening for other disorder Jun- 8 Fernando Tobar. [address], [place], [place], [address], [place]. tel:[phone] [facility], [address], [place], [place], [address] , [place] tel: [phone] [facility] [place] Encounter for dental exam and cleaning w abnormal findings b- 8 No Information [facility], [address], [place], [address] , [place] tel: [phone] [facility] right hip pain (chief complaint)ach illes pain (chief complaint) Achilles tendinitis of legSegmental and somatic dysfunction of lumbar regionSegmen valencia and somatic dysfunction of lower extremityPai n in right hip Feb-1 8 No Information [facility], [address], [place], [place], [address] , [place] tel: [phone] [facility] [place] right hip pain (chief complaint)Ach illes pain (chief complaint) Pain in right hipAchilles tendinitis of legOsteoarth ritis of hip, unspecifiedS egmental and somatic dysfunction of lumbar regionSegmen valencia and somatic dysfunction of lower extremity Feb-0 8- 8 No Information OFFICE/OUTPATI ENT VISIT, EST [facility], [address], [place], [place], [address] , [place] tel: [phone] [facility] [place] right hip pain (chief complaint)ach illes pain (chief complaint) Pain in right hipAchilles tendinitis of legOsteoarth ritis of hip, unspecifiedS egmental and somatic dysfunction of lumbar regionSegmen valencia and somatic dysfunction of lower extremity Feb-0 6- 8 No Information [facility], [address], [place], [place], [address] , [place] tel: [phone] [facility] [place] right hip pain (chief complaint) Pain in right hipOsteoarth ritis of hip, unspecifiedS egmental and somatic dysfunction of lower extremitySeg mental and somatic dysfunction of lumbar region Feb-0 - 8 No Information [facility], [address], [place], [place], [address] , [place] tel: [phone] [facility] [place] right hip pain (chief complaint) Pain in right hipSegmental and somatic dysfunction of lumbar regionSegmen valencia and somatic dysfunction of lower extremityOst eoarthritis of hip, unspecified 8 No Information OFFICE/OUTPATI ENT VISIT, NEW [facility], [address], [place], [place], [address] , [place] tel: [phone] [facility] [place] hip pain (chief complaint) Pain in right hip 8 No Information OFFICE/OUTPATI ENT VISIT, EST [facility], [address], [place], [place], [address] , [place] tel: [phone] [facility] Check up (chief complaint) Trichomonal vulvovaginit isCandidiasi s of vulva and vaginaEncoun ter for screening for other disorderEncn tr for mid wife exam (general) (routine) w abnormal findings 8 Fernando Tobar. [address], [place], [place], [address], [place]. tel:[phone] Referring Provider: Ekaterina King [address], [place], [address] . tel:[phone] OFFICE/OUTPATI ENT VISIT, EST [facility], [address], [place], [place], [address] , [place] tel: [phone] [facility] Hyperlipidemi a (follow up) (chief complaint)Hyp ertension (follow up) (chief complaint)Obe sity (chief complaint)Chr onic Pain (chief complaint)Pre ventive exam (chief complaint) Hyperlipidem iaMorbid (severe) obesity due to excess caloriesHTNC hronic pain syndromeEnco unter for general adult medical examination with abnormal findings 8 No Information Psychiatric Diagnostic Evaluation [facility], [address], [place], [place], [address] , [place] tel: [phone] [facility] [place] Major depressive disorder, recurrent, moderate 7 No Information Referring Provider: Ekaterina King [address], [place], [address] . tel:[phone] OFFICE/OUTPATI ENT VISIT, EST [facility], [address], [place], [place], [address] , tel:[phone] [facility] [place] vaginal discharge/itc job (chief complaint)mid wife hx (chief complaint) Candidiasis of vulva and vaginaEncoun ter for STI screeningEnc ounter for screening for other disorder [facility]. [address], [place], [place], [address], . tel:[phone] Referring Provider: Ekaterina King, [address], [place], [address] . tel:[phone] OFFICE/OUTPATI ENT VISIT, EST [facility], [address], [place], [place], [address] , tel: [phone] [facility] [place] Breast Pain (chief complaint)mid wife hx (chief complaint) MastodyniaEn counter for test, result unknown [facility]. [address], [place], [place], [address], . tel:[phone] Referring Provider: Ekaterina King, [address], [place], [address] . tel:[phone] [facility], [address], [place], [place], [address] , tel:[phone] [facility] Encounter for screening mammogram for cancer of breast [facility]. [address], [place], [place], [address], . tel:[phone] OFFICE OUTPT EST 25 MIN [facility], [address], [place], [place], [address] , tel:[phone] [facility] [place] Hypertension (follow up) (chief complaint)Hyp erlipidemia (follow up) (chief complaint)Obe sity (chief complaint)Ost eoarthritis (chief complaint)cHR ONIC pAIN (chief complaint) Calcaneal spur, unspecified footChronic pain syndromeHTNO besity, unspecifiedH yperlipidemi a 7 No Information OFFICE/OUTPATI ENT VISIT, EST [facility], [address], [place], [place], [address] , [place] tel: [phone] [facility] vaginal discharge/itc job (chief complaint)mid wife hx (chief complaint) Candidiasis of vulva and vaginaEncoun ter for STI screeningEnc ntr for mid wife exam (general) (routine) w abnormal findings [facility]. [address], [place], [place], [address], [place]. tel:[phone] Referring Provider: Ekaterina King, [address], [place], [address] . 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 [address], [place], [place], [address], . tel:[phone] Referring Provider: Ekaterina King [address], [place], [address] . tel:[phone] OFFICE OUTPT EST 25 MIN [facility], [address], [place], [place], [address] , [place] tel:[phone] [facility] Obesity, unspecifiedH TNCalcaneal spur, unspecified footHyperlip idemiaChroni c pain syndrome 3 7 No Information [facility], [address], [place], [place], [address] , [place] tel: [phone] [facility] [place] Dental caries on smooth surface penetrating into dentin 6 No Information OFFICE/OUTPATI ENT VISIT, EST [facility], [address], [place], [place], [address] , tel: [phone] [facility] conslt (chief complaint) Prolapse of anterior vaginal wallUterovag inal prolapseEncn tr for mid wife exam (general) (routine) w abnormal findings 6 Naveen-Colleenabhijit Hirsch. [address], [place], [place], [address], [place]. tel:[phone] Referring Provider: Joycelyn Naveen-Call sania, [address], [place], [address] . tel:[phone] OFFICE/OUTPATI ENT VISIT, EST [facility], [address], [place], [place], [address] , tel:[phone] [facility] [place] Vaginal irritation (chief complaint) Candidiasis of vulva and klzhmr6kq degree uterine prolapseEnco unter for test, result unknown Fernando Tobar. [address], [place], [place], [address], . tel:[phone] Referring Provider: Ekaterina King, [address], [place] [place], [address] . tel:[phone] [facility], [address], [place], [place], [address] , tel:[phone] [facility] blurry vision (chief complaint)Lon aters (chief complaint)karla rry vision (chief complaint)Lon aters (chief complaint) Myopia, bilateralPre sbyopiaVitre ous degeneration , bilateralHTN - 6 No Information [facility], [address], [place], [place], [address] , [place] tel:[phone] [facility] Encounter for dental exam and cleaning w abnormal findings 0- 6 Konrad Peña. [address], [place], [place], [address]. tel:[phone] [facility], [address], [place], [place], [address] , tel: [phone] [facility] Calcaneal spur, unspecified footCarpal tunnel syndrome, unspecified upper limb No Information OFFICE OUTPT EST 25 MIN [facility], [address], [place], [place], [address] , tel: [phone] [facility] c/o pain in both heels, ankles and hips (chief complaint)Obe sity (chief complaint)Hyp erlipidemia (follow up) (chief complaint)Hyp ertension (follow up) (chief complaint) Chronic pain syndromePain in unspecified jointObesity , unspecifiedH yperlipidemi a, unspecifiedE ssential (primary) hypertension No Information [facility], [address], [place], [place], [address] , tel: [phone] [facility] No Information Tepe Sammie. [address], [place], [place], [address], . tel:[phone] Referring Provider: Ekaterina King, [address], [place], [address] . tel:[phone] OFFICE OUTPT EST 25 MIN [facility], [address], [place], [place], [address] , tel: [phone] [facility] med exam (chief complaint)blo od pressure f/u (chief complaint)HLD f/u (chief complaint)anx iety (chief complaint)lef t hip,right knee, both hands & feet pain (chief complaint) Obesity, unspecifiedC alcaneal spur, unspecified footHyperlip idemia, unspecifiedP ain in unspecified knee No Information 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; 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; 40-64 [facility], [address], [place], [place], [address] , tel: [phone] [facility] annual exam (chief complaint)vag inal odor (chief complaint) VaginitisEnc ounter for STI screeningEnc ounter for screening mammogram for cancer of breastEncoun ter for routine mid wife exam w/ abnormal findingEncou nter for screening for cancer of colonEncount er for screening for HIVEncounter for screening for other disorderEnco unter for test, result unknown 6 Fernando Tobar. [address], [place], [place], [address], [place]. tel:[phone] Referring Provider: Ekaterina King, [address], [place], [address] . tel:[phone] [facility], [address], [place], [place], [address] , [place] tel:[phone] [facility] Unruly Yusuf. [address], [place], [place], [address]. tel:[phone] Referring Provider: Paramjit Tolliver, [address], [place], [address] . tel:[phone] [facility], [address], [place], [place], [address] , [place] tel: [phone] [facility] examination No Information OFFICE/OUTPATI ENT VISIT, EST [facility], [address], [place], [place], [address] , [place] tel: [phone] [facility] Pt is here for DFE (chief complaint)Pt is here for DFE (chief complaint) PresbyopiaMy opia No Information OFFICE/OUTPATI ENT VISIT, EST [facility], [address], [place], [place], [address] , [place] tel: [phone] [facility] Follow Up of Hosp (chief complaint)KNE E DJD had shot (chief complaint) Thigh contusionChe st contusionAnx ietyHospital discharge follow-up 5 Katty Newell. [address], [place], [place], [address], [place]. tel:[phone] Referring Provider: Osiris Alaniz, [address], [place], [address] . tel:[phone] OFFICE/OUTPATI ENT VISIT, NEW [facility], [address], [place], [place], [address] , [place] tel: [phone] [facility] blurry vision (chief complaint)karla rry vision (chief complaint) Regular astigmatismM yopiaPresbyo piaAllergic conjunctivit is No Information OFFICE OUTPT EST 25 MIN [facility], [address], [place], [place], [address] , [place] tel: [phone] [facility] Right knee f/u (chief complaint)hyp ertension (chief complaint) Screening for alcoholismBe nign essential hypertension Obesity, unspecifiedE sophageal refluxOsteoa rthrosis, generalized, involving unspecified siteDepressi onKnee joint pain No Information OFFICE OUTPT EST 25 MIN [facility], [address], [place], [place], [address] , [place] tel: [phone] [facility] er f/u (chief complaint)ref errals (chief complaint) Internal knee derangementO besity, unspecifiedB enign essential hypertension Esophageal refluxHLD - Hyperlipidae [facility] No Information [facility], [address], [place], [place], [address] , [place] tel: [phone] [facility] No Information No Information OFFICE OUTPT EST 25 MIN [facility], [address], [place], [place], [address] , [place] tel: [phone] [facility] back pain (chief complaint)hip back (chief complaint)sev ere knee pain (chief complaint)hyp ertension (chief complaint) Benign essential hypertension Obesity, unspecifiedO steoarthrosi s, generalized, involving unspecified siteHLD - Hyperlipidae shahida 5 No Information 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; 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; 40-64 [facility], [address], [place], [place], [address] , tel: [phone] [facility] annual exam (chief complaint)vag inal discharge/itc job (chief complaint)pro lapse concern (chief complaint)bc consult (chief complaint) examination or test, unconfirmedR outine gynecologica l examinationO ther screening mammogram 5 No Information OFFICE OUTPT EST 25 MIN [facility], [address], [place], [place], [address] , tel: [phone] [facility] hosp f/u (chief complaint)hyp ertension (chief complaint)car diac cath (chief complaint)ref ills (chief complaint) Obesity, unspecifiedC hest painHTNHLD - Hyperlipidae shahida 4 No Information OFFICE OUTPT EST 25 MIN [facility], [address], [place], [place], [address] , tel: [phone] [facility] depression (chief complaint)lani at knee pain (chief complaint)mark vated bp (chief complaint) Obesity, unspecifiedK nee joint painElevated blood pressure reading w/ no diagnosis of HT 4 No Information OFFICE/OUTPATI ENT VISIT, EST [facility], [address], [place], [place], [address] , [place] tel: [phone] [facility] pain in joints (chief complaint) Carpal Tunnel SyndromeCalc aneal spurObesityK nee joint pain 4 No Information OFFICE/OUTPATI ENT VISIT, EST [facility], [address], [place], [place], [address] , [place] tel: [phone] [facility] bilat hand pain (chief complaint) Carpal Tunnel Syndrome 4 Jose Alfredo Slater. [address], [place], [place], [address], . tel:[phone] Referring Provider: Bryon Veliz, [address], [place], [address] . tel:[phone] [facility], [address], [place], [place], [address] , tel: [phone] [facility] examination 4 No Information OFFICE/OUTPATI ENT VISIT, EST [facility], [address], [place], [place], [address] , [place] tel: [phone] [facility] Carpal Tunnel SyndromeDepr essionInsomn ia due to medical condition classified elsewhereObe sity 4 No Information 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; 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; 40-64 [facility], [address], [place], [place], [address] , [place] tel: [phone] [facility] annual visit (chief complaint) Gynecologica l ExaminationS creening examination for venereal disease 4 No Information OFFICE/OUTPATI ENT VISIT, EST [facility], [address], [place], [place], [address] , [place] tel: [phone] [facility] JOSÉ MANUEL (chief complaint) Screening examination for venereal diseaseDysur ia 3 No Information OFFICE/OUTPATI ENT VISIT, EST [facility], [address], [place], [place], [address] , [place] tel: [phone] [facility] tx (chief complaint) Trichomonal vulvovaginit is 3 No Information [facility], [address], [place], [place], [address] , [place] tel: [phone] [facility] Carpal tunnel syndromeCarp al tunnel syndromeTric homonal vulvovaginit is 2 No Information OFFICE OUTPT EST 25 MIN [facility], [address], [place], [place], [address] , [place] tel: [phone] [facility] Backache, unspecifiedP ain in joint involving pelvic region and thighObesity , unspecifiedC arpal tunnel syndrome 2 No Information 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; 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; 40-64 [facility], [address], [place], [place], [address] , [place] tel: [phone] [facility] annual visit (chief complaint) Routine gynecologica l examinationO ther screening mammogramVag initis and vulvovaginit is, unspecifiedS urveillance of other contraceptiv e method 2 No Information OFFICE OUTPT EST 25 MIN [facility], [address], [place], [place], [address] , [place] tel: [phone] [facility] Carpal tunnel syndromeOste oarthrosis, generalized, involving multiple sitesAllergi c rhinitis, cause unspecifiedM orbid obesity 2 Brian Romo. [address], [place], [place], [address], [place]. tel:[phone] OFFICE/OUTPATI ENT VISIT, EST [facility], [address], [place], [place], [address] , [place] tel: [phone] [facility] control (chief complaint)yumiko t results (chief complaint) Other malaise and fatigue 1 No Information OFFICE/OUTPATI ENT VISIT, EST [facility], [address], [place], [place], [address] , [place] tel: [phone] [facility] muscle spams in feet and legs (chief complaint) Osteoarthros is, generalized, involving multiple sitesCarpal tunnel syndromeAlle rgic rhinitis, cause unspecifiedE sophageal refluxRoutin e general medical examination at a health care facility 1 No Information 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; 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; 40-64 [facility], [address], [place], [place], [address] , [place] tel: [phone] [facility] annual visit (chief complaint) Routine gynecologica l examinationO ther screening mammogramSur veillance of other contraceptiv e methodScreen ing examination for venereal diseaseLeuko rrhea, not specified as infectiveLum p or mass in breast 1 No Information OFFICE/OUTPATI ENT VISIT, EST [facility], [address], [place], [place], [address] , [place] tel: [phone] [facility] bc nuva ring (chief complaint) Surveillance of other contraceptiv e method 0 No Information OFFICE/OUTPATI ENT VISIT, EST [facility], [address], [place], [place], [address] , [place] tel: [phone] [facility] control (chief complaint)ble eding (chief complaint)adilene ght gain (chief complaint) Surveillance of other contraceptiv e methodObesit y, unspecified 0 No Information OFFICE/OUTPATI ENT VISIT, EST [facility], [address], [place], [place], [address] , [place] tel: [phone] [facility] depo (chief complaint) Excessive or frequent menstruation 0 No Information OFFICE/OUTPATI ENT VISIT, EST [facility], [address], [place], [place], [address] , [place] tel: [phone] [facility] routine (chief complaint) Osteoarthros is, generalized, involving multiple sitesPain in joint, site unspecifiedA llergic rhinitis, cause unspecified 0 No Information [facility], [address], [place], [place], [address] , [place] tel: [phone] [facility] No Information 0 No Information [facility], [address], [place], [place], [address] , [place] tel: [phone] [facility] No Information 0 No Information OFFICE/OUTPATI ENT VISIT, EST [facility], [address], [place], [place], [address] , [place] tel: [phone] [facility] depo (chief complaint)exc essive vaginal bleeding (chief complaint) Surveillance of other contraceptiv e methodExcess jai or frequent menstruation 0 No Information OFFICE OUTPT EST 10 MIN [facility], [address], [place], [place], [address] , [place] tel: [phone] [facility] Surveillance of other contraceptiv e method 9 No Information [facility], [address], [place], [place], [address] , [place] tel: [phone] [facility] repeat pap (chief complaint)yumiko t results (chief complaint) Screening for malignant neoplasms of the cervixSurvei llance of other contraceptiv e method 9 No Information [facility], [address], [place], [place], [address] , [place] tel: [phone] [facility] education (chief complaint) Inadequate material resourcesIna dequate material resources 9 No Information OFFICE OUTPT EST 25 MIN [facility], [address], [place], [place], [address] , [place] tel: [phone] [facility] Arthralgias (chief complaint)Ove rweight (chief complaint)Car pel tunnel on right (chief complaint)Sti es (chief complaint) Osteoarthros is, generalized, involving multiple sitesCarpal tunnel syndromeOver weight and obesityFamil y history of malignant neoplasm of gastrointest inal tract 9 No Information [facility], [address], [place], [place], [address] , [place] tel: [phone] [facility] Routine gynecologica l examinationI rregular menstrual cycleScreeni ng examination for venereal disease 9 No Information OFFICE OUTPT EST 25 MIN [facility], [address], [place], [place], [address] , [place] tel: [phone] [facility] annual visit (chief complaint) Routine gynecologica l examinationS creening examination for venereal diseaseIrreg ular menstrual cycle 9 No Information 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; 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; 40-64 [facility], [address], [place], [place], [address] , [place] tel: [phone] [facility] ROUTINE FINAL INSPECTOR MOTORCYLES EXAMINATION 8 No Information OFFICE/OUTPATI ENT VISIT, EST [facility], [address], [place], [place], [address] , [place] tel: [phone] [facility] FAMILY HX-GI MALIGNANCYCA RPAL TUNNEL SYNDROMEIMPA IRED FASTING GLUCOSEJOINT PAIN-UNSPEC Nov-3 0-200 7 No Information [facility], [address], [place], [place], [address] , [place] tel: [phone] [facility] JOINT PAIN-UNSPECS CREEN LIPOID DISORDERSMAL AISE AND FATIGUE NECLABORATOR Y EXAMINATION Aug- 7 No Information OFFICE OUTPT NEW 20 MINUTES [facility], [address], [place], [place], [address] , [place] tel: [phone] [facility] ALLERGIC RHINITIS NOSMALAISE AND FATIGUE NECCARPAL TUNNEL SYNDROMEFAMI LY HX-GI MALIGNANCY Aug- 7 No Information OFFICE CONSULT, 15 MIN, 3 SORENSEN COMPS: PROB FOCUS HX; PROB FOCUS EXAM; STRTFWD [facility], [address], [place], [place], [address] , [place] tel: [phone] [facility] COUNSELING NOS Aug- 7 [...] name Insurance type Covered green party ID Authormellya adrianna(s) D [facility] Dual Complete [facility] CI [id number] Social History Type Description Quantity Date Captured Comments Sex Female Smoking Status No Information Sexual Orientation Straight or heterosexual Gender Identity Female Chief Complaint And Reason For Visit No Information Reason For Referral Reason For Referral No Information Plan Of Treatment Date Type Action Status Goal Colonoscopy. Due on 026 due Goal Mammogram. Due on 2 due Goal Influenza vaccin e. Due on due Goal H&P. Due on due Goal Breast exam. Due on due Goal Urine Microalbum in. Due on due Goal FINAL INSPECTOR MOTORCYLES exam. Due on due Goal Pap/HPV testing. Due on due Goal Colonoscopy. Due on due Goal Pap/HPV testing. Due on due Goal Mammogram. Due on 9 due Goal Urine Microalbum in. Due on due Goal Breast exam. Due on due Goal H&P. Due on due Goal FINAL INSPECTOR MOTORCYLES exam. Due on due Goal Influenza vaccin e. Due on due Goal Mammogram. Due on 9 due Goal FINAL INSPECTOR MOTORCYLES exam. Due on due Goal Breast exam. [...] Influenza vaccin e. Due on due Goal FINAL INSPECTOR MOTORCYLES exam. Due on due Goal Urine Microalbum in. Due on due Goal Influenza vaccin e. Due on due Goal Mammogram. Due on 9 due Goal H&P. Due on due Goal Pap/HPV testing. Due on due Goal Colonoscopy. Due on due Goal Breast exam. Due on due Goal FINAL INSPECTOR MOTORCYLES exam. Due on due Goal Lifestyle educat ion regarding diet completed Goal Urine Microalbum in. Due on due Goal Breast exam. Due on due Goal Pap/HPV testing. Due on due Goal Colonoscopy. Due on due Goal Mammogram. Due on 9 due Goal Influenza vaccin e. Due on due Goal H&P. Due on due Goal FINAL INSPECTOR MOTORCYLES exam. Due on due Goal Lifestyle educat ion regarding diet completed Goal Breast exam. Due on 019 due Goal Mammogram. Due on 9 due Goal Influenza vaccin e. Due on due Goal Colonoscopy. Due on due Goal Pap/HPV testing. Due on due Goal H&P. Due on due Goal Urine Microalbum in. Due on due Goal FINAL INSPECTOR MOTORCYLES exam. Due on due Goal Colonoscopy. Due on due Goal Breast exam. Due on due Goal Influenza vaccin e. Due on due Goal Pap/HPV testing. Due on due Goal H&P. Due on due Goal FINAL INSPECTOR MOTORCYLES exam. Due on due Goal Mammogram. Due on 9 due Goal Urine Microalbum in. Due on due Goal Colonoscopy. Due on due Goal Mammogram. Due on due Goal Pap/HPV testing. Due on due Goal Urine Microalbum in. Due on due Goal FINAL INSPECTOR MOTORCYLES exam. Due on due Goal H&P. Due on due Goal Influenza vaccin e. Due on due Goal Breast exam. Due on due Goal Mammogram. Due on due Goal Breast exam. Due on due Goal Influenza vaccin e. Due on due Goal FINAL INSPECTOR MOTORCYLES exam. Due on due Goal H&P. Due on due Goal Pap/HPV testing. Due on due Goal Colonoscopy. Due on due Goal Urine Microalbum in. Due on due Goal Influenza vaccin e. Due on due Goal Urine Microalbum in. Due on due Goal Pap/HPV testing. Due on due Goal FINAL INSPECTOR MOTORCYLES exam. Due on due Goal Colonoscopy. Due on due Goal Mammogram. Due on due Goal Breast exam. Due on due Goal H&P. Due on due Goal Pap/HPV testing. Due on due Goal Breast exam. Due on due Goal FINAL INSPECTOR MOTORCYLES exam. Due on due Goal Colonoscopy. Due on due Goal Influenza vaccin e. Due on due Goal Urine Microalbum in. Due on due Goal H&P. Due on due Goal Mammogram. Due on 9 due Goal Urine Microalbum in. Due on due Goal Breast exam. Due on due Goal FINAL INSPECTOR MOTORCYLES exam. Due on due Goal Colonoscopy. Due [...] due Goal Mammogram. Due on due Goal FINAL INSPECTOR MOTORCYLES exam. Due on due Goal Breast exam. Due on due Goal Breast exam. Due on due Goal Urine Microalbum in. Due on due Goal H&P. Due on due Goal Colonoscopy. Due on due Goal Mammogram. Due on due Goal FINAL INSPECTOR MOTORCYLES exam. Due on due Goal Pap/HPV testing. Due on due Goal Colonoscopy. Due on due Goal Breast exam. Due on due Goal H&P. Due on due Goal Mammogram. Due on due Goal Pap/HPV testing. Due on due Goal Urine Microalbum in. Due on due Goal FINAL INSPECTOR MOTORCYLES exam. Due on due Goal Colonoscopy. Due on due Goal FINAL INSPECTOR MOTORCYLES exam. Due on due Goal Mammogram. Due on due Goal H&P. Due on due Goal Pap/HPV testing. Due on due Goal Urine Microalbum in. Due on due Goal Breast exam. Due on due Goal Colonoscopy. Due on due Goal FINAL INSPECTOR MOTORCYLES exam. Due on due Goal Breast exam. Due on due Goal Pap/HPV testing. Due on due Goal Mammogram. Due on due Goal Urine Microalbum in. Due on due Goal H&P. Due on due Goal Urine Microalbum in. Due on due Goal FINAL INSPECTOR MOTORCYLES exam. Due on due Goal Breast exam. Due on due Goal Colonoscopy. Due on due Goal H&P. Due on due Goal Mammogram. Due on due Goal Pap/HPV testing. Due on due Goal H&P. Due on due Goal Colonoscopy. Due on due Goal Breast exam. Due on due Goal FINAL INSPECTOR MOTORCYLES exam. Due on due Goal Mammogram. Due on due Goal Urine Microalbum in. Due on due Goal Pap/HPV testing. Due on due Goal Mammogram. Due on due Goal FINAL INSPECTOR MOTORCYLES exam. Due on due Goal H&P. Due on due Goal Pap/HPV testing. Due on due Goal Breast exam. Due on due Goal Colonoscopy. Due on due Goal Urine Microalbum in. Due on due Goal Lifestyle educat ion regarding diet completed Goal Urine Microalbum in. Due on due Goal Breast exam. Due on due Goal H&P. Due on due Goal Colonoscopy. Due on 026 due Goal Mammogram. Due on 9 due Goal FINAL INSPECTOR MOTORCYLES exam. Due on due Goal Pap/HPV testing. Due on due Goal H&P. Due on due Goal CPK. Due on due Goal PAP. Due on due Goal Breast exam. Due on due Goal FINAL INSPECTOR MOTORCYLES exam. Due on due Goal BMP fasting. Due on due Goal Urine Microalbum in. Due on due Goal Urinalysis. Due on 11 due Goal Breast exam. Due on due Goal Urinalysis. Due on 11 due Goal FINAL INSPECTOR MOTORCYLES exam. Due on due Goal PAP. Due on due Goal BMP fasting. Due on due Goal Urine Microalbum in. Due on due Goal CPK. Due on due Goal H&P. Due on due Goal FINAL INSPECTOR MOTORCYLES exam. Due on due Goal H&P. Due on due Goal BMP fasting. Due on due Goal Urinalysis. Due on 11 due Goal Urine Microalbum in. Due on due Goal CPK. Due on due Goal PAP. Due on due Goal Breast exam. Due on due Goal FINAL INSPECTOR MOTORCYLES exam. Due on due Goal PAP. Due [...] due Goal Urinalysis. Due on due Goal FINAL INSPECTOR MOTORCYLES exam. Due on due Goal PAP. Due on due Goal CPK. Due on due Goal H&P. Due on due Goal CPK. Due on due Goal H&P. Due on due Goal Breast exam. Due on due Goal BMP fasting. Due on due Goal Urine Microalbum in. Due on due Goal FINAL INSPECTOR MOTORCYLES exam. Due on due Goal PAP. Due on due Goal Urinalysis. Due on due Goal H&P. Due on due Goal Urinalysis. Due on due Goal Breast exam. Due on due Goal PAP. Due on due Goal CPK. Due on due Goal Urine Microalbum in. Due on due Goal BMP fasting. Due on due Goal FINAL INSPECTOR MOTORCYLES exam. Due on due Goal Urine Microalbum in. Due on due Goal Urinalysis. Due on 11 due Goal FINAL INSPECTOR MOTORCYLES exam. Due on due Goal H&P. Due on due Goal CPK. Due on due Goal PAP. Due on due Goal Breast exam. Due on due Goal BMP fasting. Due on due Goal PAP. Due on due Goal BMP fasting. Due on due Goal FINAL INSPECTOR MOTORCYLES exam. Due on due Goal H&P. Due [...] due Goal PAP. Due on due Goal FINAL INSPECTOR MOTORCYLES exam. Due on due Goal Urine Microalbum in. Due on due Goal CPK. Due on due Goal BMP fasting. Due on due Goal H&P. Due on due Goal FINAL INSPECTOR MOTORCYLES exam. Due on due Goal Urinalysis. Due on 11 due Goal PAP. Due on due Goal Breast exam. Due on due Goal H&P. Due on due Goal PAP. Due on due Goal FINAL INSPECTOR MOTORCYLES exam. Due on due Goal BMP fasting. [...] Goal Breast exam. Due on due Goal FINAL INSPECTOR MOTORCYLES exam. Due on due Goal PAP. Due on due Goal Urinalysis. Due on 11 due Goal BMP fasting. Due on due Goal CPK. Due on due Goal Breast exam. Due on due Goal H&P. Due on due Goal FINAL INSPECTOR MOTORCYLES exam. Due on due Goal Urine Microalbum in. Due on due Goal CPK. Due on due Goal Breast exam. Due on due Goal Urinalysis. Due on 11 due Goal FINAL INSPECTOR MOTORCYLES exam. Due on due Goal BMP fasting. Due on due Goal PAP. Due on due Goal H&P. Due on due Goal Urine Microalbum in. Due on due Goal Breast exam. Due on due Goal BMP fasting. Due on due Goal Urinalysis. Due on 11 due Goal CPK. Due on due Goal Urine Microalbum in. Due on due Goal FINAL INSPECTOR MOTORCYLES exam. Due on due Goal H&P. Due on due Goal PAP. Due on due Goal FINAL INSPECTOR MOTORCYLES exam. Due on due Goal H&P. Due on due Goal Urinalysis. Due on 11 due Goal PAP. Due on due Goal Breast exam. Due on due Goal BMP fasting. Due on due Goal CPK. Due on due Goal Urine Microalbum in. Due on due Goal Urine Microalbum in. Due on due Goal FINAL INSPECTOR MOTORCYLES exam. Due on due Goal BMP fasting. Due on due Goal CPK. Due on due Goal PAP. Due on due Goal H&P. Due on due Goal Urinalysis. Due on 11 due Goal Breast exam. Due on due Goal H&P. Due on due Goal BMP fasting. Due on due Goal FINAL INSPECTOR MOTORCYLES exam. Due on due Goal Urinalysis. Due on 11 due Goal PAP. Due on due Goal CPK. Due on due Goal Urine Microalbum in. Due on due Goal Breast exam. Due on due Goal CPK. Due on due Goal PAP. Due on due Goal Urinalysis. Due on due Goal Urine Microalbum in. Due on due Goal H&P. Due on due Goal FINAL INSPECTOR MOTORCYLES exam. Due on due Goal BMP fasting. Due on due Goal Breast exam. Due on due Goal PAP. Due on due Goal BMP fasting. Due on due Goal CPK. Due on due Goal Urinalysis. Due on 11 due Goal H&P. Due on due Goal FINAL INSPECTOR MOTORCYLES exam. Due on due Goal Breast exam. Due on due Goal Urine Microalbum in. Due on due Goal CPK. Due on due Goal Urine Microalbum in. Due on due Goal BMP fasting. Due on due Goal PAP. Due on due Goal Breast exam. Due on due Goal Urinalysis. Due on 11 due Goal H&P. Due on due Goal FINAL INSPECTOR [employer]ORCY[employer] exam. Due on due Goal Urine Microalbum in. Due on due Goal CPK. Due on due Goal Urinalysis. Due on 11 due Goal Breast exam. Due on due Goal BMP fasting. Due on due Goal FINAL INSPECTOR [employer]OR[employer] exam. Due on due Goal PAP. Due on due Goal H&P. Due on due Goal FINAL INSPECTOR [employer]OR[employer] exam. Due on due Goal H&P. Due on due Goal PAP. Due on due Goal Urine Microalbum in. Due on due Goal Urinalysis. Due on 11 due Goal CPK. Due on due Goal Breast exam. Due on due Goal BMP fasting. Due on due Goal Urine Microalbum in. Due on due Goal CPK. Due on due Goal FINAL INSPECTOR [employer]OR[employer] exam. Due on due Goal BMP fasting. Due on due Goal Breast exam. Due on due Goal Urinalysis. Due on 11 due Goal PAP. Due on due Goal H&P. Due on due Goal Breast exam. Due on due Goal CPK. Due on due Goal Urinalysis. Due on 11 due Goal FINAL INSPECTOR [employer]OR[employer] exam. Due on due Goal BMP fasting. Due on due Goal H&P. Due on due Goal Urine Microalbum in. Due on due Goal PAP. Due on due Goal BMP fasting. Due on due Goal Breast exam. Due on due Goal H&P. Due on due Goal CPK. Due on due Goal PAP. Due on due Goal Urine Microalbum in. Due on due Goal FINAL INSPECTOR [employer]OR[employer] exam. Due on due Goal Urinalysis. Due on 11 due Goal PAP. Due on due Goal CPK. Due on due Goal Urinalysis. Due on 11 due Goal FINAL INSPECTOR [employer]OR[employer] exam. Due on due Goal H&P. Due on due Goal Breast exam. Due on due Goal Urine Microalbum in. Due on due Goal BMP fasting. Due on due Goal Breast exam. Due on due Goal BMP fasting. Due on due Goal Urine Microalbum in. Due on due Goal CPK. Due on due Goal H&P. Due on due Goal PAP. Due on due Goal FINAL INSPECTOR [employer] exam. Due on due Goal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
--- OUTSIDE RECORDS SUMMARY | 2024-07-02 16:09 | XMS_ITS | Encounter Summary ---
Author Organization [facility] Healthcare Address [address] [place] [address] Care Team Providers Care Demurrage Man Name Role Phone Jamil Covington MD Primary Care Provider [phone] Carla Padron PT Unavailable Unavailable Adrienne Salcedo MD Primary Care Provider [phone] Rafael Gutierrez MD Primary Care Provider Encounter Details Date Type Department Care Team (Late st Contact Info) Description 05/13/[address] [facility] [address] [place] [address] Gokul Casey MSW Social History Tobacco Use [...] How often do you attend chur or jehovah's witness services? Never 05/12/2022 Do you belong to [...] on file Legal Sex Female 7:40 PM [employer] Gender Identity Not on file Sexual Orientation [...] on filedocumented in this encounter Care Teams Demurrage Man Relationship Specialty Start Date End Date Jamil Covington MD PCP - General 10/31/20 11/03/23 Adrienne Salcedo MD PCP - General 11/04/23 12/05/23 Rafael Gutierrez MD [address] [place] [address] PCP - General Family Medicine 12/06/23 Carla Padron PT Physical Therapist Physical Therapy 11/17/21 documented as of this encounter
--- NOTE | 2024-07-02 16:10 | PC.NURSE ---
Pt to CT scan via w/c at this time
--- OUTSIDE RECORDS SUMMARY | 2024-07-02 16:10 | XMS_ITS | Continuity of Care Document ---
Author Organization [facility] Address [address] [place] [address] Phone Care Team Providers Care Strip Presser Name Role Phone Boules DMD, Abran Unavailable [...] Comprehensve oral evaluation OFFICE/OUTPATIENT VISIT, EST Wet adraina, including preparations of va ginal, cervical or [...] Encounter [facility], [address], [place], [place], [address] , tel:[phone] [facility] [place] Encounter for dental exam and cleaning w abnormal findings 4 Juliette Osullivan. [address], [place], [place], [address]. tel:[phone] Referring Provider: Abran Segovia, [address], [place], [address] . tel:[phone] [facility], [address], [place], [place], [address] , tel:[phone] [facility] [place] No Information 3 Faraz Yadav. [address], [place], [place], [address]. tel:[phone] Referring Provider: Leif Ruth, [address], [place], [address] . tel:[phone] [facility], [address], [place], [place], [address] , tel:[phone] [facility] [place] Dental caries on pit and fissure surfc penetrat into dentin 3 Yvette Adame. [address], [place], [place], [address], [place]. tel:[phone] [facility], [address], [place], [place], [address] , tel:[phone] [facility] [place] Encounter for dental exam and cleaning w abnormal findings 3 David Marx. [address], [place], [place], [address]. tel:[phone] [facility], [address], [place], [place], [address] , [place] tel:[phone] [facility] [place] No Information 3 David Marx. [address], [place], [place], [address]. tel:[phone] [facility], [address], [place], [place], [address] , [place] tel: [phone] [facility] [place] Dental caries, unspecified 2 No Information Referring Provider: Leo Alexander, [address], [place], [address] . tel:[phone] [facility], [address], [place], [place], [address] , [place] tel: [phone] [facility] [place] Encounter for dental exam and cleaning w abnormal findings 2 David Marx. [address], [place], [place], [address]. tel:[phone] [facility], [address], [place], [place], [address] , [place] tel: [phone] [facility] [place] Encounter for dental exam and cleaning w abnormal findings 1 Unruly Yusuf. [address], [place], [place], [address]. tel:[phone] Referring Provider: Paramjit Tolliver, [address], [place], [address] . tel:[phone] [facility], [address], [place], [place], [address] , [place] tel:[phone] [facility] [place] Encounter for dental exam and cleaning w abnormal findings 1 Unruly Yusuf. [address], [place], [place], [address]. tel:[phone] Referring Provider: Paramjit Tolliver, [address], [place], [address] . tel:[phone] [facility], [address], [place], [place], [address] , [place] tel:[phone] [facility] Other chronic pain 1 James Hale. [address], [place], [place], [address], [place]. tel:[phone] [facility], [address], [place], [place], [address] , tel:[phone] [facility] No Information 0 James Hale. [address], [place], [place], [address], [place]. tel:[phone] [facility], [address], [place], [place], [address] , [place] tel:[phone] [facility] [place] Encounter for dental exam and cleaning w abnormal findings 0 Unruly Yusuf. [address], [place], [place], [address]. tel:[phone] Referring Provider: Paramjit Tolliver, [address], [place], [address] . tel:[phone] [facility], [address], [place], [place], [address] , [place] tel:[phone] [facility] [place] Dental caries on smooth surface penetrating into dentinDental caries on pit and fissure surfc penetrat into dentin 0 Unruly Yusuf. [address], [place], [place], [address]. tel:[phone] Referring Provider: Paramjit Tolliver, [address], [place], [address] . tel:[phone] [facility], [address], [place], [place], [address] , [place] tel:[phone] [facility] [place] Encounter for dental exam and cleaning w abnormal findings 0 David Marx. [address], [place], [place], [address]. tel:[phone] [facility], [address], [place], [place], [address] , tel:[phone] [facility] [place] Encounter for dental exam and cleaning w/o abnormal findings 0 No Information [facility], [address], [place], [address] [place] [address] , tel: [phone] [facility] No Information 0 No Information [facility], [address], [place], [address] [place] [address] , tel: [phone] [facility] No Information 0 James Hale. [address], [place], [address] [place] [address], . tel:[phone] [facility], [address], [place], [address] [place] [address] , tel: [phone] [facility] [place] No Information 0 King Summer. [address], [place], [address] [place] [address], . tel:[phone] [facility], [address], [place], [address] [place] [address] , tel: [phone] [facility] [place] No Information 0 King Summer. [address], [place], [address] [place] [address], [place]. tel:[phone] OFFICE/OUTPATI ENT VISIT, EST [facility], [address], [place], [address] [place] [address] , tel: [phone] [facility] pain (chief complaint) Body mass index (BMI) 40.0-44.9, adultUnilate ral post-traumat ic osteoarthrit is, right hip 0 James Hale. [address], [place], [address] [place] [address], [place]. tel:[phone] Referring Provider: Alexia Ramirez, [address], [place], [address] . tel:[phone] [facility], [address], [place], [address] [place] [address] , [place] tel: [phone] [facility] [place] Major depressive disorder, recurrent, moderateObes ity, unspecified Jul- 0 Gokul Mcduffie. [address], [place], [address] [place] [address], . 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 [address], [place], [place], [address], . tel:[phone] OFFICE OUTPT EST 25 MIN [facility], [address], [place], [place], [address] , tel: [phone] [facility] [place] c/o vaginal discharge (chief complaint) Body mass index (BMI) 40.0-44.9, adultVaginit isEncounter for STI screeningEnc ntr for special procedures nurse exam (general) (routine) w/o abn findings No Information OFFICE/OUTPATI ENT VISIT, EST [facility], [address], [place], [place], [address] , [place] tel: [phone] [facility] pain (chief complaint) Body mass index (BMI) 40.0-44.9, adultAchille s tendinitis, unspecified leg 9 Jmaes Hale. [address], [place], [place], [address], . tel:[phone] Referring Provider: Alexia Ramirez, [address], [place], [address] . tel:[phone] OFFICE/OUTPATI ENT VISIT, NEW [facility], [address], [place], [place], [address] , tel:[phone] [facility] Foot (chief complaint) Body mass index (BMI) 40.0-44.9, adultAchille s tendinitis, unspecified legCalcaneal spur, unspecified foot Milton- 9 No Information [facility], [address], [place], [place], [address] , [place] tel: [phone] [facility] No Information [place]- 9 No Information OFFICE/OUTPATI ENT VISIT, EST [facility], [address], [place], [place], [address] , [place] tel: [phone] [facility] [place] / ankle pain (chief complaint) Achilles tendinitis, unspecified leg [place]- 9 No Information OFFICE/OUTPATI ENT VISIT, EST [facility], [address], [place], [place], [address] , [place] tel: [phone] [facility] check up (chief complaint) Achilles tendinitis, unspecified legCalcaneal spur, unspecified footCarpal tunnel syndrome, unspecified upper limbPain in unspecified kneeBack painPain in unspecified hip Oct-0 9 James Hale. [address], [place], [place], [address], [place]. tel:[phone] OFFICE/OUTPATI ENT VISIT, EST [facility], [address], [place], [place], [address] , [place] tel: [phone] [facility] follow up (chief complaint) Body mass index (BMI) 40.0-44.9, adultChronic pain syndromeMajo r depressive disorder, single episode, unspecifiedP ain in unspecified footEssentia l (primary) hypertension Carpal tunnel syndrome, unspecified upper limb Oct-0 9 No Information [facility], [address], [place], [place], [address] , [place] tel: [phone] [facility] [place] blurry vision (chief complaint)karla rry vision (chief complaint) Hypermetropi a, left eyeRegular astigmatism, bilateralPre sbyopia Milton-0 9 Xenia Crawford. [address], [place], [place], [address], [place]. tel:[phone] Referring Provider: Ekaterina King, [address], [place], [address] . tel:[phone] OFFICE/OUTPATI ENT VISIT, EST [facility], [address], [place], [place], [address] , tel:[phone] [facility] medication refills (chief complaint) Body mass index (BMI) 40.0-44.9, adultPrimary generalized (osteo)arthr itisMajor depressive disorder, recurrent, moderateEsse ntial (primary) hypertension Hyperlipidem iaChronic pain syndrome No Information Referring Provider: Ekaterina King [address], [place], [address] . tel:[phone] [facility], [address], [place], [place], [address] , [place] tel: [phone] [facility] /neck pain (chief complaint) CervicalgiaS egmental and somatic dysfunction of thoracic region No Information Referring Provider: Ekaterina King [address], [place], [address] . tel:[phone] OFFICE/OUTPATI ENT VISIT, EST [facility], [address], [place], [place], [address] , [place] tel:[phone] [facility] [place] /neck pain (chief complaint) CervicalgiaS egmental and somatic dysfunction of thoracic region No Information Referring Provider: Ekaterina King [address], [place], [address] . tel:[phone] [facility], [address], [place], [place], [address] , [place] tel:[phone] [facility] Neck, shoulder, back, and hip pain (chief complaint) Body mass index (BMI) 40.0-44.9, adult Fe No Information OFFICE/OUTPATI ENT VISIT, EST [facility], [address], [place], [place], [address] , [place] tel:[phone] [facility] hypertension (chief complaint)Mus culoskeletal pain (chief complaint)Hyp erlipidemia (follow up) (chief complaint) Body mass index (BMI) 38.0-38.9, adultAchille s tendinitis of legEssential (primary) hypertension Hyperlipidem iaPain in left shoulderPrim pretty generalized (osteo)arthr itis Jan-2 0- 8 No Information [facility], [address], [place], [place], [address] , [place] tel: [phone] [facility] [place] /neck pain (chief complaint) CervicalgiaS egmental and somatic dysfunction of thoracic region Jan-0 8 No Information [facility], [address], [place], [place], [address] , [place] tel: [phone] [facility] [place] /BL ankles (chief complaint) Achilles tendinitis of legSegmental and somatic dysfunction of lower extremity 8 No Information 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 [address], [place], [place], [address], [place]. tel:[phone] Referring Provider: Ekaterina King [address], [place], [address] . tel:[phone] OFFICE OUTPT EST 25 MIN [facility], [address], [place], [place], [address] , [place] tel: [phone] [facility] follow up (chief complaint)Hyp erlipidemia (follow up) (chief complaint)Hyp ertension (follow up) (chief complaint)Obe sity (chief complaint)Ost eoarthritis (chief complaint) Body mass index (BMI) 39.0-39.9, adultObesity , unspecifiedH yperlipidemi aHTNPain in right hip 8 No Information [facility], [address], [place], [place], [address] , [place] tel: [phone] [facility] [place] Right hip pain (chief complaint)Lef t achilles (chief complaint) Osteoarthrit is of hip, unspecifiedA chilles tendinitis of leg 8 No Information [facility], [address], [place], [place], [address] , [place] tel: [phone] [facility] [place] right hip pain (chief complaint)lef t Achilles (chief complaint) Osteoarthrit is of hip, unspecifiedA chilles tendinitis of leg 8 No Information [facility], [address], [place], [place], [address] , [place] tel: [phone] [facility] [place] left Achilles (chief complaint)rig ht hip (chief complaint)nec k pain (chief complaint) Achilles tendinitis of legOsteoarth ritis of hip, unspecifiedM yofascial pain syndrome 8 No Information [facility], [address], [place], [place], [address] , [place] tel: [phone] [facility] hip and Achilles (chief complaint) Achilles tendinitis of legPain in right hip 8 No Information [facility], [address], [place], [place], [address] , [place] tel: [phone] [facility] [place] hip and Achilles pain (chief complaint) Sprain of ligaments of cervical spine, sequelaOsteo arthritis of hip, unspecifiedA chilles tendinitis of legSegmental and somatic dysfunction of lumbar regionSegmen valencia and somatic dysfunction of lower extremity 8 No Information [facility], [address], [place], [place], [address] , [place] tel: [phone] [facility] right hip pain (chief complaint)lef t Achilles pain (chief complaint) Achilles tendinitis of legPain in right hipOsteoarth ritis of hip, unspecifiedS egmental and somatic dysfunction of lower extremitySeg mental and somatic dysfunction of lumbar region Jul-05 16- 8 No Information [facility], [address], [place], [place], [address] , [place] tel: [phone] [facility] [place] right hip pain (chief complaint)Ach illes pain (chief complaint) Pain in right hipOsteoarth ritis of hip, unspecifiedS egmental and somatic dysfunction of lower extremitySeg mental and somatic dysfunction of lumbar region Jul-0 8 No Information [facility], [address], [place], [place], [address] , [place] tel: [phone] [facility] right hip and left Achilles pain (chief complaint) Achilles tendinitis of legPain in right hipOsteoarth ritis of hip, unspecifiedS egmental and somatic dysfunction of lumbar regionSegmen valencia and somatic dysfunction of lower extremity Feb-2 - 8 No Information [facility], [address], [place], [address] , [place] tel: [phone] [facility] right hip pain (chief complaint)lef t Achilles pain (chief complaint) Achilles tendinitis of legPain in right hipSegmental and somatic dysfunction of lumbar regionSegmen valencia and somatic dysfunction of lower extremity Feb-2 - 8 No Information [facility], [address], [place], [place], [address] , [place] tel: [phone] [facility] right hip pain (chief complaint)ank le pain (chief complaint) Achilles tendinitis of legPain in right hipOsteoarth ritis of hip, unspecifiedS egmental and somatic dysfunction of lumbar regionSegmen valencia and somatic dysfunction of lower extremity b-05 20- 8 No Information OFFICE/OUTPATI ENT VISIT, EST [facility], [address], [place], [place], [address] , [place] tel: [phone] [facility] [place] JOSÉ MANUEL (chief complaint) Trichomonal vulvovaginit isEncounter for screening for other disorder Jun- 8 Fernando Tobar. [address], [place], [place], [address], [place]. tel:[phone] [facility], [address], [place], [place], [address] , [place] tel: [phone] [facility] [place] Encounter for dental exam and cleaning w abnormal findings b- 8 No Information [facility], [address], [place], [place], [address] , [place] tel: [phone] [facility] right hip pain (chief complaint)ach illes pain (chief complaint) Achilles tendinitis of legSegmental and somatic dysfunction of lumbar regionSegmen valencia and somatic dysfunction of lower extremityPai n in right hip Feb-1 8 No Information [facility], [address], [place], [place], [address] , [place] tel: [phone] [facility] [place] right hip pain (chief complaint)Ach illes pain (chief complaint) Pain in right hipAchilles tendinitis of legOsteoarth ritis of hip, unspecifiedS egmental and somatic dysfunction of lumbar regionSegmen valencia and somatic dysfunction of lower extremity Feb-0 8- 8 No Information OFFICE/OUTPATI ENT VISIT, EST [facility], [address], [place], [place], [address] , [place] tel: [phone] [facility] [place] right hip pain (chief complaint)ach illes pain (chief complaint) Pain in right hipAchilles tendinitis of legOsteoarth ritis of hip, unspecifiedS egmental and somatic dysfunction of lumbar regionSegmen valencia and somatic dysfunction of lower extremity Feb-0 6- 8 No Information [facility], [address], [place], [place], [address] , [place] tel: [phone] [facility] [place] right hip pain (chief complaint) Pain in right hipOsteoarth ritis of hip, unspecifiedS egmental and somatic dysfunction of lower extremitySeg mental and somatic dysfunction of lumbar region Feb-0 - 8 No Information [facility], [address], [place], [place], [address] , [place] tel: [phone] [facility] [place] right hip pain (chief complaint) Pain in right hipSegmental and somatic dysfunction of lumbar regionSegmen valencia and somatic dysfunction of lower extremityOst eoarthritis of hip, unspecified 8 No Information OFFICE/OUTPATI ENT VISIT, NEW [facility], [address], [place], [place], [address] , [place] tel: [phone] [facility] [place] hip pain (chief complaint) Pain in right hip 8 No Information OFFICE/OUTPATI ENT VISIT, EST [facility], [address], [place], [place], [address] , [place] tel: [phone] [facility] [place] Check up (chief complaint) Trichomonal vulvovaginit isCandidiasi s of vulva and vaginaEncoun ter for screening for other disorderEncn tr for special procedures nurse exam (general) (routine) w abnormal findings 8 Fernando Tobar. [address], [place], [place], [address], [place]. tel:[phone] Referring Provider: Ekaterina King [address], [place], [address] . tel:[phone] OFFICE/OUTPATI ENT VISIT, EST [facility], [address], [place], [place], [address] , [place] tel: [phone] [facility] [place] Hyperlipidemi a (follow up) (chief complaint)Hyp ertension (follow up) (chief complaint)Obe sity (chief complaint)Chr onic Pain (chief complaint)Pre ventive exam (chief complaint) Hyperlipidem iaMorbid (severe) obesity due to excess caloriesHTNC hronic pain syndromeEnco unter for general adult medical examination with abnormal findings 8 No Information Psychiatric Diagnostic Evaluation [facility], [address], [place], [place], [address] , [place] tel: [phone] [facility] [place] Major depressive disorder, recurrent, moderate 7 No Information Referring Provider: Ekaterina King [address], [place], [address] . 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 [address], [place], [place], [address], . tel:[phone] Referring Provider: Ekaterina King, [address], [place], [address] . 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 [address], [place], [place], [address], . tel:[phone] Referring Provider: Ekaterina King, [address], [place], [address] . tel:[phone] [facility], [address], [place], [place], [address] , tel:[phone] [facility] Encounter for screening mammogram for cancer of breast [facility]. [address], [place], [place], [address], . 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 [address], [place], [place], [address], [place]. tel:[phone] Referring Provider: Ekaterina King, [address], [place], [address] . 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 [address], [place], [place], [address], . tel:[phone] Referring Provider: Ekaterina King [address], [place], [address] . tel:[phone] OFFICE OUTPT EST 25 MIN [facility], [address], [place], [place], [address] , [place] tel:[phone] [facility] [place] Obesity, unspecifiedH TNCalcaneal spur, unspecified footHyperlip idemiaChroni c pain syndrome 3 7 No Information [facility], [address], [place], [place], [address] , [place] tel: [phone] [facility] [place] Dental caries on smooth surface penetrating into dentin 6 No Information OFFICE/OUTPATI ENT VISIT, EST [facility], [address], [place], [place], [address] , tel: [phone] [facility] conslt (chief complaint) Prolapse of anterior vaginal wallUterovag inal prolapseEncn tr for special procedures nurse exam (general) (routine) w abnormal findings 6 Naveen-Colleenabhijit Hirsch. [address], [place], [place], [address], [place]. tel:[phone] Referring Provider: Joycelyn Naveen-Call sania, [address], [place], [address] . tel:[phone] OFFICE/OUTPATI ENT VISIT, EST [facility], [address], [place], [place], [address] , tel:[phone] [facility] [place] Vaginal irritation (chief complaint) Candidiasis of vulva and yxvbsw5sr degree uterine prolapseEnco unter for test, result unknown Fernando Tobar. [address], [place], [place], [address], . tel:[phone] Referring Provider: Ekaterina King, [address], [place], [address] . tel:[phone] [facility], [address], [place], [place], [address] , tel:[phone] [facility] blurry vision (chief complaint)Lon aters (chief complaint)karla rry vision (chief complaint)Lon aters (chief complaint) Myopia, bilateralPre sbyopiaVitre ous degeneration , bilateralHTN - 6 No Information [facility], [address], [place], [place], [address] , [place] tel:[phone] [facility] [place] Encounter for dental exam and cleaning w abnormal findings 0- 6 Konrad Peña. [address], [place], [place], [address]. tel:[phone] [facility], [address], [place], [place], [address] , tel: [phone] [facility] Calcaneal spur, unspecified footCarpal tunnel syndrome, unspecified upper limb No Information OFFICE OUTPT EST 25 MIN [facility], [address], [place], [place], [address] , tel: [phone] [facility] c/o pain in both heels, ankles and hips (chief complaint)Obe sity (chief complaint)Hyp erlipidemia (follow up) (chief complaint)Hyp ertension (follow up) (chief complaint) Chronic pain syndromePain in unspecified jointObesity , unspecifiedH yperlipidemi a, unspecifiedE ssential (primary) hypertension No Information [facility], [address], [place], [place], [address] , tel: [phone] [facility] No Information Tepe Smamie. [address], [place], [place], [address], . tel:[phone] Referring Provider: Ekaterina King, [address], [place], [address] . tel:[phone] OFFICE OUTPT EST 25 MIN [facility], [address], [place], [place], [address] , tel: [phone] [facility] med exam (chief complaint)blo od pressure f/u (chief complaint)HLD f/u (chief complaint)anx iety (chief complaint)lef t hip,right knee, both hands & feet pain (chief complaint) Obesity, unspecifiedC alcaneal spur, unspecified footHyperlip idemia, unspecifiedP ain in unspecified knee No Information 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; 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; 40-64 [facility], [address], [place], [place], [address] , tel: [phone] [facility] annual exam (chief complaint)vag inal odor (chief complaint) VaginitisEnc ounter for STI screeningEnc ounter for screening mammogram for cancer of breastEncoun ter for routine special procedures nurse exam w/ abnormal findingEncou nter for screening for cancer of colonEncount er for screening for HIVEncounter for screening for other disorderEnco unter for test, result unknown 6 Fernando Tobar. [address], [place], [place], [address], [place]. tel:[phone] Referring Provider: Ekaterina King, [address], [place], [address] . tel:[phone] [facility], [address], [place], [place], [address] , [place] tel:[phone] [facility] Unruly Yusuf. [address], [place], [place], [address]. tel:[phone] Referring Provider: Paramjit Tolliver, [address], [place], [address] . tel:[phone] [facility], [address], [place], [place], [address] , [place] tel: [phone] [facility] examination No Information OFFICE/OUTPATI ENT VISIT, EST [facility], [address], [place], [place], [address] , [place] tel: [phone] [facility] Pt is here for DFE (chief complaint)Pt is here for DFE (chief complaint) PresbyopiaMy opia No Information OFFICE/OUTPATI ENT VISIT, EST [facility], [address], [place], [place], [address] , [place] tel: [phone] [facility] Follow Up of Hosp (chief complaint)KNE E DJD had shot (chief complaint) Thigh contusionChe st contusionAnx ietyHospital discharge follow-up 5 Katty Newell. [address], [place], [place], [address], [place]. tel:[phone] Referring Provider: Osiris Alaniz, [address], [place], [address] . tel:[phone] OFFICE/OUTPATI ENT VISIT, NEW [facility], [address], [place], [place], [address] , [place] tel: [phone] [facility] blurry vision (chief complaint)karla rry vision (chief complaint) Regular astigmatismM yopiaPresbyo piaAllergic conjunctivit is No Information OFFICE OUTPT EST 25 MIN [facility], [address], [place], [place], [address] , [place] tel: [phone] [facility] Right knee f/u (chief complaint)hyp ertension (chief complaint) Screening for alcoholismBe nign essential hypertension Obesity, unspecifiedE sophageal refluxOsteoa rthrosis, generalized, involving unspecified siteDepressi onKnee joint pain No Information OFFICE OUTPT EST 25 MIN [facility], [address], [place], [place], [address] , [place] tel: [phone] [facility] er f/u (chief complaint)ref errals (chief complaint) Internal knee derangementO besity, unspecifiedB enign essential hypertension Esophageal refluxHLD - Hyperlipidae [facility] No Information [facility], [address], [place], [place], [address] , [place] tel: [phone] [facility] No Information No Information OFFICE OUTPT EST 25 MIN [facility], [address], [place], [place], [address] , [place] tel: [phone] [facility] back pain (chief complaint)hip back (chief complaint)sev ere knee pain (chief complaint)hyp ertension (chief complaint) Benign essential hypertension Obesity, unspecifiedO steoarthrosi s, generalized, involving unspecified siteHLD - Hyperlipidae [place] 5 No Information 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; 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; 40-64 [facility], [address], [place], [place], [address] , tel: [phone] [facility] annual exam (chief complaint)vag inal discharge/itc job (chief complaint)pro lapse concern (chief complaint)bc consult (chief complaint) examination or test, unconfirmedR outine gynecologica l examinationO ther screening mammogram 5 No Information OFFICE OUTPT EST 25 MIN [facility], [address], [place], [place], [address] , tel: [phone] [facility] hosp f/u (chief complaint)hyp ertension (chief complaint)car diac cath (chief complaint)ref ills (chief complaint) Obesity, unspecifiedC hest painHTNHLD - Hyperlipidae [place] 4 No Information OFFICE OUTPT EST 25 MIN [facility], [address], [place], [place], [address] , tel: [phone] [facility] depression (chief complaint)lani at knee pain (chief complaint)mark vated bp (chief complaint) Obesity, unspecifiedK nee joint painElevated blood pressure reading w/ no diagnosis of HT 4 No Information OFFICE/OUTPATI ENT VISIT, EST [facility], [address], [place], [place], [address] , [place] tel: [phone] [facility] pain in joints (chief complaint) Carpal Tunnel SyndromeCalc aneal spurObesityK nee joint pain 4 No Information OFFICE/OUTPATI ENT VISIT, EST [facility], [address], [place], [place], [address] , [place] tel: [phone] [facility] bil[facility] hand pain (chief complaint) Carpal Tunnel Syndrome 4 Jose Alfredo Slater. [address], [place], [place], [address], . tel:[phone] Referring Provider: Bryon Veliz, [address], [place], [address] . tel:[phone] [facility], [address], [place], [place], [address] , tel: [phone] [facility] examination 4 No Information OFFICE/OUTPATI ENT VISIT, EST [facility], [address], [place], [place], [address] , [place] tel: [phone] [facility] Carpal Tunnel SyndromeDepr essionInsomn ia due to medical condition classified elsewhereObe sity 4 No Information 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; 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; 40-64 [facility], [address], [place], [place], [address] , [place] tel: [phone] [facility] annual visit (chief complaint) Gynecologica l ExaminationS creening examination for venereal disease 4 No Information OFFICE/OUTPATI ENT VISIT, EST [facility], [address], [place], [place], [address] , [place] tel: [phone] [facility] JOSÉ MANUEL (chief complaint) Screening examination for venereal diseaseDysur ia 3 No Information OFFICE/OUTPATI ENT VISIT, EST [facility], [address], [place], [place], [address] , [place] tel: [phone] [facility] tx (chief complaint) Trichomonal vulvovaginit is 3 No Information [facility], [address], [place], [place], [address] , [place] tel: [phone] [facility] Carpal tunnel syndromeCarp al tunnel syndromeTric homonal vulvovaginit is 2 No Information OFFICE OUTPT EST 25 MIN [facility], [address], [place], [place], [address] , [place] tel: [phone] [facility] Backache, unspecifiedP ain in joint involving pelvic region and thighObesity , unspecifiedC arpal tunnel syndrome 2 No Information 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; 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; 40-64 [facility], [address], [place], [place], [address] , [place] tel: [phone] [facility] annual visit (chief complaint) Routine gynecologica l examinationO ther screening mammogramVag initis and vulvovaginit is, unspecifiedS urveillance of other contraceptiv e method 2 No Information OFFICE OUTPT EST 25 MIN [facility], [address], [place], [place], [address] , [place] tel: [phone] [facility] Carpal tunnel syndromeOste oarthrosis, generalized, involving multiple sitesAllergi c rhinitis, cause unspecifiedM orbid obesity 2 Brian Romo. [address], [place], [place], [address], [place]. tel:[phone] OFFICE/OUTPATI ENT VISIT, EST [facility], [address], [place], [place], [address] , [place] tel: [phone] [facility] control (chief complaint)yumiko t results (chief complaint) Other malaise and fatigue 1 No Information OFFICE/OUTPATI ENT VISIT, EST [facility], [address], [place], [place], [address] , [place] tel: [phone] [facility] muscle spams in feet and legs (chief complaint) Osteoarthros is, generalized, involving multiple sitesCarpal tunnel syndromeAlle rgic rhinitis, cause unspecifiedE sophageal refluxRoutin e general medical examination at a health care facility 1 No Information 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; 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; 40-64 [facility], [address], [place], [place], [address] , [place] tel: [phone] [facility] annual visit (chief complaint) Routine gynecologica l examinationO ther screening mammogramSur veillance of other contraceptiv e methodScreen ing examination for venereal diseaseLeuko rrhea, not specified as infectiveLum p or mass in breast 1 No Information OFFICE/OUTPATI ENT VISIT, EST [facility], [address], [place], [place], [address] , [place] tel: [phone] [facility] bc nuva ring (chief complaint) Surveillance of other contraceptiv e method 0 No Information OFFICE/OUTPATI ENT VISIT, EST [facility], [address], [place], [place], [address] , [place] tel: [phone] [facility] control (chief complaint)ble eding (chief complaint)adilene ght gain (chief complaint) Surveillance of other contraceptiv e methodObesit y, unspecified 0 No Information OFFICE/OUTPATI ENT VISIT, EST [facility], [address], [place], [place], [address] , [place] tel: [phone] [facility] depo (chief complaint) Excessive or frequent menstruation 0 No Information OFFICE/OUTPATI ENT VISIT, EST [facility], [address], [place], [place], [address] , [place] tel: [phone] [facility] routine (chief complaint) Osteoarthros is, generalized, involving multiple sitesPain in joint, site unspecifiedA llergic rhinitis, cause unspecified 0 No Information [facility], [address], [place], [place], [address] , [place] tel: [phone] [facility] No Information 0 No Information [facility], [address], [place], [place], [address] , [place] tel: [phone] [facility] No Information 0 No Information OFFICE/OUTPATI ENT VISIT, EST [facility], [address], [place], [place], [address] , [place] tel: [phone] [facility] depo (chief complaint)exc essive vaginal bleeding (chief complaint) Surveillance of other contraceptiv e methodExcess jai or frequent menstruation 0 No Information OFFICE OUTPT EST 10 MIN [facility], [address], [place], [place], [address] , [place] tel: [phone] [facility] Surveillance of other contraceptiv e method 9 No Information [facility], [address], [place], [place], [address] , [place] tel: [phone] [facility] repeat pap (chief complaint)yumiko t results (chief complaint) Screening for malignant neoplasms of the cervixSurvei llance of other contraceptiv e method 9 No Information [facility], [address], [place], [place], [address] , [place] tel: [phone] [facility] education (chief complaint) Inadequate material resourcesIna dequate material resources 9 No Information OFFICE OUTPT EST 25 MIN [facility], [address], [place], [place], [address] , [place] tel: [phone] [facility] Arthralgias (chief complaint)Ove rweight (chief complaint)Car pel tunnel on right (chief complaint)Sti es (chief complaint) Osteoarthros is, generalized, involving multiple sitesCarpal tunnel syndromeOver weight and obesityFamil y history of malignant neoplasm of gastrointest inal tract 9 No Information [facility], [address], [place], [place], [address] , [place] tel: [phone] [facility] Routine gynecologica l examinationI rregular menstrual cycleScreeni ng examination for venereal disease 9 No Information OFFICE OUTPT EST 25 MIN [facility], [address], [place], [place], [address] , [place] tel: [phone] [facility] annual visit (chief complaint) Routine gynecologica l examinationS creening examination for venereal diseaseIrreg ular menstrual cycle 9 No Information 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; 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; 40-64 [facility], [address], [place], [place], [address] , [place] tel: [phone] [facility] ROUTINE DIRECTOR TELECOMMUNICATIONS EXAMINATION 8 No Information OFFICE/OUTPATI ENT VISIT, EST [facility], [address], [place], [place], [address] , [place] tel: [phone] [facility] FAMILY HX-GI MALIGNANCYCA RPAL TUNNEL SYNDROMEIMPA IRED FASTING GLUCOSEJOINT PAIN-UNSPEC Nov-3 0-200 7 No Information [facility], [address], [place], [place], [address] , [place] tel: [phone] [facility] JOINT PAIN-UNSPECS CREEN LIPOID DISORDERSMAL AISE AND FATIGUE NECLABORATOR Y EXAMINATION Aug- 7 No Information OFFICE OUTPT NEW 20 MINUTES [facility], [address], [place], [place], [address] , [place] tel: [phone] [facility] ALLERGIC RHINITIS NOSMALAISE AND FATIGUE NECCARPAL TUNNEL SYNDROMEFAMI LY HX-GI MALIGNANCY Aug- 7 No Information OFFICE CONSULT, 15 MIN, 3 SORENSEN COMPS: PROB FOCUS HX; PROB FOCUS EXAM; STRTFWD [facility], [address], [place], [place], [address] , [place] tel: [phone] [facility] COUNSELING NOS Aug- 7 [...] Record Payers Payer name Insurance type Covered republican ID David rodas(s) Adan [facility] Dual Complete [facility] CI [id number] Social History Type Description Quantity Date Captured [...] Influenza vaccin e. Due on due Goal DIRECTOR TELECOMMUNICATIONS exam. Due on due Goal Pap/HPV testing. Due on due Goal Mammogram. Due on 2 due Goal Colonoscopy. Due on due Goal Urine Microalbum in. Due on due Goal Breast exam. Due on due Goal H&P. Due on due Goal DIRECTOR TELECOMMUNICATIONS exam. Due on due Goal Influenza vaccin e. Due on due Goal Colonoscopy. Due on due Goal Pap/HPV testing. Due on due Goal Mammogram. Due on due Goal Mammogram. Due on due Goal DIRECTOR TELECOMMUNICATIONS exam. Due on due Goal Breast exam. [...] Influenza vaccin e. Due on due Goal DIRECTOR TELECOMMUNICATIONS exam. Due on due Goal Urine Microalbum in. Due on due Goal Influenza vaccin e. Due on due Goal Mammogram. Due on due Goal H&P. Due on due Goal Pap/HPV testing. Due on due Goal Colonoscopy. Due on due Goal Breast exam. Due on due Goal DIRECTOR TELECOMMUNICATIONS exam. Due on due Goal Lifestyle educat ion regarding diet completed Goal Colonoscopy. Due on due Goal Mammogram. Due on 9 due Goal Influenza vaccin e. Due on due Goal H&P. Due on due Goal DIRECTOR TELECOMMUNICATIONS exam. Due on due Goal Urine Microalbum in. Due on due Goal Breast exam. Due on 019 due Goal Pap/HPV testing. Due on due Goal Lifestyle educat ion regarding diet completed Goal DIRECTOR TELECOMMUNICATIONS exam. Due on due Goal Urine Microalbum in. Due on due Goal H&P. Due on due Goal Colonoscopy. Due on due Goal Influenza vaccin e. Due on due Goal Mammogram. Due on due Goal Breast exam. Due on 019 due Goal Pap/HPV testing. Due on due Goal Pap/HPV testing. Due on due Goal H&P. Due on due Goal DIRECTOR TELECOMMUNICATIONS exam. Due on due Goal Mammogram. Due on 9 due Goal Urine Microalbum in. Due on due Goal Colonoscopy. Due on due Goal Breast exam. Due on due Goal Influenza vaccin e. Due on due Goal DIRECTOR TELECOMMUNICATIONS exam. Due on due Goal H&P. Due [...] Influenza vaccin e. Due on due Goal DIRECTOR TELECOMMUNICATIONS exam. Due on due Goal H&P. Due on due Goal Pap/HPV testing. Due on due Goal Colonoscopy. Due on due Goal Urine Microalbum in. Due on due Goal Influenza vaccin e. Due on due Goal Urine Microalbum in. Due on due Goal Pap/HPV testing. Due on due Goal DIRECTOR TELECOMMUNICATIONS exam. Due on due Goal Colonoscopy. Due on due Goal Mammogram. Due on due Goal Breast exam. Due on due Goal H&P. Due on due Goal DIRECTOR TELECOMMUNICATIONS exam. Due on due Goal Colonoscopy. Due on due Goal Influenza vaccin e. Due on due Goal Urine Microalbum in. Due on due Goal H&P. Due on due Goal Mammogram. Due on due Goal Pap/HPV testing. Due on due Goal Breast exam. Due on due Goal Urine Microalbum in. Due on due Goal Breast exam. Due on due Goal DIRECTOR TELECOMMUNICATIONS exam. Due on due Goal Colonoscopy. Due [...] due Goal Mammogram. Due on due Goal DIRECTOR TELECOMMUNICATIONS exam. Due on due Goal Breast exam. Due on due Goal Breast exam. Due on due Goal Urine Microalbum in. Due on due Goal H&P. Due on due Goal Colonoscopy. Due on due Goal Mammogram. Due on due Goal DIRECTOR TELECOMMUNICATIONS exam. Due on due Goal Pap/HPV testing. Due on due Goal Colonoscopy. Due on due Goal Breast exam. Due on due Goal H&P. Due on due Goal Mammogram. Due on due Goal Pap/HPV testing. Due on due Goal Urine Microalbum in. Due on due Goal DIRECTOR TELECOMMUNICATIONS exam. Due on due Goal Mammogram. Due on due Goal H&P. Due on due Goal Pap/HPV testing. Due on due Goal Urine Microalbum in. Due on due Goal Breast exam. Due on due Goal Colonoscopy. Due on due Goal DIRECTOR TELECOMMUNICATIONS exam. Due on due Goal Colonoscopy. Due on due Goal DIRECTOR TELECOMMUNICATIONS exam. Due on due Goal Breast exam. Due on due Goal Pap/HPV testing. Due on due Goal Mammogram. Due on due Goal Urine Microalbum in. Due on due Goal H&P. Due on due Goal Urine Microalbum in. Due on due Goal DIRECTOR TELECOMMUNICATIONS exam. Due on due Goal Breast exam. Due on due Goal Colonoscopy. Due on due Goal H&P. Due on due Goal Mammogram. Due on due Goal Pap/HPV testing. Due on due Goal Breast exam. Due on due Goal DIRECTOR TELECOMMUNICATIONS exam. Due on due Goal Mammogram. Due on due Goal Urine Microalbum in. Due on due Goal Pap/HPV testing. Due on due Goal H&P. Due on due Goal Colonoscopy. Due on due Goal DIRECTOR TELECOMMUNICATIONS exam. Due on due Goal Mammogram. Due [...] Goal Mammogram. Due on 9 due Goal DIRECTOR TELECOMMUNICATIONS exam. Due on due Goal Pap/HPV testing. Due on due Goal PAP. Due on due Goal Breast exam. Due on due Goal DIRECTOR TELECOMMUNICATIONS exam. Due on due Goal BMP fasting. Due on due Goal Urine Microalbum in. Due on due Goal Urinalysis. Due on 11 due Goal H&P. Due on due Goal CPK. Due on due Goal Breast exam. Due on due Goal Urinalysis. Due on 11 due Goal DIRECTOR TELECOMMUNICATIONS exam. Due on due Goal PAP. Due on due Goal BMP fasting. Due on due Goal Urine Microalbum in. Due on due Goal CPK. Due on due Goal H&P. Due on due Goal DIRECTOR TELECOMMUNICATIONS exam. Due on due Goal H&P. Due [...] Goal Urinalysis. Due on 11 due Goal DIRECTOR TELECOMMUNICATIONS exam. Due on due Goal PAP. Due on due Goal DIRECTOR TELECOMMUNICATIONS exam. Due on due Goal PAP. Due [...] Urine Microalbum in. Due on due Goal DIRECTOR TELECOMMUNICATIONS exam. Due on due Goal PAP. Due on due Goal Urinalysis. Due on 11 due Goal CPK. Due on due Goal H&P. Due on due Goal Urine Microalbum in. Due on due Goal BMP fasting. Due on due Goal DIRECTOR TELECOMMUNICATIONS exam. Due on due Goal H&P. Due on due Goal Urinalysis. Due on 11 due Goal Breast exam. Due on due Goal PAP. Due on due Goal CPK. Due on due Goal Urine Microalbum in. Due on due Goal Urinalysis. Due on 11 due Goal DIRECTOR TELECOMMUNICATIONS exam. Due on due Goal H&P. Due on due Goal CPK. Due on due Goal PAP. Due on due Goal Breast exam. Due on due Goal BMP fasting. Due on due Goal PAP. Due on due Goal BMP fasting. Due on due Goal DIRECTOR TELECOMMUNICATIONS exam. Due on due Goal H&P. Due on due Goal CPK. Due on due Goal Breast exam. Due on due Goal Urinalysis. Due on 11 due Goal Urine Microalbum in. Due on due Goal Urinalysis. Due on due Goal CPK. Due on due Goal BMP fasting. Due on due Goal PAP. Due on due Goal DIRECTOR TELECOMMUNICATIONS exam. Due on due Goal Breast exam. Due on due Goal Urine Microalbum in. Due on due Goal H&P. Due on due Goal Urine Microalbum in. Due on due Goal CPK. Due on due Goal BMP fasting. Due on due Goal H&P. Due on due Goal DIRECTOR TELECOMMUNICATIONS exam. Due on due Goal Urinalysis. Due on 11 due Goal PAP. Due on due Goal Breast exam. Due on due Goal H&P. Due on due Goal PAP. Due on due Goal DIRECTOR TELECOMMUNICATIONS exam. Due on due Goal BMP fasting. [...] Goal Breast exam. Due on due Goal DIRECTOR TELECOMMUNICATIONS exam. Due on due Goal Breast exam. Due on due Goal Urine Microalbum in. Due on due Goal DIRECTOR TELECOMMUNICATIONS exam. Due on due Goal H&P. Due on due Goal Urinalysis. Due on 11 due Goal BMP fasting. Due on due Goal CPK. Due on due Goal PAP. Due on due Goal BMP fasting. Due on due Goal PAP. Due on due Goal H&P. Due on due Goal Urine Microalbum in. Due on due Goal DIRECTOR TELECOMMUNICATIONS exam. Due on due Goal CPK. Due on due Goal Breast exam. Due on due Goal Urinalysis. Due on 11 due Goal Breast exam. Due on due Goal BMP fasting. Due on due Goal Urinalysis. Due on 11 due Goal CPK. Due on due Goal Urine Microalbum in. Due on due Goal DIRECTOR TELECOMMUNICATIONS exam. Due on due Goal H&P. Due on due Goal PAP. Due on due Goal DIRECTOR TELECOMMUNICATIONS exam. Due on due Goal H&P. Due [...] Urine Microalbum in. Due on due Goal DIRECTOR TELECOMMUNICATIONS exam. Due on due Goal Breast exam. Due on due Goal Urine Microalbum in. Due on due Goal CPK. Due on due Goal PAP. Due on due Goal Urinalysis. Due on due Goal DIRECTOR TELECOMMUNICATIONS exam. Due on due Goal BMP fasting. Due on due Goal H&P. Due on due Goal Urine Microalbum in. Due on due Goal H&P. Due on due Goal DIRECTOR TELECOMMUNICATIONS exam. Due on due Goal BMP fasting. Due on due Goal Breast exam. Due on due Goal CPK. Due on due Goal PAP. Due on due Goal Urinalysis. Due on 11 due Goal BMP fasting. Due on due Goal CPK. Due on due Goal Urinalysis. Due on 11 due Goal H&P. Due on due Goal DIRECTOR TELECOMMUNICATIONS exam. Due on due Goal Breast exam. Due on due Goal Urine Microalbum in. Due on due Goal PAP. Due on due Goal BMP fasting. Due on due Goal PAP. Due on due Goal Breast exam. Due on due Goal Urinalysis. Due on 11 due Goal H&P. Due on due Goal DIRECTOR TELECOMMUNICATIONS exam. Due on due Goal CPK. Due on due Goal Urine Microalbum in. Due on due Goal DIRECTOR TELECOMMUNICATIONS exam. Due on due Goal PAP. Due [...] Goal BMP fasting. Due on due Goal DIRECTOR TELECOMMUNICATIONS exam. Due on due Goal H&P. Due on due Goal BMP fasting. Due on due Goal Breast exam. Due on due Goal Urinalysis. Due on 11 due Goal PAP. Due on due Goal H&P. Due on due Goal Urine Microalbum in. Due on due Goal CPK. Due on due Goal DIRECTOR TELECOMMUNICATIONS exam. Due on due Goal DIRECTOR TELECOMMUNICATIONS exam. Due on due Goal BMP fasting. Due on due Goal H&P. Due on due Goal Urine Microalbum in. Due on due Goal PAP. Due on due Goal Breast exam. Due on due Goal CPK. Due on due Goal Urinalysis. Due on 11 due Goal DIRECTOR TELECOMMUNICATIONS exam. Due on due Goal Urinalysis. Due on 11 due Goal BMP fasting. Due on due Goal Breast exam. Due on due Goal H&P. Due on due Goal CPK. Due on due Goal PAP. Due on due Goal Urine Microalbum in. Due on due Goal PAP. Due on due Goal CPK. Due on due Goal Urinalysis. Due on 11 due Goal DIRECTOR TELECOMMUNICATIONS exam. Due on due Goal H&P. Due on due Goal Breast exam. Due on due Goal Urine Microalbum in. Due on due Goal BMP fasting. Due on due Goal BMP fasting. Due on due Goal Urine Microalbum in. Due on due Goal CPK. Due on due Goal H&P. Due on due Goal PAP. Due on due Goal Breast exam. Due on due Goal DIRECTOR TELECOMMUNICATIONS exam. Due on due Goal Urinalysis. Due on 11 due Goal Urinalysis. Due on 11 due Goal Urine Microalbum in. Due on due Goal CPK. Due on due Goal DIRECTOR TELECOMMUNICATIONS exam. Due on due Goal BMP fasting. Due on due Goal H&P. Due on due Goal Breast exam. Due on due Goal PAP. Due on due Goal BMP fasting. Due on due Goal Urine Microalbum in. Due on due Goal H&P. Due on due Goal DIRECTOR TELECOMMUNICATIONS exam. Due on due Goal CPK. Due on due Goal Breast exam. Due on due Goal PAP. Due on due Goal Urinalysis. Due on due Goal DIRECTOR TELECOMMUNICATIONS exam. Due on due Goal H&P. Due [...] due Goal H&P. Due on due Goal DIRECTOR TELECOMMUNICATIONS exam. Due on due Goal Breast exam. Due on due Goal CPK. Due on due Goal Urine Microalbum in. Due on due Goal Breast exam. Due on due Goal Urinalysis. Due on 11 due Goal H&P. Due on due Goal DIRECTOR TELECOMMUNICATIONS exam. Due on due Goal PAP. Due on due Goal BMP fasting. Due on due Goal DIRECTOR TELECOMMUNICATIONS exam. Due on due Goal Urine Microalbum in. Due on due Goal Breast exam. Due on due Goal CPK. Due on due Goal BMP fasting. Due on due Goal PAP. Due on due Goal H&P. Due on due Goal Urinalysis. Due on 11 due Goal Breast exam. Due on due Goal H&P. Due on due Goal Urinalysis. Due on 11 due Goal DIRECTOR TELECOMMUNICATIONS exam. Due on due Goal PAP. Due [...] due Goal H&P. Due on due Goal DIRECTOR TELECOMMUNICATIONS exam. Due on due Goal DIRECTOR TELECOMMUNICATIONS exam. Due on due Goal BMP fasting. Due on due Goal Breast exam. Due on due Goal CPK. Due on due Goal PAP. Due on due Goal Urine Microalbum in. Due on due Goal H&P. Due on due Goal Urinalysis. Due on 11 due Goal H&P. Due on due Goal PAP. Due on due Goal DIRECTOR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
--- OUTSIDE RECORDS SUMMARY | 2024-07-02 16:11 | XMS_ITS | Continuity of Care Document ---
Author Organization [employer] Address [address] [place] [address] Phone Care Team Providers Care Associate Teacher Name Role Phone Lala Bah Unavailable Unavailabl [...] MG - Active Procedures Procedure Date OFFICE [id number] SYST BP GE 130 - 139MM HG DIAST BP 80-89 MM HG ANTINUCLEAR ANTIBODIES (JANIS) CYCLIC CITRULLINE PEPTIDE (CCP) 024 RHEUMATOID FACTOR: QN RBC SED RATE, AUTOMATED ROUTINE VENIPUNCTURE EKG (ELECTROCARDIOGRAM) CENTROMERE B ANTIBODY CHROMATIN ANTIBODY STEVE-1 ANTIBODY RIBOSOMAL P ANTIBODY SM ANTIBODY SM/PEOPLESOFT ADMINISTRATOR ANTIBODY PEOPLESOFT ADMINISTRATOR ANTIBODY SJOGREN'S (SS-A) ANTIBODY SJOGREN'S (SS-B) ANTIBODY DNA ANTIBODIES (DS), OMAHA SCLERODERMA ANTIBODY,SCL-70 TELEPHONE ASSESSMENT AND MAN AGEMENT SERVICE PROVID 5-10 MINUTES OF MEDICAL DISCU CBC, INC PLATELETS AND DIFFERENTIAL COMPREHEN METABOLIC PANEL CMP LIPID PANEL PARATHYROID HORMONE (PTH) ROUTINE VENIPUNCTURE OFFICE [id number] Visit Complexity Inherent To E/M 2023 SYST BP LT 130 MM HG DIAST BP 80-89 MM HG Pt inelig neg scrn depres OFFICE [id number] Visit Complexity Inherent To E/M 2023 SYST BP GE 130 - 139MM HG DIAST BP 80-89 MM HG Triamcinolone Acetonide Injection, 10mg ASP/INJ MAJOR JOINTOR BURSA, SHOULDER, H IP,KNEE W/O US GUIDANCE OFFICE [id number] SYST BP >= 140 MM HG6 IT DIAST BP >= 90 MM HG DSCHRG MED/CURRENT MED MERGE Transitional Care- 14 Days Of Discharge SYST BP GE 130 - 139MM HG DIAST BP >= 90 MM HG BASIC METABOLIC PANEL(BMP) ROUTINE VENIPUNCTURE INHALATION TREATMENT/THERAPY ALBUTEROL, INHALATION BERTHA, F DA-APPRVD FINAL PRODUCT, NON-COMPOUNDED, ADM THROUGH OFFICE [id number] SYST BP >= 140 MM HG6 IT [...] Diagnoses Date Provider Providers Copied on Encounter [facility], [address], [place], [place], [address] , tel:[phone] [facility] No Information 5 Elliot Reeves. [address], [place], [address], [place]. tel:[phone] OFFICE SGBKT-HAD-THP ANICETO [facility], [address], [place], [place], [address] , tel:[phone] [facility] f/u (chief complaint) Pain of hand, unspecified lateralityPAC (premature atrial contraction)Nail abnormality 4 Koko Warner. [address], [place], [address], [place]. tel:[phone] Referring Provider: Rafael Gutierrez, [address] [place], [address] . tel:[phone] [facility], [address], [place], [place], [address] , [phone] [facility] COVID-19 4 Elliot Reeves. [address], [place], [address], [place]. tel:[phone] Referring Provider: Rafael Gutierrez, [address] [place], [address] . tel:[phone] [facility], [address], [place], [place], [address] , tel:[phone] [facility] No Information 4 Scarlet Ayoub. [facility]0 [facility], [address], [id number], . tel:[phone] OFFICE [id number]-UWN-IGO ANICETO [facility], [address], [place], [place], [address] , [place] tel:[phone] [facility] routine follow up (chief complaint)C hronic Conditions (chief complaint)c hronic conditions (chief complaint) Essential (primary) hypertensionHyperp arathyroidism, unspecifiedAcute pain of right shoulderRight hip painAcute pain of right kneeLeft hip painGeneralized headachesPostnasal dripAcute gastric ulcer without hemorrhage or perforationPain in unspecified jointHyperlipidemi a, unspecifiedGeneral ized anxiety disorderMajor depressive disorder, recurrent, moderateEncounter for immunization 4 Matt Hall. [address], [place], [address], . tel:[phone] Referring Provider: Rafael Gutierrez, [address] [facility], [place], [address] . tel:[phone] [facility], [address], [place], [place], [address] , tel: [phone] [facility] No Information 4 Matt Hall. [address] [facility] [address], [place], [place], [address], . tel:[phone] [facility], [address], [place], [place], [address] , tel: [phone] [facility] No Information 4 Matt Hall. [address] [facility], [place], [place], [address], . tel:[phone] [facility], [address], [place], [place], [address] , [place] tel: [phone] [facility] No Information 4 Matt Hall. [address] [facility] [address], [place], [place], [address], . tel:[phone] [facility], [address], [place], [place], [address] , tel: [phone] [facility] No Information 4 Matt Hall. [address] [facility] [address], [place], [place], [address], [place]. tel:[phone] OFFICE [id number]-YGP [facility], [address], [place], [place], [address] , [place] tel: [phone] Ofelia routine follow up (chief complaint)C hronic Conditions (chief complaint) Acute gastric ulcer without hemorrhage or perforationHyperpa rathyroidism, unspecifiedPostnas al drip 4 Matt Hall. [address] [facility], [place], [place], [address], [place]. tel:[phone] Referring Provider: Rafael Gutierrez, [address] [facility], [place], [address] . tel:[phone] OFFICE PSKJE-EHJ-KQC [facility], [address], [place], [place], [address] , [place] tel: [phone] Ofelia L knee pain (chief complaint) Left leg painOsteoarthritis of left knee, unspecified osteoarthritis typeEssential (primary) hypertensionLacera tion of left index finger without foreign body without damage to nail, initial encounter 4 Koko Warner. [address], [place], [address], [place]. tel:[phone] Referring Provider: Rafael Gutierrez, [address] [facility], [place], [address] . tel:[phone] Transitional Care- 14 Days Of Discharge [facility], [address], [place], [place], [address] , [place] tel: [phone] [facility] d/c f/u (chief complaint) Pain in right kneePain in left kneeAcute gastritis without hemorrhage, unspecified gastritis typeHospital discharge follow-upLaceratio n of left index finger without foreign body without damage to nail, initial encounterEssential (primary) hypertension [place]- 4 Koko Warner. [address], [place], [address], [place]. tel:[phone] Referring Provider: Rafael Gutierrez, [address] [facility], [place], [address] . tel:[phone] OFFICE [id number]-[id number]-GPW ANICETO [facility], [address], [place], [place], [address] , tel: [phone] [facility] Dyspnea (chief complaint) Shortness of breath 4 Matt Hall. [address] [facility], [place], [place], [address], [place]. tel:[phone] Referring Provider: Rafael Gutierrez, [address] [place] [address] B, [place], [address] . tel:[phone] [facility] [employer], [address], [place], [place], [address] , [place] tel: [phone] [facility] No Information 4 Matt Hall. [address] [facility], [place], [place], [address], [place]. tel:[phone] PREVENTATIVE- NEW: 40-64 [facility] [employer], [address], [place], [place], [address] , tel: [phone] [facility] establish care (chief complaint)C hronic Conditions (chief complaint) Encounter for general adult medical examination without abnormal findingsAnemia, unspecifiedPain in jointGeneralized anxiety disorderMajor Depressive Disorder, Single episode, ModerateCarpal tunnel syndrome, unspecified upper limbHyperparathyro idism, unspecifiedGastro- esophageal reflux disease without esophagitisEssenti al (primary) hypertensionHyperl ipidemia, unspecified Jul- 4 Matt Hall. [address] [facility], [place], [place], [address], [place]. tel:[phone] Referring Provider: Rafael Gutierrez, [address] [place] [address] B, [place], [address] . tel:[phone] [facility] [employer], [address], [place], [place], [address] , tel: [phone] [facility] ROUTINE MEDICAL EXAM 0-200 3 Justa Henry. [address] [facility] [address], [place], [place], [address]. tel:[phone] Family History Family Member Type Diagnosis Age At Onset Brother Problem ADD/ADHD Mother Problem Learning disability Brother Problem Hypertension Mother Problem Hypertension Father Problem Hypertension Payers Payer name Insurance type Covered constitution party ID Authorcampbell rodas(s) [facility] MDCR DUAL COMPLETE HMO [id number] MEDICAID [facility] [id number] Social History Type Description Quantity Date Captured [...] Doppler vein of extremity lower left Left (08474), Sent on: Sent History Of Present Illness Encounter Date Complaint History Of Prese nt Illness ER f/u Adryan is a 53 y/o F who presents to the office today for ER f/u. Pt seen [facility] ED 04/23 2/2 flu like symptoms. Had [...] office today for hospital d/c f/u.Pt admitted [facility] 10/31-11/01 2/2 RUQ pain and laceration of [...] to Nail abnormality EKG NSR at [facility]. reviewed EKG from ED, does appear more [...] a TENS unit. These can be purchased [id number] and worn under your clothes. -- Routine [...]
--- NOTE | 2024-07-02 18:40 | ADMGEN ---
This patient, Adryan Torre, was admitted to [facility] Surg Room 311-01. Patient/family oriented to hospital policies and general routines including ID bracelet, bed and alarms, visiting hours, pain management, procedures, bathroom and other care routines, personal items, smoking policy, room service/diet, and visiting hours. Information on how to activate the Rapid Response Team has been discussed. Patient/Family are encouraged to report perceived risks to care and to ask questions if they do not understand what they are told or what they should do.
--- NOTE | 2024-07-02 21:16 | PC.NURSE ---
This RN called pharmacy to get an ETA on the Miralax/Gatorade. I was informed that there was a mix up with the view d/t pt was supposed to be in a room at this time. Pharmacy stated they will tube Miralx to ED and Gatorade will come from the cafeteria. Mac zayas/ infomed and will obtain from cafe.
[2024-07-02] MEDS: polyethylene glycoL 3350 238 GM BOTTLE 119 GM PO (21:56)
[2024-07-03] MEDS: AMITRIPTYLINE HCL 10 MG TABLET PO (00:04)
[2024-07-03] MEDS: PREGABALIN (*CRX) 50 MG CAPSULE PO ×2 (00:04→08:26)
[2024-07-03 00:54] LABS: Hemoglobin 12.3 g/dL (12.0-15.0)
--- NOTE | 2024-07-03 03:22 | ADMGEN ---
This patient, Adryan Torre, was admitted to [facility] Surg Room 330-01. Patient/family oriented to hospital policies and general routines including ID bracelet, bed and alarms, visiting hours, pain management, procedures, bathroom and other care routines, personal items, smoking policy, room service/diet, and visiting hours. Information on how to activate the Rapid Response Team has been discussed. Patient/Family are encouraged to report perceived risks to care and to ask questions if they do not understand what they are told or what they should do.
[2024-07-03 04:00] VITALS: BP 137/76; PULSE 68; RESP 18; TEMP 36.6; O2SAT 97
[2024-07-03] MEDS: polyethylene glycoL 3350 238 GM BOTTLE 119 GM PO (05:31)
[2024-07-03] MEDS: LACTATED RINGERS 1,000 ML 125 ML IV CONT (06:47)
[2024-07-03 08:00] LABS: Basophils Percent Auto 0.2 % (0.2-1.2); Eosinophils Absolute Auto 0.1 K/mm3 (0-0.3); Eosinophils Percent Auto 1.7 % (0-4.4); Hematocrit 33.9 % (37.0-47.0); Hemoglobin 11.2 g/dL (12.0-15.0); Immature Granulocyte Absolute 0.01 K/mm3 (0.00-0.031); Immature Granulocyte Percent A 0.2 % (0-0.5); Lymphocytes Absolute Auto 1.37 K/mm3 (0.9-3.2); Lymphocytes Percent Auto 28.8 % (18.3-44.2); Mean Corpuscular Hemoglobin 30.1 pg (26-34); Mean Corpuscular Volume 91.1 fl (80-100); Mean Platelet Volume 10.3 fl (7.4-10.4); Monocytes Absolute Auto 0.4 K/mm3 (0.1-0.6); Monocytes Percent Auto 7.8 % (2.6-8.5); Neutrophils Absolute Auto 2.9 K/mm3 (1.3-6.7); Neutrophils Percent Auto 61.3 % (45.5-73.1); Platelet Count Result 177 k/mm3 (150-375); Red Blood Count 3.72 M/mm3 (4.2-5.4); Red Cell Distribution Width 13.5 % (11.5-14.5); White Blood Count 4.8 K/mm3 (4.5-10.0)
[2024-07-03 08:11] LABS: Alanine Aminotransferase 18 U/L (6-35); Albumin Level 3.6 g/dL (3.5-5.1); Alkaline Phosphatase 75 U/L (38-126); Anion Gap 6 mmol/L (4-12); Aspartate Amino Transferase 24 U/L (14-36); Bilirubin,Total 0.7 mg/dL (0.2-1.3); Blood Urea Nitrogen 2 mg/dL (7-17); Calcium 8.9 mg/dL (8.4-10.2); Carbon Dioxide 29 mmol/L (22-30); Chloride 107 mmol/L (98-107); Estimated CRCL calculation 117 ml/min; Estimated Glomerular Filt Rate > 60; Glucose 109 mg/dL (65-110); Magnesium 1.7 mg/dL (1.6-2.3); Potassium 3.6 mmol/L (3.4-5.0); Sodium 142 mmol/L (137-145)
[2024-07-03] MEDS: DULoxetine HCL 60 MG CAPSULE.DR PO (08:26)
[2024-07-03 08:32] LABS: Iron 60 ug/dL (37-170)
[2024-07-03 08:42] LABS: Percent Iron Saturation 23 % (20-50)
[2024-07-03 10:46] VITALS: BP 145/75; PULSE 65; RESP 20; TEMP 36.1; O2SAT 100
[2024-07-03] MEDS: LACTATED RINGERS 1,000 ML 150 ML IV CONT (10:48)
--- NOTE | 2024-07-03 11:35 | P.PNAN_ITS ---
Anes - Initial Pre Proc Eval Procedure: Operation Date: 07/03/24 11:30 Proposed Procedures p Colonoscopy - Robert Olson MD Date/Time: 07/03/24 11:35 Surgeon: Magda Mann DO Pre Op Diagnosis: GI Bleed Patient Data Age: 53 Gender: F Height: 1.65 m Weight: 104.5 kg Last Vital Signs Temp 97.0 F L 07/03/24 10:46 Pulse 65 07/03/24 10:46 Resp 20 07/03/24 10:46 BP 145/75 H 07/03/24 10:46 Pulse Ox 100 07/03/24 10:46 O2 Del Method Room Air 07/03/24 10:46 Allergies Allergy/AdvReac Type Severity Reaction Status Date / Time seafood Allergy Rash Uncoded 07/03/24 10:43 Home Medications ?Medication ?Instructions ?Recorded ?Confirmed ?Type amitriptyline 10 mg tablet 10 mg PO HS 11/01/23 07/02/24 History calcium citrate 1,900 mg PO TID 11/01/23 07/02/24 History cetirizine 10 mg tablet (Zyrtec) 10 mg PO DAILY PRN allergies 11/01/23 07/02/24 History cholecalciferol (vitamin D3) 25 25 mcg PO DAILY 11/01/23 07/02/24 History mcg (1,000 unit) tablet cyanocobalamin (vitamin B-12) 50 50 mcg PO TID 11/01/23 07/02/24 History mcg tablet (Vitamin B-12) cyclobenzaprine 10 mg tablet 10 mg PO HS 11/01/23 07/02/24 History diclofenac sodium 1 % topical gel 2 g topical QID 11/01/23 07/02/24 History duloxetine 60 mg capsule,delayed 60 mg PO DAILY 11/01/23 07/02/24 History release (Cymbalta) fluticasone propionate 50 2 spray intranasal DAILY 11/01/23 07/02/24 History mcg/actuation nasal spray,suspension glucosamine sulfate 500 mg tablet 500 mg PO BID 11/01/23 07/02/24 History lidocaine 5 % topical patch 1 patch topical DAILY 11/01/23 07/02/24 History lisinopril 20 mg tablet 20 mg PO DAILY 11/01/23 07/02/24 History magnesium oxide 500 mg capsule 500 mg PO DAILY 11/01/23 07/02/24 History pravastatin 20 mg tablet 20 mg PO DAILY 11/01/23 07/02/24 History sennosides 8.6 mg capsule (senna) 8.6 mg PO BID 11/01/23 07/02/24 History pantoprazole 40 mg tablet,delayed 40 mg PO Q12HR #60 tabs 11/02/23 07/02/24 Rx release sucralfate 1 gram tablet (Carafate) 1 g PO QID #120 tabs 11/02/23 07/02/24 Rx acetaminophen 500 mg capsule 1,000 mg (2 x 500 mg) PO Q6H PRN 04/24/24 07/02/24 Rx pain #30 caps pregabalin 50 mg capsule 50 mg PO Q12H 07/02/24 07/02/24 History Laboratory Tests 07/02/24 07/03/24 07/03/24 13:04 00:50 07:35 WBC 4.8 K/mm3 (4.5-10.0) RBC 3.72 L M/mm3 (4.2-5.4) Hgb 10.9 L g/dL 12.3 g/dL 11.2 L g/dL (12.0-15.0) (12.0-15.0) (12.0-15.0) Hct 32.7 L % 37.0 % 33.9 L % (37.0-47.0) (37.0-47.0) (37.0-47.0) MCV 91.1 fl (80-100) MCH 30.1 pg (26-34) MCHC 33.0 g/dl (32-36) RDW 13.5 % (11.5-14.5) Plt Count 177 k/mm3 (150-375) MPV 10.3 fl (7.4-10.4) Immature Gran % (Auto) 0.2 % (0-0.5) Neut % (Auto) 61.3 % (45.5-73.1) Lymph % (Auto) 28.8 % (18.3-44.2) Baldwin % (Auto) 7.8 % (2.6-8.5) Eos % (Auto) 1.7 % (0-4.4) Baso % (Auto) 0.2 % (0.2-1.2) Lymph # (Auto) 1.37 K/mm3 (0.9-3.2) Baldwin # (Auto) 0.4 K/mm3 (0.1-0.6) Eos # (Auto) 0.1 K/mm3 (0-0.3) Baso # (Auto) 0.0 K/mm3 (0.0-0.1) Abs Immat Gran (auto) 0.01 K/mm3 (0.00-0.031) Absolute Neuts (auto) 2.9 K/mm3 (1.3-6.7) Absolute Nucleated RBC 0.000 K/mm3 (0.0-0.012) Nucleated RBC % 0.0 % (0.0-0.2) Sodium 142 mmol/L (137-145) Potassium 3.6 mmol/L (3.4-5.0) Chloride 107 mmol/L (98-107) Carbon Dioxide 29 mmol/L (22-30) Anion Gap 6 mmol/L (4-12) BUN 2 L D mg/dL (7-17) Creatinine 0.55 L mg/dL (0.7-1.0) Estim Creat Clear Calc 117 ml/min Estimated GFR > 60 (59 - ) Glucose 109 mg/dL (65-110) Calcium 8.9 mg/dL (8.4-10.2) Magnesium 1.7 mg/dL (1.6-2.3) Iron 60 ug/dL (37-170) TIBC 259 L ug/dL (261-462) % Saturation 23 % (20-50) Ferritin 37.10 ng/mL (11.1-264) Total Bilirubin 0.7 mg/dL (0.2-1.3) AST 24 U/L (14-36) ALT 18 U/L (6-35) Alkaline Phosphatase 75 U/L (38-126) Total Protein 7.0 g/dL (6.3-8.2) Albumin 3.6 g/dL (3.5-5.1) Patient hx anesthesia problems: none Family hx anesthesia problems: none Results Review: All pre-operative results and documents have been reviewed as part of the pre- operative evaluation. [facility] Past Medical History Medical History Anxiety Hypothyroidism RAFIA (obstructive sleep apnea) Hypertension Hyperlipidemia Surgical History Surgical History History of partial hysterectomy History of thyroidectomy Family History Family History Mother Aneurysm Heart disease Hypertension Gout Father Diabetes mellitus Hypertension Social History Social History Smoking status: Never smoker Second hand tobacco smoke exposure: No Alcohol intake: never Substance use: never Substance use type: does not use Do You Feel Safe in your Home?: Yes Lack of Transportation: No Lack of Food: Never True Current Housing: I Have Housing Concerned About Future Housing: No Difficulty Paying Gas/Electric Bills: No Difficulty Paying for Meds: No Currently Unemployed: No Education: High School Diploma/GED Difficulty w/ Childcare or Family Care: No Spiritual care concerns: No Anes - Eval Final PreProcedure Day of Procedure 07/03/24 11:35 Patient weight: obese Lungs: normal air movement Airway: Mallampati scale class II Neurological: alert and oriented Last oral intake: >/= 8 hours ASA classification: III Emergent: no Anesthetic plan: proceed Anesthesia type and monitoring: general GIVS and standard monitoring Results Review: All pre-operative results and documents have been reviewed as part of the pre- operative evaluation. HTN, hyperlipidemia. RAFIA suspected but never been tested. Now w anemia, for colonscopy. Informed Consent: The patient's anesthetic plan and its attendant risks and benefits were discussed with the patient/family/POA. Questions were solicited and answers provided to the satisfaction of the patient/family/POA.
[2024-07-03 11:55] VITALS: BP 116/70; PULSE 64; RESP 13; O2SAT 99
[2024-07-03 12:05] VITALS: BP 131/82; PULSE 63; RESP 13; O2SAT 99
[2024-07-03 12:15] VITALS: BP 151/88; PULSE 62; RESP 16; O2SAT 100
--- NOTE | 2024-07-03 12:27 | WPDGIPROGNO ---
Progress Note: A&P Assessment and Plan (1) Diverticulosis: Code(s): K57.90 - Diverticulosis of intestine, part unspecified, without perforation or abscess without bleeding Status: Acute Assessment and Plan: Most likely source of LGI bleeding is diverticulosis, usually self limited like in this patient's case. She can be discharged home. Plan - Discharge home Subjective Date/time seen: 07/03/24 12:27 Interval history: Pt did not have further bleeding, hemodynamically stable. See colonoscopy report Objective Data Vital Signs Vital Signs: Vital Signs - 24 hr 07/02/24 13:44 07/02/24 13:45 07/02/24 14:00 Temperature Pulse Rate 67 72 65 Respiratory Rate 19 22 H 19 Blood Pressure Pulse Oximetry 100 95 98 Oxygen Delivery 07/02/24 14:01 07/02/24 14:24 07/02/24 14:39 Temperature Pulse Rate 61 67 61 Respiratory Rate 10 L 11 L 14 Blood Pressure 133/95 H Pulse Oximetry 100 Oxygen Delivery 07/02/24 14:49 07/02/24 15:00 07/02/24 15:16 Temperature Pulse Rate 60 69 63 Respiratory Rate 16 16 15 Blood Pressure Pulse Oximetry Oxygen Delivery 07/02/24 15:30 07/02/24 15:45 07/02/24 16:12 Temperature Pulse Rate 63 53 L 101 H Respiratory Rate 11 L 10 L 34 H Blood Pressure Pulse Oximetry Oxygen Delivery 07/02/24 16:15 07/02/24 16:30 07/02/24 16:45 Temperature Pulse Rate 62 67 68 Respiratory Rate 14 17 15 Blood Pressure 150/79 H Pulse Oximetry 100 97 Oxygen Delivery 07/02/24 16:45 07/02/24 17:00 07/02/24 17:16 Temperature Pulse Rate 67 65 64 Respiratory Rate 22 H 14 13 Blood Pressure Pulse Oximetry 100 99 Oxygen Delivery 07/02/24 17:38 07/02/24 17:45 07/02/24 18:00 Temperature Pulse Rate 76 56 L 66 Respiratory Rate 20 16 19 Blood Pressure Pulse Oximetry Oxygen Delivery 07/02/24 18:06 07/02/24 18:15 07/02/24 18:16 Temperature Pulse Rate 65 59 L 60 Respiratory Rate 13 11 L 12 Blood Pressure 157/89 H 157/89 H Pulse Oximetry 100 99 100 Oxygen Delivery 07/02/24 18:30 07/02/24 19:01 07/02/24 19:15 Temperature Pulse Rate 73 59 L 72 Respiratory Rate 19 17 13 Blood Pressure Pulse Oximetry 100 99 100 Oxygen Delivery 07/02/24 19:43 07/02/24 19:45 07/02/24 20:00 Temperature Pulse Rate 66 64 66 Respiratory Rate 22 H 17 17 Blood Pressure Pulse Oximetry 98 98 99 Oxygen Delivery 07/02/24 20:21 07/02/24 20:30 07/02/24 20:45 Temperature Pulse Rate 56 L 66 68 Respiratory Rate 10 L 14 17 Blood Pressure Pulse Oximetry 100 100 100 Oxygen Delivery 07/02/24 21:13 07/02/24 21:15 07/02/24 21:57 Temperature Pulse Rate 57 L 57 L 75 Respiratory Rate 11 L 11 L 32 H Blood Pressure Pulse Oximetry 99 100 Oxygen Delivery 07/02/24 22:00 07/02/24 22:12 07/02/24 22:16 Temperature Pulse Rate 76 69 64 Respiratory Rate 23 H 18 12 Blood Pressure 160/97 H Pulse Oximetry 100 100 100 Oxygen Delivery 07/02/24 22:33 07/02/24 22:45 07/02/24 23:39 Temperature Pulse Rate 65 61 61 Respiratory Rate 25 H 21 H 21 H Blood Pressure Pulse Oximetry 99 99 99 Oxygen Delivery Room Air 07/02/24 23:44 07/03/24 04:00 07/03/24 08:00 Temperature 97.2 F L 97.9 F Pulse Rate 74 68 Respiratory Rate 18 18 Blood Pressure 152/98 H 137/76 Pulse Oximetry 99 97 Oxygen Delivery Room Air 07/03/24 10:46 07/03/24 11:55 07/03/24 12:05 Temperature 97.0 F L Pulse Rate 65 64 63 Respiratory Rate 20 13 13 Blood Pressure 145/75 H 116/70 131/82 Pulse Oximetry 100 99 99 Oxygen Delivery Room Air Room Air Room Air 07/03/24 12:15 Temperature Pulse Rate 62 Respiratory Rate 16 Blood Pressure 151/88 H Pulse Oximetry 100 Oxygen Delivery Room Air Intake/Output Intake/Output: Intake & Output 06/30/24 07/01/24 07/02/24 07/03/24 23:59 23:59 23:59 23:59 Intake Total 2506.3 1160 Output Total 3 Balance 2506.3 1157 Meds/Results Medications: Active Medications Generic Name Dose Route Start Last Admin Trade Name Albaroq PRN Reason Stop Dose Admin Amitriptyline HCl 10 mg 07/02/24 23:00 07/03/24 00:04 Amitriptyline Hcl 10 Mg Tablet PO 10 mg HS ANIYAH Administration Duloxetine HCl 60 mg 07/03/24 09:00 07/03/24 08:26 Duloxetine Hcl 60 Mg Capsule.Dr PO 60 mg DAILY ANIYAH Administration Fluticasone Propionate 2 spray 07/03/24 09:00 07/03/24 08:26 Fluticasone Propionate 0.05% Na Spr 16 Gm Btl (*Bkc) NASAL Not Given DAILY ANIYAH Lactated Ringer's 1,000 mls @ 125 mls/hr 07/02/24 07:00 07/03/24 06:47 Lr - Lactated Ringers Iv IV CONT 125 mls/hr .Q8H ANIYAH Administration Loratadine 10 mg 07/02/24 22:57 Loratadine 10 Mg Tablet PO DAILY PRN allergies Melatonin 5 mg 07/02/24 21:08 Melatonin 5 Mg Tablet PO HS PRN Sleep Pregabalin 50 mg 07/02/24 23:00 07/03/24 08:26 Pregabalin (*Crx) 50 Mg Capsule PO 50 mg Q12HR ANIYAH Administration Radiology Results: ITS Impressions Abdomen/Pelvis CT 07/02/24 06:20 Impression: Hyperdense material in the rectal lumen distally suggests rectal bleeding. No mass evident. Head CT 07/02/24 16:09 IMPRESSION: No acute intracranial process. Labs Labs: Laboratory Results - last 24 hr 07/02/24 07/03/24 07/03/24 13:04 00:50 07:35 WBC 4.8 RBC 3.72 L Hgb 10.9 L 12.3 11.2 L Hct 32.7 L 37.0 33.9 L MCV 91.1 MCH 30.1 MCHC 33.0 RDW 13.5 Plt Count 177 MPV 10.3 Immature Gran % (Auto) 0.2 Neut % (Auto) 61.3 Lymph % (Auto) 28.8 Tate % (Auto) 7.8 Eos % (Auto) 1.7 Baso % (Auto) 0.2 Lymph # (Auto) 1.37 Tate # (Auto) 0.4 Eos # (Auto) 0.1 Baso # (Auto) 0.0 Abs Immat Gran (auto) 0.01 Absolute Neuts (auto) 2.9 Absolute Nucleated RBC 0.000 Nucleated RBC % 0.0 Sodium 142 Potassium 3.6 Chloride 107 Carbon Dioxide 29 Anion Gap 6 BUN 2 L D Creatinine 0.55 L Estim Creat Clear Calc 117 Estimated GFR > 60 Glucose 109 Calcium 8.9 Magnesium 1.7 Iron 60 TIBC 259 L % Saturation 23 Ferritin 37.10 Total Bilirubin 0.7 AST 24 ALT 18 Alkaline Phosphatase 75 Total Protein 7.0 Albumin 3.6
--- NOTE | 2024-07-03 12:59 | PM.DS ---
DS: Admitting Diagnosis Discharge Date 07/03/24 Admitting Diagnosis Bright red blood per rectum DS: Discharge Diagnosis Discharge Diagnosis (1) Acute blood loss anemia: Code(s): D62 - Acute posthemorrhagic anemia Status: Acute (2) Diverticulosis: Code(s): K57.90 - Diverticulosis of intestine, part unspecified, without perforation or abscess without bleeding Status: Acute DS: Summary Hospital Course Hospital Course: 53-year-old female with history of hypertension presented to the ER on account of bright red blood per rectum. Patient reported she was in her usual state of health until about 4:00 a.m. this morning when she started passing blood with blood clots per rectum. Reported 3 episodes and this prompted her to present to the ER for proper evaluation and care. Denies any vomiting diarrhea no abdominal pain no chest pain no shortness of bread no lightheadedness no passing out. Complained of headache which she noted has been the duration of onset of rectal bleeding. ER evaluation notable for stable vital signs, labs notable for hemoglobin 11.1, CT abdomen pelvis showed a hyperdense material in the rectal lumen suggestive of rectal bleeding. Patient was admitted and GI was consulted prior to admission. No blood per rectum since admission and patient underwent colonoscopy today chich showed diverticulosis. Hb improved to 11.2, and iron studies showed iron replete with isat 23 and Ferritin 37.10. So no iron supplementation. Gi okayed discharge from their standpoint. patient was stable and asymptomatic and thus was discharged today. F/u with PCP in 3-5 days and GI as instructed Time Spent with Patient Time attestation: Total time spent providing and/or coordinating discharge services: DS: Data Data Completed and Pending Pending studies at discharge: Pending at discharge 07/03/24 11:51 Surgical [PTH] Routine Labs on day of discharge: Labs from last 24 hours 07/03/24 07/03/24 07/02/24 07:35 00:50 13:04 WBC 4.8 RBC 3.72 L Hgb 11.2 L 12.3 10.9 L Hct 33.9 L 37.0 32.7 L MCV 91.1 MCH 30.1 MCHC 33.0 RDW 13.5 Plt Count 177 MPV 10.3 Immature Gran % (Auto) 0.2 Neut % (Auto) 61.3 Lymph % (Auto) 28.8 [place] % (Auto) 7.8 Eos % (Auto) 1.7 Baso % (Auto) 0.2 Lymph # (Auto) 1.37 [place] # (Auto) 0.4 Eos # (Auto) 0.1 Baso # (Auto) 0.0 Abs Immat Gran (auto) 0.01 Absolute Neuts (auto) 2.9 Absolute Nucleated RBC 0.000 Nucleated RBC % 0.0 Sodium 142 Potassium 3.6 Chloride 107 Carbon Dioxide 29 Anion Gap 6 BUN 2 L D Creatinine 0.55 L Estim Creat Clear Calc 117 Estimated GFR > 60 Glucose 109 Calcium 8.9 Magnesium 1.7 Iron 60 TIBC 259 L % Saturation 23 Ferritin 37.10 Total Bilirubin 0.7 AST 24 ALT 18 Alkaline Phosphatase 75 Total Protein 7.0 Albumin 3.6 Discharge Plan Discharge Attending physician on discharge: Irene Song Discharging Clinician: Irene Song Anticipated Discharge Date/Time: 07/03/24 12:57 Patient Disposition: Home, Self-Care Activity: as tolerated Diet: as tolerated Patient Instructions: Antibiotic Form Patient Language: Turkmen Stand Alone Forms: General Discharge Information Follow-up/Referrals: PHYSICIAN,NAVAL MARINE ENGINEER [Primary Care Provider] - (Follow PCP in 3-5 days) Discharge Medications: Continued pravastatin 20 mg Tablet 20 mg PO DAILY diclofenac sodium 1 % Gel 2 g TOPICAL QID Rx Instructions: bilateral knees and hands calcium citrate 200 mg (950 mg) Tablet 1,900 mg PO TID Vitamin B-12 50 mcg Tablet 50 mcg PO TID glucosamine sulfate 500 mg Tablet 500 mg PO BID Rx Instructions: administer with meals lidocaine 5 % Adhesive Patch,Medicated 1 patch TOPICAL DAILY Rx Instructions: apply to lower back cetirizine [Zyrtec] 10 mg Tablet 10 mg PO DAILY PRN (Reason: allergies) cholecalciferol (vitamin D3) 25 mcg (1,000 unit) Tablet 25 mcg PO DAILY duloxetine [Cymbalta] 60 mg Capsule,Delayed Release(Dr/Ec) 60 mg PO DAILY lisinopril 20 mg Tablet 20 mg PO DAILY magnesium oxide 500 mg Capsule 500 mg PO DAILY senna 8.6 mg Capsule 8.6 mg PO BID amitriptyline 10 mg Tablet 10 mg PO HS cyclobenzaprine 10 mg Tablet 10 mg PO HS fluticasone propionate 50 mcg/actuation [place],Suspension 2 spray INTRANASAL DAILY Rx Instructions: administer into each nostril pantoprazole 40 mg Tablet,Delayed Release (Dr/Ec) 40 mg PO Q12HR Qty: 60 0RF Patient Comments: as needed sucralfate [Carafate] 1 gram tablet 1 g PO QID Qty: 120 0RF Rx Instructions: 1 tab before meal and and 1 tab at night time acetaminophen 500 mg capsule 1,000 mg PO Q6H PRN (Reason: pain) Qty: 30 0RF pregabalin 50 mg capsule 50 mg PO Q12H Date of admission: 07/02/24 13:49 Primary Care Provider: PHYSICIAN,NAVAL MARINE ENGINEER Admitting Provider: Magda Mann Attending physician on admission: Magda Mann Condition: Stable
== END 2024-07-03 14:25 | disposition home or self-care (01) ==
LOC: ANHED 06:43 → ANH3MEDSUR 07-03 06:11
PROVIDERS: Internal Medicine Gastroenterology; Admitting Provider Internal Medicine; Emergency Provider Emergency Medicine; Visit Provider Internal Medicine
PROC: 0DJD8ZZ Inspection of Lower Intestinal Tract, Via Natural or Artificial Opening Endoscopic (ICD-10-PCS; CPT 45378; principal; 2024-07-03 11:30)
DX: K57.31 Diverticulosis of large intestine without perforation or abscess with bleeding (principal); K63.5 Polyp of colon; K64.8 Other hemorrhoids; D62 Acute posthemorrhagic anemia; F41.9 Anxiety disorder, unspecified; E89.0 Postprocedural hypothyroidism; G47.33 Obstructive sleep apnea (adult) (pediatric); I10 Essential (primary) hypertension; E78.5 Hyperlipidemia, unspecified; R51.9 Headache, unspecified; E66.9 Obesity, unspecified; Z68.38 Body mass index [BMI] 38.0-38.9, adult; Z79.899 Other long term (current) drug therapy; Z87.11 Personal history of peptic ulcer disease; Z90.710 Acquired absence of both cervix and uterus
CPT/HCPCS: 45385; 36415; 70450; 74177; 80053; 81025; 82728; 83540; 83550; 83605; 83690; 83735; 85014; 85018; 85025; 85610; 85730; 86850; 86900; 86901; 88305; 93005; 96360; 96361; 99285; A9270; G0378; J1171; J2003; J2704; J7030; J7120; Q9967